=== PATIENT | male | born 1945 | race Caucasian/White ===

== ENCOUNTER 2018-11-10 12:02 | Emergency (ER) | payer OTHER ==
[2018-11-10 13:55] LABS: Urine Blood NEGATIVE (NEG); Urine Glucose NEGATIVE (NEG); Urine Protein NEGATIVE (NEG); Urine pH 5.5 (5.0-7.0)
[2018-11-10] MEDS ORDERED: ONDANSETRON 4 MG/2 ML VIAL ONE (15:14)
[2018-11-10] MEDS ORDERED: NA CHLORIDE 0.9% 1,000 ML ONE (15:14)
[2018-11-10 15:25] LABS: Absolute Lymphocytes (CBC) 3.2 K/uL (0.7-4.9); Basophils % 0.5 % (0-1.3); Hematocrit 35.6 % (39.6-49.0); Lymphocytes % 35.5 % (15.3-44.8); MPV 8.1 fL (7.6-11.3); RBC Red Blood Cell Count 3.43 M/uL (4.33-5.43)
[2018-11-10 15:26] LABS: Protime INR 1.02
[2018-11-10 15:30] LABS: Urine Amorphous Sediment 1+ /HPF (NONE SEEN); Urine Bacteria <20 /HPF (NONE SEEN); Urine Culture Reflex Order NOT NEEDED; Urine RBC <5 /HPF (NONE SEEN)
[2018-11-10 15:38] LABS: ALT/SGPT 34 U/L (12-78); AST/SGOT 18 U/L (15-37); Albumin 3.9 g/dL (3.4-5.0); Alkaline Phosphatase 66 U/L (45-117); BUN Blood Urea Nitrogen 14 mg/dL (7-18); Bicarbonate 29 mmol/L (21-32); Bilirubin Direct 0.1 mg/dL (0-0.2); Bilirubin Total 0.4 mg/dL (0.2-1.0); Glucose Level 126 mg/dL (74-106); Magnesium 2.4 mg/dL (1.8-2.4); Potassium 4.2 mmol/L (3.5-5.1); Protein, Total 6.8 g/dL (6.4-8.2); Sodium Level 138 mmol/L (136-145); Troponin (Emerg Dept Use Only) < 0.02 ng/mL (0.0-0.045)
[2018-11-10] MEDS ORDERED: MORPHINE 4 MG/ML SYR ONE ×2 (16:04→19:20)
--- NOTE | 2018-11-10 16:09 | RAD REPORT ---
EXAM DESCRIPTION: CT - Head Brain Wo Cont - 11/10/2018 3:36 pm CLINICAL HISTORY: Dizziness. Head injury status post fall COMPARISON: 2015 TECHNIQUE: Computed axial tomography of the head was obtained. IV contrast was not requested. All CT scans are performed using dose optimization technique as appropriate and may include automated exposure control or mA/KV adjustment according to patient size. FINDINGS: An intracranial bleed is not seen . The ventricles are normal in caliber. No extra-axial fluid collection is noted. Fluid within the sinuses/ mastoids is not seen. IMPRESSION: No acute intracranial abnormality is seen. If patient's symptoms persist MRI of the bra in would be recommended.
--- NOTE | 2018-11-10 16:19 | RAD REPORT ---
EXAM DESCRIPTION: Conner Single View11/10/2018 3:54 pm CLINICAL HISTORY: Chest pain COMPARISON: 2016 FINDINGS: The lungs appear clear of acute infiltrate. The heart is normal size IMPRESSION: No acute abnormalities displayed
--- NOTE | 2018-11-10 16:21 | RAD REPORT ---
EXAM DESCRIPTION: Eleonora11/10/2018 3:53 pm CLINICAL HISTORY: Back pain status post fall FINDINGS: Osteoporosis No fracture is seen
--- NOTE | 2018-11-10 16:22 | RAD REPORT ---
EXAM DESCRIPTION: RAD - Pelvis - 11/10/2018 3:54 pm CLINICAL HISTORY: Pelvic pain status post injury FINDINGS: No fracture or dislocation is seen. Osteoporosis If the patient continues to have symptoms to suggest an occult fracture then MRI would be recommended
--- NOTE | 2018-11-10 18:57 | RAD REPORT ---
EXAM DESCRIPTION: MRI - Brain Wo Cont - 11/10/2018 6:26 pm CLINICAL HISTORY: Ataxia COMPARISON: Head CT November 10, 2017 TECHNIQUE: Axial, sagittal, and coronal magnetic images of the brain were obtained. Contrast was not requested FINDINGS: No significant abnormal signal is present within the brain. Diffusion-weighted/ADC mapping does not reveal evidence of acute infarction. Mild cerebral atrophy An extra-axial fluid collection is not present The sinuses and mastoids are clear. IMPRESSION: No acute abnormality displayed
--- NOTE | 2018-11-10 19:21 | EDPHYS ---
Physician Documentation [facility] Name: Dylon Hannon Age: 73 yrs Sex: Male : 1945 Arrival Date: 11/10/2018 Time: 12:06 Bed 30 Private MD: ED Physician Mingo Howe HPI: 11/10 17:40 This 73 yrs old Male presents to ER via Ambulatory with complaints of Fall wa Injury, Headache, Dizziness, tailbone pain. 17:40 Details of fall: The patient fell from an upright position, while walking. Onset: The wa symptoms/episode began/occurred 3 day(s) ago. Associated injuries: The patient sustained injury to the head, tailbone. Severity of symptoms: At their worst the symptoms were moderate, in the emergency department the symptoms are unchanged. The patient has not experienced similar symptoms in the past. The patient has not recently seen a physician. pt admits to getting dizzy prior to fall. per caregiver, pt has been falling lately and unsteady on his feet. c/o posterior scalp pain. also tailbone pain. Historical: - Allergies: 12:15 No Known Allergies; hb - Home Meds: 13:51 Adalimumab 40mg/.08ml Inj Pen Kit--Inject under the skin every week [Active]; mg2 Amlodipine-Beslylate 5mg PO Daily [Active]; Biscadoyl 5mg EC Daily PRN [Active]; Bupropion HCL 150mg BID [Active]; Calcium Carb 500mg PO TID [Active]; Citalopram Hydrobromide 40mg PO daily with food [Active]; Fineastride 5mg PO Daily [Active]; Folic Acid 1mg PO Daily [Active]; Levothyrozine NA 0.075 mg Daily [Active]; Lisiniprol 20mg PO Daily [Active]; [id number] PO Daily [Active]; Metformin 500mg PO Daily [Active]; Methotrexate NA 2.5mg Take 4 tabs PO Every Week [Active]; Opt Needle, Pen 31G, 8MMM use as directed for Injection Therapy [Active]; Oxybutynin Chloride 5mg PO Daily [Active]; Pyridoxine HCL 50mg Daily [Active]; Sildenafil Citrate 100mg PO PRN [Active]; Simvastatin 80mg PO QHS [Active]; Sulfasalazine 500mg PO BID [Active]; Tamusolosin HCL 0.4mg Daily [Active]; Teriparatide 250mcg/ml --Inject 20mcg daily [Active]; trazodone 100 mg Oral tab 1 tab [Active]; zolpidem 10 mg Oral tab [Active]; - PMHx: 13:52 BPH; Depression; Erectile Dysfunction; High Cholesterol; Hyperlipidemia; Osteoporosis; mg2 Psoriatic Arthritis; - Social history:: Smoking status: Patient/guardian denies using tobacco. - Ebola Screening: : No symptoms or risks identified at this time. - Family history:: not pertinent. - Hospitalizations: : No recent hospitalization is reported. ROS: 17:43 Constitutional: Negative for fever, chills, and weight loss, Eyes: Negative for injury, wa pain, redness, and discharge, ENT: Negative for injury, pain, and discharge, Neck: Negative for injury, pain, and swelling, Cardiovascular: Negative for chest pain, palpitations, and edema, Respiratory: Negative for shortness of breath, cough, wheezing, and pleuritic chest pain, Abdomen/GI: Negative for abdominal pain, nausea, vomiting, diarrhea, and constipation, : Negative for injury, bleeding, discharge, and swelling, MS/Extremity: Negative for injury and deformity, Skin: Negative for injury, rash, and discoloration, Neuro: Negative for headache, weakness, numbness, tingling, and seizure, Psych: Negative for depression, anxiety, suicide ideation, homicidal ideation, and hallucinations. 17:43 Back: Positive for pain at rest, of the sacrum. Exam: 17:43 Constitutional: This is a well developed, well nourished patient who is awake, alert, wa and in no acute distress. Head/Face: Normocephalic, atraumatic. Eyes: Pupils equal round and reactive to light, extra-ocular motions intact. Lids and lashes normal. Conjunctiva and sclera are non-icteric and not injected. Cornea within normal limits. Periorbital areas with no swelling, redness, or edema. ENT: Nares patent. No nasal discharge, no septal abnormalities noted. Tympanic membranes are normal and external auditory canals are clear. Oropharynx with no redness, swelling, or masses, exudates, or evidence of obstruction, uvula midline. Mucous membranes moist. Neck: Trachea midline, no thyromegaly or masses palpated, and no cervical lymphadenopathy. Supple, full range of motion without nuchal rigidity, or vertebral point tenderness. No Meningismus. Chest/axilla: Normal chest wall appearance and motion. Nontender with no deformity. No lesions are appreciated. Cardiovascular: Regular rate and rhythm with a normal S1 and S2. No gallops, murmurs, or rubs. Normal PMI, no JVD. No pulse deficits. Respiratory: Lungs have equal breath sounds bilaterally, clear to auscultation and percussion. No rales, rhonchi or wheezes noted. No increased work of breathing, no retractions or nasal flaring. Abdomen/GI: Soft, non-tender, with normal bowel sounds. No distension or tympany. No guarding or rebound. No evidence of tenderness throughout. Skin: Warm, dry with normal turgor. Normal color with no rashes, no lesions, and no evidence of cellulitis. MS/ Extremity: Pulses equal, no cyanosis. Neurovascular intact. Full, normal range of motion. Psych: Awake, alert, with orientation to person, place and time. Behavior, mood, and affect are within normal limits. 17:43 Back: pain, that is moderate, of the sacrum. 17:49 Neuro: Exam negative for Orientation: is normal, Mentation: is normal, Memory: is wa normal, Cranial nerves: grossly normal, Cerebellar function: Romberg testing is negative, normal finger to nose testing, heel to rolle testing is normal, able to perform alternating rapid hand movements, passes cerebellar exam although very subtle bilateral dysmetria present , Motor: is normal. Vital Signs: 12:15 BP 136 / 69; Pulse 56; Resp 16; Temp 97.3; Pulse Ox 100% on R/A; Weight 80.29 kg; hb Height 5 ft. 11 in. (180.34 cm); Pain 9/10; 13:48 BP 149 / 64; Pulse 58; Resp 18; Pulse Ox 100% on R/A; mg2 14:35 BP 143 / 66; Pulse 58; Resp 18; Pulse Ox 100% on R/A; mg2 17:25 BP 161 / 80; Pulse 57; Resp 18; Pulse Ox 100% on R/A; mg2 12:15 Body Mass Index 24.69 (80.29 kg, 180.34 cm) hb MDM: 13:35 Patient medically screened. 17:44 Differential diagnosis: closed head injury, contusion, fracture, sprain, strain, r/o wa posterior fossa stroke. will eval. Data reviewed: vital signs, nurses notes. 17:46 Test interpretation: by ED physician or midlevel provider: EKG: interp by me: HR 55. dc sinus. juan. no acute zonal ischemic concerns. 17:49 Test interpretation: by ED physician or midlevel provider: labs noted wnl. . ED course: dc will obtain MRI r/o CVA. 17:51 Response to treatment: the patient's symptoms have markedly improved after treatment. 19:17 Test interpretation: by ED physician or midlevel provider: MRI brain: no acute process. 11/10 13:26 Order name: Urine Dipstick--Ancillary (enter results); Complete Time: 16:17 11/10 14:56 Order name: Basic Metabolic Panel; Complete Time: 16:17 dc 11/10 14:56 Order name: CBC with Diff; Complete Time: 16:17 dc 11/10 14:56 Order name: Hepatic Function; Complete Time: 16:18 dc 11/10 14:56 Order name: Magnesium; Complete Time: 16:18 dc 11/10 14:56 Order name: Protime (+inr); Complete Time: 16:18 dc 11/10 14:56 Order name: Troponin (emerg Dept Use Only); Complete Time: 16:18 dc 11/10 14:56 Order name: Urine Microscopic Only; Complete Time: 16:18 dc 11/10 14:59 Order name: XRAY Pelvis; Complete Time: 16:44 dc 11/10 14:59 Order name: XRAY Sacrum And Coccyx; Complete Time: 16:44 dc 11/10 15:00 Order name: Head Brain Wo Cont CT; Complete Time: 16:17 dc 11/10 15:52 Order name: Chest Single View; Complete Time: 16:44 EDDE 11/10 17:22 Order name: MRI - Brain Wo Cont; Complete Time: 19:09 dc 11/10 14:52 Order name: Diet Regular; Complete Time: 14:53 11/10 14:56 Order name: EKG; Complete Time: 14:58 dc 11/10 14:56 Order name: Cardiac monitoring; Complete Time: 15:16 dc 11/10 14:56 Order name: EKG - Nurse/Tech; Complete Time: 15:16 dc 11/10 14:56 Order name: IV Saline Lock; Complete Time: 15:16 dc 11/10 14:56 Order name: Labs collected and sent; Complete Time: 15:16 dc 11/10 14:56 Order name: NPO; Complete Time: 15:16 dc 11/10 14:56 Order name: O2 Sat Monitoring; Complete Time: 15:17 dc 11/10 14:56 Order name: Urine Dipstick-Ancillary (obtain specimen); Complete Time: 15:17 dc Administered Medications: 15:24 Not Given (Patient Refused): Tylenol 1000 mg PO once mg2 15:26 Drug: NS 0.9% 1000 ml Route: IV; Rate: 1 bolus; Site: right antecubital; mg2 16:30 Follow up: Response: No adverse reaction; IV Status: Completed infusion; IV Intake: mg2 1000ml 15:26 Drug: Zofran 4 mg Route: IVP; Site: right antecubital; mg2 16:00 Follow up: Response: No adverse reaction; Marked relief of symptoms mg2 16:10 Drug: morphine 4 mg Route: IVP; Site: right antecubital; mg2 16:20 Follow up: Response: No adverse reaction; Marked relief of symptoms; RASS: Alert and mg2 Calm (0) 19:32 Drug: morphine 4 mg Route: IVP; Site: right antecubital; mg2 19:32 Follow up: Response: Medication administered at discharge.; RASS: Alert and Calm (0) mg2 Disposition: 11/10/18 19:19 Discharged to Home. Impression: fall, acute coccygeal sprain, dysequilibrium. - Condition is Stable. - Discharge Instructions: Fall Prevention in the Home, Xjcd-in-[id number], Dizziness, [id number]-[id number]. - Medication Reconciliation Form, Thank You Letter, Antibiotic Education, Prescription Opioid Use form. - Follow up: Jluis Ascencio MD; When: 1 - 2 days; Reason: Recheck today's complaints. - Problem is new. - Symptoms have improved. - Notes: follow up with the neurologist. return for any worsening concerns Signatures: Dispatcher [employer] EDDE Jessica Barrios RN RN Carley, Mingo, MD MD wa Gardose, Jose Miguel, RN RN mg2 Corrections: (The following items were deleted from the chart) 15:52 14:59 Chest Pa And Lat (2 Views)+[email or web address] ordered. [facility] EDMS 19:33 19:19 11/10/2018 19:19 Discharged to Home. Impression: fall; acute coccygeal sprain; mg2 dysequilibrium. Condition is Stable. Forms are Medication Reconciliation Form, Thank You Letter, Antibiotic Education, Prescription Opioid Use. Follow up: Jluis Ascencio; When: 1 - 2 days; Reason: Recheck today's complaints. Problem is new. Symptoms have improved. wa
--- NOTE | 2018-11-10 19:21 | ER ---
Nurse's Notes [facility] Name: Dylon Hannon Age: 73 yrs Sex: Male : 1945 Arrival Date: 11/10/2018 Time: 12:06 Bed 30 Private MD: Diagnosis: fall;acute coccygeal sprain;dysequilibrium Presentation: 11/10 12:13 Presenting complaint: Dizziness and tailbone pain after fall from standing 2 days ago. hb Transition of care: patient was not received from another setting of care. Onset of symptoms was November 08, 2018. Risk Assessment: Do you want to hurt yourself or someone else? Patient reports no desire to harm self or others. Initial Sepsis Screen: Does the patient meet any 2 criteria? No. Patient's initial sepsis screen is negative. Does the patient have a suspected source of infection? No. Patient's initial sepsis screen is negative. Care prior to arrival: None. 12:13 Method Of Arrival: Ambulatory hb 12:13 Acuity: STEPHANIE 3 hb Historical: - Allergies: 12:15 No Known Allergies; hb - Home Meds: 13:51 Adalimumab 40mg/.08ml Inj Pen Kit--Inject under the skin every week [Active]; mg2 Amlodipine-Beslylate 5mg PO Daily [Active]; Biscadoyl 5mg EC Daily PRN [Active]; Bupropion HCL 150mg BID [Active]; Calcium Carb 500mg PO TID [Active]; Citalopram Hydrobromide 40mg PO daily with food [Active]; Fineastride 5mg PO Daily [Active]; Folic Acid 1mg PO Daily [Active]; Levothyrozine NA 0.075 mg Daily [Active]; Lisiniprol 20mg PO Daily [Active]; [id number] PO Daily [Active]; Metformin 500mg PO Daily [Active]; Methotrexate NA 2.5mg Take 4 tabs PO Every Week [Active]; Opt Needle, Pen 31G, 8MMM use as directed for Injection Therapy [Active]; Oxybutynin Chloride 5mg PO Daily [Active]; Pyridoxine HCL 50mg Daily [Active]; Sildenafil Citrate 100mg PO PRN [Active]; Simvastatin 80mg PO QHS [Active]; Sulfasalazine 500mg PO BID [Active]; Tamusolosin HCL 0.4mg Daily [Active]; Teriparatide 250mcg/ml --Inject 20mcg daily [Active]; trazodone 100 mg Oral tab 1 tab [Active]; zolpidem 10 mg Oral tab [Active]; - PMHx: 13:52 BPH; Depression; Erectile Dysfunction; High Cholesterol; Hyperlipidemia; Osteoporosis; mg2 Psoriatic Arthritis; - Social history:: Smoking status: Patient/guardian denies using tobacco. - Ebola Screening: : No symptoms or risks identified at this time. - Family history:: not pertinent. - Hospitalizations: : No recent hospitalization is reported. Screenin:40 Abuse screen: Denies threats or abuse. Denies injuries from another. Nutritional mg2 screening: No deficits noted. Tuberculosis screening: No symptoms or risk factors identified. Fall Risk Fall in past 12 months (25 points). Assessment: 13:40 General: Appears in no apparent distress. comfortable, Behavior is calm, cooperative. mg2 Pain: Complains of pain in back Pain does not radiate. Pain currently is 5 out of 10 on a pain scale. Quality of pain is described as aching, Pain began gradually. Neuro: Level of Consciousness is awake, alert, obeys commands, Oriented to person, place, time, situation. Cardiovascular: Capillary refill < 3 seconds Patient's skin is warm and dry. Respiratory: Airway is patent Respiratory effort is even, unlabored, Respiratory pattern is regular, symmetrical. GI: No signs and/or symptoms were reported involving the gastrointestinal system. : EENT: No signs and/or symptoms were reported regarding the EENT system. Derm: Skin is intact, is healthy with good turgor, Skin is pink, warm \T\ dry. normal. Musculoskeletal: Circulation, motion, and sensation intact. Capillary refill < 3 seconds, Reports pain in back. 14:36 Reassessment: dr martin at bedside examining the patient. mg2 15:55 Reassessment: patient still in xray. mg2 17:41 Reassessment: Point of Contact: Margot Crowley (Caregiver)- [phone]. ss 18:10 Reassessment: patient sent to MRI via stretcher. mg2 Vital Signs: 12:15 BP 136 / 69; Pulse 56; Resp 16; Temp 97.3; Pulse Ox 100% on R/A; Weight 80.29 kg; hb Height 5 ft. 11 in. (180.34 cm); Pain 9/10; 13:48 BP 149 / 64; Pulse 58; Resp 18; Pulse Ox 100% on R/A; mg2 14:35 BP 143 / 66; Pulse 58; Resp 18; Pulse Ox 100% on R/A; mg2 17:25 BP 161 / 80; Pulse 57; Resp 18; Pulse Ox 100% on R/A; mg2 12:15 Body Mass Index 24.69 (80.29 kg, 180.34 cm) hb ED Course: 12:06 Patient arrived in ED. mr 12:14 Triage completed. hb 12:15 Arm band placed on left wrist. EKG completed in triage. Results shown to MD. EKG hb completed in triage. Results shown to MD. 12:55 Jose Miguel Parra, RN is Primary Nurse. mg2 13:35 Mingo Martin MD is Attending Physician. wa 13:40 No provider procedures requiring assistance completed. mg2 13:42 Placed in gown. mg2 15:19 EKG done, by technology professional. reviewed by Mingo Martin MD. sm3 15:26 Inserted saline lock: 20 gauge in right antecubital area, using aseptic technique. mg2 Blood collected. 15:37 Head Brain Wo Cont CT In Process Unspecified. EDMS 15:52 XRAY Pelvis In Process Unspecified. EDMS 15:52 XRAY Sacrum And Coccyx In Process Unspecified. EDMS 15:53 Chest Single View In Process Unspecified. EDMS 18:19 MRI - Brain Wo Cont In Process Unspecified. EDMS 19:19 Jluis sAcencio MD is Referral Physician. wa 19:32 IV discontinued, intact, bleeding controlled, No redness/swelling at site. Pressure mg2 dressing applied. Administered Medications: 15:24 Not Given (Patient Refused): Tylenol 1000 mg PO once mg2 15:26 Drug: NS 0.9% 1000 ml Route: IV; Rate: 1 bolus; Site: right antecubital; mg2 16:30 Follow up: Response: No adverse reaction; IV Status: Completed infusion; IV Intake: mg2 1000ml 15:26 Drug: Zofran 4 mg Route: IVP; Site: right antecubital; mg2 16:00 Follow up: Response: No adverse reaction; Marked relief of symptoms mg2 16:10 Drug: morphine 4 mg Route: IVP; Site: right antecubital; mg2 16:20 Follow up: Response: No adverse reaction; Marked relief of symptoms; RASS: Alert and mg2 Calm (0) 19:32 Drug: morphine 4 mg Route: IVP; Site: right antecubital; mg2 19:32 Follow up: Response: Medication administered at discharge.; RASS: Alert and Calm (0) mg2 Intake: 16:30 IV: 1000ml; Total: 1000ml. mg2 Outcome: 19:19 Discharge ordered by . maged 19:32 Discharged to home via wheelchair. mg2 19:32 Condition: stable 19:32 Discharge instructions given to patient, Instructed on discharge instructions, follow up and referral plans. Demonstrated understanding of instructions, follow-up care. 19:33 Patient left the ED. mg2 Signatures: Dispatcher [employer] EDWY Kg Carol Brandy Black, RN RN Jessica Barrios RN RN Mingo Martin MD MD wa Gardose, Michele, RN RN [facility] Sallie Gannon sm3 Corrections: (The following items were deleted from the chart) 15:27 13:40 Patient did not have IV access during this emergency room visit. mg2 mg2 17:39 17:25 Pulse 57bpm; Resp 18bpm; Pulse Ox 100% RA; mg2 mg2
--- NOTE | 2018-11-11 07:37 | EKG ---
Test Date: 2018-11-10 Test Time: 15:11:28 Order Packer: MATA MEASUREMENT RESULTS: Intervals: Rate: 55 NC: 172 QRSD: 80 QT: 418 QTc: 399 [place]: P: 67 NC: 172 QRS: 50 T: 56 INTERPRETIVE STATEMENTS: Sinus bradycardia Otherwise normal ECG Compared to ECG 08/10/2015 17:25:01 Sinus rhythm no longer present Electronically Signed On 11-11-18 07:36:53 CDT by James Omer
== END 2018-11-10 19:33 | disposition home or self-care (01) ==
LOC: ER 12:02
DX: S33.8XXA Sprain of other parts of lumbar spine and pelvis, initial encounter (principal); R42 Dizziness and giddiness; W19.XXXA Unspecified fall, initial encounter; Y93.01 Activity, walking, marching and hiking; Y92.9 Unspecified place or not applicable; E78.5 Hyperlipidemia, unspecified; E78.00 Pure hypercholesterolemia, unspecified; F32.9 Major depressive disorder, single episode, unspecified
CPT/HCPCS: 96361; 93005; 85025; 80048; 36415; 83735; 85610; 80076; 84484; 70450; 71045; 72220; 72170; 70551; 96375; 96374; 99284; J7030; J2405; 81003; 81015

== ENCOUNTER 2019-10-06 15:56 | Emergency (ER) | payer OTHER ==
[2019-10-06 16:41] LABS: Absolute Lymphocytes (CBC) 3.1 K/uL (0.7-4.9); Basophils % 1.3 % (0-1.3); Hematocrit 37.3 % (39.6-49.0); Lymphocytes % 36.5 % (15.3-44.8); MPV 7.9 fL (7.6-11.3); RBC Red Blood Cell Count 3.59 M/uL (4.33-5.43)
[2019-10-06 16:49] LABS: Protime INR 1.03
--- NOTE | 2019-10-06 16:49 | RAD REPORT ---
EXAM DESCRIPTION: CT - Head Brain Wo Cont - 10/06/2019 4:42 pm CLINICAL HISTORY: DIZZINESS Headache, drowsiness COMPARISON: Head Brain Wo Cont dated 11/10/2018; Brain Wo Cont dated 11/10/2018 TECHNIQUE: All CT scans are performed using dose optimization technique as appropriate and may inclu de automated exposure control or mA/KV adjustment according to patient size. FINDINGS: No intracranial hemorrhage, hydrocephalus or extra-axial fluid collection.Moderate general ized brain atrophy.No areas of brain edema or evidence of midline shift. Left vertebral artery is ath erosclerotic. The paranasal sinuses and mastoids are clear. The calvarium is intact. IMPRESSION: No acute intracranial abnormality.
[2019-10-06 16:59] LABS: Potassium 3.5 mmol/L (3.5-5.1)
--- NOTE | 2019-10-06 17:24 | ER ---
Nurse's Notes [facility] Name: Dylon Hannon Age: 74 yrs Sex: Male : 1945 Arrival Date: 10/06/2019 Time: 16:02 Bed 3 Private MD: Diagnosis: Dizziness and giddiness Presentation: 10/05 16:02 Chief complaint: EMS states: was called out after being called from [place] for having a em brain bleed, was at [place] office about 3 hours ago and was called about 30 minutes ago and told to call 911 and head to hospital because he had a brain bleed, reports slight dizziness but has had that for weeks, denies pain, nausea and vomiting. Coronavirus screen: Proceed with normal triage. Ebola Screen: Patient negative for fever greater than or equal to 101.5 degrees Fahrenheit, and additional compatible Ebola Virus Disease symptoms Patient denies exposure to infectious person. Patient denies travel to an Ebola-affected area in the 21 days before illness onset. No symptoms or risks identified at this time. Initial Sepsis Screen: Does the patient meet any 2 criteria? No. Patient's initial sepsis screen is negative. Does the patient have a suspected source of infection? No. Patient's initial sepsis screen is negative. Risk Assessment: Do you want to hurt yourself or someone else? Patient reports no desire to harm self or others. Onset of symptoms was October 06, 2019. 16:02 Method Of Arrival: EMS: [facility] em 16:02 Acuity: STEPHANIE 2 em Historical: - Allergies: 16:05 No Known Allergies; em - PMHx: 16:05 BPH; Psoriatic Arthritis; Hyperlipidemia; Osteoporosis; High Cholesterol; Depression; em Erectile Dysfunction; - Immunization history:: Adult Immunizations up to date. - Social history:: Smoking status: Patient reports the use of cigarette tobacco products, smokes one-half pack cigarettes per day. Screenin:05 Abuse screen: Denies threats or abuse. Denies injuries from another. Nutritional sv screening: No deficits noted. Tuberculosis screening: No symptoms or risk factors identified. Fall Risk None identified. Assessment: 16:02 General: Appears in no apparent distress. comfortable, Behavior is calm, cooperative, em appropriate for age, Denies fever. Pain: Denies pain. Neuro: Level of Consciousness is awake, alert, obeys commands, Oriented to person, place, time, situation, Appropriate for age Reports dizziness, since "for weeks" Denies paresthesias headache. Cardiovascular: Capillary refill < 3 seconds Patient's skin is warm and dry. Respiratory: Airway is patent Respiratory effort is even, unlabored, Respiratory pattern is regular, symmetrical. GI: Abdomen is flat, Patient currently denies nausea, vomiting. Derm: Skin is intact, is fragile, is thin, Skin is pink, warm \\T\\ dry. Musculoskeletal: Capillary refill < 3 seconds, Range of motion: intact in all extremities. 17:20 Reassessment: BGL 59, provider notified, gave chips, apple juice and sandwich, pt ate em 100%. 17:42 Reassessment: spoke with Jamila at [phone] states, "would like for [place] to be em contacted before being discharged to their care because of their results show a brain bleed, Mr. Hannon is an incompetent individual, do not feel comfortable coming to pick him up and discharging him.". 18:04 Reassessment: ANU Bush has spoke with Jamila about pt being discharged, Margot from [facility] will take pt home. Vital Signs: 16:02 BP 143 / 64; Pulse 59; Resp 18; Temp 97.3; Pulse Ox 99% on R/A; Weight 76.66 kg; Height em 5 ft. 11 in. (180.34 cm); Pain 0/10; 17:00 BP 161 / 81; Pulse 77; Resp 18; Pulse Ox 96% ; sv 16:02 Body Mass Index 23.57 (76.66 kg, 180.34 cm) em ED Course: 16:02 Patient arrived in ED. em 16:05 Triage completed. em 16:05 Arm band placed on. em 16:05 Patient has correct armband on for positive identification. Bed in low position. Call sv light in reach. Side rails up X2. Pulse ox on. NIBP on. 16:07 Del [place], MALIA is Primary Nurse. em 16:11 Eleazar Shepard PA is PHCP. jr8 16:11 Jorje Adams MD is Attending Physician. jr8 16:30 Initial lab(s) drawn, by nh, sent to lab. Inserted saline lock: 20 gauge in right em antecubital area, using aseptic technique. Blood collected. 16:42 Head Brain Wo Cont CT In Process Unspecified. EDMS 17:23 Jluis Ascencio MD is Referral Physician. jr8 18:30 No provider procedures requiring assistance completed. IV discontinued, intact, em bleeding controlled, No redness/swelling at site. Pressure dressing applied. Administered Medications: No medications were administered Outcome: 17:23 Discharge ordered by MD. jr8 18:31 Discharged to home ambulatory, with [place] em 18:31 Condition: good 18:31 Discharge instructions given to patient, Instructed on discharge instructions, follow up and referral plans. medication usage, Demonstrated understanding of instructions, follow-up care, medications, Prescriptions given X 1. 18:31 Patient left the ED. em Signatures: Dispatcher [employer] EDCharisse Harp, MALIA RN Del Teague RN RN em Eleazar Shepard PA PA jr8
--- NOTE | 2019-10-06 17:24 | EDPHYS ---
Physician Documentation [facility] Name: Dylon Hannon Age: 74 yrs Sex: Male : 1945 Arrival Date: 10/06/2019 Time: 16:02 Bed 3 Private MD: ED Physician Jorje Adams HPI: 10/05 17:19 This 74 yrs old Male presents to ER via EMS with complaints of Sent over from [facility] for possible Head bleed. 17:19 Patient stated that he had been having aggression issues for past several months. [facility] Recently started to have dizziness. Stated that [place] ordered a head CT. Called him today saying he had head bleed and was sent to ED for further evaluation. Denies any other symptoms at this time . Severity of symptoms: At their worst the symptoms were mild in the emergency department the symptoms are unchanged. The patient has not experienced similar symptoms in the past. The patient has been recently seen by a physician:. Historical: - Allergies: 16:05 No Known Allergies; em - PMHx: 16:05 BPH; Psoriatic Arthritis; Hyperlipidemia; Osteoporosis; High Cholesterol; Depression; em Erectile Dysfunction; - Immunization history:: Adult Immunizations up to date. - Social history:: Smoking status: Patient reports the use of cigarette tobacco products, smokes one-half pack cigarettes per day. ROS: 17:19 Eyes: Negative for injury, pain, redness, and discharge, ENT: Negative for injury, jr8 pain, and discharge, Neck: Negative for injury, pain, and swelling, Cardiovascular: Negative for chest pain, palpitations, and edema, Respiratory: Negative for shortness of breath, cough, wheezing, and pleuritic chest pain, Abdomen/GI: Negative for abdominal pain, nausea, vomiting, diarrhea, and constipation, Back: Negative for injury and pain, MS/Extremity: Negative for injury and deformity, Skin: Negative for injury, rash, and discoloration. 17:19 Neuro: Positive for dizziness. 17:19 Psych: Positive for affect changes. Exam: 17:19 Eyes: Pupils equal round and reactive to light, extra-ocular motions intact. Lids and jr8 lashes normal. Conjunctiva and sclera are non-icteric and not injected. Cornea within normal limits. Periorbital areas with no swelling, redness, or edema. ENT: Nares patent. No nasal discharge, no septal abnormalities noted. Tympanic membranes are normal and external auditory canals are clear. Oropharynx with no redness, swelling, or masses, exudates, or evidence of obstruction, uvula midline. Mucous membranes moist. Neck: Trachea midline, no thyromegaly or masses palpated, and no cervical lymphadenopathy. Supple, full range of motion without nuchal rigidity, or vertebral point tenderness. No Meningismus. Cardiovascular: Regular rate and rhythm with a normal S1 and S2. No gallops, murmurs, or rubs. Normal PMI, no JVD. No pulse deficits. Respiratory: Lungs have equal breath sounds bilaterally, clear to auscultation and percussion. No rales, rhonchi or wheezes noted. No increased work of breathing, no retractions or nasal flaring. Abdomen/GI: Soft, non-tender, with normal bowel sounds. No distension or tympany. No guarding or rebound. No evidence of tenderness throughout. Back: No spinal tenderness. No costovertebral tenderness. Full range of motion. Skin: Warm, dry with normal turgor. Normal color with no rashes, no lesions, and no evidence of cellulitis. MS/ Extremity: Pulses equal, no cyanosis. Neurovascular intact. Full, normal range of motion. Neuro: Awake and alert, GCS 15, oriented to person, place, time, and situation. Cranial nerves II-XII grossly intact. Motor strength 5/5 in all extremities. Sensory grossly intact. Cerebellar exam normal. Normal gait. Psych: Awake, alert, with orientation to person, place and time. Behavior, mood, and affect are within normal limits. Vital Signs: 16:02 BP 143 / 64; Pulse 59; Resp 18; Temp 97.3; Pulse Ox 99% on R/A; Weight 76.66 kg; Height em 5 ft. 11 in. (180.34 cm); Pain 0/10; 17:00 BP 161 / 81; Pulse 77; Resp 18; Pulse Ox 96% ; sv 16:02 Body Mass Index 23.57 (76.66 kg, 180.34 cm) em MDM: 16:11 Patient medically screened. [facility] 17:19 Data reviewed: vital signs, nurses notes, lab test result(s), EKG, radiologic studies, [facility] CT scan. Data interpreted: Pulse oximetry: on room air is 96 %. Interpretation: normal. Counseling: I had a detailed discussion with the patient and/or guardian regarding: the historical points, exam findings, and any diagnostic results supporting the discharge/admit diagnosis, lab results, radiology results, the need for outpatient follow up, a neurologist, to return to the emergency department if symptoms worsen or persist or if there are any questions or concerns that arise at home. ED course: Discussed with patient that labs, ECG, and CT hear are normal. No sign of tumor, bleed, or edema intracranially. Recommended f/u with neurology for dizziness and recent mood and affect changes. Patient agreed and will f/u . 10/05 16:12 Order name: CBC with Diff; Complete Time: 16:53 8 10/05 16:12 Order name: Basic Metabolic Panel; Complete Time: 17:24 8 10/05 16:07 Order name: Head Brain Wo Cont CT; Complete Time: 16:53 em 10/05 16:12 Order name: Protime (+inr); Complete Time: 16:56 8 10/05 16:12 Order name: Ptt, Activated; Complete Time: 16:56 8 10/05 17:38 Order name: Glucose, Ancillary Testing; Complete Time: 18:06 EDMS 10/05 16:12 Order name: IV; Complete Time: 18:28 jr8 10/05 16:12 Order name: EKG - Nurse/Tech; Complete Time: 18:28 8 10/05 16:12 Order name: EKG; Complete Time: 16:13 jr8 Administered Medications: No medications were administered Disposition: 10/06 06:09 Co-signature as Attending Physician, Jorje Adams MD I agree with the assessment and kdr plan of care. Disposition: 10/06/19 17:23 Discharged to Home. Impression: Dizziness and giddiness. - Condition is Stable. - Discharge Instructions: Dizziness, Vertigo. - Prescriptions for Meclizine 25 mg Oral Tablet - take 1 tablet by ORAL route every 8 hours As needed; 30 tablet. - Medication Reconciliation Form, Thank You Letter, Antibiotic Education, Prescription Opioid Use form. - Follow up: Jluis Ascencio MD; When: 1 week; Reason: Recheck today's complaints, Continuance of care, Re-evaluation by your physician. - Problem is new. - Symptoms have improved. Signatures: Dispatcher [facility] EDMS Jorje Adams MD MD kdr Munoz, Edgar, RN RN em Eleazar Shepard PA PA jr8 Corrections: (The following items were deleted from the chart) 10/05 18:31 17:23 10/06/2019 17:23 Discharged to Home. Impression: Dizziness and giddiness. em Condition is Stable. Forms are Medication Reconciliation Form, Thank You Letter, Antibiotic Education, Prescription Opioid Use. Follow up: Jluis Ascencio; When: 1 week; Reason: Recheck today's complaints, Continuance of care, Re-evaluation by your physician. Problem is new. Symptoms have improved. jr8
[2019-10-06 18:48] VITALS: TEMP 97.3
[2019-10-06 18:49] VITALS: BP 161/81; O2SAT 96
--- NOTE | 2019-10-07 21:00 | EKG ---
Test Date: 2019-10-06 Test Time: 16:58:37 Swing Tender: HENRIQUE MEASUREMENT RESULTS: Intervals: Rate: 59 DC: 170 QRSD: 90 QT: 416 QTc: 411 [place]: P: 74 DC: 170 QRS: 73 T: 47 INTERPRETIVE STATEMENTS: Sinus bradycardia Otherwise normal ECG Compared to ECG 11/10/2018 15:11:28 No significant changes Electronically Signed On 10-07-19 20:57:08 CDT by Freddie Lala
== END 2019-10-06 18:31 | disposition home or self-care (01) ==
LOC: ER 15:56
DX: R42 Dizziness and giddiness (principal); F17.210 Nicotine dependence, cigarettes, uncomplicated
CPT/HCPCS: 36415; 70450; 80048; 82947; 85025; 85610; 85730; 93005; 99284

== ENCOUNTER 2020-06-18 15:32 | Emergency (ER) | payer OTHER ==
[2020-06-18] MEDS ORDERED: MORPHINE 4 MG/ML SYR ONE (16:10)
[2020-06-18] MEDS ORDERED: ONDANSETRON 4 MG/2 ML VIAL ONE (16:10)
[2020-06-18 16:15] LABS: Basophils % 1.3 % (0-1.3); Hematocrit 39.9 % (39.6-49.0); Lymphocytes % 38.2 % (15.3-44.8); MPV 7.5 fL (7.6-11.3); Protime INR 1.07; RBC Red Blood Cell Count 4.08 M/uL (4.33-5.43)
[2020-06-18 16:32] LABS: ALT/SGPT 29 U/L (12-78); AST/SGOT 23 U/L (15-37); Alkaline Phosphatase 81 U/L (45-117); BUN Blood Urea Nitrogen 14 mg/dL (7-18); Bicarbonate 27 mmol/L (21-32); Bilirubin Direct 0.1 mg/dL (0-0.2); Bilirubin Total 0.4 mg/dL (0.2-1.0); Glucose Level 89 mg/dL (74-106); Magnesium 2.4 mg/dL (1.8-2.4); NT PRO-BNP 309 pg/mL (<125); Potassium 3.9 mmol/L (3.5-5.1); Protein, Total 7.7 g/dL (6.4-8.2); Sodium Level 139 mmol/L (136-145); Troponin (Emerg Dept Use Only) < 0.02 ng/mL (0.0-0.045)
[2020-06-18] MEDS ORDERED: NOREPINEPHRINE 4mg/D5W 250mL 4 MG/250 ML BAG IV ONE (16:38)
--- NOTE | 2020-06-18 16:48 | RAD REPORT ---
EXAM DESCRIPTION: RAD - Humerus Left - 06/18/2020 3:53 pm CLINICAL HISTORY: Pain;Deformity COMPARISON: Chest Single View dated 11/10/2018; Facial Bones W/ Mpr dated 06/18/2020; Head C Spine Cap W Con dated 06/18/2020 FINDINGS: Mildly displaced spiral fracture of the proximal left humerus is seen. A dislocation is no t evident. Lateral left eighth rib demonstrates probable old fracture.
--- NOTE | 2020-06-18 16:50 | RAD REPORT ---
EXAM DESCRIPTION: RAD - Chest Single View - 06/18/2020 3:53 pm CLINICAL HISTORY: fall Chest pain. COMPARISON: Chest Single View dated 11/10/2018; Abdomen 1 View (KUB) dated 05/10/2017; Chest Single View dated 08/10/2015 FINDINGS: Portable technique limits examination quality. The lungs are grossly clear. The heart is normal in size. Left humerus fracture present.Mild bilatera l rib fractures.
[2020-06-18] MEDS ORDERED: FENTANYL CITR 100 MCG/2 ML ONE (16:51)
--- NOTE | 2020-06-18 17:08 | RAD REPORT ---
EXAM DESCRIPTION: CT - Head C Spine Cap W Con - 06/18/2020 4:35 pm CLINICAL HISTORY: Trauma, head and neck injury. Chest, abdomen and pelvis pain. fall COMPARISON: Head Brain Wo Cont dated 10/06/2019 TECHNIQUE: CT head without contrast. CT cervical spine without contrast with coronal and sagittal reformatted images. CT chest, abdomen and pelvis with IV contrast (approximately 100 mL nonionic IV contrast) with edward l and sagittal reformatted images of the spine. All CT scans are performed using dose optimization technique as appropriate and may include automated exposure control or mA/KV adjustment according to patient size. FINDINGS: CT HEAD WITHOUT CONTRAST: No intracranial hemorrhage, hydrocephalus or extra-axial fluid collection. No areas of brain edema o r midline shift. The paranasal sinuses and mastoids are clear. The calvarium is intact. CT CERVICAL SPINE WITHOUT CONTRAST: No fracture or subluxation. Moderate degenerative change involves the mid and lower cervical spine. T he prevertebral soft tissues are normal in thickness. CT CHEST, ABDOMEN, PELVIS WITH CONTRAST: The lungs are clear.No pneumothorax or pericardial/pleural fluid. No evidence of intra-abdominal visceral injury, free fluid or free air. No concerning pelvic findings. Fracture left humerus is noted. IMPRESSION: Left humerus fracture. No additional acute abnormality detected.
[2020-06-18] MEDS ORDERED: HYDROMORPHONE HCL 1 MG/ML INJ ONE (17:09)
[2020-06-18] MEDS ORDERED: NA CHLORIDE 0.9% 250 ML ONE (17:09)
--- NOTE | 2020-06-18 17:12 | RAD REPORT ---
EXAM DESCRIPTION: CT - CTFB CLINICAL HISTORY: FACIAL PAIN Trauma, pain to the face COMPARISON: No comparisons TECHNIQUE: Axial 2 mm thick images of the face were obtained with sagittal and coronal reconstructio n images. All CT scans are performed using dose optimization technique as appropriate and may include automated exposure control or mA/KV adjustment according to patient size. FINDINGS: No acute facial bone fracture is seen.The mandible is intact. The globes and orbital contents are grossly unremarkable.The paranasal sinuses and mastoids are clear . IMPRESSION: Negative for facial bone fracture.
--- NOTE | 2020-06-18 17:55 | ER ---
Nurse's Notes [facility] Name: Dylon Hannon Age: 75 yrs Sex: Male : 1945 Arrival Date: 06/18/2020 Time: 15:36 Bed 7 Private MD: Diagnosis: Syncope and collapse;Alcohol use, unspecified with intoxication;Displaced comminuted fracture of shaft of humerus, left arm Presentation: 06/18 15:36 Chief complaint: EMS states: Pt had witnessed [place] [facility], found by EMS on ground w/ ph obvious deformity to L upper arm, bleeding from the mouth, pt does not recall how fall happened, c/o some neck pain so c-collar placed, small abrasions noted to forehead and nose. Care prior to arrival: Cervical collar in place. Splint applied. Mechanism of Injury: Fall from standing position. Trauma event details: Injury occurred in the [facility], Injury occurred: in a public building. Injury occurred: June 18, 2020. 15:36 Acuity: STEPHANIE 3 ph 15:36 Method Of Arrival: EMS: [facility] ph 15:47 Coronavirus screen: Client denies travel out of the [place] in the last 14 days. At this ph time, the client does not indicate any symptoms associated with coronavirus-19. Ebola Screen: No symptoms or risks identified at this time. Initial Sepsis Screen: Does the patient meet any 2 criteria? No. Patient's initial sepsis screen is negative. Does the patient have a suspected source of infection? No. Patient's initial sepsis screen is negative. Risk Assessment: Do you want to hurt yourself or someone else? Patient reports no desire to harm self or others. Onset of symptoms was June 18, 2020. Trauma Activation: Alert Physician: ED Physician; Name: ; Notified At: ; Arrived At: Physician: General Surgeon; Name: ; Notified At: ; Arrived At: Physician: Radiology; Name: ; Notified At: ; Arrived At: Physician: Respiratory; Name: ; Notified At: ; Arrived At: Physician: Lab; Name: ; Notified At: ; Arrived At: Historical: - Allergies: 15:44 No Known Allergies; ph - Home Meds: 18:25 Adalimumab 40mg/.08ml Inj Pen Kit--Inject under the skin every week [Active]; ph Amlodipine-Beslylate 5mg PO Daily [Active]; Biscadoyl 5mg EC Daily PRN [Active]; Bupropion HCL 150mg BID [Active]; Calcium Carb 500mg PO TID [Active]; Citalopram Hydrobromide 40mg PO daily with food [Active]; Fineastride 5mg PO Daily [Active]; Folic Acid 1mg PO Daily [Active]; Levothyrozine NA 0.075 mg Daily [Active]; Lisiniprol 20mg PO Daily [Active]; [id number] PO Daily [Active]; Metformin 500mg PO Daily [Active]; Methotrexate NA 2.5mg Take 4 tabs PO Every Week [Active]; Opt Needle, Pen 31G, 8MMM use as directed for Injection Therapy [Active]; Oxybutynin Chloride 5mg PO Daily [Active]; Pyridoxine HCL 50mg Daily [Active]; Sildenafil Citrate 100mg PO PRN [Active]; Simvastatin 80mg PO QHS [Active]; Sulfasalazine 500mg PO BID [Active]; Tamusolosin HCL 0.4mg Daily [Active]; Teriparatide 250mcg/ml --Inject 20mcg daily [Active]; trazodone 100 mg Oral tab 1 tab [Active]; zolpidem 10 mg Oral tab [Active]; - PMHx: 15:44 BPH; Depression; Erectile Dysfunction; High Cholesterol; Hyperlipidemia; Osteoporosis; ph Psoriatic Arthritis; - Immunization history: Last tetanus immunization: unknown. - Social history:: Smoking status: Patient reports the use of cigarette tobacco products, smokes .25 packs per day. Screenin:41 Abuse screen: Denies threats or abuse. Denies injuries from another. Nutritional ph screening: No deficits noted. Tuberculosis screening: No symptoms or risk factors identified. Fall Risk Fall in past 12 months (25 points). No secondary diagnosis (0 pts). IV access (20 points). Ambulatory Aid- None/Bed Rest/Nurse Assist (0 pts). Gait- Normal/Bed Rest/Wheelchair (0 pts) Mental Status- Oriented to own ability (0 pts). Total Quesada Fall Scale indicates Low Risk Score (25-44 pts). Fall prevention measures have been instituted. Side Rails Up X 2 Placed close to Nursing Station Frequent Obs/Assesments occuring As available Patient and Family Educated on Fall Prevention Program and strategies. Primary Survey: 15:45 NO uncontrolled hemorrhage observed. A: The patient is alert. No supplemental oxygen in ph use on arrival. Oral cavity: blood present, blood is dried, no active bleeding noted. A: Airway: patent. Breathing/Chest: Respiratory effort: spontaneous, unlabored, Chest inspection: symmetrical rise and fall of the chest. Circulation: Skin color: pink, Skin temperature: warm, dry. Disability Alert. Exposure/Environment: There is no evidence of uncontrolled external bleeding. Obvious injury(ies) are noted at this time: deformity to TATYANA arm. 18:26 Reassessment Airway Airway Patent Breathing/Chest Respiratory pattern Regular ph Respiratory effort Spontaneous Unlabored Chest inspection Symmetrical Circulation Color Ai Temperature Warm Dry Disability Alert. Secondary Survey: 15:44 HEENT: Head Other small abrasion to forehead, no bleeding Nose: small abrasion to ph bridge of nose. Musculoskeletal: Bony deformity noted of left bicep. Assessment: 15:42 General: Appears in no apparent distress. uncomfortable, well groomed, Behavior is ph calm, cooperative, appropriate for age. Pain: Complains of pain in left bicep. Neuro: Level of Consciousness is awake, alert, obeys commands, Oriented to person, place, time, situation. EENT: dried blood noted on lips, small abrasion on bridge of nose. Cardiovascular: Capillary refill < 3 seconds in bilateral fingers Patient's skin is warm and dry. Respiratory: Airway is patent Respiratory effort is even, unlabored, Respiratory pattern is regular, symmetrical. GI: No signs and/or symptoms were reported involving the gastrointestinal system. Derm: Skin is healthy with good turgor, Skin is pink, warm \\T\\ dry. Musculoskeletal: Circulation, motion, and sensation intact. Injury Description: Abrasion sustained to forehead and nose. 16:00 Reassessment: lidar technician at bedside for IV start, pt angry, states, " This is bullshit, my ph arm hurts, why do you have to do that." Explained to pt that IV could be used for pain medications, c-collar noted to have ridden up onto pt's face and into mouth, removed collar to re-position, pt refusing to have collar placed back on." States, " That thing hurts, my arm hurts!!" Pt encouraged to stay still for IV start so that pain meds to be given and pt complied, offered to prop injured arm up on a pillow and place an ice pack on it, pt refused at this time. 16:19 Reassessment: Patient appears in no apparent distress at this time. Patient and/or family updated on plan of care and expected duration. Pain level reassessed. Patient is alert, oriented x 3, equal unlabored respirations, skin warm/dry/pink. Pt taken to CT via stretcher. 16:50 Reassessment: Notified by fuel storage technician that pt was yelling in pain and unable to keep still ph for CT scan, ERP notified and verbal order received from Dr Espitia fo 25 mcg Fentanyl, pt medicated in radiology and CT scans completed. 17:45 Reassessment: Patient appears in no apparent distress at this time. biosolids management technician and RN at bedside to apply splint to L arm, pt tolerating well. 18:26 Reassessment: Patient appears in no apparent distress at this time. Pt resting quietly ph w/ eyes closed, VSS. 18:35 Reassessment: Patient appears in no apparent distress at this time. Report called to [facility] ER, awaiting EMS for transport. 19:15 Reassessment: Patient appears in no apparent distress at this time. Patient and/or family updated on plan of care and expected duration. Pain level reassessed. Patient is alert, oriented x 3, equal unlabored respirations, skin warm/dry/pink. Vital Signs: 15:46 BP 156 / 100; Pulse 54; Resp 18; Temp 97.8; Pulse Ox 98% on R/A; Weight 76.66 kg; Height 5 ft. 11 in. (180.34 cm); 17:00 BP 163 / 101; Pulse 73; Resp 16; Pulse Ox 98% on R/A; 18:06 BP 139 / 68; Pulse 62; Resp 18; Pulse Ox 95% on R/A; 19:30 BP 121 / 86; Pulse 68; Resp 18; Pulse Ox 98% on R/A; 15:46 Body Mass Index 23.57 (76.66 kg, 180.34 cm) Bella Coma Score: 15:46 Eye Response: spontaneous(4). Verbal Response: oriented(5). Motor Response: obeys commands(6). Total: 15. 17:00 Eye Response: spontaneous(4). Verbal Response: oriented(5). Motor Response: obeys ph commands(6). Total: 15. 18:06 Eye Response: spontaneous(4). Verbal Response: oriented(5). Motor Response: obeys ph commands(6). Total: 15. Trauma Score (Adult): 15:46 Eye Response: spontaneous(1); Verbal Response: oriented(1); Motor Response: obeys ph commands(2); Systolic BP: > 89 mm Hg(4); Respiratory Rate: 10 to 29 per min(4); [place] Score: 15; Trauma Score: 12 17:00 Eye Response: spontaneous(1); Verbal Response: oriented(1); Motor Response: obeys ph commands(2); Systolic BP: > 89 mm Hg(4); Respiratory Rate: 10 to 29 per min(4); [place] Score: 15; Trauma Score: 12 18:06 Eye Response: spontaneous(1); Verbal Response: oriented(1); Motor Response: obeys ph commands(2); Systolic BP: > 89 mm Hg(4); Respiratory Rate: 10 to 29 per min(4); Bella Score: 15; Trauma Score: 12 ED Course: 15:36 Patient arrived in ED. ph 15:40 Kulwinder Fiore PA is PHCP. cp 15:40 Jama Espitia MD is Attending Physician. cp 15:41 Triage completed. ph 15:47 Patient maintains SpO2 saturation greater than 95% on room air. Thermoregulation: warm ph blanket given to patient. 15:47 Arm band placed on right wrist. ph 15:47 Patient has correct armband on for positive identification. Bed in low position. Call ph light in reach. Side rails up X 1. Pulse ox on. NIBP on. Door closed. Noise minimized. Warm blanket given. 15:53 XRAY Chest (1 view) In Process Unspecified. EDMS 15:53 XRAY Humerus LEFT In Process Unspecified. EDMS 16:00 Inserted saline lock: 22 gauge in right antecubital area, using aseptic technique. ph Blood collected. 16:11 Kendal Marie, RN is Primary Nurse. ph 16:35 CT Traumagram (Head C Spine CAP W Con) In Process Unspecified. EDMS 16:38 CT Facial Bones W/O Con In Process Unspecified. EDMS 17:22 Initiated transfer to [facility]. mt 17:28 initiated transfer to [facility] per patient request. mt 17:30 notified by transfer center at [facility]- only accepting psychiatric patients. nc 17:32 admin approval given without DR to report by Elissa Walker at [facility] to nc Dr. Lima in the ER. 17:43 Orthoglass splint: Coaptation splint applied on left arm. Sling \\T\\ swathe to left arm. ss 18:27 No provider procedures requiring assistance completed. Patient admitted, IV remains in ph place. Administered Medications: 16:03 Drug: Zofran (Ondansetron) 4 mg Route: IVP; Site: right antecubital; ph 18:19 Follow up: Response: No adverse reaction ph 16:05 Drug: morphine 4 mg Route: IVP; Site: right antecubital; ph 16:30 Follow up: Response: No adverse reaction; Pain is unchanged, physician notified; RASS ph upon admin +1 16:45 Drug: fentaNYL (PF) 25 mcg Route: IVP; Site: right antecubital; ph 17:00 Follow up: Response: No adverse reaction; Pain is unchanged, physician notified ph 17:05 Drug: Dilaudid 1 mg Route: IVP; Site: right antecubital; ph 18:20 Follow up: Response: No adverse reaction; Pain is decreased; RASS: Drowsy (-1); RASS ph upon admin 2 17:05 Drug: NS 0.9% 250 ml Route: IV; Rate: bolus; Site: right antecubital; ph 18:00 Follow up: Response: No adverse reaction; IV Status: Completed infusion ph Intake: 15:46 PO: 0ml; Total: 0ml. ph Output: 15:46 Urine: 0ml; Total: 0ml. ph Outcome: 17:54 ER care complete, transfer ordered by . cp 19:36 Transferred by ground EMS to [facility], Transfer form completed. X-rays sent wh w/ patient. Note: Report given to [facility] 19:36 Condition: stable 19:36 Instructed on the need for transfer. 19:37 TransferredPatient's length of stay extended due to wh 19:38 Patient left the ED. Signatures: Dispatcher [employer] [facility], Brandy, RN RN ss Kendal Marie RN RN ph Kulwinder Fiore PA PA cp Thompson, Moriah mt Habalo, Winsy RN RN wh
--- NOTE | 2020-06-18 17:55 | EDPHYS ---
Physician Documentation [facility] Name: Dylon Hannon Age: 75 yrs Sex: Male : 1945 Arrival Date: 06/18/2020 Time: 15:36 Bed 7 Private MD: ED Physician Jama Espitia HPI: 06/18 15:50 This 75 yrs old Male presents to ER via EMS with complaints of Fall Injury. cp 15:50 Details of fall: The patient fell from an upright position, while walking. Onset: The cp symptoms/episode began/occurred just prior to arrival. Associated injuries: The patient sustained injury to the head, contusion, left upper arm. Patient unsure of events, reports he was walking into store and believes he lost his balance. Patient brought to ED via EMS with deformity of left upper arm. Historical: - Allergies: 15:44 No Known Allergies; ph - Home Meds: 18:25 Adalimumab 40mg/.08ml Inj Pen Kit--Inject under the skin every week [Active]; ph Amlodipine-Beslylate 5mg PO Daily [Active]; Biscadoyl 5mg EC Daily PRN [Active]; Bupropion HCL 150mg BID [Active]; Calcium Carb 500mg PO TID [Active]; Citalopram Hydrobromide 40mg PO daily with food [Active]; Fineastride 5mg PO Daily [Active]; Folic Acid 1mg PO Daily [Active]; Levothyrozine NA 0.075 mg Daily [Active]; Lisiniprol 20mg PO Daily [Active]; [id number] PO Daily [Active]; Metformin 500mg PO Daily [Active]; Methotrexate NA 2.5mg Take 4 tabs PO Every Week [Active]; Opt Needle, Pen 31G, 8MMM use as directed for Injection Therapy [Active]; Oxybutynin Chloride 5mg PO Daily [Active]; Pyridoxine HCL 50mg Daily [Active]; Sildenafil Citrate 100mg PO PRN [Active]; Simvastatin 80mg PO QHS [Active]; Sulfasalazine 500mg PO BID [Active]; Tamusolosin HCL 0.4mg Daily [Active]; Teriparatide 250mcg/ml --Inject 20mcg daily [Active]; trazodone 100 mg Oral tab 1 tab [Active]; zolpidem 10 mg Oral tab [Active]; - PMHx: 15:44 BPH; Depression; Erectile Dysfunction; High Cholesterol; Hyperlipidemia; Osteoporosis; ph Psoriatic Arthritis; - Immunization history: Last tetanus immunization: unknown. - Social history:: Smoking status: Patient reports the use of cigarette tobacco products, smokes .25 packs per day. ROS: 15:55 Constitutional: Negative for body aches, chills, fever, poor PO intake. cp 15:55 Eyes: Negative for injury, pain, redness, and discharge. cp 15:55 Cardiovascular: Negative for chest pain, palpitations. 15:55 Respiratory: Negative for cough, shortness of breath, wheezing. 15:55 Abdomen/GI: Negative for abdominal pain, nausea, vomiting, and diarrhea. 15:55 MS/extremity: Positive for injury or acute deformity, decreased range of motion, pain, of the left upper arm, Negative for paresthesias. 15:55 Neuro: Positive for syncope, Negative for altered mental status, headache, weakness. 15:55 All other systems are negative. Exam: 16:00 Constitutional: The patient appears in no acute distress, alert, awake, cp non-diaphoretic, non-toxic, well developed, well nourished, in obvious pain, uncomfortable. 16:00 Head/face: Noted is abrasion(s), that are mild, of the left hindu. cp 16:00 Eyes: Periorbital structures: appear normal, Pupils: equal, round, and reactive to light and accomodation, Extraocular movements: intact throughout, Conjunctiva: normal, no exudate, no injection, Sclera: no appreciated abnormality, Lids and lashes: appear normal, bilaterally. 16:00 ENT: External ear(s): are unremarkable, Nose: External nose: swelling is noted, bridge of nose, Nasal septum: is midline, no septal hematoma appreciated, Mouth: Lips: moist, Oral mucosa: moist, Posterior pharynx: Airway: no evidence of obstruction, patent. 16:00 Neck: C-spine: C-collar placed SAP BASIS. 16:00 Chest/axilla: Inspection: normal, Palpation: crepitus, is not appreciated, tenderness, that is mild, of the left lateral anterior chest and left lateral posterior chest. 16:00 Cardiovascular: Rate: bradycardic, Rhythm: regular, Edema: is not appreciated, JVD: is not appreciated. 16:00 Respiratory: the patient does not display signs of respiratory distress, Respirations: normal, no use of accessory muscles, no retractions, labored breathing, is not present, Breath sounds: are clear throughout, no decreased breath sounds. 16:00 Abdomen/GI: Inspection: abdomen appears normal, Bowel sounds: active, all quadrants, Palpation: abdomen is soft and non-tender, in all quadrants. 16:00 Back: vertebral tenderness, is not appreciated. 16:00 Musculoskeletal/extremity: Extremities: grossly normal except: noted in the left upper arm: deformity, pain, swelling, tenderness. 16:00 Neuro: Orientation: to person, place \\T\\ time. Mentation: is normal, Motor: moves all fours, strength is normal, Sensation: no obvious gross deficits. Vital Signs: 15:46 BP 156 / 100; Pulse 54; Resp 18; Temp 97.8; Pulse Ox 98% on R/A; Weight 76.66 kg; ph Height 5 ft. 11 in. (180.34 cm); 17:00 BP 163 / 101; Pulse 73; Resp 16; Pulse Ox 98% on R/A; ph 18:06 BP 139 / 68; Pulse 62; Resp 18; Pulse Ox 95% on R/A; ph 19:30 BP 121 / 86; Pulse 68; Resp 18; Pulse Ox 98% on R/A; wh 15:46 Body Mass Index 23.57 (76.66 kg, 180.34 cm) ph [place] Coma Score: 15:46 Eye Response: spontaneous(4). Verbal Response: oriented(5). Motor Response: obeys ph commands(6). Total: 15. 17:00 Eye Response: spontaneous(4). Verbal Response: oriented(5). Motor Response: obeys ph commands(6). Total: 15. 18:06 Eye Response: spontaneous(4). Verbal Response: oriented(5). Motor Response: obeys ph commands(6). Total: 15. Trauma Score (Adult): 15:46 Eye Response: spontaneous(1); Verbal Response: oriented(1); Motor Response: obeys ph commands(2); Systolic BP: > 89 mm Hg(4); Respiratory Rate: 10 to 29 per min(4); [place] Score: 15; Trauma Score: 12 17:00 Eye Response: spontaneous(1); Verbal Response: oriented(1); Motor Response: obeys ph commands(2); Systolic BP: > 89 mm Hg(4); Respiratory Rate: 10 to 29 per min(4); Bella Score: 15; Trauma Score: 12 18:06 Eye Response: spontaneous(1); Verbal Response: oriented(1); Motor Response: obeys ph commands(2); Systolic BP: > 89 mm Hg(4); Respiratory Rate: 10 to 29 per min(4); Bella Score: 15; Trauma Score: 12 MDM: 15:50 Patient medically screened. cp 16:00 Differential diagnosis: closed head injury, contusion, fracture, laceration, multiple cp trauma. 17:15 Data reviewed: vital signs, nurses notes, lab test result(s), radiologic studies, CT cp scan, plain films, I have discussed the patient's presentation/case with the attending Emergency Department Physician;. 17:15 Test interpretation: by ED physician or midlevel provider: plain radiologic studies. cp 17:55 Physician consultation: regarding regarding transfer, to [facility]. patient's cp condition, accepting physician will be DR Fahad Lima without consultation. 06/18 15:41 Order name: Basic Metabolic Panel; Complete Time: 16:50 cp 06/18 16:50 Interpretation: Normal except: GFR 65. cp 06/18 15:41 Order name: CBC with Diff; Complete Time: 16:24 cp 06/18 17:00 Interpretation: Normal except: RBC 4.08; HGB 13.2; MCV 97.8; MPV 7.5; EOSINOPHIL % 6.0; cp EOSA 0.6. 06/18 15:41 Order name: LFT's; Complete Time: 16:50 cp 06/18 15:41 Order name: Magnesium; Complete Time: 16:50 cp 06/18 15:41 Order name: NT PRO-BNP; Complete Time: 16:50 cp 06/18 15:41 Order name: PT-INR; Complete Time: 16:24 cp 06/18 15:41 Order name: Troponin (emerg Dept Use Only); Complete Time: 16:50 cp 06/18 15:41 Order name: XRAY Chest (1 view); Complete Time: 18:21 cp 06/18 15:41 Order name: CT Traumagram (Head C Spine CAP W Con); Complete Time: 17:13 06/18 16:21 Order name: CREATININE WHOLE BLOOD; Complete Time: 16:24 EDKS 06/18 17:10 Order name: Alcohol Serum/Plasma; Complete Time: 18:21 EDKS 06/18 18:22 Interpretation: Abnormal: ETOH 262. 06/18 17:23 Order name: COVID-19 : Document "Date of Symptom Onset" if Symptomatic. 06/18 18:34 Order name: SARS-COV-2 RT PCR EDKS 06/18 15:41 Order name: EKG; Complete Time: 15:42 06/18 15:41 Order name: Cardiac monitoring; Complete Time: 18:46 06/18 15:41 Order name: EKG - Nurse/Tech; Complete Time: 18:46 06/18 15:41 Order name: IV Saline Lock; Complete Time: 16:12 06/18 15:41 Order name: Labs collected and sent; Complete Time: 16:12 06/18 15:41 Order name: O2 Per Protocol; Complete Time: 15:49 cp 06/18 15:41 Order name: O2 Sat Monitoring; Complete Time: 15:49 06/18 15:41 Order name: XRAY Humerus LEFT; Complete Time: 16:50 06/18 16:25 Order name: Shoulder Immobilizer; Complete Time: 18:18 cp 06/18 16:25 Order name: CT Facial Bones W/O Con; Complete Time: 17:13 06/18 16:50 Order name: Splint: coaptation splint; Complete Time: 18:18 cp Administered Medications: 16:03 Drug: Zofran (Ondansetron) 4 mg Route: IVP; Site: right antecubital; ph 18:19 Follow up: Response: No adverse reaction ph 16:05 Drug: morphine 4 mg Route: IVP; Site: right antecubital; ph 16:30 Follow up: Response: No adverse reaction; Pain is unchanged, physician notified; RASS ph upon admin +1 16:45 Drug: fentaNYL (PF) 25 mcg Route: IVP; Site: right antecubital; ph 17:00 Follow up: Response: No adverse reaction; Pain is unchanged, physician notified ph 17:05 Drug: Dilaudid 1 mg Route: IVP; Site: right antecubital; ph 18:20 Follow up: Response: No adverse reaction; Pain is decreased; RASS: Drowsy (-1); RASS ph upon admin 2 17:05 Drug: NS 0.9% 250 ml Route: IV; Rate: bolus; Site: right antecubital; ph 18:00 Follow up: Response: No adverse reaction; IV Status: Completed infusion ph Disposition: 18:00 Chart complete. cp Disposition: 06/18/20 17:54 Transfer ordered to [facility]. Diagnosis are Syncope and collapse, Alcohol use, unspecified with intoxication, Displaced comminuted fracture of shaft of humerus, left arm. - Reason for transfer: Higher level of care. - Accepting physician is DR Fahad Lima. - Condition is Stable. - Problem is new. - Symptoms have improved. Addendum: 06/20/2020 05:17 Co-signature as Attending Physician, Jama Espitia MD I agree with the assessment and t w4 plan of care. Signatures: Dispatcher [employer] EDKS Kendal Marie RN RN ph Page, Corey, PA PA cp Habalo, Winsy, RN RN wh Wadley, Terrence, MD MD tw4 Corrections: (The following items were deleted from the chart) 06/18 17:00 17:00 Normal except: RBC 4.08; HGB 13.2; MCV 97.8; MPV 7.5; EOSINOPHIL % 6.0. cp 17:47 17:23 CORONAVIRUS ordered. [facility] EDKS 19:38 17:54 06/18/2020 17:54 Transfer ordered to [facility]. Diagnosis is Syncope and collapse; Alcohol use, unspecified with intoxication; Displaced comminuted fracture of shaft of humerus, left arm. Reason for transfer: Higher level of care. Accepting physician is DR Fahad Lima. Condition is Stable. Problem is new. Symptoms have improved. cp 06/19 00:48 06/18 17:55 Physician consultation: regarding regarding transfer, to [facility]. cp patient's condition, accepting physician will be DR without consultation, cp
[2020-06-18 19:43] VITALS: TEMP 97.8
[2020-06-18 19:47] VITALS: BP 121/86; O2SAT 98
== END 2020-06-18 19:38 | disposition short-term general hospital (02) ==
LOC: ER 15:32
PROC: 2W39X1Z Immobilization of Left Upper Extremity using Splint (ICD-10-PCS; principal; 2020-06-18)
DX: S42.352A Displaced comminuted fracture of shaft of humerus, left arm, initial encounter for closed fracture (principal); F10.929 Alcohol use, unspecified with intoxication, unspecified; W18.39XA Other fall on same level, initial encounter; Y93.01 Activity, walking, marching and hiking; Y92.512 Supermarket, store or market as the place of occurrence of the external cause; Z20.822 Contact with and (suspected) exposure to COVID-19; F17.210 Nicotine dependence, cigarettes, uncomplicated; E78.5 Hyperlipidemia, unspecified; E78.00 Pure hypercholesterolemia, unspecified; F32.9 Major depressive disorder, single episode, unspecified
CPT/HCPCS: 93005; 85025; 80048; 36415; 80320; 83735; 85610; 82565; 80076; 84484; 83880; 70450; 72125; 71260; 70486; 76377; 74177; 71045; 73060; 29105; U0003; Q9967; J3010; J1170; J7050; J2405; 96365; 96375; 99285; G0390

== ENCOUNTER 2021-04-22 13:38 | Emergency (ER) | payer OTHER ==
--- NOTE | 2021-04-22 15:21 | EDPHYS ---
Physician Documentation [facility] Name: Dylon Hannon Age: 76 yrs Sex: Male : 1945 Arrival Date: 04/22/2021 Time: 13:41 Bed 2 Private MD: MANISHA Physician Kulwinder Arnold HPI: 04/22 14:20 This 76 yrs old Male presents to ER via Wheelchair with complaints of Arm Injury. pm1 14:20 The patient or guardian complains of pain, that is acute. The complaints affect the pm1 right tricep. Context: The problem was sustained at home, resulted from trip and fall due to his cat. 14:20 Onset: The symptoms/episode began/occurred today. Treatment prior to arrival includes: pm1 no previous treatment. Modifying factors: The symptoms are alleviated by remaining still, the symptoms are aggravated by movement. Associated signs and symptoms: Pertinent negatives: decreased range of motion, deformity, numbness, swelling, tingling. Severity of symptoms: in the emergency department the symptoms are unchanged. The patient has not experienced similar symptoms in the past. The patient has not recently seen a physician. Historical: - Allergies: 13:53 No Known Allergies; tw2 - Home Meds: 13:53 Citalopram Hydrobromide 40mg PO daily with food [Active]; zolpidem 10 mg Oral tab tw2 [Active]; Levothyrozine NA 0.075 mg Daily [Active]; Biscadoyl 5mg EC Daily PRN [Active]; Amlodipine-Beslylate 5mg PO Daily [Active]; Calcium Carb 500mg PO TID [Active]; Folic Acid 1mg PO Daily [Active]; Fineastride 5mg PO Daily [Active]; Lisiniprol 20mg PO Daily [Active]; Metformin 500mg PO Daily [Active]; Opt Needle, Pen 31G, 8MMM use as directed for Injection Therapy [Active]; Methotrexate NA 2.5mg Take 4 tabs PO Every Week [Active]; Bupropion HCL 150mg BID [Active]; Oxybutynin Chloride 5mg PO Daily [Active]; [id number] PO Daily [Active]; Adalimumab 40mg/.08ml Inj Pen Kit--Inject under the skin every week [Active]; Pyridoxine HCL 50mg Daily [Active]; Simvastatin 80mg PO QHS [Active]; Teriparatide 250mcg/ml --Inject 20mcg daily [Active]; Sildenafil Citrate 100mg PO PRN [Active]; Sulfasalazine 500mg PO BID [Active]; Tamusolosin HCL 0.4mg Daily [Active]; trazodone 100 mg Oral tab 1 tab [Active]; - PMHx: 13:53 Depression; Psoriatic Arthritis; Osteoporosis; High Cholesterol; Erectile Dysfunction; tw2 BPH; Hyperlipidemia; - Immunization history:: Client reports receiving the 2nd dose of the Covid vaccine, Flu vaccine is up to date. - Social history:: Smoking status: Patient reports the use of cigarette tobacco products, smokes one-half pack cigarettes per day, Patient uses alcohol, on a daily basis. "usually a beer and 2 shots, just a nice buzz". ROS: 14:20 Constitutional: Negative for fever, chills, and weight loss, Cardiovascular: Negative pm1 for chest pain, palpitations, and edema, Respiratory: Negative for shortness of breath, cough, wheezing, and pleuritic chest pain. 14:20 Skin: Negative for injury, rash, and discoloration, Neuro: Negative for headache, weakness, numbness, tingling, and seizure. 14:20 MS/extremity: Positive for pain, of the right tricep, Negative for decreased range of motion, deformity. 14:20 All other systems are negative. Exam: 14:20 Constitutional: This is a well developed, well nourished patient who is awake, alert, pm1 and in no acute distress. Head/Face: Normocephalic, atraumatic. 14:20 Skin: Warm, dry with normal turgor. Normal color with no rashes, no lesions, and no evidence of cellulitis. 14:20 Neck: Exam negative for acute changes, ROM/movement: is normal, is supple. 14:20 Cardiovascular: Exam negative for acute changes, Rate: normal, Rhythm: regular, Pulses: no pulse deficits are appreciated. 14:20 Respiratory: Exam negative for acute changes, respiratory distress, shortness of breath. 14:20 Musculoskeletal/extremity: Extremities: grossly normal except: noted in the right tricep: tenderness, There is no evidence of decreased ROM, deformity, ecchymosis. 14:20 Neuro: Exam negative for acute changes, Orientation: is normal, Mentation: is normal, Motor: moves all fours, Sensation: is normal, no obvious gross deficits. Vital Signs: 13:51 BP 143 / 70; Pulse 70; Resp 17; Temp 97.4(TE); Pulse Ox 96% on R/A; Weight 73.94 kg; tw2 Height 5 ft. 11 in. (180.34 cm); 13:51 Body Mass Index 22.73 (73.94 kg, 180.34 cm) tw2 MDM: 14:20 Patient medically screened. pm1 15:20 Data reviewed: vital signs. Data interpreted: Pulse oximetry: on room air is 96 %. pm1 Interpretation: normal. Counseling: I had a detailed discussion with the patient and/or guardian regarding: the historical points, exam findings, and any diagnostic results supporting the discharge/admit diagnosis, radiology results, the need for outpatient follow up, to return to the emergency department if symptoms worsen or persist or if there are any questions or concerns that arise at home. 15:20 ED course: Patient refused pain medications offered through out ER visit and for pm1 discharge. 04/22 14:20 Order name: Humerus Right XRAY pm1 04/22 14:20 Order name: Sling; Complete Time: 15:17 pm1 Administered Medications: No medications were administered Disposition Summary: 04/22/21 15:20 Discharge Ordered Location: Home pm1 Problem: new pm1 Symptoms: have improved pm1 Condition: Stable pm1 Diagnosis - Contusion of right upper arm pm1 Followup: pm1 - With: Emergency Department - When: As needed - Reason: Worsening of condition Followup: pm1 - With: Private Physician - When: 2 - 3 days - Reason: Recheck today's complaints, Continuance of care, Re-evaluation by your physician Discharge Instructions: - Discharge Summary Sheet pm1 - Contusion pm1 - How to Use a Sling pm1 Forms: - Medication Reconciliation Form pm1 - Thank You Letter pm1 - Antibiotic Education pm1 - Prescription Opioid Use pm1 Addendum: 04/23/2021 18:40 Co-signature as Attending Physician, Kulwinder Arnold MD I agree with the assessment and c de [facility] fuente plan of care. Signatures: Dispatcher [employer] EDMS Kulwinder Arnold MD MD cha Marinas, Patrick, LUIS ARMANDO OPERATIONAL RISK MANAGER pm1 Gambino, Gena, RN RN tw2
--- NOTE | 2021-04-22 15:21 | ER ---
Nurse's Notes [facility] Name: Dylon Hannon Age: 76 yrs Sex: Male : 1945 Arrival Date: 04/22/2021 Time: 13:41 Bed 2 Private MD: Diagnosis: Contusion of right upper arm Presentation: 04/22 13:51 Chief complaint: Patient states: i think i broke my RIGHT arm. the cat went right in tw2 front of me and i fell. i landed on my right arm. certain movements make it hurt worse. Coronavirus screen: At this time, the client does not indicate any symptoms associated with coronavirus-19. Ebola Screen: Patient denies travel to an Ebola-affected area in the 21 days before illness onset. Initial Sepsis Screen: Does the patient meet any 2 criteria? No. Patient's initial sepsis screen is negative. Does the patient have a suspected source of infection? No. Patient's initial sepsis screen is negative. Risk Assessment: Do you want to hurt yourself or someone else? Patient reports no desire to harm self or others. Onset of symptoms was April 22, 2021. 13:51 Method Of Arrival: Wheelchair tw2 13:51 Acuity: STEPHANIE 4 tw2 Triage Assessment: 13:56 General: Appears in no apparent distress. well groomed, Behavior is calm, cooperative, tw2 appropriate for age. Pain: Complains of pain in right arm. Musculoskeletal: Range of motion: intact in all extremities. Injury Description: from fall. Historical: - Allergies: 13:53 No Known Allergies; tw2 - Home Meds: 13:53 Citalopram Hydrobromide 40mg PO daily with food [Active]; zolpidem 10 mg Oral tab tw2 [Active]; Levothyrozine NA 0.075 mg Daily [Active]; Biscadoyl 5mg EC Daily PRN [Active]; Amlodipine-Beslylate 5mg PO Daily [Active]; Calcium Carb 500mg PO TID [Active]; Folic Acid 1mg PO Daily [Active]; Fineastride 5mg PO Daily [Active]; Lisiniprol 20mg PO Daily [Active]; Metformin 500mg PO Daily [Active]; Opt Needle, Pen 31G, 8MMM use as directed for Injection Therapy [Active]; Methotrexate NA 2.5mg Take 4 tabs PO Every Week [Active]; Bupropion HCL 150mg BID [Active]; Oxybutynin Chloride 5mg PO Daily [Active]; [id number] PO Daily [Active]; Adalimumab 40mg/.08ml Inj Pen Kit--Inject under the skin every week [Active]; Pyridoxine HCL 50mg Daily [Active]; Simvastatin 80mg PO QHS [Active]; Teriparatide 250mcg/ml --Inject 20mcg daily [Active]; Sildenafil Citrate 100mg PO PRN [Active]; Sulfasalazine 500mg PO BID [Active]; Tamusolosin HCL 0.4mg Daily [Active]; trazodone 100 mg Oral tab 1 tab [Active]; - PMHx: 13:53 Depression; Psoriatic Arthritis; Osteoporosis; High Cholesterol; Erectile Dysfunction; tw2 BPH; Hyperlipidemia; - Immunization history:: Client reports receiving the 2nd dose of the Covid vaccine, Flu vaccine is up to date. - Social history:: Smoking status: Patient reports the use of cigarette tobacco products, smokes one-half pack cigarettes per day, Patient uses alcohol, on a daily basis. "usually a beer and 2 shots, just a nice buzz". Screenin:22 Abuse screen: Denies threats or abuse. Denies injuries from another. Nutritional ww screening: No deficits noted. Tuberculosis screening: No symptoms or risk factors identified. Fall Risk Fall in past 12 months (25 points). No secondary diagnosis (0 pts). No IV (0 pts). Ambulatory Aid- None/Bed Rest/Nurse Assist (0 pts). Gait- Normal/Bed Rest/Wheelchair (0 pts) Mental Status- Oriented to own ability (0 pts). Total Quesada Fall Scale indicates No Risk (0-24 pts). Assessment: 15:22 General: Appears in no apparent distress. Behavior is cooperative, appropriate for age, ww ready to leave and doesn't want to wait . Pain: Complains of pain in right arm. Neuro: Level of Consciousness is awake, alert, obeys commands, Oriented to person, place, time, situation. Cardiovascular: No deficits noted. Denies chest pain, shortness of breath. Respiratory: Airway is patent Respiratory effort is even, unlabored, Respiratory pattern is regular, symmetrical. GI: No deficits noted. No signs and/or symptoms were reported involving the gastrointestinal system. : No deficits noted. No signs and/or symptoms were reported regarding the genitourinary system. EENT: No deficits noted. No signs and/or symptoms were reported regarding the EENT system. Derm: No signs and/or symptoms reported regarding the dermatologic system. Skin is fragile, is thin. Musculoskeletal: Reports pain in right bicep and right antecubital area. Vital Signs: 13:51 BP 143 / 70; Pulse 70; Resp 17; Temp 97.4(TE); Pulse Ox 96% on R/A; Weight 73.94 kg; tw2 Height 5 ft. 11 in. (180.34 cm); 13:51 Body Mass Index 22.73 (73.94 kg, 180.34 cm) tw2 ED Course: 13:41 Patient arrived in ED. ds1 13:53 Triage completed. tw2 13:53 Arm band placed on. tw2 14:17 Miki Sandoval NP is PHCP. pm1 14:17 Kulwinder Arnold MD is Attending Physician. pm1 14:28 Tessie Sams, RN is Primary Nurse. ww 15:10 Humerus Right XRAY In Process Unspecified. EDMS 15:22 Patient has correct armband on for positive identification. Bed in low position. Call ww light in reach. 15:22 No provider procedures requiring assistance completed. Patient did not have IV access ww during this emergency room visit. Administered Medications: No medications were administered Outcome: 15:20 Discharge ordered by . pm1 15:22 Discharged to home ambulatory. ww 15:22 Condition: stable 15:22 Discharge instructions given to patient, Instructed on discharge instructions, follow up and referral plans. safety practices, Demonstrated understanding of instructions, follow-up care. 15:25 Patient left the ED. ww Signatures: Dispatcher [employer] EDKS Tasha Olvera ds1 Miki Sandoval NP TELEGRAPH DISPATCHER pm1 Gena Gambino RN RN tw2 Tessie Sams RN RN ww
--- NOTE | 2021-04-22 15:28 | RAD REPORT ---
EXAM DESCRIPTION: RAD - Humerus Right - 04/22/2021 3:10 pm CLINICAL HISTORY: PAIN COMPARISON: No comparisons FINDINGS/IMPRESSION: No acute fracture. No malalignment. Ossific density overlying the greater tuber cintia.
[2021-04-22 15:41] VITALS: BP 143/70; TEMP 97.4; O2SAT 96
== END 2021-04-22 15:25 | disposition home or self-care (01) ==
LOC: ER 13:38
DX: S40.021A Contusion of right upper arm, initial encounter (principal); W18.09XA Striking against other object with subsequent fall, initial encounter; Y92.009 Unspecified place in unspecified non-institutional (private) residence as the place of occurrence of the external cause; E78.00 Pure hypercholesterolemia, unspecified; F32.A Depression, unspecified; F17.210 Nicotine dependence, cigarettes, uncomplicated
CPT/HCPCS: 99283

== ENCOUNTER 2021-06-12 16:58 | Emergency (ER) | payer OTHER ==
[2021-06-12] MEDS ORDERED: NA CHLORIDE 0.9% 1,000 ML ONE (17:15)
[2021-06-12 17:47] LABS: Absolute Lymphocytes (CBC) 3.3 K/uL (0.7-4.9); Hematocrit 40.1 % (39.6-49.0); Lymphocytes % 32.9 % (15.3-44.8); MPV 7.2 fL (7.6-11.3); RBC Red Blood Cell Count 4.21 M/uL (4.33-5.43)
[2021-06-12 17:50] LABS: Potassium 3.5 mmol/L (3.5-5.1)
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
[2021-06-12 19:12] VITALS: TEMP 98.1
[2021-06-12 19:13] VITALS: BP 143/99; O2SAT 100
== END 2021-06-12 18:54 | disposition home or self-care (01) ==
LOC: ER 16:58
DX: S09.90XA Unspecified injury of head, initial encounter (principal); F10.229 Alcohol dependence with intoxication, unspecified; W18.30XA Fall on same level, unspecified, initial encounter; F17.210 Nicotine dependence, cigarettes, uncomplicated
CPT/HCPCS: 85025; 80048; 36415; 80320; 70450; 72125; 96360; 99284; J7030

== ENCOUNTER 2021-07-10 12:21 | Emergency (ER) | payer OTHER ==
--- NOTE | 2021-07-10 13:15 | RAD REPORT ---
EXAM DESCRIPTION: CT - Head Brain Wo Cont - 07/10/2021 1:06 pm CLINICAL HISTORY: fall Fall, trauma, head injury COMPARISON: Facial Bones W/ Mpr dated 06/18/2020; Head Brain Wo Cont dated 10/06/2019 TECHNIQUE: All CT scans are performed using dose optimization technique as appropriate and may inclu de automated exposure control or mA/KV adjustment according to patient size. FINDINGS: No intracranial hemorrhage, hydrocephalus or extra-axial fluid collection.Moderate diffuse brain atrophy.No areas of brain edema or evidence of midline shift. Left vertebral artery is atheros clerotic. The paranasal sinuses and mastoids are clear. The calvarium is intact. IMPRESSION: No acute intracranial abnormality.
[2021-07-10 13:28] LABS: Absolute Lymphocytes (CBC) 1.7 K/uL (0.7-4.9); Hematocrit 39.2 % (39.6-49.0); Lymphocytes % 17.7 % (15.3-44.8); MPV 7.6 fL (7.6-11.3); RBC Red Blood Cell Count 4.15 M/uL (4.33-5.43)
[2021-07-10 13:33] LABS: Protime INR 1.04
[2021-07-10 13:36] LABS: SARS-COV-2 RT PCR NEGATIVE (NEGATIVE)
--- NOTE | 2021-07-10 13:43 | RAD REPORT ---
EXAM DESCRIPTION: Conner Single View07/10/2021 1:05 pm CLINICAL HISTORY: Chest pain COMPARISON: 2020 FINDINGS: The lungs appear clear of acute infiltrate. The heart is normal size. Old rib fractures IMPRESSION: No acute abnormalities displayed
[2021-07-10 13:47] LABS: Albumin 4.1 g/dL (3.4-5.0); Bilirubin Direct 0.2 mg/dL (0-0.2); Bilirubin Total 0.7 mg/dL (0.2-1.0); Magnesium 2.3 mg/dL (1.8-2.4); Potassium 3.5 mmol/L (3.5-5.1); Protein, Total 7.5 g/dL (6.4-8.2); Troponin High Sensitivity 13.5 pg/mL (<58.9)
--- NOTE | 2021-07-10 13:59 | RAD REPORT ---
EXAM DESCRIPTION: RAD - Femur Right - 07/10/2021 1:05 pm CLINICAL HISTORY: Leg pain FINDINGS: No fracture is seen. Bones are osteoporotic
--- NOTE | 2021-07-10 14:03 | RAD REPORT ---
EXAM DESCRIPTION: RAD - Pelvis - 07/10/2021 1:06 pm CLINICAL HISTORY: Pelvic pain status post injury FINDINGS: No fracture or dislocation is seen. Osteoporosis If the patient continues to have symptoms to suggest an occult fracture then MRI would be recommended
[2021-07-10 14:19] LABS: Urine Blood 1+ (Negative); Urine Glucose Negative (Negative); Urine Protein Negative (Negative)
[2021-07-10 14:49] LABS: Urine Bacteria <20 /HPF (NONE SEEN); Urine RBC <5 /HPF (NONE SEEN)
--- NOTE | 2021-07-10 15:40 | RAD REPORT ---
EXAM DESCRIPTION: CT - Chest Abdomen Pelvis W Cont - 07/10/2021 3:13 pm CLINICAL HISTORY: Chest and abdominal pain status post fall COMPARISON: CT 2018 TECHNIQUE: Computed axial tomography of the chest, abdomen and pelvis was obtained. 100 cc Isovue-30 0 was administered intravenously. Oral contrast was not requested. This limits evaluation of bowel. All CT scans are performed using dose optimization technique as appropriate and may include automated exposure control or mA/KV adjustment according to patient size. FINDINGS: A pleural effusion is not present. A pulmonary contusion is not seen. A mediastinal hematoma is not present. Acute compression fracture T11 vertebral body with 45% compression. No significant narrowing of the t hecal sac. No involvement posterior elements Liver, spleen, stomach, adrenals, kidneys and bladder do not demonstrate a traumatic injury. Fatty liver Renal cysts IMPRESSION: Moderate acute compression fracture T11 vertebra body
--- NOTE | 2021-07-10 16:35 | ER ---
Nurse's Notes [facility] Name: Dylon Hannon Age: 76 yrs Sex: Male : 1945 Arrival Date: 07/10/2021 Time: 12:24 Bed 23 Private MD: Diagnosis: Compression Fracture of T11;Repeated falls;Alcohol use, unspecified Presentation: 07/10 12:27 Chief complaint: EMS states: "Caregiver called for patient being found on floor after a ab2 fall." Pt was found on the floor while trying to self transfer. Pt c/o right hip pain. Bruising noted to right hip. Coronavirus screen: Vaccine status: Patient reports receiving the 2nd dose of the covid vaccine. Client denies travel out of the [place] in the last 14 days. At this time, the client does not indicate any symptoms associated with coronavirus-19. Ebola Screen: Patient negative for fever greater than or equal to 101.5 degrees Fahrenheit, and additional compatible Ebola Virus Disease symptoms Patient denies exposure to infectious person. Patient denies travel to an Ebola-affected area in the 21 days before illness onset. No symptoms or risks identified at this time. Initial Sepsis Screen: Does the patient meet any 2 criteria? No. Patient's initial sepsis screen is negative. Does the patient have a suspected source of infection? No. Patient's initial sepsis screen is negative. Risk Assessment: Do you want to hurt yourself or someone else? Patient reports no desire to harm self or others. Onset of symptoms is unknown. 12:27 Method Of Arrival: EMS: [facility] ab2 12:27 Acuity: STEPHANIE 3 ab2 Historical: - Allergies: 12:30 No Known Allergies; ab2 - PMHx: 12:30 BPH; Depression; Erectile Dysfunction; High Cholesterol; Hyperlipidemia; Osteoporosis; ab2 Psoriatic Arthritis; - PSHx: 12:30 Unable to Obtain; ab2 - Immunization history:: Adult Immunizations up to date. - Social history:: Smoking status: Patient reports the use of cigarette tobacco products, smokes one-half pack cigarettes per day. Screenin:32 Abuse screen: Denies threats or abuse. Denies injuries from another. Nutritional ab2 screening: No deficits noted. Tuberculosis screening: No symptoms or risk factors identified. Fall Risk Fall in past 12 months (25 points). Secondary diagnosis (15 points) No IV (0 pts). Ambulatory Aid- None/Bed Rest/Nurse Assist (0 pts). Gait- Weak (10 pts.). Mental Status- Oriented to own ability (0 pts). Total Quesada Fall Scale indicates High Risk Score (45 or more points). Fall prevention measures have been instituted. Side Rails Up X 2 Placed Close to Nursing Station Frequent Obs/Assessments Occuring As available patient and family educated on Fall Prevention Program and Strategies. Assessment: 12:30 General: Appears in no apparent distress. uncomfortable, Behavior is calm, cooperative, ab2 appropriate for age. Pain: Complains of pain in right hip Pain currently is 7 out of 10 on a pain scale. Neuro: Level of Consciousness is awake, alert, obeys commands, Oriented to person, place, situation, Psychiatric Registered Nurse are equal bilaterally. Neuro: Level of Consciousness is Oriented to time, Appropriate for age Speech is normal. Cardiovascular: No deficits noted. Denies chest pain, shortness of breath, Heart tones S1 S2 present Patient's skin is warm and dry. Respiratory: No deficits noted. Airway is patent Respiratory effort is even, unlabored, Respiratory pattern is regular, symmetrical, Breath sounds are clear bilaterally. GI: No deficits noted. No signs and/or symptoms were reported involving the gastrointestinal system. Abdomen is round non-distended, Bowel sounds present X 4 quads. : No deficits noted. No signs and/or symptoms were reported regarding the genitourinary system. EENT: No deficits noted. No signs and/or symptoms were reported regarding the EENT system. Derm: Bruising that is dark purple, on right hip. Musculoskeletal: Reports pain in right hip. Injury Description: Pt had a fall at home. C/o right hip pain. pt states he lost his balance. 15:35 Reassessment: Patient appears in no apparent distress at this time. Awaiting ab2 disposition. Pt incontinent of urine. Linen change performed, pt cleansed and placed in new gown. Pt made comfortable in bed. warm blankets provided. Denies any further needs. 16:35 Reassessment: Patient appears in no apparent distress at this time. Pt given celsa brian ab2 and a sandwich. pt resting comfortably. 17:55 Reassessment: Attempted report to [facility], on hold for 12 minutes with no ab2 success. Will try back. 19:14 Reassessment: Report given to MALIA Huerta at [facility]. ab2 20:11 Reassessment: Patient appears in no apparent distress at this time. Patient and/or fu family updated on plan of care and expected duration. Pain level reassessed. Vital Signs: 12:27 BP 158 / 72; Pulse 82; Resp 17; Temp 98.7(O); Pulse Ox 100% on R/A; Weight 69.4 kg; ab2 Height 5 ft. 11 in. (180.34 cm); Pain 7/10; 13:22 BP 156 / 79; Pulse 78; Resp 17; Pulse Ox 98% on R/A; ab2 14:12 BP 150 / 82; Pulse 76; Resp 17; Pulse Ox 100% on R/A; ab2 14:57 BP 161 / 75; Pulse 77; Resp 17; Pulse Ox 100% on R/A; ab2 15:35 BP 151 / 76; Pulse 78; Resp 17; Pulse Ox 99% on R/A; Pain 0/10; ab2 16:30 BP 164 / 81; Pulse 83; Resp 17; Pulse Ox 100% on R/A; ab2 17:44 BP 164 / 79; Pulse 82; Resp 17; Pulse Ox 99% on R/A; Pain 0/10; ab2 18:47 BP 118 / 84; Pulse 81; Resp 17; Pulse Ox 99% on R/A; ab2 19:45 BP 150 / 72; Pulse 72; Resp 16; Pulse Ox 100% on R/A; fu 20:00 BP 151 / 66; Pulse 60; Resp 18; Temp 97.3; Pulse Ox 100% on R/A; Pain 0/10; fu 12:27 Body Mass Index 21.34 (69.40 kg, 180.34 cm) ab2 ED Course: 12:24 Patient arrived in ED. ab2 12:27 Kulwinder Fiore PA is PHCP. cp 12:27 Robert Wharton MD is Attending Physician. cp 12:27 Stephen Rahman is Primary Nurse. ab2 12:29 Triage completed. ab2 12:33 Arm band placed on right wrist. ab2 12:33 Patient has correct armband on for positive identification. Placed in gown. Bed in low ab2 position. Call light in reach. Side rails up X2. 12:33 No provider procedures requiring assistance completed. ab2 12:54 COVID-19/FLU A+B (Document "Date of Onset" if Symptomatic) Sent. ab2 13:06 XRAY Femur RIGHT In Process Unspecified. EDMS 13:06 XRAY Pelvis In Process Unspecified. EDMS 13:06 XRAY Chest (1 view) In Process Unspecified. EDMS 13:08 CT Head Brain wo Cont In Process Unspecified. EDMS 13:17 Basic Metabolic Panel Sent. ab2 13:17 CBC with Diff Sent. ab2 13:17 LFT's Sent. ab2 13:17 Magnesium Sent. ab2 13:17 PT-INR Sent. ab2 13:17 Troponin HS Sent. ab2 14:17 Urine Microscopic Only Sent. ab2 15:15 CT Chest, Abdomen, Pelvis - W/Contrast In Process Unspecified. EDMS 16:12 initiated transfer to [facility]. bd 17:40 pt accepted in transfer to [facility] by Dr Grant, admin approval given by nemesio Pacheco. Administered Medications: 16:44 Drug: NS 0.9% 1000 ml Route: IV; Rate: 100 ml/hr; Site: right antecubital; ab2 17:56 Follow up: Response: No adverse reaction ab2 16:46 Drug: morphine 2 mg Route: IVP; Site: right antecubital; ab2 Outcome: 16:34 ER care complete, transfer ordered by . cp 21:38 Patient left the ED. mw2 Signatures: Dispatcher [employer] EDMS Bruna Holly bd Kulwinder Fiore PA PA cp Umadhay, Felix RN Getachew Jernigan mw2 Stephen Rahman ab2 Corrections: (The following items were deleted from the chart) 12:30 12:30 PSHx: None; ab2 ab2
--- NOTE | 2021-07-10 16:35 | EDPHYS ---
Physician Documentation [facility] Name: Dylon Hannon Age: 76 yrs Sex: Male : 1945 Arrival Date: 07/10/2021 Time: 12:24 Bed 23 Private MD: ED Physician Robert Wharton HPI: 07/10 12:40 This 76 yrs old Male presents to ER via EMS with complaints of Fall. cp 12:40 Details of fall: The patient fell from an upright position. cp 12:40 Onset: The symptoms/episode began/occurred this morning. cp 12:40 Associated injuries: The patient sustained right upper leg, ecchymosis, painful injury. cp Associated signs and symptoms: Pertinent positives: back pain, Pertinent negatives: abdominal pain, chest pain, fever, shortness of breath, wheezing. 12:40 Patient was reportedly found on ground by home health nurse who sees patient twice per cp week. Home health nurse reports to nursing staff that patient consumes alcohol daily. Historical: - Allergies: 12:30 No Known Allergies; ab2 - PMHx: 12:30 BPH; Depression; Erectile Dysfunction; High Cholesterol; Hyperlipidemia; Osteoporosis; ab2 Psoriatic Arthritis; - PSHx: 12:30 Unable to Obtain; ab2 - Immunization history:: Adult Immunizations up to date. - Social history:: Smoking status: Patient reports the use of cigarette tobacco products, smokes one-half pack cigarettes per day. ROS: 12:45 Constitutional: Negative for body aches, chills, fever, poor PO intake. cp 12:45 Eyes: Negative for injury, pain, redness, and discharge. cp 12:45 ENT: Negative for drainage from ear(s), ear pain, sore throat, difficulty swallowing, difficulty handling secretions. 12:45 Cardiovascular: Negative for chest pain. 12:45 Respiratory: Negative for cough, shortness of breath, wheezing. 12:45 Abdomen/GI: Negative for abdominal pain, vomiting, diarrhea, constipation. 12:45 Back: Positive for pain with movement. 12:45 MS/extremity: Positive for ecchymosis, pain, tenderness, of the right upper leg, Negative for decreased range of motion, deformity. 12:45 Neuro: Negative for altered mental status. 12:45 All other systems are negative. Exam: 13:00 Constitutional: The patient appears in no acute distress, alert, awake, cp non-diaphoretic, non-toxic, well developed, well nourished. 13:00 Head/Face: Normocephalic, atraumatic. cp 13:00 Eyes: Periorbital structures: appear normal, Pupils: equal, round, and reactive to cp light and accomodation, Extraocular movements: intact throughout, Conjunctiva: normal, no exudate, no injection, Sclera: no appreciated abnormality, Lids and lashes: appear normal, bilaterally. 13:00 ENT: External ear(s): are unremarkable, Nose: is normal, Mouth: Lips: moist, Oral mucosa: moist, Posterior pharynx: Airway: no evidence of obstruction, patent. 13:00 Neck: C-spine: vertebral tenderness, is not appreciated, crepitus, is not appreciated, ROM/movement: is normal, is supple, without pain, no range of motions limitations. 13:00 Chest/axilla: Inspection: normal, Palpation: is normal, no crepitus, no tenderness. 13:00 Cardiovascular: Rate: normal, Rhythm: regular, Edema: is not appreciated, JVD: is not appreciated. 13:00 Respiratory: the patient does not display signs of respiratory distress, Respirations: normal, no use of accessory muscles, no retractions, labored breathing, is not present, Breath sounds: are clear throughout, no decreased breath sounds, no stridor, no wheezing. 13:00 Abdomen/GI: Inspection: abdomen appears normal, Palpation: abdomen is soft and non-tender, in all quadrants. 13:00 Back: pain, that is mild, ROM is painful, with all movement, Straight leg raises: of both lower extremities does not illicit pain. 13:00 Musculoskeletal/extremity: Extremities: grossly normal except: noted in the right upper leg: ecchymosis, pain, There is no evidence of decreased ROM, deformity, Pulses: noted to be 2+ in the right radial artery, right dorsalis pedis artery, left radial artery and left dorsalis pedis artery. 13:00 Neuro: Orientation: to person, place, situation, Mentation: able to follow commands, slow to respond, Motor: moves all fours, strength is normal, Sensation: is normal. 13:22 ECG was reviewed by the Attending Physician. Vital Signs: 12:27 BP 158 / 72; Pulse 82; Resp 17; Temp 98.7(O); Pulse Ox 100% on R/A; Weight 69.4 kg; ab2 Height 5 ft. 11 in. (180.34 cm); Pain 7/10; 13:22 BP 156 / 79; Pulse 78; Resp 17; Pulse Ox 98% on R/A; ab2 14:12 BP 150 / 82; Pulse 76; Resp 17; Pulse Ox 100% on R/A; ab2 14:57 BP 161 / 75; Pulse 77; Resp 17; Pulse Ox 100% on R/A; ab2 15:35 BP 151 / 76; Pulse 78; Resp 17; Pulse Ox 99% on R/A; Pain 0/10; ab2 16:30 BP 164 / 81; Pulse 83; Resp 17; Pulse Ox 100% on R/A; ab2 17:44 BP 164 / 79; Pulse 82; Resp 17; Pulse Ox 99% on R/A; Pain 0/10; ab2 18:47 BP 118 / 84; Pulse 81; Resp 17; Pulse Ox 99% on R/A; ab2 19:45 BP 150 / 72; Pulse 72; Resp 16; Pulse Ox 100% on R/A; fu 20:00 BP 151 / 66; Pulse 60; Resp 18; Temp 97.3; Pulse Ox 100% on R/A; Pain 0/10; fu 12:27 Body Mass Index 21.34 (69.40 kg, 180.34 cm) ab2 MDM: 12:32 Patient medically screened. cp 13:00 Differential diagnosis: closed head injury, contusion, fracture, multiple trauma. cp 15:45 Data reviewed: vital signs, nurses notes, lab test result(s), EKG, radiologic studies, cp CT scan, plain films. 15:45 Test interpretation: by ED physician or midlevel provider: ECG, plain radiologic cp studies. Counseling: I had a detailed discussion with the patient and/or guardian regarding: the historical points, exam findings, and any diagnostic results supporting the discharge/admit diagnosis, lab results, radiology results. 15:46 Physician consultation: Oscar Mosley was contacted at 15:40, regarding patient's cp condition, wants neurosurgery consult. 07/10 12:34 Order name: Basic Metabolic Panel; Complete Time: 14:56 cp 07/10 14:56 Interpretation: Normal except: GFR 58. cp 07/10 12:34 Order name: CBC with Diff; Complete Time: 14:56 cp 07/10 14:57 Interpretation: Normal except: RBC 4.15; HGB 13.3; HCT 39.2; PLT 147. cp 07/10 12:34 Order name: LFT's; Complete Time: 14:56 cp 04 15:37 Interpretation: Normal except: AST 49; ALK 122. cp 07/10 12:34 Order name: Magnesium; Complete Time: 14:56 cp 07/10 12:34 Order name: PT-INR; Complete Time: 14:56 cp 07/10 12:34 Order name: Troponin HS; Complete Time: 14:56 cp 07/10 12:34 Order name: XRAY Femur RIGHT; Complete Time: 14:56 cp 07/10 12:34 Order name: XRAY Pelvis; Complete Time: 14:56 cp 07/10 12:34 Order name: CT Head Brain wo Cont; Complete Time: 13:23 cp 07/10 12:34 Order name: XRAY Chest (1 view); Complete Time: 14:56 cp 07/10 12:36 Order name: COVID-19/FLU A+B (Document "Date of Onset" if Symptomatic); Complete Time: cp 14:56 07/10 12:36 Order name: Urine Microscopic Only; Complete Time: 14:56 cp 07/10 13:23 Order name: CK; Complete Time: 16:21 cp 07/10 14:19 Order name: Urine Dipstick-Ancillary; Complete Time: 14:56 EDMS 07/10 12:34 Order name: EKG; Complete Time: 12:35 cp 07/10 12:34 Order name: Cardiac monitoring; Complete Time: 13:02 cp 07/10 12:34 Order name: EKG - Nurse/Tech; Complete Time: 13:17 cp 07/10 12:34 Order name: IV Saline Lock; Complete Time: 13:17 cp 07/10 12:34 Order name: Labs collected and sent; Complete Time: 13:17 cp 07/10 12:34 Order name: O2 Per Protocol; Complete Time: 13:02 cp 07/10 12:34 Order name: O2 Sat Monitoring; Complete Time: 13:02 cp 07/10 12:36 Order name: Urine Dipstick-Ancillary (obtain specimen); Complete Time: 14:17 cp 07/10 14:57 Order name: CT Chest, Abdomen, Pelvis - W/Contrast; Complete Time: 15:41 cp EC:22 Rate is 82 beats/min. Rhythm is regular. KS interval is normal. QRS interval is normal. cp QT interval is normal. Interpreted by me. Reviewed by me. Administered Medications: 16:44 Drug: NS 0.9% 1000 ml Route: IV; Rate: 100 ml/hr; Site: right antecubital; ab2 17:56 Follow up: Response: No adverse reaction ab2 16:46 Drug: morphine 2 mg Route: IVP; Site: right antecubital; ab2 Disposition Summary: 07/10/21 16:34 Transfer Ordered Transfer Location: [facility] cp Reason: Higher level of care cp Condition: Stable cp Problem: new cp Symptoms: have improved cp Accepting Physician: DR Grant(07/10/21 21:38) mw2 Diagnosis - Compression Fracture of T11 cp - Repeated falls cp - Alcohol use, unspecified cp Forms: - Medication Reconciliation Form cp - SBAR form cp Signatures: Dispatcher [employer] EDMS Kulwinder Fiore PA PA cp Getachew Lowe mw2 Stephen Rahman ab2 Corrections: (The following items were deleted from the chart) 12:30 12:30 PSHx: None; ab2 ab2 16:52 16:34 Doctor cp cp 21:38 16:52 DR Grant cp mw2 07/11 05:51 07/10 12:40 Associated signs and symptoms: Pertinent negatives: abdominal pain, chest cp pain, fever, shortness of breath, wheezing, cp
[2021-07-10] MEDS ORDERED: MORPHINE 4 MG/ML SYR ONE (16:43)
[2021-07-10] MEDS ORDERED: NA CHLORIDE 0.9% 1,000 ML ONE (16:43)
[2021-07-10 23:19] VITALS: O2SAT 100
[2021-07-10 23:21] VITALS: BP 151/66; TEMP 97.3
--- NOTE | 2021-07-11 08:31 | EKG ---
Test Date: 2021-07-10 Test Time: 13:15:01 Puppy Trainer: KATRINA MEASUREMENT RESULTS: Intervals: Rate: 82 IL: 182 QRSD: 88 QT: 406 QTc: 474 [place]: P: 57 IL: 182 QRS: 60 T: 46 INTERPRETIVE STATEMENTS: Normal sinus rhythm Possible Left atrial enlargement Borderline ECG Compared to ECG 06/18/2020 18:24:20 No significant changes Electronically Signed On 07-11-21 08:28:06 CDT by Freddie Lala
== END 2021-07-10 21:38 | disposition short-term general hospital (02) ==
LOC: ER 12:21
DX: S22.089A Unspecified fracture of T11-T12 vertebra, initial encounter for closed fracture (principal); M79.604 Pain in right leg; R29.6 Repeated falls; W19.XXXA Unspecified fall, initial encounter; I10 Essential (primary) hypertension; F17.210 Nicotine dependence, cigarettes, uncomplicated; Z72.89 Other problems related to lifestyle
CPT/HCPCS: 93005; 85025; 80048; 36415; 83735; 82550; 85610; 80076; 84484; 0240U; 70450; 71260; 74177; 71045; 72170; 73552; 96374; 99284; Q9967; J7030; 81003; 81015

== ENCOUNTER 2021-08-16 14:38 | Observation (INO) | payer OTHER ==
--- OUTSIDE RECORDS SUMMARY | 2021-08-16 14:41 | XMS REPORT | Continuity of Care Document ---
:1945 Author Organization [facility] t Address [address] [place] [address] Care Team Providers Name Role Phone VALENTIN Attending Clinician Unavailable Jina ESCALANTE Attending Clinician Unavailable GRIFFIN DICKSON Admitting Clinician Unavailable Payers Payer Name Policy Type Policy Number Effective Date Expiration Date S dahiana [employer] MEDICARE [id number] 2021 ADV 00:00:00 OUT OF STATE [place] [id number] 2021 00:00:00 Problems This patient has no known problems. Allergies, Adverse Reactions, Alerts Allergy Allergy Status Severity Reaction(s) Onset Inactive Treating Comm ents Source Name Type Date Date Clinician NO KNOWN Allergy Active NPI:118 ALLERGIE [id number] S Medications This patient has no known medications. Vital Signs Vital Name Observation Time Observation Value Comments Source HEIGHT 2021-07-11 15:00:00 180.3 cm WEIGHT 2021-07-11 15:00:00 69.4 kg HEIGHT 2021-07-11 15:00:00 180.3 cm WEIGHT 2021-07-11 15:00:00 69.4 kg Procedures This patient has no known procedures. Encounters Start End Encounter Admission Attending Care Care Encounter Source Date/Time Date/Time Type Type Clinicians Facility Department ID 2021-07-10 2021-07-15 Inpatient ER DELMER HANSON Neurology [id number] [facility] 22:14:00 18:04:00 PABLO Results Test Description Test Time Test Comments Results Result Comments Source BASIC METABOLIC PANEL 2021-07-13 05:40:40 Test Item Value Reference Range Interpretation Comme nts SODIUM (BEAKER) (test code 137 meq/L 136-145 = 381) POTASSIUM (BEAKER) (test 3.6 meq/L 3.5-5.1 code = 379) CHLORIDE (BEAKER) (test 103 meq/L 98-107 code = 382) CO2 (BEAKER) (test code = 27 meq/L 22-29 355) BLOOD UREA NITROGEN 18 mg/dL 7-21 (BEAKER) (test code = 354) CREATININE (BEAKER) (test 0.98 mg/dL 0.57-1.25 code = 358) GLUCOSE RANDOM (BEAKER) 130 mg/dL 70-105 H (test code = 652) CALCIUM (BEAKER) (test code 9.0 mg/dL 8.4-10.2 = 697) EGFR (BEAKER) (test code = 75 mL/min/1.73 sq m ESTIMATED GFR IS NOT 1092) ACCURATE CRE ATININE CLEARANCE IN [place] EDICTING GLOMERULAR FILT RATION RATE. ESTIMATED GFR IS NOT APPLICABLE FOR DIALYSIS PATIENTS. Helpdesk Manager ID Salome COOMBS LCREATINE KINASE (CK)2021-07-13 05:40:40 Test Item Value Reference Range Interpretation Comments CREATINE KINASE TOTAL (BEAKER) (test 177 U/L 29-200 code = 380) Helpdesk Manager ID - CORIN LCREATINE KINASE (CK)2021-07-12 05:41:18 Test Item Value Reference Range Interpretation Comments CREATINE KINASE TOTAL (BEAKER) (test 449 U/L 29-200 H code = 380) Helpdesk Manager SERGE - CORIN LBASIC METABOLIC [id number] 05:41:17 Test Item Value Reference Range Interpretation Comments SODIUM (BEAKER) 139 meq/L 136-145 (test code = 381) POTASSIUM (BEAKER) 3.5 meq/L 3.5-5.1 (test code = 379) CHLORIDE (BEAKER) 103 meq/L 98-107 (test code = 382) CO2 (BEAKER) (test 28 meq/L 22-29 code = 355) BLOOD UREA NITROGEN 12 mg/dL 7-21 (BEAKER) (test code = 354) CREATININE (BEAKER) 0.91 mg/dL 0.57-1.25 (test code = 358) GLUCOSE RANDOM 122 mg/dL 70-105 H (BEAKER) (test code = 652) CALCIUM (BEAKER) 9.1 mg/dL 8.4-10.2 (test code = 697) EGFR (BEAKER) (test 81 mL/min/1.73 ESTIMA FATMATA GFR IS code = 1092) sq m NOT ACCURATE CREATININE CLEARANCE IN PREDICTING GLOMERULAR FILTRATION RATE . ESTIMATED GFR I S NOT APPLICABLE FOR DIALYSIS PATIEN TS. Helpdesk Manager ID - PIAYA LSARS-COV2/RT-PCR ([facility])2021-07-11 12:43:08 Test Item Value Reference Range Interpretation Comments SARS-COV2/RT-PCR (test Negative Not Detected, Negative, code = 5670279) See external report for linked test SARS-COV-2 PERFORMING LAB [facility] (test code = 6422919) Negative result for this test determines that SARS-CoV-2 RNA was not present in the specimen above the Limit of Detection (LOD). However, Negative results do not preclude SARS-CoV-2 infection and should not be used as the sole basis for treatment or patient management decisions. Negative results mustbe combined with clinical observations, patient history, and epidemiological information. A false negative result may occur if a specimen is improperly collected, transported or handled. A false negative result should be considered if patient's recent exposures or clinical presentation indicate that COVID-19 (SARS-CoV-2) is likely and diagnostic tests for other causes of illness are negative. Re-testing should be considered in cases of suspected false negatives.The limit of detection for this assay is 800 copies/mL.This SARS CoV-2 test is a real-time RT-PCR test intended for the qualitative detection of nucleic acid from SARS-CoV-2 in a nasopharyngeal swab specimen collected from individuals susp ected of COVID-19 by their healthcare provider.This test has not been Food and Drug Administration (FDA) cleared or approved. This is a modified version of an approved Emergency Use Authorization (EUA) and is in the process of review by the FDA. Once authorized by the FDA, the issued EUA will be effective until the declaration that circumstances exist justifying the authorization of the emergency use of in vitro diagnostic tests for detection and/or diagnosis of COVID-19 is terminated under Section 564(b)(2) of the Act or the EUA is revoked under Section 564(g) of the Act.Fact Sheet for Healthcare Providers:https://www.[employer].coJuvo/sites/default/files/product/documents/Fact_Shee s_XW_Hponnlymy_Xzqw_MIYE-PcL-4.pdfFact Sheet for Healthcare Patients:https://www.[employer].coJuvo/sites/default/files/product/ documents/Ktml_Gurtf_Gzgeljyo_Ezum_ZSSJ-VwF-7.pdfPerforming Laboratory:[facility], [place] [address]ZEZQILORXG W/ REFLEX URINE [id number] 01:08:09 Test Item Value Reference Range Interpretation Comments COLOR (BEAKER) (test code = 470) Light Yellow CLARITY (BEAKER) (test code = Clear 469) SPECIFIC GRAVITY UA (BEAKER) 1.030 1.001-1.035 (test code = 468) PH UA (BEAKER) (test code = 467) 7.0 5.0-8.0 PROTEIN UA (BEAKER) (test code = 10 mg/dL Negative A 464) GLUCOSE UA (BEAKER) (test code = 500 mg/dL Negative A 365) KETONES UA (BEAKER) (test code = Negative Negative 371) BILIRUBIN UA (BEAKER) (test code Negative Negative = 462) BLOOD UA (BEAKER) (test code = Negative Negative 461) NITRITE UA (BEAKER) (test code = Negative Negative 465) LEUKOCYTE ESTERASE UA (BEAKER) Negative Negative (test code = 466) UROBILINOGEN UA (BEAKER) (test 0.2 mg/dL 0.2-1.0 code = 463) RBC UA (BEAKER) (test code = < /HPF 519) WBC UA (BEAKER) (test code = 0 /HPF 520) BACTERIA (BEAKER) (test code = None Seen 517) CRYSTALS, URINE (BEAKER) (test None Seen code = 1521) SOURCE(BEAKER) (test code = 2795) Helpdesk Manager ID - [auto]Helpdesk Manager ID - techRAPID DRUG SCREEN, [id number] 00:50:57 Test Item Value Reference Range Interpretation Comments BARBITURATE URINE (BEAKER) (test Negative Negative code = 725) BENZODIAZEPINE SCREEN URINE (BEAKER) Negative Negative (test code = 726) COCAINE (METAB.) SCREEN (BEAKER) Negative Negative (test code = 1164) METHADONE SCREEN (BEAKER) (test code Negative Negative = 1436) OPIATE SCREEN URINE (BEAKER) (test Positive Negative A code = 734) CANNABINOID SCREEN URINE (BEAKER) Negative Negative (test code = 727) AMPH/METHAMPH SCREEN (BEAKER) (test Negative Negative code = 1438) PHENCYCLIDINE SCREEN URINE (BEAKER) Negative Negative (test code = 608) PH UA (BEAKER) (test code = 467) 6.5 5.0-8.0 DRUG CUTOFF CONC.Cocaine 300 ng/mL Cannabinoid 50 ng/mLBenzodiazepine 200 ng/mLBarbiturate 200 ng/mLPhencyclidine 25 ng/mLOpiate 300 ng/mLMethadone 300 ng/mLAmphetamine/ 1000 ng/mL MethamphetamineThis assay provides an unconfirmed qualitative test result for the clinical management of patients in emergency situations. Chain of custody not maintained. Some reni-wuo-qtagslg medications, as well as adulterants, may cause inaccurate results. Clinical correlation should be applied. A more comprehensivedrug screen or confirmation of a detected drug may be performed upon request.Helpdesk Manager ID - DBOperator ID - [auto]PROTHROMBIN TIME/[id number] 00:00:32 Test Item Value Reference Range Interpretation Comments PROTIME (BEAKER) 13.4 seconds 11.9-14.2 (test code = 759) INR (BEAKER) (test 1.04 See_Comment [Automat ed message] code = 370) The system gauzz generated this result transmitted ref erence range: <=5.90. The reference range was not used to int erpret this result as normal/abnormal . RECOMMENDED COUMADIN/WARFARIN INR THERAPY RANGESSTANDARD DOSE: 2.0 - 3.0 Includes: PROPHYLAXIS forvenous thrombosis, systemic embolization; TREATMENT for venous thrombosis and/or pulmonary embolus.HIGH RISK: Target INR is 2.5-3.5 for patients with mechanical heart valves.CREATINE KINASE (CK)2021-07-10 23:50:33 Test Item Value Reference Range Interpretation Comments CREATINE KINASE TOTAL (BEAKER) (test 1834 U/L 29-200 H code = 380) Helpdesk Manager ID - DBCOMPREHENSIVE METABOLIC [id number] 23:50:32 Test Item Value Reference Range Interpretation Comments TOTAL PROTEIN 7.4 gm/dL 6.0-8.3 (BEAKER) (test code = 770) ALBUMIN (BEAKER) 4.4 g/dL 3.5-5.0 (test code = 1145) ALKALINE PHOSPHATASE 131 U/L 40-150 (BEAKER) (test code = 346) BILIRUBIN TOTAL 0.4 mg/dL 0.2-1.2 (BEAKER) (test code = 377) SODIUM (BEAKER) (test 142 meq/L 136-145 code = 381) POTASSIUM (BEAKER) 3.2 meq/L 3.5-5.1 L (test code = 379) CHLORIDE (BEAKER) 102 meq/L 98-107 (test code = 382) CO2 (BEAKER) (test 28 meq/L 22-29 code = 355) BLOOD UREA NITROGEN 11 mg/dL 7-21 (BEAKER) (test code = 354) CREATININE (BEAKER) 1.08 mg/dL 0.57-1.25 (test code = 358) GLUCOSE RANDOM 118 mg/dL 70-105 H (BEAKER) (test code = 652) CALCIUM (BEAKER) 9.3 mg/dL 8.4-10.2 (test code = 697) AST (SGOT) (BEAKER) 51 U/L 5-34 H (test code = 353) ALT (SGPT) (BEAKER) 28 U/L 6-55 (test code = 347) EGFR (BEAKER) (test 67 mL/min/1.73 ESTIMA FATMATA GFR IS code = 1092) sq m NOT ACCURATE CREATININE CLEARANCE IN PREDICTING GLOMERULAR FILTRATION RATE . ESTIMATED GFR I S NOT APPLICABLE FOR DIALYSIS PATIEN TS. Helpdesk Manager ID - [id number] 23:50:32 Test Item Value Reference Range Interpretation Comments MAGNESIUM (BEAKER) (test code = 2.2 mg/dL 1.6-2.6 627) Helpdesk Manager ID - [id number] 23:50:32 Test Item Value Reference Range Interpretation Comments PHOSPHORUS (BEAKER) (test code = 3.3 mg/dL 2.3-4.7 604) Helpdesk Manager ID - [id number] 23:45:54 Test Item Value Reference Range Interpretation Comments ETHANOL (BEAKER) < mg/dL See_Comment [Automated message] The (test code = 400) system [employer] generated this result tra nsmitted reference range : <=10. The reference r chela was not used to int erpret this result as normal/abnormal . Helpdesk Manager ID - DBCBC W/PLT COUNT & AUTO [id number] 23:29:08 Test Item Value Reference Range Interpretation Comments WHITE BLOOD CELL COUNT (BEAKER) 10.5 K/ L 3.5-10.5 (test code = 775) RED BLOOD CELL COUNT (BEAKER) 4.52 M/ L 4.63-6.08 L (test code = 761) HEMOGLOBIN (BEAKER) (test code = 14.2 GM/DL 13.7-17.5 410) HEMATOCRIT (BEAKER) (test code = 42.9 % 40.1-51.0 411) MEAN CORPUSCULAR VOLUME (BEAKER) 94.9 fL 79.0-92.2 H (test code = 753) MEAN CORPUSCULAR HEMOGLOBIN 31.4 pg 25.7-32.2 (BEAKER) (test code = 751) MEAN CORPUSCULAR HEMOGLOBIN CONC 33.1 GM/DL 32.3-36.5 (BEAKER) (test code = 752) RED CELL DISTRIBUTION WIDTH 12.6 % 11.6-14.4 (BEAKER) (test code = 412) PLATELET COUNT (BEAKER) (test 142 K/CU MM 150-450 L code = 756) MEAN PLATELET VOLUME (BEAKER) 9.5 fL 9.4-12.4 (test code = 754) NUCLEATED RED BLOOD CELLS 0 /100 WBC 0-0 (BEAKER) (test code = 413) NEUTROPHILS RELATIVE PERCENT 53 % (BEAKER) (test code = 429) LYMPHOCYTES RELATIVE PERCENT 30 % (BEAKER) (test code = 430) MONOCYTES RELATIVE PERCENT 12 % (BEAKER) (test code = 431) EOSINOPHILS RELATIVE PERCENT 5 % (BEAKER) (test code = 432) BASOPHILS RELATIVE PERCENT 1 % (BEAKER) (test code = 437) NEUTROPHILS ABSOLUTE COUNT 5.50 K/ L 1.78-5.38 H (BEAKER) (test code = 670) LYMPHOCYTES ABSOLUTE COUNT 3.12 K/ L 1.32-3.57 (BEAKER) (test code = 414) MONOCYTES ABSOLUTE COUNT (BEAKER) 1.22 K/ L 0.30-0.82 H (test code = 415) EOSINOPHILS ABSOLUTE COUNT 0.48 K/ L 0.04-0.54 (BEAKER) (test code = 416) BASOPHILS ABSOLUTE COUNT (BEAKER) 0.10 K/ L 0.01-0.08 H (test code = 417) IMMATURE GRANULOCYTES-RELATIVE 0 % 0-1 PERCENT (BEAKER) (test code = 2801)
[2021-08-16 15:10] LABS: Absolute Lymphocytes (CBC) 1.6 K/uL (0.7-4.9); Hematocrit 39.3 % (39.6-49.0); Lymphocytes % 19.7 % (15.3-44.8); MPV 7.4 fL (7.6-11.3); RBC Red Blood Cell Count 4.16 M/uL (4.33-5.43)
[2021-08-16 15:18] LABS: Protime INR 1.02
--- NOTE | 2021-08-16 15:29 | RAD REPORT ---
EXAM DESCRIPTION: CT - Head C Spine Mpr Wo Con - 08/16/2021 3:17 pm CLINICAL HISTORY: Head and neck injury status post fall. Head and neck pain COMPARISON: June 2021 TECHNIQUE: Computed axial tomography of the head and cervical spine was obtained. Sagittal and coronal reconstruction was performed. All CT scans are performed using dose optimization technique as appropriate and may include automated exposure control or mA/KV adjustment according to patient size. FINDINGS: An intracranial bleed is not seen. Mild cerebral atrophy The ventricles are normal in caliber. An extra-axial fluid collection is not noted.Fluid right maxill pratibha sinus may indicate acute sinusitis A cervical fracture is not visualized. No dislocation is noted. Mild chronic posterior subluxation of C5 on C6. Moderate spondylosis IMPRESSION: No acute intracranial abnormality is seen. A cervical fracture is not visualized. If the patient continues to have symptoms to suggest intracra nial /spinal cord pathology then MRI would be recommended
[2021-08-16 15:34] LABS: Potassium 3.9 mmol/L (3.5-5.1); Troponin High Sensitivity 16.3 pg/mL (<58.9)
--- NOTE | 2021-08-16 16:09 | RAD REPORT ---
EXAM DESCRIPTION: Conner Single View08/16/2021 3:45 pm CLINICAL HISTORY: Chest pain COMPARISON: July 2021 FINDINGS: The lungs appear clear of acute infiltrate. The heart is normal size IMPRESSION: No acute abnormalities displayed
--- NOTE | 2021-08-16 17:31 | RAD REPORT ---
EXAM DESCRIPTION: MRI - Brain Wo Cont - 08/16/2021 5:10 pm CLINICAL HISTORY: tia COMPARISON: Head CT August 16, 2021 TECHNIQUE: Axial, sagittal, and coronal magnetic resonance images of the brain were obtained. FINDINGS: Mild signal within periventricular, deep and subcortical white matter probably ischemic ch anges secondary to small vessel disease Diffusion-weighted/ADC mapping does not reveal evidence of acute infarction. The ventricles are normal caliber. Mild cerebral atrophy An extra-axial fluid collection is not noted. Fluid within the sinuses/mastoids is not seen IMPRESSION: No acute intracranial abnormality noted
--- NOTE | 2021-08-16 17:55 | ER ---
Nurse's Notes [facility] Name: Dylon Hannon Age: 76 yrs Sex: Male : 1945 Arrival Date: 08/16/2021 Time: 14:40 Bed 2 Private MD: Diagnosis: Transient cerebral ischemic attack, unspecified Presentation: 08/16 14:45 Chief complaint: EMS states: Pt fell this morning at 0500, did not hit head, reports jl7 feeling weak and falling, caregiver called EMS because pt is not acting like himself. EMS reports right sided facial droop on arrival, resolved at ED. Last time pt seen normal was yesterday. Coronavirus screen: At this time, the client does not indicate any symptoms associated with coronavirus-19. Ebola Screen: No symptoms or risks identified at this time. Initial Sepsis Screen: Does the patient meet any 2 criteria? No. Patient's initial sepsis screen is negative. Does the patient have a suspected source of infection? No. Patient's initial sepsis screen is negative. Risk Assessment: Do you want to hurt yourself or someone else? Patient reports no desire to harm self or others. Onset of symptoms is unknown. Transition of care: patient was not received from another setting of care. 14:45 Method Of Arrival: EMS: [place] [id number] 14:45 Acuity: STEPHANIE 3 jl7 Historical: - Allergies: 14:49 No Known Allergies; jl7 - Home Meds: 14:49 Adalimumab 40mg/.08ml Inj Pen Kit--Inject under the skin every week [Active]; jl7 Amlodipine-Beslylate 5mg PO Daily [Active]; Bupropion HCL 150mg BID [Active]; Calcium Carb 500mg PO TID [Active]; Lisiniprol 20mg PO Daily [Active]; Eynvivwzvj71cy PO Daily [Active]; Folic Acid 1mg PO Daily [Active]; Sulfasalazine 500mg PO BID [Active]; trazodone 100 mg Oral tab 1 tab [Active]; Methotrexate NA 2.5mg Take 4 tabs PO Every Week [Active]; Pyridoxine HCL 50mg Daily [Active]; - PMHx: 14:49 BPH; Depression; Erectile Dysfunction; High Cholesterol; Hyperlipidemia; Osteoporosis; jl7 Psoriatic Arthritis; short term memory loss; Diabetes mellitus; - Social history:: Smoking status: unknown. Screenin:04 Abuse screen: Denies threats or abuse. Nutritional screening: No deficits noted. jd3 Tuberculosis screening: No symptoms or risk factors identified. Fall Risk IV access (20 points). Ambulatory Aid- None/Bed Rest/Nurse Assist (0 pts). Gait- Weak (10 pts.). Mental Status- Overestimates/Forgets Limitations (15 pts.). Total Quesada Fall Scale indicates High Risk Score (45 or more points). Fall prevention measures have been instituted. Side Rails Up X 2 Placed Close to Nursing Station Frequent Obs/Assessments Occuring. Assessment: 15:02 General: Appears in no apparent distress. comfortable, Behavior is calm, cooperative, jd3 appropriate for age. Pain: Denies pain. Neuro: Araiza Agitation-Sedation Scale (RASS): 0 - Alert and Calm Level of Consciousness is awake, alert, obeys commands, Oriented to person, place, time, Speech is normal, Facial symmetry appears normal, Pupils are PERRLA. Cardiovascular: Denies chest pain, Capillary refill < 3 seconds Patient's skin is warm and dry. Rhythm is regular. Respiratory: Airway is patent Respiratory effort is even, unlabored, Respiratory pattern is regular, symmetrical, Denies cough, shortness of breath. GI: No signs and/or symptoms were reported involving the gastrointestinal system. : No signs and/or symptoms were reported regarding the genitourinary system. EENT: No signs and/or symptoms were reported regarding the EENT system. Derm: Skin is intact, Skin is dry, Skin is normal, Skin temperature is warm Wound noted right knee Wound is healing abrasion noted to right knee Bruising that is dark purple, on right eyebrow. Musculoskeletal: Circulation, motion, and sensation intact. Range of motion: intact in all extremities. 16:56 Reassessment: Patient appears in no apparent distress at this time. No changes from jd3 previously documented assessment. Patient and/or family updated on plan of care and expected duration. Pain level reassessed. 18:39 Reassessment: Patient appears in no apparent distress at this time. No changes from jd3 previously documented assessment. Patient and/or family updated on plan of care and expected duration. Pain level reassessed. Jigar SAFETY ATTENDANT at bedside. 19:39 Reassessment: Patient appears in no apparent distress at this time. as6 Vital Signs: 15:04 BP 161 / 73; Pulse 79; Resp 17 S; Temp 98.5(TE); Pulse Ox 100% on R/A; jd3 16:56 BP 158 / 70; Pulse 76; Resp 18 S; Pulse Ox 100% on R/A; jd3 18:39 BP 122 / 109; Pulse 81; Resp 17 S; Pulse Ox 100% on R/A; jd3 19:38 BP 145 / 100; Pulse 76 MON; Resp 18 S; Pulse Ox 99% on R/A; as6 22:19 BP 147 / 76; Pulse 76; Resp 18 S; Pulse Ox 98% on R/A; as6 NIH Stroke Scale Scores: 16:43 NIHSS Score: 0 jr8 ED Course: 14:40 Patient arrived in ED. ds1 14:46 Eleazar Shepard PA is PHCP. jr8 14:46 Yaakov Flaherty DO is Attending Physician. jr8 14:49 Triage completed. jl7 14:49 Arm band placed on right wrist. jl7 14:50 Rm Randall, RN is Primary Nurse. jd3 15:05 Patient has correct armband on for positive identification. Bed in low position. Call j light in reach. Side rails up X2. Client placed on continuous cardiac and pulse oximetry monitoring. NIBP monitoring applied. monitoring tech on. Pulse ox on. NIBP on. 15:19 CT Head C Spine In Process Unspecified. EDMS 15:39 EKG done, by ED staff, reviewed by Eleazar BRENNAN. jw7 15:47 XRAY Chest (1 view) In Process Unspecified. EDMS 17:11 MRI - Brain Wo Cont In Process Unspecified. EDMS 17:55 Patrick Wharton MD is Hospitalizing Provider. jr8 19:19 Primary Nurse role handed off by Rm Randall, MALIA mw2 19:38 Michael Jimenez RN is Primary Nurse. as6 22:18 No provider procedures requiring assistance completed. Patient admitted, IV remains in as6 place. Administered Medications: 18:24 Drug: Aspirin Chewable Tablet 81 mg Route: PO; jd3 19:07 Follow up: Response: No adverse reaction jd3 18:24 Drug: foLIC Acid 1 mg Route: IVPB; Site: left antecubital; jd3 19:07 Follow up: Response: No adverse reaction; IV Status: Completed infusion jd3 Outcome: 17:55 Decision to Hospitalize by Provider. jr8 22:18 Admitted to Med/surg accompanied by tech, via stretcher, room 225, with chart. as6 22:18 Condition: stable 22:18 Instructed on the need for admit. 22:20 Patient left the ED. as6 NIH Stroke Scale - NIH Stroke Score Date: 08/16/2021 Time: 16:43 Total Score = 0 1a. Level of Consciousness (LOC) - 0(Alert) 1b. Level of Consciousness (LOC) (Month \T\ Age) - 0(Both) 1c. LOC Commands (Open \T\ Closes Eyes/Utility Lineman) - 0(Both) 2. Best Gaze (Lateral Gaze Paresis) - 0(Normal) 3. Visual Field Loss - 0(No visual loss) 4. Facial Palsy - 0(Normal) 5a. Left Arm: Motor (10-second hold) - 0(No drift) 5b. Right Arm: Motor (10-second hold) - 0(No drift) 6a. Left Leg: Motor (5-second hold - always test supine) - 0(No drift) 6b. Right Leg: Motor (5-second hold - always test supine) - 0(No drift) 7. Limb Ataxia (finger/nose \T\ heel/rolle - test with eyes open) - 0(Absent) 8. Sensory Loss (pinprick arms/legs/face) - 0(Normal) 9. Best Language: Aphasia (description/naming/reading) - 0(No aphasia) 10. Dysarthria (speech clarity - read or repeat words) - 0(Normal) 11. Extinction and Inattention (visual/tactile/auditory/spatial/personal) - 0(No abnormality) Initials: mary Signatures: Dispatcher [employer] [facility] OlveraTasha dsEleazar Melendez PA PA jr8 Glynn Beckford RN RN jl7 Rm Randall RN RN jd3 Getachew Lowe mw2 Michael Jimenez, MALIA RN as6 Justine Canales jw7 Corrections: (The following items were deleted from the chart) 16:56 16:56 Reassessment: Patient appears in no apparent distress at this time. No jd3 changes from previously documented assessment. Patient and/or family updated on plan of care and expected duration. Pain level reassessed. Patient is alert, oriented x 3, equal unlabored respirations, skin warm/dry/pink. jd3
--- NOTE | 2021-08-16 17:55 | EDPHYS ---
Physician Documentation [facility] Name: Dylon Hannon Age: 76 yrs Sex: Male : 1945 Arrival Date: 08/16/2021 Time: 14:40 Bed 2 Private MD: ED Physician Yaakov Flaherty HPI: 08/16 16:38 This 76 yrs old Male presents to ER via EMS with complaints of Fall Injury. jr8 16:38 Details of fall: The patient fell from an upright position, while standing. Onset: The jr8 symptoms/episode began/occurred acutely, this morning. Associated injuries: The patient sustained injury to the head, contusion, pain. Severity of symptoms: At their worst the symptoms were moderate, in the emergency department the symptoms are unchanged. The patient has not experienced similar symptoms in the past. The patient has not recently seen a physician. Patient stated that he fell this morning hitting the front right side of his head and eye. Denies LOC. Patient stated that he felt unstable while walking. Has had issues in the past like this from previous back problems. Stated that he felt weak and more fatigued. Home health provider came over this afternoon and found that he had hurt himself and was acting differently. EMS stated that they noticed patient having facial droop to right side that his now resolved . Historical: - Allergies: 14:49 No Known Allergies; jl7 - Home Meds: 14:49 Adalimumab 40mg/.08ml Inj Pen Kit--Inject under the skin every week [Active]; jl7 Amlodipine-Beslylate 5mg PO Daily [Active]; Bupropion HCL 150mg BID [Active]; Calcium Carb 500mg PO TID [Active]; Lisiniprol 20mg PO Daily [Active]; [id number] PO Daily [Active]; Folic Acid 1mg PO Daily [Active]; Sulfasalazine 500mg PO BID [Active]; trazodone 100 mg Oral tab 1 tab [Active]; Methotrexate NA 2.5mg Take 4 tabs PO Every Week [Active]; Pyridoxine HCL 50mg Daily [Active]; - PMHx: 14:49 BPH; Depression; Erectile Dysfunction; High Cholesterol; Hyperlipidemia; Osteoporosis; jl7 Psoriatic Arthritis; short term memory loss; Diabetes mellitus; - Social history:: Smoking status: unknown. ROS: 16:42 Eyes: Negative for injury, pain, redness, and discharge, ENT: Negative for injury, jr8 pain, and discharge, Neck: Negative for injury, pain, and swelling, Cardiovascular: Negative for chest pain, palpitations, and edema, Respiratory: Negative for shortness of breath, cough, wheezing, and pleuritic chest pain, Abdomen/GI: Negative for abdominal pain, nausea, vomiting, diarrhea, and constipation, Back: Negative for injury and pain, MS/Extremity: Negative for injury and deformity. 16:42 Skin: Positive for ecchymosis, of the face and right eye. 16:42 Neuro: Positive for dizziness, gait disturbance. Exam: 16:43 Head/Face: Normocephalic, atraumatic. ENT: Nares patent. No nasal discharge, no jr8 septal abnormalities noted. Tympanic membranes are normal and external auditory canals are clear. Oropharynx with no redness, swelling, or masses, exudates, or evidence of obstruction, uvula midline. Mucous membranes moist. Neck: Trachea midline, no thyromegaly or masses palpated, and no cervical lymphadenopathy. Supple, full range of motion without nuchal rigidity, or vertebral point tenderness. No Meningismus. Cardiovascular: Regular rate and rhythm with a normal S1 and S2. No gallops, murmurs, or rubs. Normal PMI, no JVD. No pulse deficits. Respiratory: Lungs have equal breath sounds bilaterally, clear to auscultation and percussion. No rales, rhonchi or wheezes noted. No increased work of breathing, no retractions or nasal flaring. Abdomen/GI: Soft, non-tender, with normal bowel sounds. No distension or tympany. No guarding or rebound. No evidence of tenderness throughout. Back: No spinal tenderness. No costovertebral tenderness. Full range of motion. Skin: Warm, dry with normal turgor. Normal color with no rashes, no lesions, and no evidence of cellulitis. MS/ Extremity: Pulses equal, no cyanosis. Neurovascular intact. Full, normal range of motion. Neuro: Awake and alert, GCS 15, oriented to person, place, time, and situation. Cranial nerves II-XII grossly intact. Motor strength 5/5 in all extremities. Sensory grossly intact. Cerebellar exam normal. 16:43 Eyes: Periorbital structures: ecchymosis, that is mild, on the right supraorbital ridge, right upper eyelid and right lower eyelid, Pupils: equal, round, and reactive to light and accomodation, Extraocular movements: intact throughout, Conjunctiva: normal, Corneas: are normal, no evidence of abrasion, no foreign body, Sclera: no appreciated abnormality, Anterior chamber: normal, Lids and lashes: appear normal. Vital Signs: 15:04 BP 161 / 73; Pulse 79; Resp 17 S; Temp 98.5(TE); Pulse Ox 100% on R/A; jd3 16:56 BP 158 / 70; Pulse 76; Resp 18 S; Pulse Ox 100% on R/A; jd3 18:39 BP 122 / 109; Pulse 81; Resp 17 S; Pulse Ox 100% on R/A; jd3 19:38 BP 145 / 100; Pulse 76 MON; Resp 18 S; Pulse Ox 99% on R/A; as6 22:19 BP 147 / 76; Pulse 76; Resp 18 S; Pulse Ox 98% on R/A; as6 NIH Stroke Scale Scores: 16:43 NIHSS Score: 0 jr8 MDM: 14:46 Patient medically screened. jr8 17:53 Data reviewed: vital signs, nurses notes, lab test result(s), EKG, radiologic studies, [facility] CT scan, MRI, plain films. Data interpreted: Pulse oximetry: on room air is 100 %. Interpretation: normal. Counseling: I had a detailed discussion with the patient and/or guardian regarding: the historical points, exam findings, and any diagnostic results supporting the discharge/admit diagnosis, lab results, radiology results, the need for further work-up and treatment in the hospital. 08/16 14:49 Order name: Basic Metabolic Panel; Complete Time: 15:38 08/16 14:49 Order name: CBC with Diff; Complete Time: 15:27 08/16 14:49 Order name: Magnesium; Complete Time: 15:38 08/16 14:49 Order name: PT-INR; Complete Time: 15:27 08/16 14:49 Order name: Troponin HS; Complete Time: 15:38 08/16 18:26 Order name: ETOH Level; Complete Time: 19:07 ph 08/16 14:49 Order name: XRAY Chest (1 view); Complete Time: 16:22 8 08/16 14:49 Order name: CT Head C Spine; Complete Time: 15:34 8 08/16 15:42 Order name: MRI - Brain Wo Cont; Complete Time: 17:33 jr8 08/16 18:26 Order name: UDS; Complete Time: 20:29 ph 08/16 18:46 Order name: COVID-19 SARS RT PCR (Document "Date of Onset" if Symptomatic) la1 08/16 20:01 Order name: Urine Dipstick-Ancillary; Complete Time: 20:01 EDMS 08/16 20:40 Order name: SARS-COV-2 RT PCR; Complete Time: 20:40 EDMS 08/16 14:49 Order name: EKG; Complete Time: 14:50 08/16 14:49 Order name: Cardiac monitoring; Complete Time: 14:52 08/16 14:49 Order name: EKG - Nurse/Tech; Complete Time: 15:38 08/16 14:49 Order name: IV Saline Lock; Complete Time: 14:52 08/16 14:49 Order name: Labs collected and sent; Complete Time: 14:52 08/16 14:49 Order name: O2 Per Protocol; Complete Time: 14:52 08/16 14:49 Order name: O2 Sat Monitoring; Complete Time: 14:52 Administered Medications: 18:24 Drug: Aspirin Chewable Tablet 81 mg Route: PO; jd3 19:07 Follow up: Response: No adverse reaction jd3 18:24 Drug: foLIC Acid 1 mg Route: IVPB; Site: left antecubital; jd3 19:07 Follow up: Response: No adverse reaction; IV Status: Completed infusion jd3 Disposition: 08/17 22:05 Co-signature as Attending Physician, Yaakov SAMANIEGO was immediately available on-site ms3 in the Emergency Department for consultation in the care of the patient.. Disposition Summary: 08/16/21 17:55 Hospitalization Ordered Hospitalization Status: Observation [facility] Provider: Patrick Wharton 8 Location: Telemetry/MedSurg (observation) jr8 Condition: Stable jr8 Problem: new jr8 Symptoms: have improved jr8 Bed/Room Type: Standard [facility] Room Assignment: [facility](08/16/21 21:04) Diagnosis - Transient cerebral ischemic attack, unspecified jr8 Forms: - Medication Reconciliation Form jr8 - SBAR form jr8 NIH Stroke Scale - NIH Stroke Score Date: 08/16/2021 Time: 16:43 Total Score = 0 1a. Level of Consciousness (LOC) - 0(Alert) 1b. Level of Consciousness (LOC) (Month \\T\\ Age) - 0(Both) 1c. LOC Commands (Open \\T\\ Closes Eyes/General Counselor) - 0(Both) 2. Best Gaze (Lateral Gaze Paresis) - 0(Normal) 3. Visual Field Loss - 0(No visual loss) 4. Facial Palsy - 0(Normal) 5a. Left Arm: Motor (10-second hold) - 0(No drift) 5b. Right Arm: Motor (10-second hold) - 0(No drift) 6a. Left Leg: Motor (5-second hold - always test supine) - 0(No drift) 6b. Right Leg: Motor (5-second hold - always test supine) - 0(No drift) 7. Limb Ataxia (finger/nose \\T\\ heel/rolle - test with eyes open) - 0(Absent) 8. Sensory Loss (pinprick arms/legs/face) - 0(Normal) 9. Best Language: Aphasia (description/naming/reading) - 0(No aphasia) 10. Dysarthria (speech clarity - read or repeat words) - 0(Normal) 11. Extinction and Inattention (visual/tactile/auditory/spatial/personal) - 0(No abnormality) Initials: [facility] Signatures: Dispatcher [employer] EDMS Eleazar Shepard PA PA jr8 Ora Acosta RN RN cg Leal, Jahala, RN RN jl7 Rm Randall RN RN jd3 Yaakov Flaherty DO DO ms3 Corrections: (The following items were deleted from the chart) 08/16 16:44 16:38 Patient stated that he fell this morning hitting the front right side of jr8 his head and eye. Denies LOC. Patient stated that he felt unstable while walking. Has had issues in the past like this from previous back problems. Stated that he felt weak and more fatigued. Home health provider came over this afternoon and found that he had hurt himself and was acting differently . 8 21:04 17:55 jr8 cg
[2021-08-16] MEDS ORDERED: ASPIRIN 81 MG CHEWABLE TABLET ONE (18:13)
[2021-08-16] MEDS ORDERED: FOLIC ACID 5 MG/ML VIAL ONE (18:15)
--- NOTE | 2021-08-16 19:06 | P.HP ---
Certification for Inpatient Patient admitted to: Observation With expected LOS: <2 Midnights Patient will require the following post-hospital care: None Practitioner: I am a practitioner with admitting privileges, knowledge of patient current condition, hospital course, and medical plan of care. Services: Services provided to patient in accordance with Admission requirements found in Title 42 Section 412.3 of the Code of Federal Regulations Patient History Date of Service: 08/16/21 Reason for admission: TIA, frequent falls History of Present Illness: 76-year-old male with history of hypertension, hyperlipidemia, diet-controlled diabetes, BPH presents to the emergency department for a fall. Patient lives at home alone he does not recall how or why he fell but he has been here for falls on multiple occasions in the past. Patient is also a daily drinker. Patient was transferred by EMS to the hospital who report they noticed some right-sided facial droop that resolved prior to arrival to the emergency department. Patient was evaluated here in the emergency department his labs were unremarkable EtOH and UDS are currently pending he had a CT scan of his head and C-spine which was without acute findings also had MRI of the brain performed without contrast with no acute intracranial abnormality noted chest x-ray was also negative patient was seen in the emergency department and transferred on 07/10/2021 for a compression fracture of T11, repeated falls. Patient's memory is poor but he reports that he was evaluated by neurosurgeon and told that the risks of the procedure outweigh the benefit as far as possible intervention with his T11 compression fracture. At this time patient is alert, oriented x3 does appear a bit confused denies drinking today. NIH is currently 0. ED provider wishes to admit to observation for suspected TIA, frequent falls. Allergies No Known Allergies Allergy (Unverified 05/10/17 20:11) - Past Medical/Surgical History -: Hypertension -: Hyperlipidemia -: Diabetes most type IIdiet controlled -: BPH -: Knee surgery -: Thyroid surgery -: Appendectomy Psychosocial/ Personal History: Patient lives at home, alone - Family History Father -: Cancer Mother -: Cancer - Social History Smoking Status: Current every day smoker Counseled patient to stop smoking for: less than 10 minutes Smoking therapy provided: No (Patient declined) Alcohol use: Yes CD- Drugs: No Caffeine use: Yes Place of Residence: Home Review of Systems 10-point ROS is otherwise unremarkable Neurological: Other (Frequent falls) Physical Examination - Physical Exam General: Alert, In no apparent distress, Oriented x3 HEENT: Atraumatic, PERRLA, Mucous membr. moist/pink, EOMI, Sclerae nonicteric Neck: Supple, 2+ carotid pulse no bruit, No LAD, Without JVD or thyroid abnormality Respiratory: Clear to auscultation bilaterally, Normal air movement Cardiovascular: Regular rate/rhythm, Normal S1 S2 Gastrointestinal: Normal bowel sounds, No tenderness Musculoskeletal: No tenderness, Other (Bruising noted around right eye) Integumentary: No rashes Neurological: Normal speech, Normal strength at 5/5 x4 extr, Normal tone, Normal affect - Studies Laboratory Data (last 24 hrs) 08/16/21 14:59: PT 11.2, INR 1.02 08/16/21 14:59: WBC 8.2, Hgb 13.4 L, Hct 39.3 L, Plt Count 133 L 08/16/21 14:59: Sodium 140, Potassium 3.9, BUN 10, Creatinine 1.10, Glucose 151 H, Magnesium 2.0 Assessment and Plan - Plan Assessment: Suspected TIA Frequent falls Alcohol abuse Hypertension Hyperlipidemia Diabetes mellitus type 2diet controlled History of T11 compression fracture Plan: Suspected TIA: We will obtain echocardiogram, carotid Doppler continue with aspirin, statin, folic acid, thiamine. EMS noted right-sided facial droop that resolved prior to arrival to the emergency department. We will also consult neurology. Frequent falls: Likely related to chronic alcohol abuse, patient reports that he drinks daily tequila, beer says a bottle of tequila last him less than a week, typically drinks about 4 beers per day in addition. Does not remember the cause of his fall today. Alcohol withdrawal screening in place. Physical therapy consult in place as well to evaluate patient's gait/mobility. Alcohol abuse: Continue as above recommended cessation. Hypertension: Continue home medication Hyperlipidemia:Continue home medication Diabetes mellitus type 2diet controlled: ADA diet, A1c in the morning. History of T11 compression fracture: CT on 07/10/21 with Moderate acute compression of T11 vertebrae no significant narrowing of thecal sac, no involvement of the posterior elements. was evaluated by neurosurgery per patient risk of surgical intervention outweigh benefit. DVT PPX: Lovenox Code status: Full Discharge Plan: Home Plan to discharge in: 24 Hours - Advance Directives Does patient have a Living Will: No Does patient have a Durable POA for Healthcare: No - Code Status/Comfort Care Code Status Assessed: Yes (Full code) Critical Care: No Time Spent Managing Pts Care (In Minutes): 55
[2021-08-16 20:01] LABS: Urine Blood Trace-intact (Negative); Urine Glucose Negative (Negative); Urine Protein Negative (Negative)
[2021-08-16 20:15] LABS: Barbiturates NEGATIVE (NEGATIVE); Benzodiazepines NEGATIVE (NEGATIVE); Cocaine NEGATIVE (NEGATIVE); METHAMPHETAM NEGATIVE (NEGATIVE); Methadone NEGATIVE (NEGATIVE); Opiates NEGATIVE (NEGATIVE); Phencyclidine NEGATIVE (NEGATIVE); THC Cannibis NEGATIVE (NEGATIVE)
[2021-08-16] MEDS ORDERED: ACETAMINOPHEN 500 MG TAB PO PRN (22:19)
[2021-08-16] MEDS ORDERED: ONDANSETRON 4 MG/2 ML VIAL IV PRN (22:19)
[2021-08-16 22:46] VITALS: BMI 21.7
[2021-08-16] MEDS: ATORVASTATIN 40 MG TAB PO SCH (23:16)
[2021-08-17 01:19] VITALS: O2SAT 98
[2021-08-17 04:03] LABS: Absolute Lymphocytes (CBC) 3.5 K/uL (0.7-4.9); Hematocrit 34.8 % (39.6-49.0); Lymphocytes % 37.4 % (15.3-44.8); MPV 7.7 fL (7.6-11.3); RBC Red Blood Cell Count 3.63 M/uL (4.33-5.43)
[2021-08-17 04:21] LABS: Albumin 3.1 g/dL (3.4-5.0); Bilirubin Total 0.3 mg/dL (0.2-1.0); Magnesium 1.9 mg/dL (1.8-2.4); Potassium 3.5 mmol/L (3.5-5.1); Troponin High Sensitivity 15.2 pg/mL (<58.9)
--- NOTE | 2021-08-17 07:46 | EKG ---
Test Date: 2021-08-16 Test Time: 15:38:21 Metal Grader: GEORGIE MEASUREMENT RESULTS: Intervals: Rate: 81 CA: 176 QRSD: 86 QT: 392 QTc: 455 [place]: P: 63 CA: 176 QRS: 70 T: 53 INTERPRETIVE STATEMENTS: Normal sinus rhythm Normal ECG Compared to ECG 07/10/2021 13:15:01 No significant changes Electronically Signed On 08-17-21 07:43:29 CDT by Freddie Lala
[2021-08-17] MEDS ORDERED: PNEUMOCOCCAL VACCINE 0.5 ML IMVAC ONE (08:00)
--- NOTE | 2021-08-17 08:19 | RAD REPORT ---
EXAM DESCRIPTION: US - CP - 08/17/2021 12:31 am CLINICAL HISTORY: tia/syncope COMPARISON: Head C Spine Mpr Wo Con dated 08/16/2021 TECHNIQUE: Real-time sonographic evaluation of both carotid systems was performed. Doppler interroga tion was performed with waveform tracing bilaterally. FINDINGS: Elevated peak systolic velocity at the left ECA with 135 cm/second. Normal velocities and at the right ECA. The common carotid arteries and internal carotid arteries show normal low resistanc e waveforms. Hard and soft plaque noted at both of the external carotid artery is, carotid bulbs. Peak systolic an d end diastolic velocity values and the ICA/CCA ratios are in the non-hemodynamically significant ran ge. Mild stenosis of the left external carotid artery. Antegrade flow seen in both vertebral arteries. IMPRESSION: Mild left external carotid artery stenosis, otherwise no hemodynamically significant hema nosis is identified. Mixed hard and soft plaque at the carotid bifurcations.
[2021-08-17 08:40] LABS: Urine Appearance CLEAR (Clear); Urine Bilirubin NEGATIVE (Negative); Urine Blood NEGATIVE (Negative); Urine Color YELLOW (Yellow); Urine Glucose NEGATIVE (Negative); Urine Microscopic Reflex NO UMIC; Urine Protein NEGATIVE (Negative); Urine Urobilinogen 0.2 mg/dL (0.2-1.0)
[2021-08-17] MEDS ORDERED: POTASSIUM CL SA 10 MEQ TAB PO ONE (09:00)
[2021-08-17] MEDS ORDERED: THIAMINE HCL 100 MG TABLET PO SCH (09:00)
[2021-08-17] MEDS: ENOXAPARIN 40 MG/0.4 ML SQ SCH (09:12)
[2021-08-17] MEDS: BUPROPION HCL XL 150 MG TAB PO SCH ×2 (09:12→20:13)
[2021-08-17] MEDS: LORATADINE 10 MG TAB PO SCH (09:13)
[2021-08-17] MEDS: CALCIUM CARBONATE 500 MG TAB PO SCH ×3 (09:13→20:11)
[2021-08-17] MEDS: TRAZODONE 50 MG TABLET PO SCH (09:13)
[2021-08-17] MEDS: lisinopriL 20 MG TAB PO SCH (09:13)
[2021-08-17] MEDS: AMLODIPINE 5 MG TAB PO SCH (09:14)
[2021-08-17] MEDS: ASPIRIN EC 81 MG TAB PO SCH (09:14)
[2021-08-17] MEDS: FOLIC ACID 1 MG TABLET PO SCH (09:14)
[2021-08-17] MEDS: PYRIDOXINE (VIT B6) 50 MG TAB PO SCH (09:19)
[2021-08-17] MEDS: SULFASALAZINE 500 MG E.C. TAB PO SCH ×2 (09:19→20:12)
[2021-08-17] MEDS ORDERED: LORAZEPAM 0.5 MG TABLET PO PRN (12:35)
--- NOTE | 2021-08-17 14:05 | ECHO ---
HEIGHT: 5 ft 11 in WEIGHT: 156 lb 0 oz DATE OF STUDY: 08/17/[address]: Jigar Lindo NP 2-DIMENSIONAL: YES M.MODE: YES DOPPLER: YES COLOR FLOW: YES TDS: YES PORTABLE: YES DEFINITY: NO BUBBLE STUDY: NO DIAGNOSIS: TRANSIENT ISCHEMIC ATTACK CARDIAC HISTORY: CATHERIZATION: NO SURGERY: NO PROSTHETIC VALVE: NO PACEMAKER: NO MEASUREMENTS (cm) DIASTOLIC (NORMALS) SYSTOLIC (NORMALS) IVSd 0.9 (0.6-1.2) LA Diam (1.9-4.0) LVEF 55-60% LVIDd 3.9 (3.5-5.7) LVIDs 2.4 (2.0-3.5) %FS 38% LVPWd 1.0 (0.6-1.2) Ao Diam 3.2 (2.0-3.7) 2 DIMENSIONAL ASSESSMENT: RIGHT ATRIUM: NORMAL LEFT ATRIUM: NORMAL RIGHT VENTRICLE: NORMAL LEFT VENTRICLE: NORMAL TRICUSPID VALVE: NORMAL MITRAL VALVE: THICKENED PULMONIC VALVE: NORMAL AORTIC VALVE: NORMAL PERICARDIAL EFFUSION: NONE AORTIC ROOT: NORMAL LEFT VENTRICULAR WALL MOTION: NORMAL. DOPPLER/COLOR FLOW: MILD MITRAL REGURGITATION, MODERATE AORTIC STENOSIS. COMMENTS: NORMAL LEFT VENTRICULAR EJECTION FRACTION 55-60%. GRADE I DIASTOLIC DYSFUNCTION. MODERATE AORTIC INSUFFICIENCY. MILD MITRAL REGURGITATION. TECHNOLOGIST: CEDRIC HUMPHRIES
--- NOTE | 2021-08-17 18:26 | P.PN ---
Date of Service: 08/17/21 Subjective: no acute events overnight reports feeling ok, slight tremor; walked "ok" with PT ROS: 10 point ROS as noted above, otherwise negative Physical exam GEN: Alert, oriented, NAD HEENT: Normal conjunctiva, sclera anicteric CV: Regular rate and rhythm, no edema Pulm: Nonlabored respirations on room air ABD: Soft, nontender, nondistended Neuro: slightly slurred speech /slow to answer Problem List Suspected TIA Frequent falls Alcohol abuse Hypertension Hyperlipidemia Diabetes mellitus type 2diet controlled History of T11 compression fracture facial droop resolved patient states he feels better, ready to go home caregiver arrived and stated patient is not at baseline, seems confused wide based gait with PT PT reported pt with odd behavior - visual hallucination - turned to window and was speaking to his neighbor etoh withdrawal protocol in place MRI negative, carotids ok Echo pending caregiver stated over last year or so, memory / gait / falls have been getting worse suspect some onset of dementia / wernicke's encephalopathy thiamine / folic acid ordered neuro consulted Code: full Dispo: home, ~1 day Time Spent Managing Pts Care (In Minutes): 35
[2021-08-17] MEDS: THIAMINE 200 MG/2 ML INJ IVP SCH (20:11)
[2021-08-17] MEDS: ATORVASTATIN 40 MG TAB PO SCH (20:13)
[2021-08-18 05:45] LABS: Absolute Lymphocytes (CBC) 3.3 K/uL (0.7-4.9); Lymphocytes % 40.2 % (15.3-44.8); MPV 7.2 fL (7.6-11.3); RBC Red Blood Cell Count 3.73 M/uL (4.33-5.43)
[2021-08-18 06:06] LABS: Albumin 3.1 g/dL (3.4-5.0); Bilirubin Total 0.3 mg/dL (0.2-1.0); Potassium 3.8 mmol/L (3.5-5.1)
[2021-08-18] MEDS ORDERED: POTASSIUM CL SA 10 MEQ TAB PO ONE (09:00)
[2021-08-18] MEDS: CALCIUM CARBONATE 500 MG TAB PO SCH ×2 (09:53→13:37)
[2021-08-18] MEDS: SULFASALAZINE 500 MG E.C. TAB PO SCH (09:53)
[2021-08-18] MEDS: PYRIDOXINE (VIT B6) 50 MG TAB PO SCH (09:53)
[2021-08-18] MEDS: BUPROPION HCL XL 150 MG TAB PO SCH (09:54)
[2021-08-18] MEDS: THIAMINE 200 MG/2 ML INJ IVP SCH (09:54)
[2021-08-18] MEDS: FOLIC ACID 1 MG TABLET PO SCH (09:54)
[2021-08-18] MEDS: TRAZODONE 50 MG TABLET PO SCH (09:54)
[2021-08-18] MEDS: ENOXAPARIN 40 MG/0.4 ML SQ SCH (09:54)
[2021-08-18] MEDS: AMLODIPINE 5 MG TAB PO SCH (09:55)
[2021-08-18] MEDS: lisinopriL 20 MG TAB PO SCH (09:55)
[2021-08-18] MEDS: ASPIRIN EC 81 MG TAB PO SCH (09:55)
[2021-08-18] MEDS: LORATADINE 10 MG TAB PO SCH (09:55)
[2021-08-18 14:11] VITALS: BP 142/66; TEMP 97.6
--- NOTE | 2021-08-18 17:51 | P.DS ---
Admission Date: 08/16/21 Discharge Date: 08/18/21 Disposition: DC HOME/HOME HEALTH CARE Discharge Condition: GOOD Reason for Admission: TIA, frequent falls Consultations: Neurology - Dr. Ascencio Procedures: Problem List TIA Frequent falls secondary to ataxic gait / chronic alcohol use Alcohol abuse Hypertension Hyperlipidemia Diabetes mellitus type 2diet controlled History of T11 compression fracture Brief History of Present Illness: 76yo M, PMH: HTN, HLD, diet-controlled DM2, BPH Presented to ED for a fall. Patient states he mis-stepped and fell forward into wall. He has had multiple presentations to the ED due to similar episodes. He is a daily alcohol drinker and states he thinks his drinking contributes to the falls. Caregiver reports patient has progressively worsening memory issues and more frequent falls over the last year. Patient was transferred by EMS to the hospital who report they noticed some right-sided facial droop that resolved prior to arrival to the emergency department. Patient was evaluated here in the emergency department his labs were unremarkable EtOH and UDS are currently pending he had a CT scan of his head and C-spine which was without acute findings also had MRI of the brain performed without contrast with no acute intracranial abnormality noted chest x-ray was also negative patient was seen in the emergency department and transferred on 07/10/2021 for a compression fracture of T11, repeated falls. Patient's memory is poor but he reports that he was evaluated by neurosurgeon and told that the risks of the procedure outweigh the benefit as far as possible intervention with his T11 compression fracture. At this time patient is alert, oriented x3 does appear a bit confused denies drink ing today. NIH is currently 0. ED provider wishes to admit to observation for suspected TIA, frequent falls. Hospital Course: Patient was further evaluated by CT, MRI, carotid ultrasound, echocardiogram, telemetry monitoring, all without an acute process / etiology for his falls. Patient has had gradual worsening of his gait and memory. Neurology and physical therapy were consulted. Patient's symptoms are secondary to his chronic alcoholism, leading to neuropathy / decreased proprioception, and an ataxic gait. Recommend to use a walker when ambulating, with understanding this is something he will have, and has to learn to ambulate safely. Recommend weaning off alcohol, consideration of detox program. Discharged home with home health/PT, and thiamine 100mg twice daily. Follow up with PCP within 1 week. Echocardiogram did reveal moderate aortic stenosis. Discussed symptoms to be aware of if worsening. Advised to follow up with Cardiology in the next 1-2 months, to further discuss monitoring / options. Vital Signs/Physical Exam: Temp Pulse Resp BP Pulse Ox 97.6 F 56 16 142/66 H 98 08/18/21 12:00 08/18/21 12:00 08/18/21 12:00 08/18/21 12:00 08/18/21 12:00 Physical exam GEN: Alert, oriented, NAD HEENT: Normal conjunctiva, sclera anicteric CV: Regular rate and rhythm, no edema Pulm: Nonlabored respirations on room air ABD: Soft, nontender, nondistended Neuro: normal speech, normal affect Laboratory Data at Discharge: WBC 8.3 K/uL (4.3-10.9) 08/18/21 05:32 Hgb 12.0 g/dL (13.6-17.9) L 08/18/21 05:32 Hct 35.0 % (39.6-49.0) L 08/18/21 05:32 Plt Count 138 K/uL (152-406) L 08/18/21 05:32 PT 11.2 SECONDS (9.5-12.5) 08/16/21 14:59 INR 1.02 08/16/21 14:59 Sodium 138 mmol/L (136-145) 08/18/21 05:32 Potassium 3.8 mmol/L (3.5-5.1) 08/18/21 05:32 BUN 15 mg/dL (7-18) 08/18/21 05:32 Creatinine 1.12 mg/dL (0.55-1.3) 08/18/21 05:32 Glucose 93 mg/dL (74-106) 08/18/21 05:32 Magnesium 2.0 mg/dL (1.8-2.4) 08/18/21 05:32 Total Bilirubin 0.3 mg/dL (0.2-1.0) 08/18/21 05:32 AST 13 U/L (15-37) L 08/18/21 05:32 ALT 25 U/L (12-78) 08/18/21 05:32 Alkaline Phosphatase 76 U/L (45-117) 08/18/21 05:32 Triglycerides 61 mg/dL (<150) 08/17/21 03:30 Cholesterol 122 mg/dL (<200) 08/17/21 03:30 HDL Cholesterol 72 mg/dL (40-60) H 08/17/21 03:30 Cholesterol/HDL Ratio 1.69 08/17/21 03:30 Home Medications: Adalimumab [Humira(Cf) Pen] 40 mg SQ EVERY 7TH DAY 08/16/21 Amlodipine Besylate 5 mg PO DAILY 08/16/21 Bupropion HCl [Wellbutrin Xl] 150 mg PO BID 08/16/21 Calcium Carbonate 500 mg PO TID 08/17/21 Folic Acid 1 mg PO DAILY 08/17/21 Lisinopril [Zestril] 20 mg PO DAILY 08/17/21 Loratadine [Claritin*] 10 mg PO DAILY 08/17/21 Methotrexate [Methotrexate*] 4 tab PO EVERY 7TH DAY 08/17/21 Pyridoxine HCl (Vitamin B6) [Pyridoxine HCl] 50 mg PO DAILY 08/17/21 Trazodone HCl 100 mg PO DAILY 08/17/21 sulfaSALAzine [Sulfasalazine] 500 mg PO BID 08/17/21 Thiamine HCl [Vitamin B-1] 100 mg PO BID 30 Days #60 tablet 08/18/21 New Medications: Thiamine HCl [Vitamin B-1] 100 mg PO BID 30 Days #60 tablet Followup: GOPAL HERRON [Primary Care Provider] - Time spent managing pt's care (in minutes): 45
--- NOTE | 2021-08-21 12:33 | CON ---
Reason For Consultation: Consultation called because of frequent falls. History Of Present Illness: Mr. Hannon is a 76-year-old patient with hypertension, dyslipidemia, diabetes mellitus, benign prostatic hypertrophy, and chronic intermittent but heavy alcohol abuse, comes to [facility] after a recent fall. Review of the charting system dating back 6 years ago indicates a dozen admissions to the hospital for multiple falls. The patient giving various stories about falls, some of them being tripped over by a cat, is not sure why he fell. However, his imaging over time showing multiple rib fractures and clavicular fracture, humeral fracture, and a possible high cervical fracture on one admission. The patient did admit to drinking alcohol heavily for many years, and at times, his alcohol level in the emergency room would be over 10 times what should be on blood testing. At this visit, he said he did not recall why he fell and again did admit to falling multiple times and drinking alcohol on a daily basis. He did believe there was some right-sided weakness on top of his diffuse weakness, but that apparently resolved prior to coming in. He did have a CT scan of his head, neck, and spine, which ruled out any acute fractures and old fractures were identified. The patient was put on alcohol withdrawal prophylaxis. He was seen more recently in the emergency room after another fall on July 10 with compression fracture of T11, and he was not given surgery. He will heal by secondary intention. His workup did include a brain MRI which ruled out the presence of an acute ischemic or hemorrhagic stroke. No significant findings were identified on the MRI, and a cervical spine CT scan did not reveal any acute fractures. There was chronic posterior subluxation of C5 on C6 with moderate spondylosis. A carotid artery ultrasound showed mild left external carotid artery stenosis, otherwise mix of hard plaque and soft plaque at carotid bifurcation. His echocardiogram showed ejection fraction of 55% to 60%, grade 1 diastolic dysfunction, moderate aortic insufficiency, mild mitral regurgitation. Hemoglobin and hematocrit remarkable for mildly low hemoglobin of 10.9, hematocrit 34.8. White blood cells normal at 9.3, INR 1.02. Chemistries unremarkable. Glucose ranged 173. Hemoglobin A1c 5.5. Liver function studies show essentially unremarkable despite his history of alcohol abuse. AST 14. His LDL cholesterol 38, HDL 72. Urinalysis unremarkable. Alcohol level this visit is less than 10. On the 12 of June, it was 229; on June 18, 2020, it was 262. COVID-19 test is negative. Influenza A and B negative. Past Medical History: As noted, hypertension, dyslipidemia, diabetes mellitus 2, benign prostatic hypertrophy. Past Surgical History: Knee surgery, thyroid surgery, appendectomy. Social History: Lives alone. Family History: Father with cancer. Allergies: NO KNOWN DRUG ALLERGIES. Medications: Norvasc 5 mg daily, aspirin 81 mg daily, Lipitor 4 mg at bedtime, Wellbutrin XL 150 mg twice daily, folate 1 mg daily, Prinivil 20 mg daily, sulfasalazine 500 mg twice daily, thiamine 100 mg IV twice daily, Desyrel 100 mg daily. Review of Systems: As reported, unsteady gait, poor balance, poor coordination, diffuse weakness, mild shortness of breath, otherwise unremarkable. Physical Examination: Vital Signs: Blood pressure 109/64, pulse 61, respirations 16, temperature 98.1, oxygen saturation 95% on room air. General: Mr. Hannon is resting in bed. He is in no significant distress. No evidence of alcohol withdrawal with a normal pulse and afebrile at 98.1. He is normocephalic and atraumatic. Sclerae anicteric. Oropharynx is moist. Neck: Supple. Heart: Regular. Extremities: Show no edema or cyanosis. Neurological: He is alert and oriented to situation, place, and person. Follows commands appropriately. Cranial nerves show no focal deficits on 2 through 12. Motor examination, no focal weakness in the upper and lower extremities. Coordination intact is in the upper and lower extremities. In terms of gait, he is wide-based, ataxic during ambulation with a front wheel walker. The patient did exhibit some disinhibited behavior, cursing at the window while the physical therapist was assessing and evaluating him. Assessment: Mr. 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 There is no evidence of acute stroke either clinically, neurologically, or on MRI of brain. Plan: 1. He should ambulate with a walker at all times. 2. Thiamine 100 mg twice daily. 3. Folate 1 mg daily. 4. Aspirin 81 mg daily. 5. Continue Lipitor. Continue management of hypertension. 6. Drinking alcohol. He likely would benefit from a detox program admission. 7. After discharge, needs to follow up in Dr. Ascencio's office 1 month later. SAVANNAH/BOB Voice ID: [id number] Report ID: [id number] JULIANN
== END 2021-08-18 15:00 | disposition home health service (06) ==
LOC: ER 14:38 → ERHOLD 18:46 → 2ND 21:19
PROVIDERS: ADMIT Hospitalist; ATTEND Hospitalist
DX: R26.0 Ataxic gait (principal); F10.20 Alcohol dependence, uncomplicated; W19.XXXA Unspecified fall, initial encounter; I10 Essential (primary) hypertension; E78.5 Hyperlipidemia, unspecified; E11.40 Type 2 diabetes mellitus with diabetic neuropathy, unspecified; N40.0 Benign prostatic hyperplasia without lower urinary tract symptoms; M48.54XA Collapsed vertebra, not elsewhere classified, thoracic region, initial encounter for fracture; M43.5X2 Other recurrent vertebral dislocation, cervical region; I35.2 Nonrheumatic aortic (valve) stenosis with insufficiency; R29.810 Facial weakness; R25.1 Tremor, unspecified; R44.1 Visual hallucinations; R53.1 Weakness; R06.02 Shortness of breath; R41.3 Other amnesia; M81.0 Age-related osteoporosis without current pathological fracture; L40.50 Arthropathic psoriasis, unspecified; N52.9 Male erectile dysfunction, unspecified; F17.210 Nicotine dependence, cigarettes, uncomplicated; Z71.6 Tobacco abuse counseling; Z91.81 History of falling; Z20.822 Contact with and (suspected) exposure to COVID-19; Z79.82 Long term (current) use of aspirin; Z79.899 Other long term (current) drug therapy; Z80.9 Family history of malignant neoplasm, unspecified
CPT/HCPCS: 96365; 93005; 93306; 85025 ×3; 80048; 36415 ×2; 80320; 83735 ×3; 82550; 85610; 80061; 82947; 81003 ×2; 83036; 84484 ×3; 80053 ×2; 80307; 70450; 72125; 71045; 90471; 93880; 70551; 90732; 97116 ×2; 97161; 97530; 99285; U0003; J3411 ×2; J1650 ×2; G0378 ×4

== ENCOUNTER 2021-09-18 14:16 | Emergency (ER) | payer OTHER ==
--- OUTSIDE RECORDS SUMMARY | 2021-09-18 14:20 | XMS REPORT | Continuity of Care Document ---
:1945 Author Organization [facility] t Address [address] [place] [address] Dr. Hernandez [address] [place] [id number] Care Team Providers Name Role Phone VALENTIN Attending Clinician Unavailable Jina ESCALANTE Attending Clinician Unavailable GRIFFIN DICKSON Admitting Clinician Unavailable Payers Payer Name Policy Type Policy Number Effective Date Expiration Date S dahiana [employer] MEDICARE [id number] 2021 ADV 00:00:00 OUT OF STATE [place] [id number] 2021 00:00:00 Problems This patient has no known problems. Allergies, Adverse Reactions, Alerts Allergy Allergy Status Severity Reaction(s) Onset Inactive Treating Comm ents Source Name Type Date Date Clinician NO KNOWN Allergy Active [facility] Medications This patient has no known medications. [...] Facility Department ID 2021-07-10 2021-07-15 [facility] [id number] [facility] 22:14:00 18:04:00 PABLO Results Test Description Test [...] NOT 1092) ACCURATE CRE ATININE CLEARANCE IN ND EDICTING GLOMERULAR FILT RATION RATE. ESTIMATED GFR IS NOT APPLICABLE FOR DIALYSIS PATIENTS. Stage Electrician ID Salome COOMBS LCREATINE KINASE (CK)2021-07-13 05:40:40 Test Item Value Reference Range Interpretation Comments CREATINE KINASE TOTAL (BEAKER) (test 177 U/L 29-200 code = 380) Stage Electrician ID - CORIN LCREATINE KINASE (CK)2021-07-12 05:41:18 Test Item Value Reference Range Interpretation Comments CREATINE KINASE TOTAL (BEAKER) (test 449 U/L 29-200 H code = 380) Stage Electrician ID - CORIN LBASIC METABOLIC [id number] 05:41:17 Test Item Value Reference Range Interpretation [...] S NOT APPLICABLE FOR DIALYSIS PATIEN TS. Stage Electrician ID - PIAYA LSARS-COV2/RT-PCR ([facility])2021-07-11 12:43:08 Test Item Value Reference Range Interpretation Comments SARS-COV2/RT-PCR (test Negative Not Detected, Negative, code = 3368631) See external report for linked test SARS-COV-2 PERFORMING LAB [facility] RYAN (test code = 6542654) Negative result for this test determines that [...] 564(g) of the Act.Fact Sheet for Healthcare Providers:https://www.[employer]/sites/default/files/product/documents/Fact_Shee t_II_Weeroutff_Cxmz_GBLT-WwZ-2.pdfFact Sheet for Healthcare Patients:https://www.[employer]/sites/default/files/product/ documents/Adib_Abyhv_Iforddqg_Aqoa_JYGJ-ZdZ-1.pdfPerforming Laboratory:[facility], [place] [address]PHRPIUBNQI W/ REFLEX URINE [id number] 01:08:09 Test Item Value Reference Range Interpretation [...] = 1521) SOURCE(BEAKER) (test code = 2795) Stage Electrician ID - [auto]Stage Electrician ID - techRAPID DRUG SCREEN, [id number] 00:50:57 Test Item Value Reference Range Interpretation [...] situations. Chain of custody not maintained. Some rnhs-zht-osmqmnx medications, as well as adulterants, may cause inaccurate results. Clinical correlation should be applied. A more comprehensivedrug screen or confirmation of a detected drug may be performed upon request.Stage Electrician ID - DBOperator ID - [auto]PROTHROMBIN TIME/[id number] 00:00:32 Test Item Value Reference Range Interpretation Comments PROTIME (BEAKER) 13.4 seconds 11.9-14.2 (test code = 759) INR (BEAKER) (test 1.04 See_Comment [Automat ed message] code = 370) The system [employer] generated this result transmitted ref erence range: [...] 1834 U/L 29-200 H code = 380) Stage Electrician ID - DBCOMPREHENSIVE METABOLIC [id number] 23:50:32 Test Item Value Reference Range Interpretation [...] S NOT APPLICABLE FOR DIALYSIS PATIEN TS. Stage Electrician ID - [id number] 23:50:32 Test Item Value Reference Range Interpretation Comments MAGNESIUM (BEAKER) (test code = 2.2 mg/dL 1.6-2.6 627) Stage Electrician ID - [id number] 23:50:32 Test Item Value Reference Range Interpretation Comments PHOSPHORUS (BEAKER) (test code = 3.3 mg/dL 2.3-4.7 604) Stage Electrician ID - [id number] 23:45:54 Test Item Value Reference Range Interpretation Comments ETHANOL (BEAKER) < mg/dL See_Comment [Automated message] The (test code = 400) system [employer] generated this result tra nsmitted reference range : <=10. The reference r chela was not used to int erpret this result as normal/abnormal . Stage Electrician ID - DBCBC W/PLT COUNT & AUTO [id number] 23:29:08 Test Item Value Reference Range Interpretation [...]
--- NOTE | 2021-09-18 15:25 | EDPHYS ---
Physician Documentation [facility] Name: Dylon Hannon Age: 76 yrs Sex: Male : 1945 Arrival Date: 09/18/2021 Time: 14:18 Bed Waiting Private MD: ED Physician Robert Wharton HPI: 09/18 15:21 This 76 yrs old Male presents to ER via Unassigned with complaints of Eye Problem. rn 15:21 The patient is experiencing matting or discharge, redness, The patient sustained None. rn to both eyes, caused by an unknown mechanism. Onset: The symptoms/episode began/occurred 3 day(s) ago. Duration: the symptoms are continuous. Aggravated by nothing. Alleviated by nothing. Associated signs and symptoms: Pertinent negatives: fever, headache. Severity of symptoms: At their worst the symptoms were mild in the emergency department the symptoms are unchanged. The patient has not experienced similar symptoms in the past. The patient has not recently seen a physician. Pt reports redness and drainage both eyes for 3 days, denies trauma or splash to eyes, no fever. Does not wear contacts. No vision loss. . Historical: - Allergies: 15:23 No Known Allergies; vg1 - PMHx: 15:23 BPH; Depression; diabetes mellitus; Erectile Dysfunction; High Cholesterol; vg1 Hyperlipidemia; Osteoporosis; Psoriatic Arthritis; short term memory loss; - Immunization history:: Client reports receiving the 2nd dose of the Covid vaccine. - Social history:: Smoking status: Patient reports the use of cigarette tobacco products, smokes one-half pack cigarettes per day. - Family history:: not pertinent. - Hospitalizations: : No recent hospitalization is reported. ROS: 15:21 Constitutional: Negative for fever, chills, and weight loss, Eyes: + redness and rn drainage to both eyes. ENT: Negative for injury, pain, and discharge, Neck: Negative for injury, pain, and swelling, Neuro: Negative for headache, weakness, numbness, tingling, and seizure. Exam: 15:21 Constitutional: This is a well developed, well nourished patient who is awake, alert, rn and in no acute distress. Head/Face: Normocephalic, atraumatic. Eyes: + bilateral conjunctival injection with matteing of both eyes, neg for hyphema or hypopyon. No foreign body identified. Vital Signs: 15:22 BP 149 / 63; Pulse 70; Resp 16; Temp 98.5(TE); Pulse Ox 95% on R/A; Weight 70.31 kg; vg1 Height 5 ft. 11 in. (180.34 cm); 15:22 Body Mass Index 21.62 (70.31 kg, 180.34 cm) vg1 MDM: 15:16 Patient medically screened. rn 15:21 Differential diagnosis: Infectious conjunctivitis in. Data reviewed: vital signs, rn nurses notes, and as a result, I will discharge patient. Counseling: I had a detailed discussion with the patient and/or guardian regarding: the historical points, exam findings, and any diagnostic results supporting the discharge/admit diagnosis, the need for outpatient follow up, to return to the emergency department if symptoms worsen or persist or if there are any questions or concerns that arise at home. Special discussion: I discussed with the patient/guardian in detail that at this point there is no indication for admission to the hospital. It is understood, however, that if the symptoms persist or worsen the patient needs to return immediately for re-evaluation. Based on the history and exam findings, there is no indication for further emergent testing or inpatient evaluation. I discussed with the patient/guardian the need to see the opthamologist for further evaluation of the symptoms. 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 Day 2, 3, 4 , 5 take one (1) tablet once daily.; 6 tablet; Refills: 0, Product Selection Permitted Signatures: Robert Wharton MD MD rn DaveInge RN RN vg1
--- NOTE | 2021-09-18 15:25 | ER ---
Nurse's Notes [facility] Name: Dylon Hannon Age: 76 yrs Sex: Male : 1945 Arrival Date: 09/18/2021 Time: 14:18 Bed Waiting Private MD: Diagnosis: Unspecified acute conjunctivitis, bilateral Presentation: 09/18 15:22 Chief complaint: Patient states: "pink eye" since Saturday09/15/21. Coronavirus screen: vg1 Vaccine status: Patient reports receiving the 2nd dose of the covid vaccine. Client denies travel out of the [place] in the last 14 days. Ebola Screen: Patient denies exposure to infectious person. Patient denies travel to an Ebola-affected area in the 21 days before illness onset. Initial Sepsis Screen: Does the patient meet any 2 criteria? No. Patient's initial sepsis screen is negative. Does the patient have a suspected source of infection? No. Patient's initial sepsis screen is negative. Risk Assessment: Do you want to hurt yourself or someone else? Patient reports no desire to harm self or others. Onset of symptoms was September 15, 2021. 15:22 Method Of Arrival: Ambulatory vg1 15:22 Acuity: STEPHANIE 4 vg1 Triage Assessment: 15:23 General: Appears uncomfortable, Behavior is calm, cooperative. Pain: Complains of pain vg1 in right eye and left eye. EENT: Eyes with exudate noted from outer aspect of conjuctiva of right eye, iris of right eye, inner aspect of conjuctiva of right eye, outer aspect of conjuctiva of left eye, iris of left eye and inner aspect of conjunctiva of left eye. Historical: - Allergies: 15:23 No Known Allergies; vg1 - PMHx: 15:23 BPH; Depression; diabetes mellitus; Erectile Dysfunction; High Cholesterol; vg1 Hyperlipidemia; Osteoporosis; Psoriatic Arthritis; short term memory loss; - Immunization history:: Client reports receiving the 2nd dose of the Covid vaccine. - Social history:: Smoking status: Patient reports the use of cigarette tobacco products, smokes one-half pack cigarettes per day. - Family history:: not pertinent. - Hospitalizations: : No recent hospitalization is reported. Screenin:49 Abuse screen: Denies threats or abuse. Nutritional screening: No deficits noted. vg1 Tuberculosis screening: No symptoms or risk factors identified. Fall Risk None identified. Vital Signs: 15:22 BP 149 / 63; Pulse 70; Resp 16; Temp 98.5(TE); Pulse Ox 95% on R/A; Weight 70.31 kg; vg1 Height 5 ft. 11 in. (180.34 cm); 15:22 Body Mass Index 21.62 (70.31 kg, 180.34 cm) vg1 ED Course: 14:18 Patient arrived in ED. rg4 15:16 Robert Wharton MD is Attending Physician. rn 15:23 Triage completed. vg1 15:23 Arm band placed on. vg1 15:24 Wero Liz MD is Referral Physician. rn 15:49 Patient has correct armband on for positive identification. vg1 15:49 No provider procedures requiring assistance completed. Patient did not have IV access vg1 during this emergency room visit. Administered Medications: No medications were administered Medication: 15:50 VIS not applicable for this client. vg1 Outcome: 15:24 Discharge ordered by . rn 15:49 Discharged to home ambulatory. vg1 15:49 Condition: good 15:49 Discharge instructions given to patient, Instructed on discharge instructions, follow up and referral plans. medication usage, Demonstrated understanding of instructions, follow-up care, medications, Prescriptions given X 2. 15:50 Patient left the ED. vg1 Signatures: Robert Wharton MD MD rn Garcia, Rubi 4 Inge Acosta RN RN vg1
[2021-09-18 16:00] VITALS: BP 149/63; TEMP 98.5; O2SAT 95
== END 2021-09-18 15:50 | disposition home or self-care (01) ==
LOC: ER 14:16
DX: H10.33 Unspecified acute conjunctivitis, bilateral (principal); E78.5 Hyperlipidemia, unspecified; E11.9 Type 2 diabetes mellitus without complications; E78.00 Pure hypercholesterolemia, unspecified; M81.0 Age-related osteoporosis without current pathological fracture; L40.50 Arthropathic psoriasis, unspecified; F17.210 Nicotine dependence, cigarettes, uncomplicated
CPT/HCPCS: 99282

== ENCOUNTER 2021-12-09 11:20 | Emergency (ER) | payer OTHER ==
--- OUTSIDE RECORDS SUMMARY | 2021-12-09 11:24 | XMS REPORT | Continuity of Care Document ---
:1945 Author Organization [facility] t Address [address] [place] [address] Care Team Providers Name Role Phone No, Pcp [facility] Primary Care Physician Unavailable ELKIN JOSEPH Attending Clinician Unavailable Juanita ARIAS, Greg Muro Attending Clinician Maty Dickson MD Attending Clinician [phone] Matilde ARIAS, Destiny Ravi Attending Clinician Elkin Joseph MD Attending Clinician GREG ESCALANTE Attending Clinician Unavailable MATY DICKSON Admitting Clinician Unavailable Payers Payer Name Policy Type Policy Number Effective Date Expiration Date Doc talbot [employer] MEDICARE [id number] 2021 ADV 00:00:00 OUT OF STATE [place] [id number] 2021 00:00:00 Problems Condition Condition Condition Status Onset Resolution Last Treating Co mments Source Name Details Category Date Date Treatment Clinician Date Compressio Compressio Disease Active [facility] fracture n fracture 4-04 [facility] of T11 of T11 00:00: Medical vertebra vertebra 00 Center Multiple [facility] Alcohol Alcohol Disease [facility] Right leg Right leg Disease Active [facility] pain pain [facility]04 [facility] 00:00: Medical 00 [place] Rhabdomyol Rhabdomyol Disease Active [facility] ysis ysis 4-04 [facility] 00[facility] 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 essential 4-04 [facility] HTN HTN 00:00: Medical 00 Center Allergies, Adverse Reactions, Alerts Allergy Allergy Status Severity Reaction(s) Onset Inactive Treating Comm ents Source Name Type Date Date Clinician NO KNOWN Allergy Active [facility] Family History Family Member Diagnosis Comments Start Date Stop Date Source Natural father No Known Problem [facility] Natural mother No Known Problem [facility] Social History Social Habit Start Date Stop Date Quantity Comments Source History [facility] History [facility] 2021-07-15 2021-07-[address] [facility] Transport Med 00:00:00 00:00:[address] [facility] 2021-07-15 2021-07-[address] [facility] Housing Unable to 00:00:00 00:00:00 Medical Center Pay History [facility] 2021-07-15 2021-07-[address] [facility] Housing Places 00:00:00 00:00:00 Medical Ce nter Lived History [facility] 2021-07-15 2021-07-[address] [facility] Homeless 00:00:00 00:00:00 Medical Center Last Year Tobacco use and 2021-07-10 2021-07-[address] [facility]ie kes exposure 00:00:00 00:00:00 [facility] Alcohol intake 2021-07-10 2021-07-10 [facility] Center (finding) Sex Assigned At [birth year] [facility] k[facility] 00:00:00 00:00:00 [facility] Smoking Status Start Date Stop Date Source Current every day smoker 2021-07-10 00:00:00 [facility] Medications Ordered Filled Start Stop Current Ordering Indication Dosage Frequency Signature Comments Components Source Medication Medication Date Date Medication? Clinician (SIG) Name Name ibuprofen Yes 800mg Q.[id number] Take [address] (ADVIL,MOTR 3-25 [id number] mg by Smita weaver [place]) 800 MG 00:00: 3D mouth 3 Medi anjel tablet 00 (three) Center times daily. cyclobenzap 10mg Take [address] rine 325 07-15 by mouth. [facility] (FLEXERIL) 00:00: 00:00 Medica l 10 MG 00 :00 Center tablet Vital Signs Vital Name Observation Time Observation Value Comments Source HEIGHT 2021-07-11 15:00:00 180.3 cm WEIGHT 2021-07-11 15:00:00 69.4 kg HEIGHT 2021-07-11 15:00:00 180.3 cm WEIGHT 2021-07-11 15:00:00 69.4 kg HEIGHT 2021-07-11 15:00:00 180.3 cm WEIGHT 2021-07-11 15:00:00 69.4 kg Systolic blood 2021-07-15 16:10:00 160 mm[Hg] [facility] Diastolic blood 2021-07-15 16:10:00 72 mm[Hg] [facility] Heart rate 2021-07-15 16:10:00 71 /min [facility] Respiratory rate 2021-07-15 16:10:00 18 /min [facility] Oxygen saturation in 2021-07-15 16:10:00 98 /min [facility] Arterial blood by Medical Ce nter Pulse oximetry Body temperature 2021-07-15 11:50:00 36.17 Norma [facility] Body height 2021-07-11 15:00:00 180.3 cm [facility] Body weight 2021-07-11 15:00:00 69.4 kg [facility] BMI 2021-07-11 15:00:00 21.34 kg/m2 [facility] Procedures Procedure Date / Time Performed Performing Clinician [facility] e BASIC METABOLIC PANEL (7) 2021-07-13 04:26:00 Destiny Clayton [facility] CREATINE KINASE (CK) 2021-07-13 04:26:00 Destiny Clayton [facility] BASIC METABOLIC PANEL (7) 2021-07-12 04:37:00 Destiny Clayton [facility] CREATINE KINASE (CK) 2021-07-12 04:37:00 Destiny Clayton [facility] SARS-COV2/RT-PCR ([facility] & 2021-07-10 23:24:00 Maty Dickson [facility] REF LABS) [facility] RAPID DRUG SCREEN, URINE 2021-07-10 23:03:00 Maty Dickson [facility] URINALYSIS W/ REFLEX 2021-07-10 23:03:[address] [facility] URINE CULTURE [facility] CBC W/PLT COUNT & AUTO 2021-07-10 23:01:00 Maty Dickson [facility] DIFFERENTIAL [facility] COMPREHENSIVE METABOLIC 2021-07-10 23:01:00 [address] [facility] PANEL [facility] MAGNESIUM 2021-07-10 23:01:[address] [facility] PHOSPHORUS 2021-07-10 23:01:[address] [place] [facility] CREATINE KINASE (CK) 2021-07-10 23:01:00 Maty Dickson [facility] ETHANOL 2021-07-10 23:01:00 [place] [facility] PROTHROMBIN TIME/INR 2021-07-10 23:01:00 [place] [facility] CBC W/PLT COUNT & AUTO 2021-07-10 23:01:00 [place] [facility] EKG-SCANNED 2021-07-10 00:00:00 Provider, Vij[facility] Plan of Care Planned Activity Planned Date Details Comments Source Future Scheduled 2021-12-07 INFLUENZA VACCINE (#1) [facility] 00:00[facility]00 [code = INFLUENZA Medical Ce nter VACCINE (#1)] Future Scheduled 2021-04-08 Medicare IPPE (WELCOME [facility] 00:00:00 TO MEDICARE) [code = Medical Center Medicare IPPE (WELCOME TO MEDICARE)] Future Scheduled 2012-02-[address] [facility] Test 00:00:00 aneurysm screening Medical C enter (procedure) [code = 979725577] Future Scheduled 1997 SHINGLES VACCINES ([address] [facility] Test 00:00:00 2) [code = SHINGLES Medical Center VACCINES (1 of 2)] Future Scheduled 1966 DTAP/TDAP/TD VACCINES [facility] 00:00:00 (1 - Tdap) [code = Medical C enter DTAP/TDAP/TD VACCINES (1 - Tdap)] Future Scheduled 1965 HEPATITIS C SCREENING [facility] 00:00:00 [code = HEPATITIS C Medical Center SCREENING] Future Scheduled 1953 PNEUMOCOCCAL 65+ YRS ([address] [facility] Test 00:00:00 - PCV) [code = Medical Cente r PNEUMOCOCCAL 65+ YRS (1 - PCV)] Future Scheduled 1945 COVID-19 VACCINE (#1) [facility] 00:00:00 [code = COVID-[address] VACCINE (#1)] Future Scheduled 1947 CT Colonography (combo) [facility] Test 00:00:00 [code = CT Colonography [facility] (combo)] Future Scheduled 1947 Screening for malignant [facility] Test 00:00:00 neoplasm of colon Medical Ce nter (procedure) [code = 358737320] Future Scheduled 1947 Screening for malignant [facility] Test 00:00:00 neoplasm of colon Medical Ce nter (procedure) [code = 221942321] Future Scheduled 1947 Screening for malignant [facility] Test 00:00:00 neoplasm of colon Medical Ce nter (procedure) [code = 063178311] Future Scheduled 1947 Screening for malignant [facility] Test 00:00:00 neoplasm of colon Medical Ce nter (procedure) [code = 835826695] Future Scheduled 1945 Sigmoidoscopy [code = [facility] Test 00:00:00 Sigmoidoscopy] Medical Cente r Encounters Start End Encounter Admission Attending Care Care Encounter Source Date/Time Date/Time Type Type Clinicians Facility Department ID 2021-07-10 2021-07-15 Inpatient ER [facility] Neurology [id number] [facility] 22:14:00 18:04:00 ELKIN 2021-07-10 2021-07-15 [facility] Greg Escalante [facility] [id number] 22:14:00 18:04:00 Maty Galvez [facility] 2021-07-10 2021-07-10 Travel [facility] [id number] [facility] 00:[facility]00 00:[facility]00 [facility] Results Test Description Test Time Test Comments [...] NOT 1092) ACCURATE CRE ATININE CLEARANCE IN [place] EDICTING GLOMERULAR FILT RATION RATE. ESTIMATED GFR IS NOT APPLICABLE FOR DIALYSIS PATIENTS. Certified Art Therapist ID - CORIN LCREATINE KINASE (CK)2021-07-13 05:40:40 Test Item Value Reference Range Interpretation Comments CREATINE KINASE TOTAL (BEAKER) (test 177 U/L 29-200 code = 380) Certified Art Therapist ID - CORIN LCREATINE KINASE (CK)2021-07-12 05:41:18 Test Item Value Reference Range Interpretation Comments CREATINE KINASE TOTAL (BEAKER) (test 449 U/L 29-200 H code = 380) Certified Art Therapist ID - CORIN LBASIC METABOLIC [id number] 05:41:17 Test Item Value Reference Range Interpretation [...] GFR I S NOT APPLICABLE FOR DIALYSIS PATIABIEL TS. Certified Art Therapist ID - PIAYA LSARS-CoV2/RT-PCR (Asymptomatic ONLY)2021-07-11 12:43:08 Test Item Value Reference Range Interpretation Comments SARS-COV2/RT-PCR Negative Not Detected, (test code = Negative, See 46462-7) external report for linked test SARS-COV-2 [facility] PERFORMING LAB (test code = 86831-5) ALIRIO (test code = Negative result for this ALIRIO) test determines that SARS-CoV-2 RNA was not present in the specimen above the Limit of Detection (LOD). However, Negative results do not preclude SARS-CoV-2 infection and should not be used as the sole basis for treatment or patient management decisions. Negative results must be combined with clinical observations, patient history, and epidemiological information. A false negative result may occur if a specimen is improperly collected, transported or handled. A false negative result should be considered if patient's recent exposures or clinical presentation indicate that COVID-19 (SARS-CoV-2) is likely and diagnostic tests for other causes of illness are negative. Re-testing should be considered in cases of suspected false negatives. The limit of detection for this assay is 800 copies/mL. This SARS CoV-2 test is a real-time RT-PCR test intended for the qualitative detection of nucleic acid from SARS-CoV-2 in a nasopharyngeal swab specimen collected from individuals suspected of COVID-19 by their healthcare provider. This test has not been Food and Drug [...] is revoked under Section 564(g) of the Act. Fact Sheet for Healthcare Providers:https://www.[employer]/sites/default/f robinson/product/documents/F act_Sheet_HC_Providers_L imp_VGDF-KbO-3.pdf Fact Sheet for Healthcare Patients:https://www.[employer]/sites/default/fi les/product/documents/Fa ct_Sheet_Patients_Lyra_S ARS-CoV-2.pdf Performing Laboratory:[facility] [place], [place] [address]lauren [facility].[place], [place] [address] [place], [place] [address]ARS-COV2/RT-PCR ([facility] & REF LABS)2021-07-11 12:43:08 Test Item Value Reference Range Interpretation Comments SARS-COV2/RT-PCR (test Negative Not Detected, Negative, code = 1847861) See external report for linked test SARS-COV-2 PERFORMING LAB [facility] (test code = 8848809) Negative result for this test determines that SARS-CoV-2 RNA was not present in the specimen above the Limit of Detection (LOD). However, Negative results do not preclude SARS-CoV-2 infection and should not be used as the sole basis for treatment or patient management decisions. Negative results must be combined with clinical observations, patient history, and [...] a nasopharyngeal swab specimen collected from individuals suspected of COVID-19 by their healthcare provider.This test [...] justifying the authorization of the emergency use ofin vitro diagnostic tests for detection and/or diagnosis of COVID-19 is terminated under Section 564(b)(2) of the Act or the EUA is revoked under Section 564(g) of the Act.Fact Sheet for Healthcare Prov iders:https://www.[employer]/sites/default/files/product/documents/Fact_Sheet_HC _Vmbzmunlr_Bhpn_NJWN-ZbX-4.pdfFact Sheet for Healthcare Patients:https://www.[employer]/sites/default/files/product/docume nts/Avde_Lsjle_Rvlaqjno_Rgbd_VXOO-JuH-7.pdfPerforming Laboratory:[facility], [place] [address]Xnrxzwqvdl w/Microscopic + Reflex to [id number] 01:08:09 Test Item Value Reference Range Interpretation Comments Color, UA (test code Light Yellow = 5778-6) Clarity, UA (test Clear code = 5767-9) Specific [place], UA 1.030 1.001-1.035 (test code = 5811-5) pH, UA (test code = 7.0 5.0-8.0 5803-2) Protein, UA (test 10 mg/dL Negative A code = 98942-4) Glucose, UA (test 500 mg/dL Negative A code = 365) Ketones, UA (test Negative Negative code = 2514-8) Bilirubin, UA (test Negative Negative code = 56298-3) Blood, UA (test code Negative Negative = 48729-7) Nitrite, UA (test Negative Negative code = 5802-4) Leukocytes, UA (test Negative Negative code = 5799-2) Urobilinogen, UA 0.2 mg/dL 0.2-1.0 (test code = 14772-3) RBC, UA (test code = <1 See_Comment [Autom ated 44009-5) message] The system which generated this result transmit fatmata reference range : /HPF. The reference range was not used to interpret this result as normal/abnormal . WBC, UA (test code = 0 See_Comment [Autom ated 5821-4) message] The system which generated this result transmit fatmata reference range : /HPF. The reference range was not used to interpret this result as normal/abnormal . Bacteria, UA (test None Seen code = 29301-3) Crystals, Urine (test None Seen code = 61945-6) Specimen Source (test code = 2795) ALIRIO (test code = ALIRIO) Certified Art Therapist ID - [auto]Certified Art Therapist ID - tech Lab Interpretation Abnormal (test code = 69227-1) [facility] UR[facility] [id number] 01:08:09 Test Item Value Reference Range Interpretation [...] = 1521) SOURCE(BEAKER) (test code = 2795) Certified Art Therapist ID - [auto]Certified Art Therapist ID - techRapid drug screen, [id number] 00:50:57 Test Item Value Reference Range Interpretation Comments Barbiturate Screen Negative Negative (test code = 91593-3) Benzodiazepine Screen Negative Negative (test code = 00121-7) Cocaine (Metab.) Negative Negative Screen (test code = 3397-7) Methadone Screen (test Negative Negative code = 89073-5) Opiate Screen (test Positive Negative A code = 93294-2) Cannabinoid Screen Negative Negative (test code = 24270-4) Amph/Methamph Screen Negative Negative (test code = 75969-6) Phencyclidine Screen Negative Negative (test code = 48938-3) pH, UA (test code = 6.5 5.0-8.0 5803-2) ALIRIO (test code = ALIRIO) DRUG CUTOFF CONC.Cocaine 300 ng/mL Cannabinoid 50 ng/mLBenzodiazepine 200 ng/mLBarbiturate 200 ng/mLPhencyclidine 25 ng/mLOpiate 300 ng/mLMethadone 300 ng/mLAmphetamine/ 1000 ng/mL Methamphetamine This assay provides an unconfirmed qualitative test result for the clinical management of patients in emergency situations. Chain of custody not maintained. Some yiia-qjv-gtcmbni medications, as well as adulterants, may cause inaccurate results. Clinical correlation should be applied. A more comprehensive drug screen or confirmation of a detected drug may be performed upon request.Certified Art Therapist ID - DBOperator ID - [auto] Lab Interpretation Abnormal (test code = 94524-9) [facility], [id number] 00:50:57 Test Item Value Reference Range Interpretation [...] situations. Chain of custody not maintained. Some wqwi-udh-icvviku medications, as well as adulterants, may cause inaccurate results. Clinical correlation should be applied. A more comprehensive drug screen or confirmation of a detected drug may be performed upon request.Certified Art Therapist ID - DBOperator ID - [auto] PROTHROMBIN [id number] 00:00:32 Test Item Value Reference Range Interpretation Comments PROTIME (BEAKER) 13.4 seconds 11.9-14.2 (test code = 759) INR (BEAKER) (test 1.04 See_Comment [Automat ed message] code = 370) The system [employer] generated this result transmitted ref erence range: <=5.90. The reference range was not used to int erpret this result as normal/abnormal . RECOMMENDED COUMADIN/WARFARIN INR THERAPY RANGESSTANDARD DOSE: 2.0 - 3.0 Includes: PROPHYLAXIS for venous thrombosis, systemic embolization; TREATMENT for venous thrombosis and/or pulmonary embolus.HIGH RISK: Target INR is 2.5-3.5 for patients with mechanical heart valves.CREATINE KINASE (CK)2021-07-10 23:50:33 Test Item Value Reference Range Interpretation Comments CREATINE KINASE TOTAL (BEAKER) (test 1834 U/L 29-200 H code = 380) Certified Art Therapist ID - DBCOMPREHENSIVE METABOLIC [id number] 23:50:32 Test Item Value Reference Range Interpretation [...] S NOT APPLICABLE FOR DIALYSIS PATIEN TS. Certified Art Therapist ID - [id number] 23:50:32 Test Item Value Reference Range Interpretation Comments MAGNESIUM (BEAKER) (test code = 2.2 mg/dL 1.6-2.6 627) Certified Art Therapist ID - [id number] 23:50:32 Test Item Value Reference Range Interpretation Comments PHOSPHORUS (BEAKER) (test code = 3.3 mg/dL 2.3-4.7 604) Certified Art Therapist ID - [id number] 23:45:54 Test Item Value Reference Range Interpretation Comments ETHANOL (BEAKER) < mg/dL See_Comment [Automated message] The (test code = 400) system i generated this result tra nsmitted reference range : <=10. The reference r chela was not used to int erpret this result as normal/abnormal . Certified Art Therapist ID - DBCBC W/PLT COUNT & AUTO [id number] 23:29:08 Test Item Value Reference Range Interpretation [...] % 0-1 PERCENT (BEAKER) (test code = 0825)
--- NOTE | 2021-12-09 11:44 | RAD REPORT ---
EXAM DESCRIPTION: CT - CTHCSPWOC - 12/09/2021 11:30 am CLINICAL HISTORY: Trauma, head and neck injury. fall COMPARISON: <Comparisons> TECHNIQUE: Axial 5 mm thick images of the head were obtained. Axial 2 mm thick images of the cervical spine were obtained with sagittal and coronal reconstruction images generated and reviewed. All CT scans are performed using dose optimization technique as appropriate and may include automated exposure control or mA/KV adjustment according to patient size. FINDINGS: CT HEAD WITHOUT CONTRAST: No acute hemorrhage, hydrocephalus or extra-axial collection is identified.No areas of brain edema or midline shift. The paranasal sinuses and mastoids are clear.The calvarium is intact. CT CERVICAL SPINE WITHOUT CONTRAST: No fracture or subluxation.Reversal of the normal cervical lordosis. Multilevel cervical spondylosis is present with varying degrees of neural foraminal narrowing. Central spinal stenosis is noted at C3 -4 and C4-5 and C5-6 which is likely mild if not moderate.No prevertebral soft tissues swelling is id entified. Anterolisthesis of C2 on C3 and retrolisthesis of C5 on C6 likely related to degenerative c hanges. Atherosclerosis. IMPRESSION: No acute intracranial or cervical spine findings.
--- NOTE | 2021-12-09 12:22 | RAD REPORT ---
EXAM DESCRIPTION: RAD - Shoulder Left 2 View - 12/09/2021 11:58 am CLINICAL HISTORY: Pain COMPARISON: Head C Spine Mpr Wo Con dated 08/16/2021; Head C Spine Mpr Wo Con dated 06/12/2021No compar isons FINDINGS/IMPRESSION: Left proximal humerus fracture which likely involves the surgical neck and grea ter tuberosity. Remote mid diaphyseal fracture with bridging callus. No dislocation.
--- NOTE | 2021-12-09 12:22 | RAD REPORT ---
EXAM DESCRIPTION: RAD - Chest Pa And Lat (2 Views) - 12/09/2021 11:58 am CLINICAL HISTORY: fall COMPARISON: Chest Single View dated 08/16/2021; Chest Single View dated 07/10/2021; Chest Single View d ated 06/18/2020; Chest Single View dated 11/10/2018 FINDINGS: Lines: None. Lungs: No evidence of edema or pneumonia. Pleural: No significant pleural effusions or pneumothorax. Cardiac: The heart size is within normal limits. Mediastinum: Within normal limits. Bones: No acute fractures. Remote right-sided rib fractures. Other: None IMPRESSION: No acute cardiopulmonary disease.
[2021-12-09 12:29] LABS: Absolute Lymphocytes (CBC) 2.3 K/uL (0.7-4.9); Hematocrit 37.5 % (39.6-49.0); Lymphocytes % 23.6 % (15.3-44.8); MCV 95.1 fL (80-100); MPV 7.3 fL (7.6-11.3); RBC Red Blood Cell Count 3.94 M/uL (4.33-5.43)
[2021-12-09 12:41] LABS: Potassium 4.2 mmol/L (3.5-5.1)
[2021-12-09] MEDS ORDERED: TETANUS & DIPHTHERIA TOX,ADULT 0.5 ML VIAL ONE (12:55)
[2021-12-09] MEDS ORDERED: DIAZEPAM 10 MG/2 ML INJ SYRINGE ONE (12:55)
--- NOTE | 2021-12-09 13:30 | EDPHYS ---
Physician Documentation [facility] Name: Dylon Hannon Age: 76 yrs Sex: Male : 1945 Arrival Date: 12/09/2021 Time: 11:22 Bed 12 Private MD: ED Physician Jorje Adams HPI: 12/09 12:41 This 76 yrs old Male presents to ER via EMS with complaints of Fall Injury. snw 12:41 Details of fall: The patient fell from an upright position, while walking. Onset: The snw symptoms/episode began/occurred suddenly, just prior to arrival. Associated injuries: The patient sustained anterior aspect of left shoulder, decreased range of motion, painful injury, swelling. Severity of symptoms: At their worst the symptoms were moderate, earlier today. Historical: - Allergies: : No Known Allergies; iw - Home Meds: : Adalimumab 40mg/.08ml Inj Pen Kit--Inject under the skin every week [Active]; iw Amlodipine-Beslylate 5mg PO Daily [Active]; Biscadoyl 5mg EC Daily PRN [Active]; Calcium Carb 500mg PO TID [Active]; Bupropion HCL 150mg BID [Active]; Citalopram Hydrobromide 40mg PO daily with food [Active]; Lisiniprol 20mg PO Daily [Active]; Levothyrozine NA 0.075 mg Daily [Active]; [id number] PO Daily [Active]; Metformin 500mg PO Daily [Active]; Pyridoxine HCL 50mg Daily [Active]; Oxybutynin Chloride 5mg PO Daily [Active]; zolpidem 10 mg Oral tab [Active]; Simvastatin 80mg PO QHS [Active]; - PMHx: 11:58 BPH; Depression; diabetes mellitus; Erectile Dysfunction; High Cholesterol; iw Hyperlipidemia; Osteoporosis; Psoriatic Arthritis; short term memory loss; - PSHx: : Unable to Obtain; iw - Immunization history:: Adult Immunizations up to date, Client reports receiving the 2nd dose of the Covid vaccine, Client reports receiving the 1st dose of the Covid vaccine. - Social history:: Smoking status: Patient reports the use of cigarette tobacco products, smokes one-half pack cigarettes per day. ROS: 12:41 Constitutional: Negative for fever, chills, and weight loss, Eyes: Negative for injury, snw pain, redness, and discharge, ENT: Negative for injury, pain, and discharge, Neck: Negative for injury, pain, and swelling, Cardiovascular: Negative for chest pain, palpitations, and edema, Respiratory: Negative for shortness of breath, cough, wheezing, and pleuritic chest pain, Abdomen/GI: Negative for abdominal pain, nausea, vomiting, diarrhea, and constipation, Back: Negative for injury and pain, : Negative for injury, bleeding, discharge, and swelling, Skin: Negative for injury, rash, and discoloration, Neuro: Negative for headache, weakness, numbness, tingling, and seizure, Psych: Negative for depression, anxiety, suicide ideation, homicidal ideation, and hallucinations. 12:41 MS/extremity: Positive for injury or acute deformity, of the anterior aspect of left shoulder and left arm. Exam: 12:39 Constitutional: This is a well developed, well nourished patient who is awake, alert, snw and in no acute distress. Head/Face: Normocephalic, atraumatic. Eyes: Pupils equal round and reactive to light, extra-ocular motions intact. Lids and lashes normal. Conjunctiva and sclera are non-icteric and not injected. Cornea within normal limits. Periorbital areas with no swelling, redness, or edema. ENT: Nares patent. No nasal discharge, no septal abnormalities noted. Tympanic membranes are normal and external auditory canals are clear. Oropharynx with no redness, swelling, or masses, exudates, or evidence of obstruction, uvula midline. Mucous membranes moist. Neck: Trachea midline, no thyromegaly or masses palpated, and no cervical lymphadenopathy. Supple, full range of motion without nuchal rigidity, or vertebral point tenderness. No Meningismus. Chest/axilla: Normal chest wall appearance and motion. Nontender with no deformity. No lesions are appreciated. Cardiovascular: Regular rate and rhythm with a normal S1 and S2. No gallops, murmurs, or rubs. Normal PMI, no JVD. No pulse deficits. Respiratory: Lungs have equal breath sounds bilaterally, clear to auscultation and percussion. No rales, rhonchi or wheezes noted. No increased work of breathing, no retractions or nasal flaring. Abdomen/GI: Soft, non-tender, with normal bowel sounds. No distension or tympany. No guarding or rebound. No evidence of tenderness throughout. Back: No spinal tenderness. No costovertebral tenderness. Full range of motion. 12:39 Musculoskeletal/extremity: Extremities: grossly normal except: noted in the anterior aspect of left shoulder and left bicep: contusion, decreased ROM, tenderness, ROM: limited active range of motion due to pain, in the left arm, limited passive range of motion due to pain, Circulation is intact in all extremities. Sensation intact. 12:39 Skin: Appearance: normal except for affected area, skin tears to left elbow, right forearm, and right ankle. Vital Signs: 11:57 BP 138 / 59; Pulse 62; Resp 16; Temp 97.9(O); Pulse Ox 100% on R/A; Weight 69.4 kg (R); iw Height 5 ft. 11 in. (180.34 cm); Pain 3/10; 11:57 Body Mass Index 21.34 (69.40 kg, 180.34 cm) iw MDM: 12:28 Patient medically screened. snw 12:48 Data reviewed: vital signs, nurses notes. Data interpreted: Pulse oximetry: on room air snw is 100 %. Interpretation: normal. Special discussion:. 12/09 11:25 Order name: CBC with Diff; Complete Time: 13:00 snw 12/09 11:25 Order name: Chem 7; Complete Time: 13:00 snw 12/09 11:25 Order name: CT Head C Spine; Complete Time: 11:48 snw 12/09 11:25 Order name: Chest Pa And Lat (2 Views) XRAY; Complete Time: 12:25 snw 12/09 11:25 Order name: Shoulder Left (2 View) XRAY; Complete Time: 12:25 snw 12/09 13:16 Order name: Shoulder Immobilizer: left; Complete Time: 13:56 snw Administered Medications: 13:01 Drug: Tetanus-Diphtheria Toxoid Adult 0.5 ml {Artist'S Representative: [employer]. Exp: iw 08/12/2023. Lot #: [id number]. } Route: IM; Site: right deltoid; 13:30 Follow up: Response: No adverse reaction iw 13:02 Drug: Valium (diazepam) 5 mg Route: IVP; Site: right antecubital; iw 13:40 Follow up: Response: No adverse reaction; Pain is decreased; RASS: Drowsy (-1) iw 14:21 Drug: HYDROcodone-acetaminophen 5 mg-325 mg 1 tabs Route: PO; iw 14:30 Follow up: Response: No adverse reaction iw Disposition: 16:32 Co-signature as Attending Physician, Jorje Adams MD I agree with the assessment and kdr plan of care. Disposition Summary: 12/09/21 13:30 Discharge Ordered Location: Home snw Condition: Stable snw Diagnosis - Fracture of upper end of humerus snw - Fall on same level from slipping, tripping and stumbling without subsequent snw striking against object - Skin tears snw Followup: snw - With: Private Physician - When: 2 - 3 days - Reason: Recheck today's complaints, Continuance of care, Re-evaluation by your physician Followup: snw - With: Emergency Department - When: As needed - Reason: Worsening of condition Discharge Instructions: - Discharge Summary Sheet snw - Humerus Fracture Treated With Immobilization snw - Humerus Fracture Treated With ORIF snw Forms: - Medication Reconciliation Form snw - Thank You Letter snw - Antibiotic Education snw - Prescription Opioid Use snw Prescriptions: - Tramadol 50 mg Oral Tablet - take 1 tablet by ORAL route every 8 hours as needed; 12 tablet; Refills: 0, snw Product Selection Permitted - orphenadrine citrate 100 mg Oral Tablet Sustained Release - take 1 tablet by ORAL route 2 times per day As needed; 20 tablet; Refills: 0, snw Product Selection Permitted Signatures: Dispatcher [employer] EDAL Jorje Adams MD MD kdr Waters, Shelly, FNP-Casimiro DOE-Jazzy Dominguez RN RN iw Corrections: (The following items were deleted from the chart) 13:14 12:48 Counseling: I had a detailed discussion with the patient and/or guardian snw regarding: the historical points, exam findings, and any diagnostic results supporting the discharge/admit diagnosis, the presence of at least one elevated blood pressure reading (>120/80) during this emergency department visit, lab results, radiology results, the need for further work-up and treatment in the hospital, snw 13:14 12:48 Physician consultation: I originally spoke with Dr. Powell (Hospitalist) to admit snw pt here. I called Dr. Slaeem (urology) post seeing a urine culture and pending CT abd/pelvis order in his name. Dr. Saleem is unavailable for the weekend and recommends pt be transferred. Dr. Harris at [facility] kindly accepts pt in transfer., snw 13:14 12:48 Physician consultation: Roberto Harris MD was called at 12:30, was contacted at snw 12:30, regarding regarding transfer, to [facility]. patient's condition, kindly accepts pt in transfer, would like copy of images, recent urine culture sensitivity, and to keep the pt NPO, snw
--- NOTE | 2021-12-09 13:30 | ER ---
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 11:30 Acuity: STEPHANIE 4 iw 11:43 Coronavirus screen: At this time, the client does not indicate any symptoms associated iw with coronavirus-19. Ebola Screen: Patient negative for fever greater than or equal to 101.5 degrees Fahrenheit, and additional compatible Ebola Virus Disease symptoms Patient denies exposure to infectious person. Patient denies travel to an Ebola-affected area in the 21 days before illness onset. No symptoms or risks identified at this time. Initial Sepsis Screen: Does the patient meet any 2 criteria? No. Patient's initial sepsis screen is negative. Does the patient have a suspected source of infection? No. Patient's initial sepsis screen is negative. Risk Assessment: Do you want to hurt yourself or someone else? Patient reports no desire to harm self or others. Onset of symptoms was December 09, 2021. 11:43 Acuity: STEPHANIE 3 iw 11:43 Method Of Arrival: EMS: [facility] iw Triage Assessment: 11:58 General: Appears in no apparent distress. comfortable, Behavior is calm, cooperative, iw appropriate for age. Pain: Complains of pain in left arm. EENT: No deficits noted. No signs and/or symptoms were reported regarding the EENT system. Neuro: No deficits noted. Level of Consciousness is awake, alert, obeys commands, Oriented to person, place, time, situation. Cardiovascular: No deficits noted. Respiratory: No deficits noted. GI: No deficits noted. No signs and/or symptoms were reported involving the gastrointestinal system. : No deficits noted. No signs and/or symptoms were reported regarding the genitourinary system. Derm: Skin is intact, is fragile, is thin, has skin tears on left elbow and right forearm. Musculoskeletal: Reports pain in left arm. Historical: - Allergies: 11:58 No Known Allergies; iw - Home Meds: 11:58 Adalimumab 40mg/.08ml Inj Pen Kit--Inject under the skin every week [Active]; iw Amlodipine-Beslylate 5mg PO Daily [Active]; Biscadoyl 5mg EC Daily PRN [Active]; Calcium Carb 500mg PO TID [Active]; Bupropion HCL 150mg BID [Active]; Citalopram Hydrobromide 40mg PO daily with food [Active]; Lisiniprol 20mg PO Daily [Active]; Levothyrozine NA 0.075 mg Daily [Active]; [id number] PO Daily [Active]; Metformin 500mg PO Daily [Active]; Pyridoxine HCL 50mg Daily [Active]; Oxybutynin Chloride 5mg PO Daily [Active]; zolpidem 10 mg Oral tab [Active]; Simvastatin 80mg PO QHS [Active]; - PMHx: 11:58 BPH; Depression; diabetes mellitus; Erectile Dysfunction; High Cholesterol; iw Hyperlipidemia; Osteoporosis; Psoriatic Arthritis; short term memory loss; - PSHx: 11:58 Unable to Obtain; iw - Immunization history:: Adult Immunizations up to date, Client reports receiving the 2nd dose of the Covid vaccine, Client reports receiving the 1st dose of the Covid vaccine. - Social history:: Smoking status: Patient reports the use of cigarette tobacco products, smokes one-half pack cigarettes per day. Screenin:50 Fall Risk Fall in past 12 months (25 points). iw 13:03 Abuse screen: Denies threats or abuse. Denies injuries from another. Nutritional iw screening: No deficits noted. Tuberculosis screening: No symptoms or risk factors identified. Assessment: 12:50 Neuro: [place] Agitation-Sedation Scale (RASS): 0 - Alert and Calm Level of iw Consciousness is awake, alert, obeys commands. Cardiovascular: Patient's skin is warm and dry. Respiratory: Respiratory effort is even, unlabored, Respiratory pattern is regular, symmetrical, Ventilator assessment:. Derm: Skin is intact, is healthy with good turgor. Derm: Musculoskeletal: Range of motion: limited in left shoulder, left elbow and left wrist. Injury Description: Abrasion sustained to left elbow and palmar aspect of left forearm. 13:02 General: Appears in no apparent distress. Behavior is calm, cooperative. Pain: iw Complains of pain in left arm. Vital Signs: 11:57 BP 138 / 59; Pulse 62; Resp 16; Temp 97.9(O); Pulse Ox 100% on R/A; Weight 69.4 kg (R); iw Height 5 ft. 11 in. (180.34 cm); Pain 3/10; 11:57 Body Mass Index 21.34 (69.40 kg, 180.34 cm) iw ED Course: 11:22 Patient arrived in ED. eb 11:23 Rosamaria Celis FNP-C is PHCP. snw 11:23 Jorje Adams MD is Attending Physician. snw 11:30 Triage completed. iw 11:32 CT Head C Spine In Process Unspecified. EDMS 11:44 Arm band placed on. iw 12:00 Chest Pa And Lat (2 Views) XRAY In Process Unspecified. EDMS 12:00 Shoulder Left (2 View) XRAY In Process Unspecified. EDMS 12:39 Jazzy Chambers, RN is Primary Nurse. iw 12:50 Patient has correct armband on for positive identification. iw 13:56 Sling \T\ swathe to left arm. iw 13:56 No provider procedures requiring assistance completed. iw 14:47 IV discontinued, intact, bleeding controlled, No redness/swelling at site. Pressure iw dressing applied. Administered Medications: 13:01 Drug: Tetanus-Diphtheria Toxoid Adult 0.5 ml {Route Aide: [employer]. Exp: iw 08/12/2023. Lot #: [id number]. } Route: IM; Site: right deltoid; 13:30 Follow up: Response: No adverse reaction iw 13:02 Drug: Valium (diazepam) 5 mg Route: IVP; Site: right antecubital; iw 13:40 Follow up: Response: No adverse reaction; Pain is decreased; RASS: Drowsy (-1) iw 14:21 Drug: HYDROcodone-acetaminophen 5 mg-325 mg 1 tabs Route: PO; iw 14:30 Follow up: Response: No adverse reaction iw Medication: 13:15 Vaccine Information Statement (VIS) provided today. Questions and/or concerns iw addressed. VIS edition date: November 2021. Outcome: 13:30 Discharge ordered by . snw 14:48 Discharged to home via wheelchair, pt assisted to taxi iw 14:48 Condition: good 14:48 Discharge instructions given to patient, Instructed on discharge instructions, follow up and referral plans. medication usage, Demonstrated understanding of instructions, follow-up care, medications, Prescriptions given X 2. 14:49 Patient left the ED. iw Signatures: Dispatcher [employer] Rosamaria Ramirez, GROUP HOME MANAGER-C GROUP HOME MANAGER-Csnw Jazzy Chambers, RN RN Vickie Loomis
[2021-12-09] MEDS ORDERED: HYDROCODONE/APAP 5/325 MG TAB ONE (14:27)
[2021-12-09 16:04] VITALS: BP 138/59; TEMP 97.9; O2SAT 100
== END 2021-12-09 14:49 | disposition home or self-care (01) ==
LOC: ER 11:20
DX: S42.202A Unspecified fracture of upper end of left humerus, initial encounter for closed fracture (principal); S41.112A Laceration without foreign body of left upper arm, initial encounter; W01.0XXA Fall on same level from slipping, tripping and stumbling without subsequent striking against object, initial encounter; F17.210 Nicotine dependence, cigarettes, uncomplicated; E11.9 Type 2 diabetes mellitus without complications; E78.5 Hyperlipidemia, unspecified; F32.A Depression, unspecified; Z23 Encounter for immunization
CPT/HCPCS: 85025; 80048; 36415; 70450; 72125; 71046; 73030; 90471; 90714; 96374; 99284; J3360

== ENCOUNTER 2021-12-12 11:49 | Emergency (ER) | payer OTHER ==
--- OUTSIDE RECORDS SUMMARY | 2021-12-12 11:53 | XMS REPORT | Continuity of Care Document ---
:1945 Author Organization [facility] t Address [address] [place] [address] [address]. [address] [place] [address] Care Team Providers Name Role Phone No, Pcp [facility] Primary Care Physician Unavailable Juanita ARIAS, Greg Muro Attending Clinician Maty Dickson MD Attending Clinician [phone] Matilde ARIAS, Destiny Ravi Attending Clinician Elkin Joseph MD Attending Clinician ELKIN JOSEPH Attending Clinician Unavailable MATY DICKSON Admitting Clinician Unavailable Payers Payer Name Policy Type Policy Number Effective Date Expiration Date S ource Problems Condition Condition Condition Status Onset Resolution [...] [facility] Rhabdomyol Rhabdomyol Disease Active [facility] 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 essential [facility]04 [facility] HTN HTN 00:00: Medical 00 Center Allergies, Adverse Reactions, Alerts Allergy Allergy Status Severity Reaction(s) Onset Inactive Treating Comm ents Source Name Type Date Date Clinician NO KNOWN Allergy Active [facility] Family History Family Member Diagnosis Comments Start Date Stop Date Source Natural father No Known Problem [facility] Natural mother No Known Problem [facility] Social History Social Habit Start Date Stop Date Quantity Comments Source History [facility]Med Medical [facility] History [facility] 2021-07-15 2021-07-[address] [facility] Housing Places 00:00:00 00:00:00 Medical Ce nter Lived History [facility] 2021-07-15 2021-07-[address] [facility] Housing Homeless 00:00:00 00:00:00 Medical Center Last Year History [facility] 2021-07-15 2021-07-[address] [facility] Transport Med 00:00:00 00:00:[address] History [facility] 2021-07-15 2021-07-[address] [facility] Housing Unable to 00:00:00 00:00:00 Medical Center Pay Tobacco use and 2021-07-10 2021-07-[address] [address] [facility] exposure 00:00:00 00:00:00 Medical Center Alcohol intake 2021-07-10 2021-07-10 [facility] alcohol Medical Center (finding) Sex Assigned At [birth year] [facility] 00:00:00 00:00:00 Medical Center Smoking Status Start Date Stop Date Source Current every day smoker 2021-07-10 00:00:00 [facility] Medications Ordered Filled Start Stop Current Ordering Indication Dosage Frequency Signature Comments Components Source Medication Medication Date Date Medication? Clinician (SIG) Name Name ibuprofen Yes 800mg [id number] Take [address] (ADVIL,MOTR 3-25 [id number] mg by [place]kes [place]) 800 MG 00:00: 3D mouth 3 Medi anjel tablet 00 (three) Center times daily. ibuprofen Yes 800mg Q.88632251 Take [address] (ADVIL,MOTR 3-25 [id number] mg by L [place]kes [place]) 800 MG 00:00: 3D mouth 3 Medi anjel tablet 00 (three) Center times daily. cyclobenzap 2022-0 2022- No 10mg Take [address] [facility] 3-07-15 by mouth. [facility] (FLEXERIL) 00:00: 00:00 Medica l 10 MG 00 :00 Center tablet cyclobenzap 2021- No 10mg Take [address] [facility] 3-07-15 by mouth. [facility] (FLEXERIL) 00:00: 00:00 Medica [...] Center Diastolic blood 2021-07-15 16:10:00 72 mm[Hg] [facility] Heart rate 2021-07-15 16:10:00 71 /min [facility] Respiratory rate 2021-07-15 16:10:00 18 /min [facility] Oxygen saturation in 2021-07-15 16:10:00 98 /min [facility] Arterial blood by Medical Ce nter Pulse oximetry Body temperature 2021-07-15 11:50:00 36.17 Norma [facility] Body height 2021-07-11 15:00:00 180.3 cm [facility] Body weight 2021-07-11 15:00:00 69.4 kg [facility] BMI 2021-07-11 15:00:00 21.34 kg/m2 [facility] Procedures Procedure Date / Time Performed Performing Clinician [facility] e BASIC METABOLIC PANEL (7) 2021-07-13 04:26:00 Destiny Clayton [facility] CREATINE KINASE (CK) 2021-07-13 04:26:00 Destiny Clayton [facility] BASIC METABOLIC PANEL (7) 2021-07-12 04:37:00 Destiny Clayton [facility] CREATINE KINASE (CK) 2021-07-12 04:37:00 Destiny Clayton [facility] SARS-COV2/RT-PCR ([facility] & 2021-07-10 23:24:00 Maty Dickson [facility] REF LABS) [facility] RAPID DRUG SCREEN, URINE 2021-07-10 23:03:[address] [facility] URINALYSIS W/ REFLEX 2021-07-10 23:03:[address] [facility] URINE CULTURE [facility] CBC W/PLT COUNT & AUTO 2021-07-10 23:01:00 Maty Dickson [facility] DIFFERENTIAL [facility] COMPREHENSIVE METABOLIC 2021-07-10 23:01:00 Maty Dickson [facility] MAGNESIUM 2021-07-10 23:01:00 Maty Dickson [facility] PHOSPHORUS 2021-07-10 23:01:00 [place] [facility] CREATINE KINASE (CK) 2021-07-10 23:01:[address] [facility] ETHANOL 2021-07-10 23:01:00 [place] [facility] PROTHROMBIN TIME/INR 2021-07-10 23:01:[address] [facility] CBC W/PLT COUNT & AUTO 2021-07-10 23:01:[address] [place] [facility] EKG-SCANNED 2021-07-10 00:00:00 [facility] Plan of Care Planned Activity Planned Date Details Comments Source Future Scheduled 2021-12-07 INFLUENZA VACCINE (#1) [facility]00 [code = INFLUENZA Medical Ce nter VACCINE (#1)] Future Scheduled 2021-12-07 INFLUENZA VACCINE (#1) [facility] 00:00[facility]00 [code = INFLUENZA Medical Ce nter VACCINE (#1)] Future Scheduled 2021-04-08 Medicare IPPE (WELCOME [facility] 00:00:00 TO MEDICARE) [code = Medical Center Medicare IPPE (WELCOME TO MEDICARE)] Future Scheduled 2021-04-08 Medicare IPPE (WELCOME [facility] 00:00:00 TO MEDICARE) [code = Medical Center Medicare IPPE (WELCOME TO MEDICARE)] Future Scheduled 2012-02-[address] [facility] Test 00:00:00 aneurysm screening Medical C enter (procedure) [code = 574339727] Future Scheduled 2012-02-[address] [facility] Test 00:00:00 aneurysm screening Medical C enter (procedure) [code = 948981924] Future Scheduled 1997 SHINGLES VACCINES ([address] [facility] Test 00:00:00 2) [code = SHINGLES Medical Center VACCINES (1 of 2)] Future Scheduled 1997 SHINGLES VACCINES ([address] [facility] 00:00:00 2) [code = SHINGLES Medical Center VACCINES (1 of 2)] Future Scheduled 1966 DTAP/TDAP/TD VACCINES [facility] 00:00:00 (1 - Tdap) [code = Medical C enter DTAP/TDAP/TD VACCINES (1 - Tdap)] Future Scheduled 1966 DTAP/TDAP/TD VACCINES [facility] 00:00:00 (1 - Tdap) [code = Medical C enter DTAP/TDAP/TD VACCINES (1 - Tdap)] Future Scheduled 1965 HEPATITIS C SCREENING [facility] 00:00[facility]00 [code = HEPATITIS C Medical Center SCREENING] Future Scheduled 1965 HEPATITIS C [facility]CRE[facility]ING [facility] 00:00[facility]00 [code = HEPATITIS C Medical Center SCREENING] Future Scheduled 1953 PNEUMOCOCCAL 65+ YRS ([address] [facility] Test 00:00:00 - PCV) [code = Medical Cente r PNEUMOCOCCAL 65+ YRS (1 - PCV)] Future Scheduled 1953 PNEUMOCOCCAL 65+ YRS ([address] [facility] Test 00:00:00 - PCV) [code = Medical Cente r PNEUMOCOCCAL 65+ YRS (1 - PCV)] Future Scheduled 1945 COVID-19 VACCINE (#1) [facility] 00:00:00 [code = COVID-[address] VACCINE (#1)] Future Scheduled 1945 COVID-19 VACCINE (#1) [facility] 00:00:00 [code = COVID-[address] VACCINE (#1)] Future Scheduled 1947 CT Colonography (combo) [facility] 00:00:00 [code = CT Colonography [facility] (combo)] Future Scheduled 1947 Screening for malignant [facility] Test 00:00:00 neoplasm of colon Medical Ce nter (procedure) [code = 310296662] Future Scheduled 1947 Screening for malignant [facility] Test 00:00:00 neoplasm of colon Medical Ce nter (procedure) [code = 944784503] Future Scheduled 1947 Screening for malignant [facility] Test 00:00:00 neoplasm of colon Medical Ce nter (procedure) [code = 104511348] Future Scheduled 1947 Screening for malignant [facility] Test 00:00:00 neoplasm of colon Medical Ce nter (procedure) [code = 315942652] Future Scheduled 1945 Sigmoidoscopy [code = [facility] 00:[facility]:00 Sigmoidoscopy] Medical Deanne r Future Scheduled 1947 CT Colonography (combo) [facility] Test 00:00:00 [code = CT Colonography [facility] Center (combo)] Future Scheduled 1947 Screening for malignant [facility] Test 00:00:00 neoplasm of colon Medical Ce nter (procedure) [code = 484753235] Future Scheduled 1947 Screening for malignant [facility] Test 00:00:00 neoplasm of colon Medical Ce nter (procedure) [code = 589463906] Future Scheduled 1947 Screening for malignant [facility] Test 00:00:00 neoplasm of colon Medical Ce nter (procedure) [code = 617598644] Future Scheduled 1947 Screening for malignant [facility] Test 00:00:00 neoplasm of colon Medical Ce nter (procedure) [code = 695854498] Future Scheduled 1945 Sigmoidoscopy [code = [facility] 00:[facility] Sigmoidoscopy] Medical Cente r Encounters Start End Encounter Admission Attending Care Care Encounter Source Date/Time Date/Time Type Type Clinicians Facility Department ID 2021-07-10 2021-07-[address] [facility] [id number] 22[facility]14[facility]00 18:04:00 Encounter Maty Dickson [facility] 2021-07-10 [facility] [id number] 22:14[facility]00 18:04:00 [facility] 2021-07-10 2021-07-15 Inpatient ER [facility] [id number] [facility] 22:14:00 18:04:00 [facility] 2021-07-10 2021-07-[address] [facility] [id number] [facility]00 [facility] 2021-07-10 2021-07-[address] [facility] [id number] [facility] 00[facility]00 [facility] Results Test Description Test Time Test Comments [...] NOT 1092) ACCURATE CRE ATININE CLEARANCE IN LA EDICTING GLOMERULAR FILT RATION RATE. ESTIMATED GFR IS NOT APPLICABLE FOR DIALYSIS PATIENTS. Quality Control Inspector Heading ID - CORIN LCREATINE KINASE (CK)2021-07-13 05:40:40 Test Item Value Reference Range Interpretation Comments CREATINE KINASE TOTAL (BEAKER) (test 177 U/L 29-200 code = 380) Quality Control Inspector Heading ID - CORIN LCREATINE KINASE (CK)2021-07-12 05:41:18 Test Item Value Reference Range Interpretation Comments CREATINE KINASE TOTAL (BEAKER) (test 449 U/L 29-200 H code = 380) Quality Control Inspector Heading ID - CORIN LBASIC METABOLIC [id number] 05:41:17 Test Item Value Reference Range Interpretation [...] S NOT APPLICABLE FOR DIALYSIS PATIEN TS. Quality Control Inspector Heading ID - PIJT LSARS-CoV2/RT-PCR (Asymptomatic ONLY)2021-07-11 12:43:08 Test Item Value Reference Range Interpretation Comments SARS-COV2/RT-PCR Negative Not Detected, (test code = Negative, See 75022-6) external report for linked test SARS-COV-2 [facility] PERFORMING LAB (test code = 77959-6) ALIRIO (test code = Negative result for [...] of the Act. Fact Sheet for Healthcare Providers:https://www.Lynk idel.[employer]/sites/default/f robinson/product/documents/F act_Sheet_HC_Providers_L zat_AGWK-QvR-8.pdf Fact Sheet for Healthcare Patients:https://www.Definigen del.[employer]/sites/default/fi les/product/documents/Fa ct_Sheet_Patients_Lyra_S ARS-CoV-2.pdf Performing Laboratory:[facility] [place] [address] [facility] ONLY[facility]2021-07-11 12:43:08 Test Item Value Reference Range Interpretation Comments SARS-COV2/RT-PCR Negative Not Detected, (test code = Negative, See 59102-9) external report for linked test SARS-COV-2 [facility] PERFORMING LAB (test code = 19090-0) ALIRIO (test code = Negative result for [...] of the Act. Fact Sheet for Healthcare Providers:https://www.Lynk ideWhite Castle.[employer]/sites/default/f robinson/product/documents/F act_Sheet_HC_Providers_L zci_JJOH-CaX-5.pdf Fact Sheet for Healthcare Patients:https://www.Definigen del.[employer]/sites/default/fi les/product/documents/Fa ct_Sheet_Patients_Lyra_S ARS-CoV-2.pdf Performing Laboratory:[facility] [place] [address] [facility] ([facility] RE[facility])2021-07-11 12:43:08 Test Item Value Reference Range Interpretation Comments SARS-COV2/RT-PCR (test Negative Not Detected, Negative, code = 2676005) See external report for linked test SARS-COV-[address] [facility] (test code = 5353475) Negative result for this test determines that [...] of the Act.Fact Sheet for Healthcare Prov iders:https://www.Scopely.[employer]/sites/default/files/product/documents/Fact_Sheet_HC _Rbswxmoay_Vwnw_CAIG-AuI-2.pdfFact Sheet for Healthcare Patients:https://www.[employer]opely.com/sites/default/files/product/docume nts/Rkxy_Cjjaf_Wjxkstrz_Hleg_XOMV-RkQ-3.pdfPerforming Laboratory:[facility], [place] [address]Tpzqtbrgqt w/Microscopic + Reflex to [id number] 01:08:09 Test Item Value Reference Range Interpretation Comments Color, UA (test code Light Yellow = 5778-6) Clarity, UA (test Clear code = 5767-9) Specific [place], UA 1.030 1.001-1.035 (test code = 5811-5) pH, UA (test code = 7.0 5.0-8.0 5803-2) Protein, UA (test 10 mg/dL Negative A code = 92075-3) Glucose, UA (test 500 mg/dL Negative A code = 365) Ketones, UA (test Negative Negative code = 2514-8) Bilirubin, UA (test Negative Negative code = 31720-9) Blood, UA (test code Negative Negative = 71688-7) Nitrite, UA (test Negative Negative code = 5802-4) Leukocytes, UA (test Negative Negative code = 5799-2) Urobilinogen, UA 0.2 mg/dL 0.2-1.0 (test code = 13563-4) RBC, UA (test code = <1 See_Comment [Autom ated 08271-6) message] The system which generated this result [...] Bacteria, UA (test None Seen code = 98751-0) Crystals, Urine (test None Seen code = 34323-5) Specimen Source (test code = 2795) ALIRIO (test code = ALIRIO) Quality Control Inspector Heading ID - [auto]Quality Control Inspector Heading ID - tech Lab Interpretation Abnormal (test code = 68862-3) [facility] HospitalUrinalysis w/Microscopic + Reflex to Culture 2021-07-11 01:08:09 Test Item Value Reference Range Interpretation Comments Color, UA (test code Light Yellow = 5778-6) Clarity, UA (test Clear code = 5767-9) Specific [place], UA 1.030 1.001-1.035 (test code = 5811-5) pH, UA (test code = 7.0 5.0-8.0 5803-2) Protein, UA (test 10 mg/dL Negative A code = 72330-2) Glucose, UA (test 500 mg/dL Negative A code = 365) Ketones, UA (test Negative Negative code = 2514-8) Bilirubin, UA (test Negative Negative code = 05829-0) Blood, UA (test code Negative Negative = 03553-5) Nitrite, UA (test Negative Negative code = 5802-4) Leukocytes, UA (test Negative Negative code = 5799-2) Urobilinogen, UA 0.2 mg/dL 0.2-1.0 (test code = 78786-1) RBC, UA (test code = <1 See_Comment [Autom ated 64932-4) message] The system which generated this result [...] Bacteria, UA (test None Seen code = 28004-7) Crystals, Urine (test None Seen code = 71581-9) Specimen Source (test code = 2795) ALIRIO (test code = ALIRIO) Quality Control Inspector Heading ID - [auto]Quality Control Inspector Heading ID - tech Lab Interpretation Abnormal (test code = 88905-1) [facility] HospitalURINALYSIS W/ REFLEX URINE [id number] 01:08:09 Test Item Value Reference Range Interpretation [...] = 1521) SOURCE(BEAKER) (test code = 2795) Quality Control Inspector Heading ID - [auto]Quality Control Inspector Heading ID - techRapid drug screen, [id number] 00:50:57 Test Item Value Reference Range Interpretation Comments Barbiturate Screen Negative Negative (test code = 35994-4) Benzodiazepine Screen Negative Negative (test code = 92868-9) Cocaine (Metab.) Negative Negative Screen (test code = 3397-7) Methadone Screen (test Negative Negative code = 44467-5) Opiate Screen (test Positive Negative A code = 11750-2) Cannabinoid Screen Negative Negative (test code = 65039-9) Amph/Methamph Screen Negative Negative (test code = 46469-3) Phencyclidine Screen Negative Negative (test code = 06831-0) pH, UA (test code = 6.5 5.0-8.0 5803-2) ALIRIO (test code = ALIRIO) DRUG CUTOFF CONC.Cocaine 300 ng/mL Cannabinoid 50 ng/mLBenzodiazepine 200 ng/mLBarbiturate 200 ng/mLPhencyclidine 25 ng/mLOpiate 300 ng/mLMethadone 300 ng/mLAmphetamine/ 1000 ng/mL Methamphetamine This assay provides an unconfirmed qualitative test result for the clinical management of patients in emergency situations. Chain of custody not maintained. Some bmrd-gki-sjzrspc medications, as well as adulterants, may cause inaccurate results. Clinical correlation should be applied. A more comprehensive drug screen or confirmation of a detected drug may be performed upon request.Quality Control Inspector Heading ID - DBOperator ID - [auto] Lab Interpretation Abnormal (test code = 12438-6) [facility] HospitalRapid drug screen, [id number] 00:50:57 Test Item Value Reference Range Interpretation Comments Barbiturate Screen Negative Negative (test code = 89510-2) Benzodiazepine Screen Negative Negative (test code = 27072-5) Cocaine (Metab.) Negative Negative Screen (test code = 3397-7) Methadone Screen (test Negative Negative code = 90185-1) Opiate Screen (test Positive Negative A code = 80214-5) Cannabinoid Screen Negative Negative (test code = 39463-7) Amph/Methamph Screen Negative Negative (test code = 85430-7) Phencyclidine Screen Negative Negative (test code = 38199-5) pH, UA (test code = 6.5 5.0-8.0 5803-2) ALIRIO (test code = ALIRIO) DRUG CUTOFF CONC.Cocaine 300 ng/mL Cannabinoid 50 ng/mLBenzodiazepine 200 ng/mLBarbiturate 200 ng/mLPhencyclidine 25 ng/mLOpiate 300 ng/mLMethadone 300 ng/mLAmphetamine/ 1000 ng/mL Methamphetamine This assay provides an unconfirmed qualitative test result for the clinical management of patients in emergency situations. Chain of custody not maintained. Some tzfk-kfx-wmlocmy medications, as well as adulterants, may cause inaccurate results. Clinical correlation should be applied. A more comprehensive drug screen or confirmation of a detected drug may be performed upon request.Quality Control Inspector Heading ID - DBOperator ID - [auto] Lab Interpretation Abnormal (test code = 40603-4) [facility] HospitalRAD DRUG SCREEN, [id number] 00:50:57 Test Item Value Reference Range Interpretation [...] ng/mLOpiate 300 ng/mLMethadone 300 ng/mLAmphetamine/ 1000 ng/mL MethamphetamineThisassay provides an unconfirmed qualitative test result for the clinical management of patients in emergency situations. Chain of custody not maintained. Some nnij-xwd-xhnxwuc medications, as well as adulterants, may cause inaccurate results. Clinical correlation should be applied. A more comprehensive drug screen or confirmation of a detected drug may be performed upon request.Quality Control Inspector Heading ID - DBOperatorID - [auto] PROTHROMBIN [id number] 00:00:32 Test Item Value Reference Range Interpretation Comments PROTIME (BEAKER) 13.4 seconds 11.9-14.2 (test code = 759) INR (BEAKER) (test 1.04 See_Comment [Automat ed message] code = 370) The system [employer] generated this result transmitted ref erence range: [...] 1834 U/L 29-200 H code = 380) Quality Control Inspector Heading ID - DBCOMPREHENSIVE METABOLIC [id number] 23:50:32 Test Item Value Reference Range Interpretation [...] S NOT APPLICABLE FOR DIALYSIS PATIEN TS. Quality Control Inspector Heading ID - [id number] 23:50:32 Test Item Value Reference Range Interpretation Comments MAGNESIUM (BEAKER) (test code = 2.2 mg/dL 1.6-2.6 627) Quality Control Inspector Heading ID - [id number] 23:50:32 Test Item Value Reference Range Interpretation Comments PHOSPHORUS (BEAKER) (test code = 3.3 mg/dL 2.3-4.7 604) Quality Control Inspector Heading ID - [id number] 23:45:54 Test Item Value Reference Range Interpretation Comments ETHANOL (BEAKER) < mg/dL See_Comment [Automated message] The (test code = 400) system i generated this result tra nsmitted reference range : <=10. The reference r chela was not used to int erpret this result as normal/abnormal . Quality Control Inspector Heading ID - DBCBC W/PLT COUNT & AUTO [id number] 23:29:08 Test Item Value Reference Range Interpretation [...] % 0-1 PERCENT (BEAKER) (test code = 3301)
[2021-12-12] MEDS ORDERED: HYDROCORTISONE SUC 100 MG INJ ONE (12:39)
[2021-12-12] MEDS ORDERED: DEXTROSE 10%-WATER 0 ML IV ONE (12:40)
[2021-12-12] MEDS ORDERED: NA CHLORIDE 0.9% 0 ML ONE (12:40)
--- NOTE | 2021-12-12 15:10 | ER ---
Nurse's Notes [facility] Name: Dylon Hannon Age: 76 yrs Sex: Male : 1945 Arrival Date: 12/12/2021 Time: 12:05 Bed 25 Private MD: Diagnosis: Muscle weakness (generalized);Dehydration Presentation: 12/12 12:09 Initial Sepsis Screen: Does the patient meet any 2 criteria? No. Patient's initial 3 sepsis screen is negative. Does the patient have a suspected source of infection? No. Patient's initial sepsis screen is negative. Risk Assessment: Do you want to hurt yourself or someone else? Patient reports no desire to harm self or others. Onset of symptoms was December 09, 2021. 12:09 Acuity: STEPHANIE 3 3 12:09 Method Of Arrival: EMS: [place] [id number] 12:09 Chief complaint: Patient states: Fell on Saturday night in the bathroom and was on the eh3 floor until today. Was here on Saturday for broken left arm due to fall. Coronavirus screen: Vaccine status: Patient reports receiving the 2nd dose of the covid vaccine. Ebola Screen: No symptoms or risks identified at this time. Triage Assessment: 12:09 General: Appears in no apparent distress. uncomfortable, Behavior is calm, cooperative, eh3 appropriate for age. Pain: Complains of pain in left bicep Pain does not radiate. Pain currently is 3 out of 10 on a pain scale. Quality of pain is described as aching, sharp, Pain began 2-3 days ago. Is continuous. Neuro: Level of Consciousness is awake, alert, obeys commands, Oriented to person, place, time, situation. Cardiovascular: Capillary refill < 3 seconds Patient's skin is warm and dry. Respiratory: Airway is patent Respiratory effort is even, unlabored. GI: Abdomen is flat, non-distended. : No signs and/or symptoms were reported regarding the genitourinary system. Derm: No signs and/or symptoms reported regarding the dermatologic system. Musculoskeletal: Circulation, motion, and sensation intact. Range of motion: limited in left shoulder, left elbow and left wrist. Historical: - Allergies: 12:58 No Known Allergies; eh3 - PMHx: 12:58 BPH; Depression; diabetes mellitus; Erectile Dysfunction; High Cholesterol; eh3 Hyperlipidemia; Osteoporosis; Psoriatic Arthritis; short term memory loss; Hypertensive disorder; Cerebrovascular accident; - PSHx: 12:58 Appendectomy; eh3 - Immunization history:: Adult Immunizations up to date. - Social history:: Smoking status: Patient reports the use of cigarette tobacco products, smokes one-half pack cigarettes per day, Patient uses alcohol, occasionally. - Family history:: not pertinent. - Hospitalizations: : No recent hospitalization is reported. Screenin:01 Abuse screen: Denies threats or abuse. Denies injuries from another. Nutritional eh3 screening: No deficits noted. Tuberculosis screening: No symptoms or risk factors identified. Fall Risk Fall in past 12 months (25 points). Secondary diagnosis (15 points) No IV (0 pts). Ambulatory Aid- None/Bed Rest/Nurse Assist (0 pts). Gait- Weak (10 pts.). Mental Status- Oriented to own ability (0 pts). Total Quesada Fall Scale indicates High Risk Score (45 or more points). Fall prevention measures have been instituted. Side Rails Up X 2 Placed Close to Nursing Station Frequent Obs/Assessments Occuring As available patient and family educated on Fall Prevention Program and Strategies. Assessment: 12:30 Reassessment: Pt refusing IV access. ERP notified. eh3 13:01 Reassessment: No changes from previously documented assessment. Patient is alert, eh3 oriented x 3, equal unlabored respirations, skin warm/dry/pink. See triage assessment. 13:12 Reassessment: Pt requesting to leave at this time. eh3 Vital Signs: 12:09 BP 148 / 73; Pulse 63; Resp 20; Pulse Ox 99% on R/A; Weight 83.91 kg; Height 6 ft. 0 eh3 in. (182.88 cm); Pain 3/10; 13:00 BP 116 / 92; Pulse 85; Resp 18; Pulse Ox 100% on R/A; eh3 14:00 BP 151 / 64; Pulse 69; Resp 18; Pulse Ox 98% on R/A; eh3 12:09 Body Mass Index 25.09 (83.91 kg, 182.88 cm) eh3 ED Course: 12:05 Patient arrived in ED. ld1 12:06 Robert Wharton MD is Attending Physician. rn 12:09 Arm band placed on right wrist. Patient has correct armband on for positive eh3 identification. Bed in low position. Call light in reach. Side rails up X2. Client placed on continuous cardiac and pulse oximetry monitoring. NIBP monitoring applied. Door closed. Noise minimized. Lights dimmed. Warm blanket given. 12:15 Sharon Marie, RN is Primary Nurse. 3 12:58 Triage completed. 3 13:01 Diet: Patient given snack. Patient given juice. Tolerated well. eh3 13:01 No provider procedures requiring assistance completed. eh3 14:50 Diet: Patient given snack. Patient given juice. Patient given water. Tolerated well. eh3 15:33 Patient did not have IV access during this emergency room visit. eh3 Administered Medications: 13:06 Not Given (Patient Refused): NS 0.9% 1000 ml IV at 1000 ml once eh3 13:06 Not Given (Patient Refused): D10 in Water [4ml/kg] 250 ml IVP once eh3 13:06 Not Given (Patient Refused): HydroCORTISONE 100 mg IVP once eh3 Medication: 13:01 VIS not applicable for this client. 3 Outcome: 15:09 Discharge ordered by . rn 15:33 Patient left the ED. eh3 15:33 Discharged to home ambulatory. eh3 15:33 Condition: stable 15:33 Discharge instructions given to patient, Instructed on discharge instructions, follow up and referral plans. Demonstrated understanding of instructions, follow-up care. Signatures: Robert Wharton MD MD rn Dibbern, Lauren, RN RN ld1 Sharon Marie RN RN 3 Corrections: (The following items were deleted from the chart) 13: 12:55 Chief complaint: Patient states: Fell on Saturday night in the bathroom and was eh3 on the floor until today. Was here on Saturday for broken left arm due to fall. 3 13: 12:55 Coronavirus screen: Vaccine status: Patient reports receiving the 2nd dose of the 3 covid vaccine. 3 13: 12:55 Ebola Screen: No symptoms or risks identified at this time. 3 3 13: 12:55 Method Of Arrival: EMS: [email or web address] 13: 12:58 Immunization history: Adult Immunizations up to date, [email or web address] 13: 12:58 Social history: Smoking status: Patient reports the use of cigarette tobacco [facility] products, smokes one-half pack cigarettes per day, Patient uses alcohol, occasionally. 3 13: 12:58 General: Appears in no apparent distress. uncomfortable, Behavior is calm, 3 cooperative, appropriate for age, [facility] 13: 12:58 Pain: Complains of pain in left bicep Pain does not radiate. Pain currently is 3 eh3 out of 10 on a pain scale. Quality of pain is described as aching, sharp, Pain began 2-3 days ago. Is continuous, [facility] 13: 12:58 Neuro: Level of Consciousness is awake, alert, obeys commands, Oriented to 3 person, place, time, situation, [facility] 13: 12:58 Cardiovascular: Capillary refill < 3 seconds Patient's skin is warm and dry. 3 [facility] 13: 12:58 Respiratory: Airway is patent Respiratory effort is even, unlabored, [place] [id number] 13: 12:58 GI: Abdomen is flat, non-distended, [place] [id number] 13: 12:58 : No signs and/or symptoms were reported regarding the genitourinary system. [facility] 13: 12:58 Derm: No signs and/or symptoms reported regarding the dermatologic system. 3 [facility] 13: 12:58 Musculoskeletal: Circulation, motion, and sensation intact. Range of motion: 3 limited in left shoulder, left elbow and left wrist [facility] : 12:58 Arm band placed on right wrist. 3 3 13: 13:01 Patient has correct armband on for positive identification. Bed in low position. 3 Call light in reach. Side rails up X2. 3 : 13:01 Client placed on continuous cardiac and pulse oximetry monitoring. NIBP 3 monitoring applied. [facility] : 13:01 Door closed. Noise minimized. Lights dimmed. Warm blanket given. 3 3
--- NOTE | 2021-12-12 15:10 | EDPHYS ---
Physician Documentation [facility] Name: Dylon Hannon Age: 76 yrs Sex: Male : 1945 Arrival Date: 12/12/2021 Time: 12:05 Bed 25 Private MD: ED Physician Robert Wharton HPI: 12/12 15:04 This 76 yrs old Male presents to ER via EMS with complaints of Fall Injury, weakness. rn 15:05 Details of fall: The patient fell from seated position, out of a chair. Onset: The rn symptoms/episode began/occurred 2 day(s) ago. Associated injuries: The patient sustained no obvious injury. Severity of symptoms: At their worst the symptoms were mild, in the emergency department the symptoms are unchanged. The patient has not experienced similar symptoms in the past. The patient has not recently seen a physician. Pt reports slid down chair recently, unable to get up 2/2 generalized weakness and fatigue. Did not injure anything from fall. EMS reports low blood sugar, given oral glucose, patient currently denies any other symptoms. . Historical: - Allergies: 12:58 No Known Allergies; eh3 - PMHx: 12:58 BPH; Depression; diabetes mellitus; Erectile Dysfunction; High Cholesterol; eh3 Hyperlipidemia; Osteoporosis; Psoriatic Arthritis; short term memory loss; Hypertensive disorder; Cerebrovascular accident; - PSHx: 12:58 Appendectomy; eh3 - Immunization history:: Adult Immunizations up to date. - Social history:: Smoking status: Patient reports the use of cigarette tobacco products, smokes one-half pack cigarettes per day, Patient uses alcohol, occasionally. - Family history:: not pertinent. - Hospitalizations: : No recent hospitalization is reported. ROS: 15:05 Constitutional: Negative for fever, chills, and weight loss, Eyes: Negative for injury, rn pain, redness, and discharge, Neck: Negative for injury, pain, and swelling, Cardiovascular: Negative for chest pain, palpitations, and edema, Respiratory: Negative for shortness of breath, cough, wheezing, and pleuritic chest pain, Abdomen/GI: Negative for abdominal pain, nausea, vomiting, diarrhea, and constipation, Back: Negative for injury and pain, : Negative for injury, bleeding, discharge, and swelling, MS/Extremity: Negative for injury and deformity, Skin: Negative for injury, rash, and discoloration, Neuro: Negative for headache, numbness, tingling, and seizure. Exam: 15:05 Constitutional: This is a well developed, well nourished patient who is awake, alert, rn and in no acute distress. Head/Face: Normocephalic, atraumatic. Eyes: Pupils equal round and reactive to light, extra-ocular motions intact. ENT: dry MM Cardiovascular: Regular rate and rhythm. No pulse deficits. Respiratory: No increased work of breathing, no retractions or nasal flaring. Abdomen/GI: Soft, non-tender Skin: Warm, dry MS/ Extremity: Pulses equal, no cyanosis. Left arm in sling, no acute complaints. Neuro: Awake and alert, GCS 15, oriented to person, place, time, and situation. 16:27 ECG was reviewed by the Attending Physician. rn Vital Signs: 12:09 BP 148 / 73; Pulse 63; Resp 20; Pulse Ox 99% on R/A; Weight 83.91 kg; Height 6 ft. 0 eh3 in. (182.88 cm); Pain 3/10; 13:00 BP 116 / 92; Pulse 85; Resp 18; Pulse Ox 100% on R/A; eh3 14:00 BP 151 / 64; Pulse 69; Resp 18; Pulse Ox 98% on R/A; eh3 12:09 Body Mass Index 25.09 (83.91 kg, 182.88 cm) eh3 MDM: 12:06 Patient medically screened. rn 12:56 ED course: Pt refuses IV, requests food, states will get "ice cream on way home". . rn 15:05 Differential diagnosis: contusion, dehydration, hypoglycemia, weakness. Data reviewed: rn vital signs, nurses notes, old medical records. Refusal of service: The patient/guardian displays adequate decision making capability and despite a detailed discussion of alternatives, benefits, risks, and consequences refuses: all lab tests, Medications, IV. ED course: Pt has refused labs/IV/meds numerous times, wanted food and a cab voucher, and wants to leave. Refuses any further care. States feels much better and wants to leave. . 12/12 12:22 Order name: Glucose, Ancillary Testing EDWA 12/12 14:09 Order name: Glucose, Ancillary Testing EDWA 12/12 12:11 Order name: IV Start; Complete Time: 12:16 rn 12/12 12:11 Order name: EKG; Complete Time: 22:24 rn 12/12 12:11 Order name: EKG - Nurse/Tech; Complete Time: 12:27 rn 12/12 12:12 Order name: Glucose Level; Complete Time: 12:15 rn 12/12 12:12 Order name: Cardiac monitoring; Complete Time: 12:15 rn 12/12 12:12 Order name: O2 Sat Monitoring; Complete Time: 12:15 rn EC: Rate is 63 beats/min. Rhythm is regular. QRS [place] is Normal. NV interval is normal. QRS rn interval is normal. QT interval is normal. No Q waves. T waves are Normal. No ST changes noted. Clinical impression: Normal ECG. Interpreted by me. Reviewed by me. Administered Medications: 13:06 Not Given (Patient Refused): NS 0.9% 1000 ml IV at 1000 ml once 3 13:06 Not Given (Patient Refused): D10 in Water [4ml/kg] 250 ml IVP once 3 13:06 Not Given (Patient Refused): HydroCORTISONE 100 mg IVP once 3 Disposition Summary: 12/12/21 15:09 Discharge Ordered Location: Home rn Problem: new rn Symptoms: have improved rn Condition: Stable rn Diagnosis - Muscle weakness (generalized) rn - Dehydration rn Followup: rn - With: Private Physician - When: As needed - Reason: Recheck today's complaints, Re-evaluation by your physician Discharge Instructions: - Discharge Summary Sheet rn - Dehydration, Adult rn - Hypoglycemia rn - Weakness rn Forms: - Medication Reconciliation Form rn - Thank You Letter rn - Antibiotic graduate rn - Prescription Opioid Use rn Signatures: Dispatcher [employer] EDRobert Patrick MD MD rn Hall, Erin, RN RN [facility] Corrections: (The following items were deleted from the chart) 13: 12:58 Immunization history: Adult Immunizations up to date, 3 [facility] : 12:58 Social history: Smoking status: Patient reports the use of cigarette tobacco 3 products, smokes one-half pack cigarettes per day, Patient uses alcohol, occasionally. 3
[2021-12-12 15:48] VITALS: BP 151/64; O2SAT 98
--- NOTE | 2021-12-13 12:50 | EKG ---
Test Date: 2021-12-12 Test Time: 12:26:16 Recreation Program Specialist: LALA MEASUREMENT RESULTS: Intervals: Rate: 63 SC: 162 QRSD: 76 QT: 424 QTc: 433 Webb: P: 41 SC: 162 QRS: 69 T: 64 INTERPRETIVE STATEMENTS: Sinus rhythm with premature atrial complexes Otherwise normal ECG Compared to ECG 08/16/2021 15:38:21 Atrial premature complex(es) now present Electronically Signed On 12-13-21 12:49:02 CDT by Rajesh Huber
== END 2021-12-12 15:33 | disposition home or self-care (01) ==
LOC: ER 11:49
DX: M62.81 Muscle weakness (generalized) (principal); E86.0 Dehydration; F17.210 Nicotine dependence, cigarettes, uncomplicated; I10 Essential (primary) hypertension; E11.9 Type 2 diabetes mellitus without complications; Z86.73 Personal history of transient ischemic attack (TIA), and cerebral infarction without residual deficits
CPT/HCPCS: 93005; 82947 ×2; 99283; J1720; 85025; J7030

== ENCOUNTER 2022-01-01 12:28 | Emergency (ER) | payer OTHER ==
--- OUTSIDE RECORDS SUMMARY | 2022-01-01 12:31 | XMS REPORT | Continuity of Care Document ---
:1945 Author Organization [facility] t Address [address] [place] [address] Care Team Providers Name Role Phone No, Pcp [facility] Primary Care Physician Unavailable Juanita ARIAS, Greg Muro Attending Clinician Maty Dickson MD Attending Clinician [phone] Matilde ARIAS, Destiny Ravi Attending Clinician Elkin [...] Date Date Clinician NO KNOWN Allergy Active [facility] Family History Family Member Diagnosis Comments Start Date Stop Date Source Natural father No Known Problem [facility] Natural mother No Known Problem [facility] Social History Social Habit Start Date Stop Date Quantity Comments Source History [facility] History [facility] 2021-07-15 2021-07-[address] [facility] Housing Places 00:00:00 00:00:00 Medical Ce nter Lived History [facility] 2021-07-15 2021-07-[address] [facility] Housing Homeless 00:00:00 00:00:00 Medical Center Last Year History [facility] 2021-07-15 2021-07-[address] [facility] Transport Med 00:00:00 00:00:[address] History [facility] 2021-07-15 2021-07-[address] [facility] Housing Unable to 00:00:00 00:00:00 Medical Center Pay Tobacco use and 2021-07-10 2021-07-[address] [facility] exposure 00:00:00 00:00:00 Medical Center Alcohol intake 2021-07-10 2021-07-10 [facility] Center (finding) Sex Assigned At [address] [facility] 00:[facility]00 Medical Center Smoking Status Start Date Stop Date Source Current every day smoker 2021-07-10 00:00:00 [facility] Medications Ordered Filled Start Stop Current Ordering Indication Dosage Frequency Signature Comments Components Source Medication Medication Date Date Medication? Clinician (SIG) Name Name ibuprofen Yes 800mg Q.[id number] Take [address] (ADVIL,MOTR 3-25 [id number] mg by [place]) 800 MG 00:00: 3D mouth 3 Medi anjel tablet 00 (three) Center times daily. ibuprofen Yes 800mg Q.[id number] Take [address] (ADVIL,MOTR 3-25 [id number] mg by [place]) 800 MG 00:00: 3D mouth 3 Medi anjel tablet 00 (three) Center times daily. ibuprofen Yes 800mg Q.[id number] Take [address] (ADVIL,MOTR 3-25 [id number] mg by [facility] [place]) 800 MG 00:00: 3D mouth 3 Medi anjel tablet 00 (three) Center times daily. cyclobenzap 2021- No 10mg Take [address] [facility] 3-25 04-09 [facility] (FLEXERIL) 00:00: 00:00 Medica l 10 MG 00 :00 Center tablet cyclobenzap 2021- No 10mg Take [address] [facility] 325 04-09 by [facility] (FLEXERIL) 00:00: 00:00 Medica l 10 MG 00 :00 Center tablet cyclobenzap 2021- No 10mg Take [address] [facility] 325 04-09 by [facility] (FLEXERIL) 00:00: 00:00 Medica l 10 MG 00 :00 Center tablet Vital Signs Vital Name Observation Time Observation Value Comments Source HEIGHT 2021-07-11 15:00:00 180.3 cm WEIGHT 2021-07-11 15:00:00 69.4 kg HEIGHT 2021-07-11 15:00:00 180.3 cm WEIGHT 2021-07-11 15:00:00 69.4 kg HEIGHT 2021-07-11 15:00:00 180.3 cm WEIGHT 2021-07-11 15:00:00 69.4 kg Systolic blood 2021-07-15 16:10:00 160 mm[Hg] [facility] Diastolic blood 2021-07-15 16:10:00 72 mm[Hg] [facility] Heart rate 2021-07-15 16:10:00 71 /min [facility] Respiratory rate 2021-07-15 16:10:00 18 /min [facility] Oxygen saturation in 2021-07-15 16:10:00 98 /min [facility] Arterial blood by Medical Ce nter Pulse oximetry Body temperature 2021-07-15 11:50:[address] [facility] Body height 2021-07-11 15:00:00 180.3 cm [facility] Body weight 2021-07-11 15:00:00 69.4 kg [facility] BMI 2021-07-11 15:00:00 21.34 kg/m2 [facility] Procedures Procedure Date / Time Performed Performing Clinician [facility] e BASIC METABOLIC PANEL (7) 2021-07-13 04:26:[address] [facility] CREATINE KINASE (CK) 2021-07-13 04:26:[address] [facility] CREATINE KINASE (CK) 2021-07-12 04:37:[address] [facility] BASIC METABOLIC PANEL (7) 2021-07-12 04:37:[address] [facility] SARS-COV2/RT-PCR ([facility] & 2021-07-10 23:24:00 Maty Dickson [facility] REF LABS) [facility] RAPID DRUG SCREEN, URINE 2021-07-10 23:03:[address] [facility] URINALYSIS W/ REFLEX 2021-07-10 23:03:00 Maty Dicks[address] [facility] URINE CULTURE [facility] CBC W/PLT COUNT & AUTO 2021-07-10 23:01:00 Maty Dickson [facility] COMPREHENSIVE METABOLIC 2021-07-10 23:01:00 Maty Dickson [facility] MAGNESIUM 2021-07-10 23:01:00 Maty Dickson [facility] PHOSPHORUS 2021-07-10 23:01:[address] [facility] CREATINE KINASE (CK) 2021-07-10 23:01:[address] [facility] ETHANOL 2021-07-10 23:01:[address] [facility] PROTHROMBIN TIME/INR 2021-07-10 23:01:00 Maty Dickson [facility] CBC W/PLT COUNT & AUTO 2021-07-10 23:01:[address] [facility] EKG-SCANNED 2021-07-10 00:00:00 ProviderVijay [facility] Plan of Care Planned Activity Planned Date [...] screening Medical C enter (procedure) [code = 225300206] Future Scheduled 2012-02-[address] [facility] Test 00:00:00 aneurysm screening Medical C enter (procedure) [code = 342272495] Future Scheduled 2012-02-[address] [facility] Test 00:00:00 aneurysm screening Medical C enter (procedure) [code = 405036866] Future Scheduled 1997 SHINGLES VACCINES ([address] [facility] Test 00:00:00 2) [code = SHINGLES [facility] VACCINES (1 of 2)] Future Scheduled 1997 SHINGLES VACCINES ([address] [facility] Test 00:00:00 2) [code = SHINGLES [facility] VACCINES (1 of 2)] Future Scheduled 1997 SHINGLES VACCINES ([address] [facility] Test 00:00:00 2) [code = SHINGLES [facility] VACCINES (1 of 2)] Future Scheduled [...] colon Medical Ce nter (procedure) [code = 108151041] Future Scheduled 1945 Screening for malignant [facility] Test 00:00:00 neoplasm of colon Medical Ce nter (procedure) [code = 510252758] Future Scheduled 1947 Screening for malignant [facility] Test 00:00:00 neoplasm of colon Medical Ce nter (procedure) [code = 862378609] Future Scheduled 1947 Screening for malignant [facility] Test 00:00:00 neoplasm of colon Medical Ce nter (procedure) [code = 182752136] Future Scheduled 1945 Sigmoidoscopy [code = [facility]] Medical Cente r Future Scheduled 1947 CT Colonography (combo) [facility] Test 00:00:00 [code = CT Colonography [facility] (combo)] Future Scheduled 1947 Screening for malignant [facility] Test 00:00:00 neoplasm of colon Medical Ce nter (procedure) [code = 136050519] Future Scheduled 1947 Screening for malignant [facility] Test 00:00:00 neoplasm of colon Medical Ce nter (procedure) [code = 674404533] Future Scheduled 1947 Screening for malignant [facility] Test 00:00:00 neoplasm of colon Medical Ce nter (procedure) [code = 624457697] Future Scheduled 1947 Screening for malignant [facility] Test 00:00:00 neoplasm of colon Medical Ce nter (procedure) [code = 191299894] Future Scheduled 1945 Sigmoidoscopy [code = [facility] 00:[facility] Sigmoidoscopy] Medical Cente r Future Scheduled 1947 CT Colonography (combo) [facility] Test 00:00:00 [code = CT Colonography [facility] (combo)] Future Scheduled 1947 Screening for malignant [facility] Test 00:00:00 neoplasm of colon Medical Ce nter (procedure) [code = 871539294] Future Scheduled 1947 Screening for malignant [facility] Test 00:00:00 neoplasm of colon Medical Ce nter (procedure) [code = 590939784] Future Scheduled 1947 Screening for malignant [facility] Test 00:00:00 neoplasm of colon Medical Ce nter (procedure) [code = 707971300] Future Scheduled 1947 Screening for malignant [facility] Test 00:00:00 neoplasm of colon Medical Ce nter (procedure) [code = 864770277] Future Scheduled 1945 Sigmoidoscopy [facility]code = [facility] 00:[facility] Sigmoidoscopy] Medical [facility] Encounters Start End Encounter Admission Attending Care Care Encounter Source Date/Time Date/Time Type Type Clinicians Facility Department ID 2021-07-10 2021-07-15 [facility] Greg Muro [facility] [id number] 22:14:00 18:04:00 Encounter Maty Dickson [facility] 2021-07-10 [facility] [id number] 22:14:00 18:04:00 Encounter Maty Dickson [facility] 2021-07-10 2021-07-15 Inpatient ER [facility] Neurology [id number] [facility] 22:14:00 18:04:00 [facility] 2021-07-10 2021-07-10 Travel [facility] [id number] [facility]00 00:[facility]00 [facility] 2021-07-10 2021-07-10 Travel [facility] [id number] [facility] 00[facility]00 [facility] Results Test Description Test Time Test Comments [...] GFR IS NOT APPLICABLE FOR DIALYSIS PATIENTS. Public Health Engineer ID - PIAYA LCREATINE KINASE (CK)2021-07-13 05:40:40 Test Item Value Reference Range Interpretation Comments CREATINE KINASE TOTAL (BEAKER) (test 177 U/L 29-200 code = 380) Public Health Engineer ID - PIAYA LCREATINE KINASE (CK)2021-07-12 05:41:18 Test Item Value Reference Range Interpretation Comments CREATINE KINASE TOTAL (BEAKER) (test 449 U/L 29-200 H code = 380) Public Health Engineer ID - PIAYA LBASIC METABOLIC [id number] 05:41:17 Test Item Value Reference Range Interpretation [...] S NOT APPLICABLE FOR DIALYSIS PATIEN TS. Public Health Engineer ID - PIAYA LSARS-CoV2/RT-PCR (Asymptomatic ONLY)2021-07-11 12:43:08 Test Item Value Reference Range Interpretation Comments SARS-COV2/RT-PCR Negative Not Detected, (test code = Negative, See 96770-8) external report for linked test [facility]COV-2 [facility] (test code = 39893-0) ALIRIO (test code = Negative result for [...] of the Act. Fact Sheet for Healthcare Providers:https://www.CookBrite/sites/default/f robinson/product/documents/F act_Sheet_HC_Providers_L ybc_MGML-BiR-4.pdf Fact Sheet for Healthcare Patients:https://www.BaseKit/sites/default/fi les/product/documents/Fa ct_Sheet_Patients_Lyra_S ARS-CoV-2.pdf Performing Laboratory:[facility] [place] [address] [facility]As[facility]omatic ONLY)2021-07-11 12:43:08 Test Item Value Reference Range Interpretation Comments SARS-COV2/RT-PCR Negative Not Detected, (test code = Negative, See 20039-0) external report for linked test SARS-COV-2 [facility] PERFORMING LAB (test code = 88043-7) ALIRIO (test code = Negative result for [...] of the Act. Fact Sheet for Healthcare Providers:https://www.CookBrite/sites/default/f robinson/product/documents/F act_Sheet_HC_Providers_L cfc_DSMO-AjX-8.pdf Fact Sheet for Healthcare Patients:https://www.BaseKit/sites/default/fi les/product/documents/Fa ct_Sheet_Patients_Lyra_S ARS-CoV-2.pdf Performing Laboratory:[facility] [place] [address] [facility] (Asymptomatic ONLY)2021-07-11 12:43:08 Test Item Value Reference Range Interpretation Comments SARS-COV2/RT-PCR Negative Not Detected, (test code = Negative, See 85058-1) external report for linked test SARS-COV-2 [facility] PERFORMING LAB (test code = 59204-7) ALIRIO (test code = Negative result for [...] of the Act. Fact Sheet for Healthcare Providers:https://www.CookBrite/sites/default/f robinson/product/documents/F act_Sheet_HC_Providers_L oig_HBIC-MiV-8.pdf Fact Sheet for Healthcare Patients:https://www.BaseKit/sites/default/fi les/product/documents/Fa ct_Sheet_Patients_Lyra_S ARS-CoV-2.pdf Performing Laboratory:[place] [address] [address]OV2/RT-PCR ([facility] & REF LABS)2021-07-11 12:43:08 Test Item Value Reference Range Interpretation Comments SARS-COV2/RT-PCR (test Negative Not Detected, Negative, code = 4590967) See external report for linked test SARS-COV-2 PERFORMING LAB [facility] (test code = 9674690) Negative result for this test determines that [...] of the Act.Fact Sheet for Healthcare Prov iders:https://www.SQMOS/sites/default/files/product/documents/Fact_Sheet_HC _Ummiwytdq_Zvqf_ZXKF-RuZ-4.pdfFact Sheet for Healthcare Patients:https://www.SQMOS/sites/default/files/product/docume nts/Ifzd_Whwwt_Phntzifi_Hbrg_ZTVR-TcW-4.pdfPerforming Laboratory:[facility], [place] [address]Oakowjzznc w/Microscopic + Reflex to [id number] 01:08:09 Test Item Value Reference Range Interpretation Comments Color, UA (test code Light Yellow = 5778-6) Clarity, UA (test Clear code = 5767-9) Specific [place], UA 1.030 1.001-1.035 (test code = 5811-5) pH, UA (test code = 7.0 5.0-8.0 5803-2) Protein, UA (test 10 mg/dL Negative A code = 64944-5) Glucose, UA (test 500 mg/dL Negative A code = 365) Ketones, UA (test Negative Negative code = 2514-8) Bilirubin, UA (test Negative Negative code = 31319-4) Blood, UA (test code Negative Negative = 97854-7) Nitrite, UA (test Negative Negative code = 5802-4) Leukocytes, UA (test Negative Negative code = 5799-2) Urobilinogen, UA 0.2 mg/dL 0.2-1.0 (test code = 18474-0) RBC, UA (test code = <1 See_Comment [Autom ated 55711-7) message] The system which generated this result [...] Bacteria, UA (test None Seen code = 81082-3) Crystals, Urine (test None Seen code = 15371-3) Specimen Source (test code = 2795) ALIRIO (test code = ALIRIO) Public Health Engineer ID - [auto]Public Health Engineer ID - tech Lab Interpretation Abnormal (test code = 37786-6) [facility] + Reflex to Culture 2021-07-11 01:08:09 Test Item Value Reference Range Interpretation Comments Color, UA (test code Light Yellow = 5778-6) Clarity, UA (test Clear code = 5767-9) Specific [place], UA 1.030 1.001-1.035 (test code = 5811-5) pH, UA (test code = 7.0 5.0-8.0 5803-2) Protein, UA (test 10 mg/dL Negative A code = 35415-0) Glucose, UA (test 500 mg/dL Negative A code = 365) Ketones, UA (test Negative Negative code = 2514-8) Bilirubin, UA (test Negative Negative code = 75630-8) Blood, UA (test code Negative Negative = 51288-5) Nitrite, UA (test Negative Negative code = 5802-4) Leukocytes, UA (test Negative Negative code = 5799-2) Urobilinogen, UA 0.2 mg/dL 0.2-1.0 (test code = 41906-6) RBC, UA (test code = <1 See_Comment [Autom ated 31645-9) message] The system which generated this result [...] Bacteria, UA (test None Seen code = 01839-7) Crystals, Urine (test None Seen code = 62156-6) Specimen Source (test code = 2795) ALIRIO (test code = ALIRIO) Public Health Engineer ID - [auto]Public Health Engineer ID - tech Lab Interpretation Abnormal (test code = 99057-3) [facility]/Microscopic + Reflex to Culture 2021-07-11 01:08:09 Test Item Value Reference Range Interpretation Comments Color, UA (test code Light Yellow = 5778-6) Clarity, UA (test Clear code = 5767-9) Specific [place], UA 1.030 1.001-1.035 (test code = 5811-5) pH, UA (test code = 7.0 5.0-8.0 5803-2) Protein, UA (test 10 mg/dL Negative A code = 28050-4) Glucose, UA (test 500 mg/dL Negative A code = 365) Ketones, UA (test Negative Negative code = 2514-8) Bilirubin, UA (test Negative Negative code = 23127-2) Blood, UA (test code Negative Negative = 87583-6) Nitrite, UA (test Negative Negative code = 5802-4) Leukocytes, UA (test Negative Negative code = 5799-2) Urobilinogen, UA 0.2 mg/dL 0.2-1.0 (test code = 67159-3) RBC, UA (test code = <1 See_Comment [Autom ated 23591-0) message] The system which generated this result [...] Bacteria, UA (test None Seen code = 99064-7) Crystals, Urine (test None Seen code = 97771-1) Specimen Source (test code = 2795) ALIRIO (test code = ALIRIO) Public Health Engineer ID - [auto]Public Health Engineer ID - tech Lab Interpretation Abnormal (test code = 97060-3) [facility] URINE [id number] 01:08:09 Test Item Value Reference Range Interpretation [...] = 1521) SOURCE(BEAKER) (test code = 2795) Public Health Engineer ID - [auto]Public Health Engineer ID - techRapid drug screen, [id number] 00:50:57 Test Item Value Reference Range Interpretation Comments Barbiturate Screen Negative Negative (test code = 44914-3) Benzodiazepine Screen Negative Negative (test code = 48888-8) Cocaine (Metab.) Negative Negative Screen (test code = 3397-7) Methadone Screen (test Negative Negative code = 56777-9) Opiate Screen (test Positive Negative A code = 16475-8) Cannabinoid Screen Negative Negative (test code = 32187-8) Amph/Methamph Screen Negative Negative (test code = 36124-9) Phencyclidine Screen Negative Negative (test code = 94883-2) pH, UA (test code = 6.5 5.0-8.0 5803-2) ALIRIO (test code = ALIRIO) DRUG CUTOFF CONC.Cocaine 300 ng/mL Cannabinoid 50 ng/mLBenzodiazepine 200 ng/mLBarbiturate 200 ng/mLPhencyclidine 25 ng/mLOpiate 300 ng/mLMethadone 300 ng/mLAmphetamine/ 1000 ng/mL Methamphetamine This assay provides an unconfirmed qualitative test result for the clinical management of patients in emergency situations. Chain of custody not maintained. Some heig-gqg-apwojqj medications, as well as adulterants, may cause inaccurate results. Clinical correlation should be applied. A more comprehensive drug screen or confirmation of a detected drug may be performed upon request.Public Health Engineer ID - DBOperator ID - [auto] Lab Interpretation Abnormal (test code = 17988-7) [facility], [id number] 00:50:57 Test Item Value Reference Range Interpretation Comments Barbiturate Screen Negative Negative (test code = 26661-8) Benzodiazepine Screen Negative Negative (test code = 67695-0) Cocaine (Metab.) Negative Negative Screen (test code = 3397-7) Methadone Screen (test Negative Negative code = 43102-9) Opiate Screen (test Positive Negative A code = 03599-3) Cannabinoid Screen Negative Negative (test code = 68365-0) Amph/Methamph Screen Negative Negative (test code = 58999-7) Phencyclidine Screen Negative Negative (test code = 35620-1) pH, UA (test code = 6.5 5.0-8.0 5803-2) ALIRIO (test code = ALIRIO) DRUG CUTOFF CONC.Cocaine 300 ng/mL Cannabinoid 50 ng/mLBenzodiazepine 200 ng/mLBarbiturate 200 ng/mLPhencyclidine 25 ng/mLOpiate 300 ng/mLMethadone 300 ng/mLAmphetamine/ 1000 ng/mL Methamphetamine This assay provides an unconfirmed qualitative test result for the clinical management of patients in emergency situations. Chain of custody not maintained. Some xpnt-fki-rghkbwh medications, as well as adulterants, may cause inaccurate results. Clinical correlation should be applied. A more comprehensive drug screen or confirmation of a detected drug may be performed upon request.Public Health Engineer ID - DBOperator ID - [auto] Lab Interpretation Abnormal (test code = 08669-5) [facility], [id number] 00:50:57 Test Item Value Reference Range Interpretation Comments Barbiturate Screen Negative Negative (test code = 06409-7) Benzodiazepine Screen Negative Negative (test code = 54612-0) Cocaine (Metab.) Negative Negative Screen (test code = 3397-7) Methadone Screen (test Negative Negative code = 46188-9) Opiate Screen (test Positive Negative A code = 45366-0) Cannabinoid Screen Negative Negative (test code = 37348-6) Amph/Methamph Screen Negative Negative (test code = 88154-8) Phencyclidine Screen Negative Negative (test code = 13080-8) pH, UA (test code = 6.5 5.0-8.0 5803-2) ALIRIO (test code = ALIRIO) DRUG CUTOFF CONC.Cocaine 300 ng/mL Cannabinoid 50 ng/mLBenzodiazepine 200 ng/mLBarbiturate 200 ng/mLPhencyclidine 25 ng/mLOpiate 300 ng/mLMethadone 300 ng/mLAmphetamine/ 1000 ng/mL Methamphetamine This assay provides an unconfirmed qualitative test result for the clinical management of patients in emergency situations. Chain of custody not maintained. Some qbse-qzy-hnpseqw medications, as well as adulterants, may cause inaccurate results. Clinical correlation should be applied. A more comprehensive drug screen or confirmation of a detected drug may be performed upon request.Public Health Engineer ID - DBOperator ID - [auto] Lab Interpretation Abnormal (test code = 18039-3) [facility], [id number] 00:50:57 Test Item Value Reference Range Interpretation [...] situations. Chain of custody not maintained. Some jdma-skc-ctgkqbe medications, as well as adulterants, may cause inaccurate results. Clinical correlation should be applied. A more comprehensive drug screen or confirmation of a detected drug may be performed upon request.Public Health Engineer ID - DBOperator ID - [auto] PROTHROMBIN [id number] 00:00:32 Test Item Value Reference Range Interpretation Comments PROTIME (BEAKER) 13.4 seconds 11.9-14.2 (test code = 759) INR (BEAKER) (test 1.04 See_Comment [Automat ed message] code = 370) The system [employer] generated this result transmitted ref erence range: [...] 1834 U/L 29-200 H code = 380) Public Health Engineer ID - DBCOMPREHENSIVE METABOLIC [id number] 23:50:32 Test Item Value Reference Range Interpretation [...] S NOT APPLICABLE FOR DIALYSIS PATIEN TS. Public Health Engineer ID - [id number] 23:50:32 Test Item Value Reference Range Interpretation Comments MAGNESIUM (BEAKER) (test code = 2.2 mg/dL 1.6-2.6 627) Public Health Engineer ID - [id number] 23:50:32 Test Item Value Reference Range Interpretation Comments PHOSPHORUS (BEAKER) (test code = 3.3 mg/dL 2.3-4.7 604) Public Health Engineer ID - [id number] 23:45:54 Test Item Value Reference Range Interpretation Comments ETHANOL (BEAKER) < mg/dL See_Comment [Automated message] The (test code = 400) system [facility] generated this result tra nsmitted reference range : <=10. The reference r chela was not used to int erpret this result as normal/abnormal . Public Health Engineer ID - DBCBC W/PLT COUNT & AUTO [id number] 23:29:08 Test Item Value Reference Range Interpretation [...]
[2022-01-01] MEDS ORDERED: D10W 250 ML IV ONE (12:42)
[2022-01-01 13:12] LABS: Absolute Lymphocytes (CBC) 1.8 K/uL (0.7-4.9); Hematocrit 38.4 % (39.6-49.0); Lymphocytes % 28.3 % (15.3-44.8); MCV 95.5 fL (80-100); RBC Red Blood Cell Count 4.02 M/uL (4.33-5.43)
[2022-01-01 13:31] LABS: Albumin 3.8 g/dL (3.4-5.0); Bilirubin Total 0.6 mg/dL (0.2-1.0); Potassium 3.9 mmol/L (3.5-5.1); Protein, Total 7.2 g/dL (6.4-8.2); Troponin High Sensitivity 16.2 pg/mL (<58.9)
--- NOTE | 2022-01-01 13:40 | P.HP ---
Certification for Inpatient Patient admitted to: Observation With expected LOS: <2 Midnights Patient will require the following post-hospital care: None Practitioner: I am a practitioner with admitting privileges, knowledge of patient current condition, hospital course, and medical plan of care. Services: Services provided to patient in accordance with Admission requirements found in Title 42 Section 412.3 of the Code of Federal Regulations Patient History Date of Service: 01/01/22 Allergies No Known Allergies Allergy (Verified 08/16/21 22:35) Home Medications: Adalimumab [Humira(Cf) Pen] 40 mg SQ EVERY 7TH DAY 08/16/21 Amlodipine Besylate 5 mg PO DAILY 08/16/21 Bupropion HCl [Wellbutrin Xl] 150 mg PO BID 08/16/21 Calcium Carbonate 500 mg PO TID 08/17/21 Folic Acid 1 mg PO DAILY 08/17/21 Lisinopril [Zestril] 20 mg PO DAILY 08/17/21 Loratadine [Claritin*] 10 mg PO DAILY 08/17/21 Methotrexate [Methotrexate*] 4 tab PO EVERY 7TH DAY 08/17/21 Pyridoxine HCl (Vitamin B6) [Pyridoxine HCl] 50 mg PO DAILY 08/17/21 Trazodone HCl 100 mg PO DAILY 08/17/21 sulfaSALAzine [Sulfasalazine] 500 mg PO BID 08/17/21 Thiamine HCl [Vitamin B-1] 100 mg PO BID 30 Days #60 tablet 08/18/21 - Past Medical/Surgical History -: Hypertension -: Hyperlipidemia -: Diabetes most type IIdiet controlled -: BPH -: Knee surgery -: Thyroid surgery -: Appendectomy Psychosocial/ Personal History: Patient lives at home, alone - Family History Father -: Cancer Mother -: Cancer - Social History Alcohol use: Yes CD- Drugs: No Caffeine use: Yes Physical Examination - Studies Laboratory Data (last 24 hrs) 01/01/22 13:03: Sodium 128 L, Potassium 3.9, BUN 18, Creatinine 1.21, Glucose 361 H, Total Bilirubin 0.6, AST 19, ALT 22, Alkaline Phosphatase 133 H 01/01/22 13:03: WBC 6.30, Hgb 13.0 L, Hct 38.4 L, Plt Count 225 Assessment and Plan - Advance Directives Does patient have a Living Will: No Does patient have a Durable POA for Healthcare: No
--- NOTE | 2022-01-01 13:40 | EDPHYS ---
Physician Documentation [facility] Name: Dylon Hannon Age: 76 yrs Sex: Male : 1945 Arrival Date: 01/01/2022 Time: 12:36 Bed 25 Private MD: ED Physician Yaakov Flaherty HPI: 01/01 14:32 This 76 yrs old Male presents to ER via EMS with complaints of Low Blood Sugar. ms3 14:34 76-year-old male with past medical history of BPH, cerebrovascular accident, ms3 depression, diabetes, hyperlipidemia presents for hypoglycemia status post falling on the floor yesterday. Patient states he is having 2/10 left arm pain at this time. Patient denies alleviating or inciting factors. Patient has been given 50 g glucose IV, 37 g glucose p.o. By EMS.. Historical: - Allergies: 12:51 No Known Allergies; ld1 - PMHx: 12:51 BPH; Cerebrovascular accident; Depression; diabetes mellitus; Erectile Dysfunction; ld1 High Cholesterol; Hyperlipidemia; Hypertensive disorder; Osteoporosis; Psoriatic Arthritis; short term memory loss; - PSHx: 12:51 Appendectomy; ld1 - Immunization history:: Adult Immunizations up to date, Client reports having NOT received the Covid vaccine. - Social history:: Smoking status: Patient reports the use of cigarette tobacco products, smokes one-half pack cigarettes per day, Patient uses alcohol, on a daily basis. admits to "couple of beers" a day. ROS: 14:34 Constitutional: Negative for fever, and chills. ENT: Negative for injury, pain, and ms3 discharge, Neck: Negative for injury, pain, and swelling, Cardiovascular: Negative for chest pain, and palpitations. Respiratory: Negative for shortness of breath, cough, wheezing, and pleuritic chest pain, Abdomen/GI: Negative for abdominal pain, nausea, vomiting, diarrhea, and constipation. 14:34 Skin: Negative for injury, rash, and discoloration, Neuro: Negative for headache, weakness, numbness, tingling. 14:34 MS/extremity: Positive for left arm pain. 14:34 All other systems are negative. Exam: 14:34 Constitutional: This is a well developed, well nourished patient who is awake, alert, ms3 and in no acute distress. Head/Face: Normocephalic, atraumatic. Neck: Trachea midline, no cervical lymphadenopathy. Supple, full range of motion without nuchal rigidity, or vertebral point tenderness. No Meningismus. Chest/axilla: Normal chest wall appearance and motion. Nontender with no deformity. Cardiovascular: Regular rate and rhythm with a normal S1 and S2. No gallops, murmurs, or rubs. Normal PMI, no JVD. No pulse deficits. Respiratory: Lungs have equal breath sounds bilaterally, clear to auscultation and percussion. No rales, rhonchi or wheezes noted. No increased work of breathing, no retractions or nasal flaring. Abdomen/GI: Soft, non-tender, with normal bowel sounds. No distension or tympany. No guarding or rebound. No evidence of tenderness throughout. Skin: Warm, dry with normal turgor. Normal color with no rashes, no lesions, and no evidence of cellulitis. Psych: Awake, alert, with orientation to person, place and time. Behavior, mood, and affect are within normal limits. Vital Signs: 12:51 BP 125 / 101; Pulse 62; Resp 18; Temp 97.6(O); Pulse Ox 100% on 4 lpm NC; Weight 70.31 ld1 kg; Height 5 ft. 11 in. (180.34 cm); Pain 6/10; 13:23 BP 145 / 84; Pulse 66; Resp 16; Pulse Ox 100% on R/A; Pain 5/10; ld1 14:34 BP 121 / 78; Pulse 63; Resp 16; Pulse Ox 100% on R/A; ld1 16:12 BP 159 / 66; Pulse 64; Resp 16; Pulse Ox 100% on 3 lpm NC; ld1 16:45 BP 146 / 77; Pulse 62; Resp 16; Pulse Ox 99% on R/A; ld1 16:53 BP 144 / 70; Pulse 65; Resp 14; Pulse Ox 98% on R/A; ld1 12:51 Body Mass Index 21.62 (70.31 kg, 180.34 cm) ld1 MDM: 12:54 Patient medically screened. ms3 14:45 Data reviewed: vital signs, nurses notes, lab test result(s), EKG, and as a result, I ms3 will transfer due to patient request 2/2 [employer] insurance. Counseling: I had a detailed discussion with the patient and/or guardian regarding: the historical points, exam findings, and any diagnostic results supporting the discharge/admit diagnosis, lab results, the need for outpatient follow up. ED course: Discussed case with Dr Baugh and he accepts patient at [facility]. Discussed plan with patient and he understands/ agrees with plan.. 01/01 12:54 Order name: Glucose, Ancillary Testing; Complete Time: 13:35 EDMS 01/01 12:55 Order name: CBC with Diff; Complete Time: 13:35 ms3 01/01 12:55 Order name: CMP; Complete Time: 13:35 ms3 01/01 12:55 Order name: CK; Complete Time: 13:35 ms3 01/01 12:55 Order name: Troponin High Sensitivity; Complete Time: 13:35 ms3 01/01 13:04 Order name: Glucose, Ancillary Testing; Complete Time: 13:35 EDMS 01/01 13:20 Order name: Glucose, Ancillary Testing; Complete Time: 13:35 EDMS 01/01 13:40 Order name: SARS RAPID; Complete Time: 14:32 ms3 01/01 12:48 Order name: Diet Regular; Complete Time: 12:49 bd 01/01 12:55 Order name: Fingerstick Glucose; Complete Time: 12:57 ms3 01/01 14:38 Order name: Shoulder Left (2 View) XRAY; Complete Time: 16:59 3 01/01 14:43 Order name: Glucose, Ancillary Testing; Complete Time: 16:59 EDMS 01/01 16:59 Order name: Sling; Complete Time: 17:04 3 01/01 17:07 Order name: Glucose, Ancillary Testing EDMS Administered Medications: 12:50 Drug: D50W 50 ml Route: IVP; Site: right antecubital; iw 14:34 Follow up: Response: No adverse reaction; Blood sugar is elevated ld1 Disposition Summary: 01/01/22 14:44 Transfer Ordered Transfer Location: [facility] ms3 Reason: Patient request ms3 Condition: Stable(01/01/22 14:44) ms3 Problem: new(01/01/22 14:44) ms3 Symptoms: are unchanged(01/01/22 14:44) ms3 Accepting Physician: (01/01/22 17:29) ld1 Diagnosis - Hypoglycemia, unspecified(01/01/22 14:44) ms3 - Essential (primary) hypertension(01/01/22 14:44) ms3 - Pain in left shoulder ms3 Forms: - Medication Reconciliation Form ms3 - SBAR form ms3 Signatures: Dispatcher [employer] EDMS Jazzy Chambers RN RN iw Yaakov Flaherty DO DO ms3 Vicky Ríos RN RN ld1 Corrections: (The following items were deleted from the chart) 14:27 13:41 Basic Metabolic Panel ordered. EDMS EDMS 14:27 13:41 Basic Metabolic Panel ordered. EDMS EDMS 14:27 13:41 Basic Metabolic Panel ordered. EDMS EDMS 14:27 13:41 Basic Metabolic Panel ordered. EDMS EDMS 14:27 13:41 CBC with Automated Diff ordered. EDMS EDMS 14:27 13:41 CBC with Automated Diff ordered. EDMS EDMS 14:27 13:41 CBC with Automated Diff ordered. EDMS EDMS 14:27 13:41 CBC with Automated Diff ordered. EDMS EDMS 14:27 13:41 Magnesium ordered. EDMS EDMS 14:27 13:41 Magnesium ordered. EDMS EDMS 14:27 13:41 Phosphorus ordered. EDMS EDMS 14:27 13:41 Phosphorus ordered. EDMS EDMS 14:36 14:34 76-year-old male with past medical history of BPH, cerebrovascular accident, ms3 depression, diabetes, hyperlipidemia presents for hypoglycemia status post falling on the floor yesterday. Patient states he is having 2/10 left arm pain at this time. Patient denies alleviating or inciting factors.. ms3 14:44 13:39 Observation ms3 ms3 14:44 13:39 Abhinav Powell ms3 ms3 14:44 13:39 Telemetry/MedSurg (observation) ms3 ms3 14:44 13:39 Stable ms3 ms3 14:44 13:39 new ms3 ms3 14:44 13:39 are unchanged ms3 ms3 14:44 13:39 Standard ms3 ms3 14:44 13:39 ms3 ms3 14:44 13:39 Hypoglycemia, unspecified ms3 ms3 14:44 13:39 Essential (primary) hypertension ms3 ms3 14:44 13:39 Pain in left arm ms3 ms3 17:29 14:44 Dr ms3 ld1
--- NOTE | 2022-01-01 13:40 | ER ---
Nurse's Notes [facility] Name: Dylon Hannon Age: 76 yrs Sex: Male : 1945 Arrival Date: 01/01/2022 Time: 12:36 Bed 25 Private MD: Diagnosis: Hypoglycemia, unspecified;Essential (primary) hypertension;Pain in left shoulder Presentation: 01/01 12:51 Chief complaint: EMS states: reports pt falling yesterday - found on floor of home ld1 today. Denies hitting head. BGL of 36. EMS administered 37.5 oral glucose \\T\\ 50g dextrose IV prior to arrival. Coronavirus screen: At this time, the client does not indicate any symptoms associated with coronavirus-19. Ebola Screen: No symptoms or risks identified at this time. Initial Sepsis Screen: Does the patient meet any 2 criteria? No. Patient's initial sepsis screen is negative. Does the patient have a suspected source of infection? No. Patient's initial sepsis screen is negative. Risk Assessment: Do you want to hurt yourself or someone else? Patient reports no desire to harm self or others. Onset of symptoms was January 01, 2022 at 12:56. 12:51 Method Of Arrival: EMS: [facility] ld1 12:51 Acuity: STEPHANIE 2 ld1 Triage Assessment: 12:51 General: Appears. ld1 12:56 General: Appears in no apparent distress. uncomfortable, Behavior is calm, cooperative, ld1 appropriate for age. Pain: Complains of pain in left arm Pain does not radiate. Pain currently is 6 out of 10 on a pain scale. Quality of pain is described as throbbing, Pain began unknown. EMS reports injury from previous fall. EENT: No signs and/or symptoms were reported regarding the EENT system. Neuro: Level of Consciousness is awake, alert, obeys commands, Oriented to person, place, time, situation. Cardiovascular: Capillary refill < 3 seconds Patient's skin is warm and dry. Respiratory: Airway is patent Respiratory effort is even, unlabored. GI: Abdomen is flat, non-distended. : No signs and/or symptoms were reported regarding the genitourinary system. Derm: No signs and/or symptoms reported regarding the dermatologic system. Musculoskeletal: No signs and/or symptoms reported regarding the musculoskeletal system. Historical: - Allergies: 12:51 No Known Allergies; ld1 - PMHx: 12:51 BPH; Cerebrovascular accident; Depression; diabetes mellitus; Erectile Dysfunction; ld1 High Cholesterol; Hyperlipidemia; Hypertensive disorder; Osteoporosis; Psoriatic Arthritis; short term memory loss; - PSHx: 12:51 Appendectomy; ld1 - Immunization history:: Adult Immunizations up to date, Client reports having NOT received the Covid vaccine. - Social history:: Smoking status: Patient reports the use of cigarette tobacco products, smokes one-half pack cigarettes per day, Patient uses alcohol, on a daily basis. admits to "couple of beers" a day. Screenin:23 Abuse screen: Denies threats or abuse. Denies injuries from another. Nutritional ld1 screening: No deficits noted. Tuberculosis screening: No symptoms or risk factors identified. Fall Risk Fall in past 12 months (25 points). Secondary diagnosis (15 points) dementia, IV access (20 points). Ambulatory Aid- Crutches/Cane/Walker (15 pts). Gait- Weak (10 pts.). Mental Status- Overestimates/Forgets Limitations (15 pts.). Total Quesada Fall Scale indicates High Risk Score (45 or more points). Fall prevention measures have been instituted. Side Rails Up X 2 Placed Close to Nursing Station Frequent Obs/Assessments Occuring As available patient and family educated on Fall Prevention Program and Strategies. Assessment: 13:23 Reassessment: See triage assessment. ld1 13:23 Reassessment: Pt in bed eating lunch. Patient denies pain at this time. Patient states ld1 feeling better. 14:34 Reassessment: Patient appears in no apparent distress at this time. Patient is alert, ld1 oriented x 3, equal unlabored respirations, skin warm/dry/pink. 15:50 Reassessment: Patient appears in no apparent distress at this time. Patient is alert, ld1 oriented x 3, equal unlabored respirations, skin warm/dry/pink. 16:45 Reassessment: Patient appears in no apparent distress at this time. Patient is alert, ld1 oriented x 3, equal unlabored respirations, skin warm/dry/pink. Patient is alert/active/playful, equal unlabored respirations, skin warm/dry/pink. Vital Signs: 12:51 BP 125 / 101; Pulse 62; Resp 18; Temp 97.6(O); Pulse Ox 100% on 4 lpm NC; Weight 70.31 ld1 kg; Height 5 ft. 11 in. (180.34 cm); Pain 6/10; 13:23 BP 145 / 84; Pulse 66; Resp 16; Pulse Ox 100% on R/A; Pain 5/10; ld1 14:34 BP 121 / 78; Pulse 63; Resp 16; Pulse Ox 100% on R/A; ld1 16:12 BP 159 / 66; Pulse 64; Resp 16; Pulse Ox 100% on 3 lpm NC; ld1 16:45 BP 146 / 77; Pulse 62; Resp 16; Pulse Ox 99% on R/A; ld1 16:53 BP 144 / 70; Pulse 65; Resp 14; Pulse Ox 98% on R/A; ld1 12:51 Body Mass Index 21.62 (70.31 kg, 180.34 cm) ld1 ED Course: 12:36 Patient arrived in ED. ld1 12:39 Yaakov Flaherty DO is Attending Physician. ms3 12:51 Vicky Ríos, MALIA is Primary Nurse. ld1 12:56 Triage completed. ld1 12:56 Arm band placed on right wrist. ld1 13:23 Patient has correct armband on for positive identification. Fall risk band placed. ld1 Placed in gown. Bed in low position. Call light in reach. Side rails up X2. 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 Pulse ox on. NIBP on. Door closed. Noise minimized. Warm blanket given. 13:23 No provider procedures requiring assistance completed. Maintain EMS IV. Dressing ld1 intact. Good blood return noted. Site clean \\T\\ dry. Gauge \\T\\ site: 18G RAC. 13:39 Abhinav Powell MD is Hospitalizing Provider. ms3 14:27 initiated transfer to [facility]. bd 16:02 Shoulder Left (2 View) XRAY In Process Unspecified. EDMS 17:29 Patient transferred, IV remains in place. ld1 Administered Medications: 12:50 Drug: D50W 50 ml Route: IVP; Site: right antecubital; iw 14:34 Follow up: Response: No adverse reaction; Blood sugar is elevated ld1 Medication: 13:23 VIS not applicable for this client. ld1 Intake: 16:11 PO: 250ml (Water); Total: 250ml. ld1 Output: 16:11 Urine: 1ml (Voided); Total: 1ml. ld1 Outcome: 13:39 Decision to Hospitalize by Provider. ms3 14:44 ER care complete, transfer ordered by MD. ms3 17:28 Transferred by ground EMS to [facility]. ld1 17:28 Condition: stable 17:28 Instructed on the need for transfer. 17:29 Patient left the ED. ld1 Signatures: Dispatcher [employer] EDMS Bruna Holly Irene, RN RN iw Yaakov Flaherty DO DO ms3 Vicky Ríos RN RN ld1
[2022-01-01 14:06] LABS: SARS-CoV-2 Antigen Rapid Res Negative (Negative)
--- NOTE | 2022-01-01 14:27 | P.PN ---
Subjective Date of Service: 01/01/22 I was asked by Dr[address] Flaherty to admitted Mr. Hannon. However, shortly after, I was notified that Mr. Hannon did not wish to be admitted here due to his insurance being out of network. I did not see or evaluate Mr. Hannon. Please refer to Dr. Flaherty note for details on his ED course. Abhinav Powell M.D. Physical Examination - Studies Laboratory Data (last 24 hrs) 01/01/22 13:03: Sodium 128 L, Potassium 3.9, BUN 18, Creatinine 1.21, Glucose 361 H, Total Bilirubin 0.6, AST 19, ALT 22, Alkaline Phosphatase 133 H 01/01/22 13:03: WBC 6.30, Hgb 13.0 L, Hct 38.4 L, Plt Count 225
--- NOTE | 2022-01-01 16:23 | RAD REPORT ---
EXAM DESCRIPTION: RAD - Shoulder Left 2 View - 01/01/2022 4:00 pm CLINICAL HISTORY: PAINafter fall, history of fracture COMPARISON: Shoulder Left 2 View dated 12/09/2021 TECHNIQUE: Internal and external rotation views of the left shoulder were obtained. FINDINGS: Proximal humerus fracture detailed on the December 09 study is again identified. No signif icant change in alignment or positioning of the fracture fragments. There is a minimal amount of call us formation seen. Remodeling from old midshaft left humerus fracture noted and stable. No new fracture or dislocation. AC joint stable in appearance. No pathologic bone process. IMPRESSION: Subacute proximal left humerus fracture and old midshaft left humerus fractures are note d and stable. No acute left shoulder finding.
[2022-01-01] MEDS ORDERED: INSULIN -REGULAR HUMAN 50 UNIT/0.5 ML ML SQ SCH (16:30)
== END 2022-01-01 17:29 | disposition short-term general hospital (02) ==
LOC: ER 12:28
DX: E11.649 Type 2 diabetes mellitus with hypoglycemia without coma (principal); I10 Essential (primary) hypertension; M25.512 Pain in left shoulder; F17.210 Nicotine dependence, cigarettes, uncomplicated; Z86.73 Personal history of transient ischemic attack (TIA), and cerebral infarction without residual deficits; Z20.822 Contact with and (suspected) exposure to COVID-19
CPT/HCPCS: 36415; 80053; 82550; 82947; 84484; 85025; 87811; 96374; 99285

== ENCOUNTER 2022-02-21 12:30 | Observation (INO) | payer OTHER ==
--- OUTSIDE RECORDS SUMMARY | 2022-02-21 12:34 | XMS REPORT | Continuity of Care Document ---
:1945 Author Organization [facility] t Address [address] [place] [address] Dr. Howard. [address] [place] [id number] Care Team Providers Name Role Phone No, Pcp [facility] Primary Care Physician Unavailable Marvin FINLEY, Ange House Attending Clinician Unavailable FELIPA GARCIA Attending Clinician Unavailable Santiago Baugh MD Attending Clinician Felipa Garcia MD Attending Clinician Juanita ARIAS, Greg Muro Attending Clinician Maty Calle MD Attending Clinician [phone] Matilde ARIAS, Destiny Ravi Attending Clinician Elkin Hanson MD Attending Clinician ELKIN HANSON Attending Clinician Unavailable SANTIAGO BAUGH Admitting Clinician Unavailable MATY CALLE Admitting Clinician Unavailable Payers Payer Name Policy Type Policy Number Effective Date Expiration Date S ource Problems Condition Condition Condition Status Onset Resolution Last Treating Co mments Source Name Details Category Date Date Treatment Clinician Date Hypoglycem Hypoglycem Disease Active U nivers ia ia 01-01 ity of 00:00: [place] [address] Medical Branch Compressio Compressio Disease Active [facility] n fracture n fracture 4-04 Margie kes of T11 of T11 00:00: Medical vertebra vertebra 00 Center Multiple Multiple Disease [facility] Alcohol Alcohol Disease Active [facility] use use 4-04 [facility] 00:00: Medical 00 [place] Right leg Right leg Disease Active [facility] pain pain 4-04 [facility] 00:00: Medical 00 [place] Rhabdomyol Rhabdomyol Disease Active [facility] ysis ysis 4-04 [facility] 00:00: Medical 00 [place] 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 essential 4-04 Luke s HTN HTN 00:00: Medical 00 Center Allergies, Adverse Reactions, Alerts Allergy Allergy Status Severity Reaction(s) Onset Inactive Treating Comm ents Source Name Type Date Date Clinician NO KNOWN Allergy Active [facility] NO KNOWN Drug Active [facility] ALLERGIE Class ity of S [facility] Family History Family Member Diagnosis Comments Start Date Stop Date Source Natural father No Known Problem [facility] Natural mother No Known Problem [facility] Social History Social Habit Start Date Stop Date Quantity Comments Source History [facility] History of Cigarette Smoker Universi ty of tobacco use [facility] Exposure to 2021-12-22 2022-01-01 Not sure University of SARS-CoV-2 00:00:00 18:57:00 [facility] (event) Branch Education 2022-01-01 2022-01-01 21 University of 00:00:00 00:00:00 [facility] Tobacco Comment 2022-01-01 2022-01-01 Smokes 10 Universit y of 00:00:00 00:00:00 cigarettes a day [facility] dical Branch History [facility] 2021-07-15 2021-07-[address] [facility] Housing Places 00:00:00 00:00:00 Medical Ce nter Lived History [facility] 2021-07-15 2021-07-[address] [facility] Housing Homeless 00:00:00 00:00:00 Medical Center Last Year History [facility] 2021-07-15 2021-07-[address] [facility] Transport Med 00:00:00 00:00:[address] History [facility] 2021-07-15 2021-07-[address] [facility] Housing Unable to 00:00:00 00:00:00 Medical Center Pay Tobacco use and 2021-07-10 2021-07-[address] Margie kes exposure 00:00:00 00:00:00 Medical Center Alcohol intake 2021-07-10 2021-07-10 Current drinker CHETAN Hilliard 00:00:00 00:00:00 of alcohol [facility] (finding) Sex Assigned At [birth year] CHETAN Burns 00:00:00 00:00:00 Medical Center Smoking Status Start Date Stop Date Source Smokes tobacco daily 2022-01-01 00:00:00 Univers ity of [facility] Medications Ordered Filled Start Stop Current Ordering Indication Dosage Frequency Signature Comments Components Source Medication Medication Date Date Medication? Clinician (SIG) Name Name lisinopriL 2021- Yes [id number] 10mg Take 1 Univers 10 mg 9-29 10-30 tablet by ity of tablet 00:00: 04:59 mouth in [place] 00 :00 [facility] lisinopriL 2021- Yes [id number] 10mg Take 1 Univers 10 mg 9-29 10-30 tablet by ity of tablet 00:00: 04:59 mouth in [place] 00 :00 [facility] for [facility] days. sulfur 2021- No [id number] 5mL 5 mL, Unive rs hexafluorid 01-03 Intravenou i ty of e microsphr 16:15: 16:15 s, ONCE, 1 [place] (LUMASON) 00 :00 dose, On Medica l injection 5 Sat Branch mL 01/03/22 at 1115, Routine
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 : BALA BEAULIEU lisinopriL Yes 10mg 10 mg, Unive rs (PRINIVIL,Z 01-02 Oral, ity of ESTRIL) 14:00: DAILY, [place] tablet 10 00 First dose Medi anjel mg on Sat Branch 01/02/22 at 0900, Until Discontinu ed, Routine enoxaparin Yes 40mg 40 mg, Unive rs (LOVENOX) 01-02 Subcutaneo ity of injection 14:00: [place], [place]ILY, [place] 40 mg 00 First dose Medical on Sat Branch 01/02/22 at 0900, Until Discontinu ed, Routine Sliding Yes Subcutaneo Univ ers Scale 01-02 us, TID ity of Insulin - 02:00: MEALS+HS, [place] Lispro 00 First dose Medical (HumaLOG) + on Sat [place] Fsbg 01/01/22 at Testing 2100, Until Discontinu ed, Routine docusate Yes 100mg 100 mg, Unive rs (COLACE) 01-02 Oral, BID, ity o f capsule 100 01:00: First dose [place] mg 00 on Sat Medical 01/01/22 at Branch 2000, Until Discontinu ed, Routine lactated 0 2021- No 1000mL at 75 Unive rs ringers IV 01-02 09-28 mL/hr, ity of infusion 00:30: 00:29 1,000 mL, [place] as 1,000 mL 00 :00 IV Medical Infusion, [place] CONTINUOUS , Starting on Sat01/01/22 at 1930, Until Sat01/02/22 at 1929, Routine glucagon Yes 1mg 1 mg, Univers (GLUCAGEN 01-02 Intramuscu ity of DIAGNOSTIC 00:15: lar, PRN, [place] KIT) 48 Starting Medical injection 1 on Sat [place] mg 01/01/22 at 1915, Until Discontinu ed, CATHERINE, Blood Glucose < or = 70 mg/dL and patient is unable to swallow or has mental changes. dextrose 50 Yes 25mL 25 mL, Univ ers % in water 01-02 Slow IV ity of (D50W) 00:15: Push, PRN, [place] injection 48 Starting Medica l 25 mL on Sat [place] 01/01/22 at 1915, Until Discontinu ed, CATHERINE, Blood Glucose < or = 70 mg/dL and patient is unable to swallow or has mental status changes. traMADoL 2021- Yes 50mg 50 mg, Univer s (ULTRAM) 01-02 Oral, ity of tablet 50 00:14: 00:13 Q8HPRN, [place] mg 49 :49 Starting Medical on Sat Branch 01/01/22 at 1914, Until Sat01/03/22 at 191, Routine, Pain (scale 4-6) acetaminoph Yes 650mg 650 mg, Un jonelle en 01-02 Oral, ity of (TYLENOL) 00:14: [place], [place] tablet 650 44 Starting Medic al mg on Mon Branch 01/01/22 at 1914, Until Discontinu ed, Routine, Pain (scale 1-3) ibuprofen 2021-0 Yes 800mg Q.[id number] Take [address] (ADVIL,MOTR 3-25 [id number] mg by L ukes [place]) 800 MG 00:00: 3D mouth 3 Medi anjel tablet 00 (three) Center times daily. ibuprofen 0 Yes 800mg Q.[id number] Take [address] (ADVIL,MOTR 3-25 [id number] mg by L ukes [place]) 800 MG 00:00: 3D mouth 3 Medi anjel tablet 00 (three) Center times daily. ibuprofen 0 Yes 800mg Q.[id number] Take [address] (ADVIL,MOTR 3-25 [id number] mg by L ukes [place]) 800 MG 00:00: 3D mouth 3 Medi anjel tablet 00 (three) Center times daily. ibuprofen 0 Yes 800mg Q.[id number] Take [address] (ADVIL,MOTR 3-25 [id number] mg by L ukes [place]) 800 MG 00:00: 3D mouth 3 Medi anjel tablet 00 (three) Center times daily. cyclobenzap 2021- No 10mg Take [address] rine 3-25 04-09 by mouth. [facility]ukes (FLEXERIL) 00:00: 00:00 Medica l 10 MG 00 :00 Center tablet cyclobenzap 0 2021- No 10mg Take [address] rine 3-25 04-09 by mouth. [facility]ukes (FLEXERIL) 00:00: 00:00 Medica l 10 MG 00 :00 Center tablet cyclobenzap 2021-0 2- No 10mg Take [address] rine 3-25 04-09 by mouth. [facility]ukes (FLEXERIL) 00:00: 00:00 Medica l 10 MG 00 :00 Center tablet cyclobenzap 2021-0 2021- No 10mg Take [address] rine 3-25 04-09 by mouth. [facility]ukes (FLEXERIL) 00:00: 00:00 Medica l 10 MG 00 :00 Center tablet Vital Signs Vital Name Observation Time Observation Value Comments Source Systolic blood 2022-01-03 20:31:00 159 mm[Hg] Univer sity of [facility] Diastolic blood 2022-01-03 20:31:00 77 mm[Hg] Unive rsity of [facility] Heart rate 2022-01-03 20:31:00 59 /min [facility] Body temperature 2022-01-03 20:31:00 36.72 [facility]a [facility] [place] Respiratory rate 2022-01-03 20:31:00 18 /min [facility] Oxygen saturation in 2022-01-03 20:31:00 98 /min [facility] Arterial blood by [facility] Pulse oximetry Branch Body weight 2022-01-03 08:29:00 66.996 kg [facility] BMI 2022-01-03 08:29:00 20.60 kg/m2 [facility] Body height 2022-01-02 00:02:00 180.3 cm [facility] HEIGHT 2021-07-11 15:00:00 180.3 cm WEIGHT 2021-07-11 15:00:00 69.4 kg HEIGHT 2021-07-11 15:00:00 180.3 cm WEIGHT 2021-07-11 15:00:00 69.4 kg HEIGHT 2021-07-11 15:00:00 180.3 cm WEIGHT 2021-07-11 15:00:00 69.4 kg Systolic blood 2021-07-15 16:10:00 160 mm[Hg] [facility] Diastolic blood 2021-07-15 16:10:00 72 mm[Hg] [facility] Heart rate 2021-07-15 16:10:00 71 /min [facility] Respiratory rate 2021-07-15 16:10:00 18 /min [facility] Oxygen saturation in 2021-07-15 16:10:00 98 /min [facility] Arterial blood [facility] P[facility] Body temperature 2021-07-15 11:50:00 36.17 Norma [facility] Body height 2021-07-11 15:00:00 180.3 cm [facility] Body weight 2021-07-11 15:00:00 69.4 kg [facility] BMI 2021-07-11 15:00:00 21.34 kg/m2 [facility] Procedures Procedure Date / Time Performing Clinician Source Performed POCT GLUCOSE (AUTOMATED) 2022-01-03 16:41:00 [facility] POCT GLUCOSE (AUTOMATED) 2022-01-03 12:39:00 [facility] POCT GLUCOSE (AUTOMATED) 2022-01-03 01:36:00 [facility] XR SHOULDER 2+ VW LEFT 2022-01-02 23:55:00 Santiago Baugh [facility] POCT GLUCOSE (AUTOMATED) 2022-01-02 21:50:00 [facility] POCT GLUCOSE (AUTOMATED) 2022-01-02 16:37:00 [facility] POCT GLUCOSE (AUTOMATED) 2022-01-02 12:45:00 [facility] MAGNESIUM 2022-01-02 11:18:00 Lup[facility] THYROID STIMULATING 2022-01-02 11:18:00 Santiago Baugh [facility] HORMONE [facility] Branch BASIC METABOLIC PANEL 2022-01-02 11:18:00 Santiago Baugh [facility] (NA, K, CL, CO2, Medical Branch GLUCOSE, BUN, CREATININE, CA) LIPID PANEL 2022-01-02 11:18:00 Santiago Baugh [facility] ([id number])(TOTAL Medical Branch CHOLESTEROL, TRIGLYCERIDES, HDL) CBC WITH DIFF 2022-01-02 11:18:00 [facility] GLYCOSYLATED HEMOGLOBIN 2022-01-02 11:18:00 Lupis [facility] (A1C) [facility] POCT GLUCOSE (AUTOMATED) 2022-01-02 04:31:00 [facility] PHOSPHORUS 2022-01-02 01:56:00 [facility] HEPATIC FUNCTION PANEL 2022-01-02 01:56:00 [id number] (ALB,T.PRO,BILI Medical Branch T,BU/BC,ALT,AST,ALK PHOS) BASIC METABOLIC PANEL 2022-01-02 01:56:00 Pepebarbara [facility] (NA, K, CL, CO2, Medical Branch GLUCOSE, BUN, CREATININE, CA) CBC WITH DIFF 2022-01-02 01:56:00 [facility] N-TERMINAL PRO-BNP 2022-01-02 01:56:00 [facility] CHEST 1 VW 2022-01-02 01:36:22 [facility] POCT GLUCOSE (AUTOMATED) 2022-01-01 23:52:00 [facility] BASIC METABOLIC PANEL 2021-07-13 04:26:00 Destiny Clayton [facility] () [place] CREATINE KINASE (CK) 2021-07-13 04:26:00 Destiny Clayton [facility] BASIC METABOLIC PANEL 2021-07-12 04:37:00 Destiny Clayton [facility] () [place] CREATINE KINASE (CK) 2021-07-12 04:37:00 Destiny Clayton [facility] SARS-COV2/RT-PCR ([facility] & 2021-07-10 23:24:00 Maty Calle [facility] REF LABS) [facility] RAPID DRUG SCREEN, URINE 2021-07-10 23:03:00 Maty Calle [facility] URINALYSIS W/ REFLEX 2021-07-10 23:03:[address] [facility] URINE CULTURE [facility] CBC W/PLT COUNT & AUTO 2021-07-10 23:01:00 Maty Calle [facility] DIFFERENTIAL [facility] COMPREHENSIVE METABOLIC 2021-07-10 23:01:00 Maty Calle [facility] MAGNESIUM 2021-07-10 23:01:00 [place] Maty [facility] PHOSPHORUS 2021-07-10 23:01:00 [place] [facility] CREATINE KINASE (CK) 2021-07-10 23:01:00 [place] [facility] ETHANOL 2021-07-10 23:01:00 [place] [facility] PROTHROMBIN TIME/INR 2021-07-10 23:01:00 [place] [facility] CBC W/PLT COUNT & AUTO 2021-07-10 23:01:00 [facility] EKG-SCANNED 2021-07-10 00:00:00 [facility] Plan of Care Planned Activity [...] screening Medical C enter (procedure) [code = 463777492] Future Scheduled 2012-02-[address] [facility] Test 00:00:00 aneurysm screening Medical C enter (procedure) [code = 910906174] Future Scheduled 2012-02-[address] [facility] Test 00:00:00 aneurysm screening Medical C enter (procedure) [code = 697939551] Future Scheduled 2012-02-[address] [facility] Test 00:00:00 aneurysm screening Medical C enter (procedure) [code = 722803681] Future Scheduled 1995 SHINGLES VACCINES ([address] [facility] Test 00:00:00 2) [code = SHINGLES [facility] VACCINES (1 of 2)] Future Scheduled [...] Lukes Test 00:00:00 2) [code = SHINGLES [facility] VACCINES (1 of 2)] Future Scheduled [...] [place] ter VACCINE (#1)] Future Scheduled 1945 Screening for malignant [facility] Test 00:00:00 neoplasm of colon Medical Ce nter (procedure) [code = 850438652] Future Scheduled 1947 Screening for malignant [facility] Test 00:00:00 neoplasm of colon Medical Ce nter (procedure) [code = 091341710] Future Scheduled 1947 Screening for malignant [facility] Test 00:00:00 neoplasm of colon Medical Ce nter (procedure) [code = 086226887] Future Scheduled 1945 Sigmoidoscopy [code = [facility]:00 Sigmoidoscopy] Medical Cente r Future Scheduled 1947 CT Colonography (combo) [facility] Test 00:00:00 [code = CT Colonography [facility] (combo)] Future Scheduled 1947 Screening for malignant [facility] Test 00:00:00 neoplasm of colon Medical Ce nter (procedure) [code = 914412902] Future Scheduled 1947 Screening for malignant [facility] Test 00:00:00 neoplasm of colon Medical Ce nter (procedure) [code = 209844262] Future Scheduled 1947 Screening for malignant [facility] Test 00:00:00 neoplasm of colon Medical Ce nter (procedure) [code = 067205280] Future Scheduled 1947 Screening for malignant [facility] Test 00:00:00 neoplasm of colon Medical Ce nter (procedure) [code = 075401849] Future Scheduled 1945 Sigmoidoscopy [code = [facility] 00:00:00 Sigmoidoscopy] Medical Cente r Future Scheduled 1947 CT Colonography (combo) [facility] Test 00:00:00 [code = CT Colonography Medi anjel Center (combo)] Future Scheduled 1947 Screening for malignant [facility] Test 00:00:00 neoplasm of colon Medical Ce nter (procedure) [code = 783584888] Future Scheduled 1947 Screening for malignant [facility] Test 00:00:00 neoplasm of colon Medical Ce nter (procedure) [code = 300151303] Future Scheduled 1947 Screening for malignant [facility] Test 00:00:00 neoplasm of colon Medical Ce nter (procedure) [code = 052932058] Future Scheduled 1947 Screening for malignant [facility] Test 00:00:00 neoplasm of colon Medical Ce nter (procedure) [code = 742987772] Future Scheduled 1945 Sigmoidoscopy [code = [facility] 00:00:00 Sigmoidoscopy] Medical Cente r Future Scheduled 1947 CT Colonography (combo) [facility] Test 00:00:00 [code = CT Colonography Medi anjel Center (combo)] Future Scheduled 1947 Screening for malignant [facility] Test 00:00:00 neoplasm of colon Medical Ce nter (procedure) [code = 686585462] Future Scheduled 1947 Screening for malignant [facility] Test 00:00:00 neoplasm of colon Medical Ce nter (procedure) [code = 873947742] Future Scheduled 1947 Screening for malignant [facility] Test 00:00:00 neoplasm of colon Medical Ce nter (procedure) [code = 273317903] Future Scheduled 1947 Screening for malignant [facility] Test 00:00:00 neoplasm of colon Medical Ce nter (procedure) [code = 808917460] Future Scheduled 1945 Sigmoidoscopy [code = [facility] 00:00:00 Sigmoidoscopy] Medical Cente r Future Scheduled 1947 CT Colonography (combo) [facility] Test 00:00:00 [code = CT Colonography Medi anjel Center (combo)] Future Scheduled 1947 Screening for malignant [facility] Test 00:00:00 neoplasm of colon Medical Ce nter (procedure) [code = 769082784] Encounters Start End Encounter Admission Attending Care Care Encounter Source Date/Time Date/Time Type Type Clinicians Facility Department ID 2022-01-04 2022-01-04 Transition YAIMA Wong [id number] Univers 00:00:00 00:00:00 of Suki GARCIA [id number] it y of [place] [id number] Elvis madrigal [id number] [place] [address] Branch 2022-01-01 2022-01-03 Outpatient U SUNIL [facility] JOE [id number] Univers 18:43:00 17:35:00 TASO ity of [facility] 2022-01-01 2022-01-03 [facility] Santiago Baugh [facility] [id number] Univers 18:43:00 17:35:00 Encounter Felipa Garcia [id number] ity of [place] [id number] Elvis madrigal [facility] [id number] [address] ([facility]) 2021-07-10 2021-07-15 [facility] [id number] 22:14:00 18:04:00 Encounter Maty Calle Kin[facility] 2021-07-10 2021-07-15 [facility] [id number] 22:14:00 18:04:00 Encounter Maty Calle Kinjal [facility] 2021-07-10 2021-07-15 Inpatient ER [facility] Neurology [id number] [facility] 22:14:00 18:04:00 [facility] 2021-07-10 2021-07-[address] [facility] [id number] [facility] 00:[facility] 00:00:00 [facility] 2021-07-10 2021-07-[address] [facility] [id number] [facility] 00:[facility] 00:[facility]:00 [facility] Results Test Description Test Time Test Comments Results Result Comments Source POCT GLUCOSE (AUTOMATED) 2022-01-03 16:42:19 Test Item Value Reference Range Interpretation Comme nts POCT GLU (test code = 1284511625) 145 mg/dL 70-110 H Lab Interpretation (test code = 05750-5) Abnormal [facility] GLUCOSE (AUTOMATED)2022-01-03 12:46:26 Test Item Value Reference Range Interpretation Comments POCT GLU (test code = 7212292367) 132 mg/dL 70-110 H Lab Interpretation (test code = Abnormal 51460-1) [facility] GLUCOSE (AUTOMATED)2022-01-03 01:37:34 Test Item Value Reference Range Interpretation Comments POCT GLU (test code = 5066256417) 122 mg/dL 70-110 H Lab Interpretation (test code = Abnormal 83627-0) [facility] GLUCOSE (AUTOMATED)2022-01-02 21:55:54 Test Item Value Reference Range Interpretation Comments POCT GLU (test code = 0747814698) 116 mg/dL 70-110 H Lab Interpretation (test code = Abnormal 29624-2) [facility] GLUCOSE (AUTOMATED)2022-01-02 16:40:23 Test Item Value Reference Range Interpretation Comments POCT GLU (test code = 6060064505) 224 mg/dL 70-110 H Lab Interpretation (test code = Abnormal 88595-4) [facility] GLUCOSE (AUTOMATED)2022-01-02 12:55:05 Test Item Value Reference Range Interpretation Comments POCT GLU (test code = 0412219309) 114 mg/dL 70-110 H Lab Interpretation (test code = Abnormal 60833-3) [facility] GLUCOSE (AUTOMATED)2022-01-02 04:32:44 Test Item Value Reference Range Interpretation Comments POCT GLU (test code = 0615279340) 172 mg/dL 70-110 H Lab Interpretation (test code = Abnormal 98092-7) [facility] GLUCOSE (AUTOMATED)2022-01-02 00:00:57 Test Item Value Reference Range Interpretation Comments POCT GLU (test code = 7191484239) 228 mg/dL 70-110 H Lab Interpretation (test code = Abnormal 88542-8) [facility]OL[facility] [id number] 05:40:40 Test Item Value Reference Range Interpretation Comments SODIUM (BEAKER) 137 meq/L 136-145 (test code = 381) POTASSIUM (BEAKER) 3.6 meq/L 3.5-5.1 (test code = 379) CHLORIDE (BEAKER) 103 meq/L 98-107 (test code = 382) CO2 (BEAKER) (test 27 meq/L 22-29 code = 355) BLOOD UREA NITROGEN 18 mg/dL 7-21 (BEAKER) (test code = 354) CREATININE (BEAKER) 0.98 mg/dL 0.57-1.25 (test code = 358) GLUCOSE RANDOM 130 mg/dL 70-105 H (BEAKER) (test code = 652) CALCIUM (BEAKER) 9.0 mg/dL 8.4-10.2 (test code = 697) EGFR (BEAKER) (test 75 mL/min/1.73 ESTIMA FATMATA GFR IS code = 1092) sq m NOT ACCURATE CREATININE CLEARANCE IN PREDICTING GLOMERULAR FILTRATION RATE . ESTIMATED GFR I S NOT APPLICABLE FOR DIALYSIS PATIEN TS. Spiral Machine Operator ID - CORIN LCREATINE KINASE (CK)2021-07-13 05:40:40 Test Item Value Reference Range Interpretation Comments CREATINE KINASE TOTAL (BEAKER) (test 177 U/L 29-200 code = 380) Spiral Machine Operator ID - CORIN LCREATINE KINASE (CK)2021-07-12 05:41:18 Test Item Value Reference Range Interpretation Comments CREATINE KINASE TOTAL (BEAKER) (test 449 U/L 29-200 H code = 380) Spiral Machine Operator ID - RADHAJT LBASIC METABOLIC [id number] 05:41:17 Test Item Value Reference Range Interpretation [...] S NOT APPLICABLE FOR DIALYSIS PATIEN TS. Spiral Machine Operator ID - PIAYA LSARS-CoV2/RT-PCR (Asymptomatic ONLY)2021-07-11 12:43:08 Test Item Value Reference Range Interpretation Comments SARS-COV2/RT-PCR Negative Not Detected, (test code = Negative, See 69985-5) external report for linked test SARS-COV-2 [facility] PERFORMING LAB (test code = 31454-1) ALIRIO (test code = Negative result for [...] of the Act. Fact Sheet for Healthcare Providers:https://www.Hitwise.[employer]/sites/default/f robinson/product/documents/F act_Sheet_HC_Providers_L jnl_POKT-XsI-5.pdf Fact Sheet for Healthcare Patients:https://www.Vanatec.com/sites/default/fi les/product/documents/Fa ct_Sheet_Patients_Ly_S ARS-CoV-2.pdf Performing Laboratory:[facility] [place] [address] [facility] (Asymptomatic ONLY)2021-07-11 12:43:08 Test Item Value Reference Range Interpretation Comments SARS-COV2/RT-PCR Negative Not Detected, (test code = Negative, See 57451-5) external report for linked test SARS-COV-2 [facility] PERFORM[facility] (test code = 87802-1) ALIRIO (test code = Negative result for [...] of the Act. Fact Sheet for Healthcare Providers:https://www.Hitwise.[employer]/sites/default/f robinson/product/documents/F act_Sheet_HC_Providers_L wdc_CMFH-EbT-4.pdf Fact Sheet for Healthcare Patients:https://www.[employer]/sites/default/fi les/product/documents/Fa ct_Sheet_Patients_Ly_S ARS-CoV-2.pdf Performing Laboratory:[facility], [place] [address] [place], [place] [address]ARS-CoV2/RT-PCR (Asymptomatic ONLY)2021-07-11 12:43:08 Test Item Value Reference Range Interpretation Comments SARS-COV2/RT-PCR Negative Not Detected, (test code = Negative, See 97452-1) external report for linked test SARS-COV-2 [facility] PERFORMING LAB (test code = 77010-3) ALIRIO (test code = Negative result for [...] of the Act. Fact Sheet for Healthcare Providers:https://www.[employer]/sites/default/f robinson/product/documents/F act_Sheet_HC_Providers_L rsc_EOTZ-XsO-4.pdf Fact Sheet for Healthcare Patients:https://www.[employer]/sites/default/fi les/product/documents/Fa ct_Sheet_Patients_Lyra_S ARS-CoV-2.pdf Performing Laboratory:[facility] [place] [address] [facility]omatic ONLY[facility]2021-07-11 12:43:08 Test Item Value Reference Range Interpretation Comments SARS-COV2/RT-PCR Negative Not Detected, (test code = Negative, See 05449-6) external report for linked test SARS-COV-2 [facility] PERFORMING LAB (test code = 71933-5) ALIRIO (test code = Negative result for [...] of the Act. Fact Sheet for Healthcare Providers:https://www.[employer]/sites/default/f robinson/product/documents/F act_Sheet_HC_Providers_L kyb_YWKF-WmF-7.pdf Fact Sheet for Healthcare Patients:https://www.[employer]/sites/default/fi les/product/documents/Fa ct_Sheet_Patients_Lyra_S ARS-CoV-2.pdf Performing Laboratory:[facility], [place] [id number] [place], [place] [address]ARS-COV2/RT-PCR ([facility])2021-07-11 12:43:08 Test Item Value Reference Range Interpretation Comments SARS-COV2/RT-PCR (test Negative Not Detected, Negative, code = 1481116) See external report for linked test SARS-COV-[address] [facility] (test code = 3734427) Negative result for this test determines that [...] of the Act.Fact Sheet for Healthcare Prov iders:https://www.[employer]/sites/default/files/product/documents/Fact_Sheet_HC _Gxmuhfsvn_Nfbw_XPNN-SrL-5.pdfFact Sheet for Healthcare Patients:https://www.[employer]/sites/default/files/product/docume nts/Aeri_Zdwph_Youehzkj_Kubx_UJBP-BdS-9.pdfPerforming Laboratory:[facility], [place] [address]Gampirmfyj w/Microscopic + Reflex to [id number] 01:08:09 Test Item Value Reference Range Interpretation Comments Color, UA (test code Light Yellow = 5778-6) Clarity, UA (test Clear code = 5767-9) Specific [place], UA 1.030 1.001-1.035 (test code = 5811-5) pH, UA (test code = 7.0 5.0-8.0 5803-2) Protein, UA (test 10 mg/dL Negative A code = 26107-4) Glucose, UA (test 500 mg/dL Negative A code = 365) Ketones, UA (test Negative Negative code = 2514-8) Bilirubin, UA (test Negative Negative code = 77387-5) Blood, UA (test code Negative Negative = 69471-0) Nitrite, UA (test Negative Negative code = 5802-4) Leukocytes, UA (test Negative Negative code = 5799-2) Urobilinogen, UA 0.2 mg/dL 0.2-1.0 (test code = 76080-3) RBC, UA (test code = <1 See_Comment [Autom ated 41353-3) message] The system which generated this result [...] Bacteria, UA (test None Seen code = 63872-2) Crystals, Urine (test None Seen code = 62131-5) Specimen Source (test code = 2795) ALIRIO (test code = ALIRIO) Spiral Machine Operator ID - [auto]Spiral Machine Operator ID - tech Lab Interpretation Abnormal (test code = 54299-6) [facility] Culture 2021-07-11 01:08:09 Test Item Value Reference Range Interpretation Comments Color, UA (test code Light Yellow = 5778-6) Clarity, UA (test Clear code = 5767-9) Specific [place], UA 1.030 1.001-1.035 (test code = 5811-5) pH, UA (test code = 7.0 5.0-8.0 5803-2) Protein, UA (test 10 mg/dL Negative A code = 54238-9) Glucose, UA (test 500 mg/dL Negative A code = 365) Ketones, UA (test Negative Negative code = 2514-8) Bilirubin, UA (test Negative Negative code = 33025-0) Blood, UA (test code Negative Negative = 47481-3) Nitrite, UA (test Negative Negative code = 5802-4) Leukocytes, UA (test Negative Negative code = 5799-2) Urobilinogen, UA 0.2 mg/dL 0.2-1.0 (test code = 36064-2) RBC, UA (test code = <1 See_Comment [Autom ated 95584-7) message] The system which generated this result [...] Bacteria, UA (test None Seen code = 45440-7) Crystals, Urine (test None Seen code = 61813-4) Specimen Source (test code = 2795) ALIRIO (test code = ALIRIO) Spiral Machine Operator ID - [auto]Spiral Machine Operator ID - tech Lab Interpretation Abnormal (test code = 18873-8) [facility] + Reflex to Culture 2021-07-11 01:08:09 Test Item Value Reference Range Interpretation Comments Color, UA (test code Light Yellow = 5778-6) Clarity, UA (test Clear code = 5767-9) Specific [place], UA 1.030 1.001-1.035 (test code = 5811-5) pH, UA (test code = 7.0 5.0-8.0 5803-2) Protein, UA (test 10 mg/dL Negative A code = 70088-2) Glucose, UA (test 500 mg/dL Negative A code = 365) Ketones, UA (test Negative Negative code = 2514-8) Bilirubin, UA (test Negative Negative code = 85061-0) Blood, UA (test code Negative Negative = 17806-0) Nitrite, UA (test Negative Negative code = 5802-4) Leukocytes, UA (test Negative Negative code = 5799-2) Urobilinogen, UA 0.2 mg/dL 0.2-1.0 (test code = 19451-3) RBC, UA (test code = <1 See_Comment [Autom ated 24250-1) message] The system which generated this result [...] Bacteria, UA (test None Seen code = 28994-2) Crystals, Urine (test None Seen code = 56122-0) Specimen Source (test code = 2795) ALIRIO (test code = ALIRIO) Spiral Machine Operator ID - [auto]Spiral Machine Operator ID - tech Lab Interpretation Abnormal (test code = 85990-2) [facility] + Reflex to Culture 2021-07-11 01:08:09 Test Item Value Reference Range Interpretation Comments Color, UA (test code Light Yellow = 5778-6) Clarity, UA (test Clear code = 5767-9) Specific [place], UA 1.030 1.001-1.035 (test code = 5811-5) pH, UA (test code = 7.0 5.0-8.0 5803-2) Protein, UA (test 10 mg/dL Negative A code = 94085-3) Glucose, UA (test 500 mg/dL Negative A code = 365) Ketones, UA (test Negative Negative code = 2514-8) Bilirubin, UA (test Negative Negative code = 58324-9) Blood, UA (test code Negative Negative = 92382-9) Nitrite, UA (test Negative Negative code = 5802-4) Leukocytes, UA (test Negative Negative code = 5799-2) Urobilinogen, UA 0.2 mg/dL 0.2-1.0 (test code = 98991-0) RBC, UA (test code = <1 See_Comment [Autom ated 45887-8) message] The system which generated this result [...] Bacteria, UA (test None Seen code = 02476-1) Crystals, Urine (test None Seen code = 39009-1) Specimen Source (test code = 2795) ALIRIO (test code = ALIRIO) Spiral Machine Operator ID - [auto]Spiral Machine Operator ID - tech Lab Interpretation Abnormal (test code = 90392-9) [facility] URINE [id number] 01:08:09 Test Item Value Reference Range Interpretation [...] = 1521) SOURCE(BEAKER) (test code = 2795) Spiral Machine Operator ID - [auto]Spiral Machine Operator ID - techRapid drug screen, [id number] 00:50:57 Test Item Value Reference Range Interpretation Comments Barbiturate Screen Negative Negative (test code = 53711-4) Benzodiazepine Screen Negative Negative (test code = 24796-3) Cocaine (Metab.) Negative Negative Screen (test code = 3397-7) Methadone Screen (test Negative Negative code = 65884-9) Opiate Screen (test Positive Negative A code = 80649-5) Cannabinoid Screen Negative Negative (test code = 79016-1) Amph/Methamph Screen Negative Negative (test code = 99936-7) Phencyclidine Screen Negative Negative (test code = 10248-2) pH, UA (test code = 6.5 5.0-8.0 5803-2) ALIRIO (test code = ALIRIO) DRUG CUTOFF CONC.Cocaine 300 ng/mL Cannabinoid 50 ng/mLBenzodiazepine 200 ng/mLBarbiturate 200 ng/mLPhencyclidine 25 ng/mLOpiate 300 ng/mLMethadone 300 ng/mLAmphetamine/ 1000 ng/mL Methamphetamine This assay provides an unconfirmed qualitative test result for the clinical management of patients in emergency situations. Chain of custody not maintained. Some ijdy-cqp-xazbsgo medications, as well as adulterants, may cause inaccurate results. Clinical correlation should be applied. A more comprehensive drug screen or confirmation of a detected drug may be performed upon request.Spiral Machine Operator ID - DBOperator ID - [auto] Lab Interpretation Abnormal (test code = 33818-2) [facility], [id number] 00:50:57 Test Item Value Reference Range Interpretation Comments Barbiturate Screen Negative Negative (test code = 64105-5) Benzodiazepine Screen Negative Negative (test code = 82212-7) Cocaine (Metab.) Negative Negative Screen (test code = 3397-7) Methadone Screen (test Negative Negative code = 88826-9) Opiate Screen (test Positive Negative A code = 39726-6) Cannabinoid Screen Negative Negative (test code = 91936-5) Amph/Methamph Screen Negative Negative (test code = 04616-7) Phencyclidine Screen Negative Negative (test code = 99497-8) pH, UA (test code = 6.5 5.0-8.0 5803-2) ALIRIO (test code = ALIRIO) DRUG CUTOFF CONC.Cocaine 300 ng/mL Cannabinoid 50 ng/mLBenzodiazepine 200 ng/mLBarbiturate 200 ng/mLPhencyclidine 25 ng/mLOpiate 300 ng/mLMethadone 300 ng/mLAmphetamine/ 1000 ng/mL Methamphetamine This assay provides an unconfirmed qualitative test result for the clinical management of patients in emergency situations. Chain of custody not maintained. Some nwwz-uvg-lmzuwpq medications, as well as adulterants, may cause inaccurate results. Clinical correlation should be applied. A more comprehensive drug screen or confirmation of a detected drug may be performed upon request.Spiral Machine Operator ID - DBOperator ID - [auto] Lab Interpretation Abnormal (test code = 39030-5) [facility], [id number] 00:50:57 Test Item Value Reference Range Interpretation Comments Barbiturate Screen Negative Negative (test code = 62575-8) Benzodiazepine Screen Negative Negative (test code = 71873-4) Cocaine (Metab.) Negative Negative Screen (test code = 3397-7) Methadone Screen (test Negative Negative code = 13199-5) Opiate Screen (test Positive Negative A code = 36289-3) Cannabinoid Screen Negative Negative (test code = 71566-2) Amph/Methamph Screen Negative Negative (test code = 61212-4) Phencyclidine Screen Negative Negative (test code = 44253-3) pH, UA (test code = 6.5 5.0-8.0 5803-2) ALIRIO (test code = ALIRIO) DRUG CUTOFF CONC.Cocaine 300 ng/mL Cannabinoid 50 ng/mLBenzodiazepine 200 ng/mLBarbiturate 200 ng/mLPhencyclidine 25 ng/mLOpiate 300 ng/mLMethadone 300 ng/mLAmphetamine/ 1000 ng/mL Methamphetamine This assay provides an unconfirmed qualitative test result for the clinical management of patients in emergency situations. Chain of custody not maintained. Some gxua-ysg-sgpdzbl medications, as well as adulterants, may cause inaccurate results. Clinical correlation should be applied. A more comprehensive drug screen or confirmation of a detected drug may be performed upon request.Spiral Machine Operator ID - DBOperator ID - [auto] Lab Interpretation Abnormal (test code = 06622-3) [facility], [id number] 00:50:57 Test Item Value Reference Range Interpretation Comments Barbiturate Screen Negative Negative (test code = 00753-5) Benzodiazepine Screen Negative Negative (test code = 26277-6) Cocaine (Metab.) Negative Negative Screen (test code = 3397-7) Methadone Screen (test Negative Negative code = 38731-4) Opiate Screen (test Positive Negative A code = 60167-8) Cannabinoid Screen Negative Negative (test code = 18165-1) Amph/Methamph Screen Negative Negative (test code = 07107-4) Phencyclidine Screen Negative Negative (test code = 19442-0) pH, UA (test code = 6.5 5.0-8.0 5803-2) ALIRIO (test code = ALIRIO) DRUG CUTOFF CONC.Cocaine 300 ng/mL Cannabinoid 50 ng/mLBenzodiazepine 200 ng/mLBarbiturate 200 ng/mLPhencyclidine 25 ng/mLOpiate 300 ng/mLMethadone 300 ng/mLAmphetamine/ 1000 ng/mL Methamphetamine This assay provides an unconfirmed qualitative test result for the clinical management of patients in emergency situations. Chain of custody not maintained. Some lngh-pjg-wwoyzmp medications, as well as adulterants, may cause inaccurate results. Clinical correlation should be applied. A more comprehensive drug screen or confirmation of a detected drug may be performed upon request.Spiral Machine Operator ID - DBOperator ID - [auto] Lab Interpretation Abnormal (test code = 38667-4) [facility], [id number] 00:50:57 Test Item Value Reference Range Interpretation [...] situations. Chain of custody not maintained. Some ikrj-qiq-jmakcgo medications, as well as adulterants, may cause inaccurate results. Clinical correlation should be applied. A more comprehensive drug screen or confirmation of a detected drug may be performed upon request.Spiral Machine Operator ID - DBOperator ID - [auto] PROTHROMBIN [id number] 00:00:32 Test Item Value Reference Range Interpretation Comments PROTIME (BEAKER) 13.4 seconds 11.9-14.2 (test code = 759) INR (BEAKER) (test 1.04 See_Comment [Automat ed message] code = 370) The system [employer] generated this result transmitted ref erence range: [...] 1834 U/L 29-200 H code = 380) Spiral Machine Operator ID - DBCOMPREHENSIVE METABOLIC [id number] 23:50:32 Test Item Value Reference Range Interpretation [...] S NOT APPLICABLE FOR DIALYSIS PATIEN TS. Spiral Machine Operator ID - [id number] 23:50:32 Test Item Value Reference Range Interpretation Comments MAGNESIUM (BEAKER) (test code = 2.2 mg/dL 1.6-2.6 627) Spiral Machine Operator ID - [id number] 23:50:32 Test Item Value Reference Range Interpretation Comments PHOSPHORUS (BEAKER) (test code = 3.3 mg/dL 2.3-4.7 604) Spiral Machine Operator ID - [id number] 23:45:54 Test Item Value Reference Range Interpretation Comments ETHANOL (BEAKER) < mg/dL See_Comment [Automated message] The (test code = 400) system [employer] generated this result tra nsmitted reference range : <=10. The reference r chela was not used to int erpret this result as normal/abnormal . Spiral Machine Operator ID - DBCBC W/PLT COUNT & AUTO [id number] 23:29:08 Test Item Value Reference Range Interpretation [...]
--- NOTE | 2022-02-21 13:45 | RAD REPORT ---
EXAM DESCRIPTION: RAD - Chest Single View - 02/21/2022 1:11 pm CLINICAL HISTORY: COUGH Chest pain. COMPARISON: Chest Pa And Lat (2 Views) dated 12/09/2021; Chest Single View dated 08/16/2021; Chest Sing le View dated 07/10/2021; Chest Single View dated 06/18/2020 FINDINGS: Portable technique limits examination quality. Mild bilateral interstitial lung opacities could represent interstitial pneumonia/infection. The hear t is normal in size. No displaced fractures.Subacute to chronic fracture left humerus. IMPRESSION: Mild interstitial pneumonitis pattern.
[2022-02-21 13:55] LABS: Absolute Lymphocytes (CBC) 1.8 K/uL (0.7-4.9); Hematocrit 39.9 % (39.6-49.0); Lymphocytes % 23.6 % (15.3-44.8); MCV 93.5 fL (80-100); MPV 7.1 fL (7.6-11.3); RBC Red Blood Cell Count 4.27 M/uL (4.33-5.43)
[2022-02-21 13:56] LABS: Protime INR 0.97
[2022-02-21 14:15] LABS: ALT/SGPT 43 U/L (12-78); AST/SGOT 22 U/L (15-37); Albumin 3.6 g/dL (3.4-5.0); Alkaline Phosphatase 134 U/L (45-117); BUN Blood Urea Nitrogen 24 mg/dL (7-18); Bicarbonate 28 mmol/L (21-32); Bilirubin Total 0.3 mg/dL (0.2-1.0); Glomerular Filtration Rate 69 ml/min (=/>90); Glucose Level 153 mg/dL (74-106); Lipase 156 U/L (73-393); Magnesium 2.5 mg/dL (1.8-2.4); NT PRO-BNP 244 pg/mL (<450); Potassium 4.5 mmol/L (3.5-5.1); Protein, Total 7.4 g/dL (6.4-8.2); Sodium Level 137 mmol/L (136-145); Troponin High Sensitivity 8.7 pg/mL (<58.9)
[2022-02-21 14:16] LABS: Bilirubin Direct < 0.1 mg/dL (0-0.2)
[2022-02-21] MEDS ORDERED: NA CHLORIDE 0.9% 1,000 ML ONE (14:52)
[2022-02-21] MEDS ORDERED: Levofloxacin500mg IV 500 MG/100 ML BAG IV ONE (14:52)
--- NOTE | 2022-02-21 14:58 | ER ---
Nurse's Notes [facility] Name: Dylon Hannon Age: 77 yrs Sex: Male : 1945 Arrival Date: 02/21/2022 Time: 12:49 Bed 13 Private MD: Diagnosis: Weakness;Syncope Near;Acute interstitial pneumonitis-mild;Fall (on) (from) other stairs and steps-chair Presentation: 02/21 12:49 Chief complaint: EMS states: called to home by home health, he was found on the floor kr3 this Am by the home health nurse. Patient stated he had been on the floor since 6 pm yesterday. EMS stated he was very unsteady on his feet. He was given 125 ml of NS in route. Coronavirus screen: Vaccine status: Patient reports being unvaccinated. Client denies travel out of the [place] in the last 14 days. Ebola Screen: Patient denies travel to an Ebola-affected area in the 21 days before illness onset. 12:49 Method Of Arrival: EMS kr3 12:54 No acute neurological deficit is noted. Initial Sepsis Screen: Does the patient meet kr3 any 2 criteria? No. Patient's initial sepsis screen is negative. Does the patient have a suspected source of infection? No. Patient's initial sepsis screen is negative. Risk Assessment: Do you want to hurt yourself or someone else? Patient reports no desire to harm self or others. Onset of symptoms was February 20, 2022. 12:54 Acuity: STEPHANIE 3 kr3 Triage Assessment: 12:56 The onset of the patients symptoms was February 20, 2022 at 18:00. kr3 12:57 General: Appears in no apparent distress. comfortable, Behavior is calm, cooperative, kr3 appropriate for age. Pain: Complains of pain in buttocks Pain currently is 5 out of 10 on a pain scale. Quality of pain is described as aching, Pain began years ago. Neuro: No deficits noted. Reports dizziness, weakness. Stroke Activation: Symptom onset > 6 hours Physician: Stroke Attending; Name: ; Notified At: ; Arrived At: Physician: Chief Stroke Resident; Name: ; Notified At: ; Arrived At: Physician: Stroke Resident; Name: ; Notified At: ; Arrived At: Physician: ED Attending; Name: ; Notified At: ; Arrived At: Physician: ED Resident; Name: ; Notified At: ; Arrived At: Historical: - PMHx: 12:55 BPH; Cerebrovascular accident; Depression; diabetes mellitus; Erectile Dysfunction; kr3 Fractured left humerus; High Cholesterol; Hyperlipidemia; Hypertensive disorder; Osteoporosis; Psoriatic Arthritis; short term memory loss; - PSHx: 12:55 Appendectomy; kr3 - Immunization history:: Adult Immunizations not up to date. - Social history:: Smoking status: Patient reports the use of cigarette tobacco products, smokes one pack cigarettes per day. - Family history:: not pertinent. Screenin:10 Abuse screen: Denies threats or abuse. Nutritional screening: No deficits noted. kr3 Tuberculosis screening: No symptoms or risk factors identified. Fall Risk IV access (20 points). Gait- Weak (10 pts.). Assessment: 13:01 VAN Scoring: Arm Drift: Patients demonstrates NO arm weakness. Patient is VAN Negative. kr3 The patient has not been NPO before screening. The patient is alert, and able to follow commands. The patient does not exhibit slurred or garbled speech. The patient is not exhibiting difficulty speaking. The patient does not exhibit difficulty understanding words. The patient is able to swallow own secretions with no drooling or need for suction. Patient tolerated one teaspoon of water. No drooling, immediate coughing, gurgling, or clearing of the throat was noted. The patient tolerated 90mL of water. No drooling, immediate coughing, gurgling, or clearing of the throat was noted. The patient passed the bedside swallow screening. Oral medications may be given as ordered. Contact Physician for further diet orders. Provider notified of bedside swallow screening results: Kulwinder Arnold MD. TNKase (Tenecteplase) Screening: Indications: Definite evidence of stroke, ischemic, embolic, or hypertensive: No. Treatment will start within 4.5 hours onset of symptoms: No. No evidence of intracranial hemorrhage or CT of head and no evidence of peripheral hemorrhage or recent CVA: No. 23:37 Reassessment: pt transported to room 403 via stretcher, pt stable. aa9 Vital Signs: 12:49 BP 156 / 69; Pulse 69; Resp 18; Temp 97.7; Pulse Ox 99% on R/A; Weight 70.31 kg; Height kr3 5 ft. 11 in. (180.34 cm); Pain 5/10; 14:19 BP 155 / 71; Pulse 61; Resp 17; Pulse Ox 100% on R/A; kr3 12:49 Body Mass Index 21.62 (70.31 kg, 180.34 cm) kr3 NIH Stroke Scale Scores: 13:01 NIHSS Score: 0 kr3 ED Course: 12:49 Patient arrived in ED. kr3 12:49 Concetta Solis, RN is Primary Nurse. kr3 12:52 Kulwinder Arnold MD is Attending Physician. josi 12:55 Triage completed. kr3 12:58 Arm band placed on right wrist. Patient placed in an exam room, on a stretcher. kr3 13:13 XRAY Chest (1 view) In Process Unspecified. EDMS 13:41 Initial lab(s) drawn, by me, sent to lab. First set of blood cultures drawn by me. jw7 14:55 Oscar Mosley is Hospitalizing Provider. josi 14:57 CT Traumagram (Head C Spine CAP wo con) In Process Unspecified. EDMS 15:22 COVID-19/FLU A+B Sent. kr3 15:23 Maintain EMS IV. Dressing intact. Good blood return noted. Site clean \T\ dry. Gauge \T\ kr 3 site: 20 Left wrist. 19:53 Patient has correct armband on for positive identification. Bed in low position. Call aa9 light in reach. Side rails up X2. Door closed. Lights dimmed. Warm blanket given. 19:53 No provider procedures requiring assistance completed. Patient admitted, IV remains in aa9 place. Administered Medications: 14:14 Drug: NS 0.9% 1000 ml Route: IV; Rate: 125 ml/hr; Site: right wrist; kr3 15:22 Drug: NS 0.9% 1000 ml Route: IV; Rate: 1 bolus; Site: right wrist; kr3 15:23 Drug: levofloxacin 500 mg Volume: 100 ml; Route: IVPB; Infused Over: 60 mins; Site: kr3 right wrist; Medication: 19:54 VIS not applicable for this client. aa9 Outcome: 14:57 Decision to Hospitalize by Provider. josi 15:00 Admitted to ER Hold. Please see [facility] for further documentation. kr3 19:53 Condition: stable aa9 23:38 Patient left the ED. aa9 NIH Stroke Scale - NIH Stroke Score Date: 02/21/2022 Time: 13:01 Total Score = 0 1a. Level of Consciousness (LOC) - 0(Alert) 1b. Level of Consciousness (LOC) (Month \T\ Age) - 0(Both) 1c. LOC Commands (Open \T\ Closes Eyes/Receipt And Report Clerk) - 0(Both) 2. Best Gaze (Lateral Gaze Paresis) - 0(Normal) 3. Visual Field Loss - 0(No visual loss) 4. Facial Palsy - 0(Normal) 5a. Left Arm: Motor (10-second hold) - 0(No drift) 5b. Right Arm: Motor (10-second hold) - 0(No drift) 6a. Left Leg: Motor (5-second hold - always test supine) - 0(No drift) 6b. Right Leg: Motor (5-second hold - always test supine) - 0(No drift) 7. Limb Ataxia (finger/nose \T\ heel/rolle - test with eyes open) - 0(Absent) 8. Sensory Loss (pinprick arms/legs/face) - 0(Normal) 9. Best Language: Aphasia (description/naming/reading) - 0(No aphasia) 10. Dysarthria (speech clarity - read or repeat words) - 0(Normal) 11. Extinction and Inattention (visual/tactile/auditory/spatial/personal) - 0(No abnormality) Initials: kr3 Signatures: Dispatcher [employer] EDKulwinder Del Valle MD MD cha Waits, Jodi jw7 Marylu Seo RN RN aa9 Concetta Solis RN RN kr3 Corrections: (The following items were deleted from the chart) 14:19 14:15 VAN Scoring: Arm Drift: Patients demonstrates NO arm weakness. Patient is kr3 VAN Negative. kr3 14:19 14:15 The patient has not been NPO before screening. The patient is alert, and kr3 able to follow commands. The patient does not exhibit slurred or garbled speech. The patient is not exhibiting difficulty speaking. The patient does not exhibit difficulty understanding words. The patient is able to swallow own secretions with no drooling or need for suction. Patient tolerated one teaspoon of water. No drooling, immediate coughing, gurgling, or clearing of the throat was noted. The patient tolerated 90mL of water. No drooling, immediate coughing, gurgling, or clearing of the throat was noted. The patient passed the bedside swallow screening. Oral medications may be given as ordered. Contact Physician for further diet orders. kr3 : 14:15 NIHSS Score: 0 kr3 kr3 14:17 Provider notified of bedside swallow screening results: Kulwinder Arnold MD kr3 kr3 14:17 TNKase (Tenecteplase) Screening: Indications: Definite evidence of kr3 stroke, ischemic, embolic, or hypertensive: No. Treatment will start within 4.5 hours onset of symptoms: No. No evidence of intracranial hemorrhage or CT of head and no evidence of peripheral hemorrhage or recent CVA: No. kr3
--- NOTE | 2022-02-21 14:58 | EDPHYS ---
Physician Documentation [facility] Name: Dylon Hannon Age: 77 yrs Sex: Male : 1945 Arrival Date: 02/21/2022 Time: 12:49 Bed 13 Private MD: MANISHA Physician Kulwinder Arnold HPI: 02/21 14:49 This 77 yrs old Male presents to ER via EMS with complaints of weakness, fall josi and dizzy. 14:49 The patient presents to the emergency department with weakness of the entire body, josi generalized weakness. Onset: The symptoms/episode began/occurred last night. Context: occurred at home. Associated signs and symptoms: Pertinent positives: dizziness, weakness. Severity of symptoms: At their worst the symptoms were mild moderate in the emergency department the symptoms have improved mildly. Patient's baseline: Neuro: alert and fully oriented. The patient has experienced similar episodes in the past, several times. Historical: - PMHx: 12:55 BPH; Cerebrovascular accident; Depression; diabetes mellitus; Erectile Dysfunction; kr3 Fractured left humerus; High Cholesterol; Hyperlipidemia; Hypertensive disorder; Osteoporosis; Psoriatic Arthritis; short term memory loss; - PSHx: 12:55 Appendectomy; kr3 - Immunization history:: Adult Immunizations not up to date. - Social history:: Smoking status: Patient reports the use of cigarette tobacco products, smokes one pack cigarettes per day. - Family history:: not pertinent. ROS: 14:49 Constitutional: Negative for fever, chills, and weight loss, Eyes: Negative for injury, josi pain, redness, and discharge, ENT: Negative for injury, pain, and discharge, Neck: Negative for injury, pain, and swelling, Cardiovascular: Negative for chest pain, palpitations, and edema, Respiratory: Negative for shortness of breath, cough, wheezing, and pleuritic chest pain, Abdomen/GI: Negative for abdominal pain, nausea, vomiting, diarrhea, and constipation, Back: Negative for injury and pain, : Negative for injury, bleeding, discharge, and swelling, MS/Extremity: Negative for injury and deformity, Skin: Negative for injury, rash, and discoloration, Psych: Negative for depression, anxiety, suicide ideation, homicidal ideation, and hallucinations, Allergy/Immunology: Negative for hives, rash, and allergies, Endocrine: Negative for neck swelling, polydipsia, polyuria, polyphagia, and marked weight changes, Hematologic/Lymphatic: Negative for swollen nodes, abnormal bleeding, and unusual bruising. 14:49 Neuro: Positive for dizziness, weakness. Exam: 14:49 Constitutional: This is a well developed, well nourished patient who is awake, alert, josi and in no acute distress. Head/Face: Normocephalic, atraumatic. Eyes: Pupils equal round and reactive to light, extra-ocular motions intact. Lids and lashes normal. Conjunctiva and sclera are non-icteric and not injected. Cornea within normal limits. Periorbital areas with no swelling, redness, or edema. ENT: Nares patent. No nasal discharge, no septal abnormalities noted. Tympanic membranes are normal and external auditory canals are clear. Oropharynx with no redness, swelling, or masses, exudates, or evidence of obstruction, uvula midline. Mucous membranes moist. Neck: Trachea midline, no thyromegaly or masses palpated, and no cervical lymphadenopathy. Supple, full range of motion without nuchal rigidity, or vertebral point tenderness. No Meningismus. Chest/axilla: Normal chest wall appearance and motion. Nontender with no deformity. No lesions are appreciated. Cardiovascular: Regular rate and rhythm with a normal S1 and S2. No gallops, murmurs, or rubs. Normal PMI, no JVD. No pulse deficits. Respiratory: Lungs have equal breath sounds bilaterally, clear to auscultation and percussion. No rales, rhonchi or wheezes noted. No increased work of breathing, no retractions or nasal flaring. Abdomen/GI: Soft, non-tender, with normal bowel sounds. No distension or tympany. No guarding or rebound. No evidence of tenderness throughout. Back: No spinal tenderness. No costovertebral tenderness. Full range of motion. Male : Normal genitalia with no discharge or lesions. Skin: Warm, dry with normal turgor. Normal color with no rashes, no lesions, and no evidence of cellulitis. MS/ Extremity: Pulses equal, no cyanosis. Neurovascular intact. Full, normal range of motion. Psych: Awake, alert, with orientation to person, place and time. Behavior, mood, and affect are within normal limits. 14:49 ECG was reviewed by the Attending Physician. 14:49 Neuro: Orientation: is normal, appropriate for stated age, no acute changes, Mentation: is normal, appropriate for stated age, no acute changes, Memory: is normal, appropriate for stated age, no acute changes, Cranial nerves: grossly normal, is grossly normal based on the patient's age, no acute changes, Cerebellar function: is grossly normal, no acute changes, Motor: is normal, Sensation: is normal, appropriate no acute changes, Gait: not tested. Babinski testing is normal, seizure activity, is not displayed by the patient. Vital Signs: 12:49 BP 156 / 69; Pulse 69; Resp 18; Temp 97.7; Pulse Ox 99% on R/A; Weight 70.31 kg; Height kr3 5 ft. 11 in. (180.34 cm); Pain 5/10; 14:19 BP 155 / 71; Pulse 61; Resp 17; Pulse Ox 100% on R/A; kr3 12:49 Body Mass Index 21.62 (70.31 kg, 180.34 cm) kr3 NIH Stroke Scale Scores: 13:01 NIHSS Score: 0 kr3 MDM: 12:52 Patient medically screened. [facility] 14:54 Data reviewed: vital signs, nurses notes, EMS record, lab test result(s), EKG, [facility] radiologic studies, CT scan, plain films. Data interpreted: surveyor helper: rate is 61 beats/min, rhythm is regular, Pulse oximetry: on room air is 100 %. Test interpretation: by ED physician or midlevel provider: ECG, plain radiologic studies. Counseling: I had a detailed discussion with the patient and/or guardian regarding: the historical points, exam findings, and any diagnostic results supporting the discharge/admit diagnosis, lab results, radiology results, the need for further work-up and treatment in the hospital. 02/21 12:55 Order name: Basic Metabolic Panel; Complete Time: 14:32 [facility] 02/21 12:55 Order name: CBC with Diff; Complete Time: 14:32 [facility] 02/21 12:55 Order name: LFT's; Complete Time: 14:32 [facility] 02/21 12:55 Order name: Magnesium; Complete Time: 14:32 [facility] 02/21 12:55 Order name: NT PRO-BNP; Complete Time: 14:32 [facility] 02/21 12:55 Order name: PT-INR; Complete Time: 14:32 [facility] 02/21 12:55 Order name: Troponin HS; Complete Time: 14:32 [facility] 02/21 12:55 Order name: Lipase; Complete Time: 14:32 [facility] 02/21 12:55 Order name: Urine Microscopic Only [facility] 02/21 12:55 Order name: Blood Culture Adult (2) [facility] 02/21 12:55 Order name: COVID-19/FLU A+B; Complete Time: 17:25 [facility] 02/21 14:32 Order name: CK; Complete Time: 17:25 [facility] 02/21 14:32 Order name: Ckmb; Complete Time: 17:25 [facility] 02/21 16:49 Order name: Creatine Phosphokinase [facility] 02/21 12:55 Order name: XRAY Chest (1 view); Complete Time: 14:32 [facility] 02/21 14:32 Order name: CT Traumagram (Head C Spine CAP wo con); Complete Time: 17:25 [facility] 02/21 16:49 Order name: Magnesium [facility] 02/21 16:49 Order name: Phosphorus [facility] 02/21 16:49 Order name: T4 Free [facility] 02/21 16:49 Order name: Thyroid Stimulating Hormone [facility] 02/21 16:49 Order name: Urinalysis [facility] 02/21 16:49 Order name: Basic Metabolic Panel [facility] 02/21 16:49 Order name: Basic Metabolic Panel [facility] 02/21 16:49 Order name: CBC with Automated Diff [facility] 02/21 16:49 Order name: CBC with Automated Diff [facility] 02/21 21:09 Order name: US [facility] 02/21 21:55 Order name: Urine Dipstick-Ancillary [facility] 02/21 23:03 Order name: Glucose, Ancillary Testing [facility] 02/21 12:55 Order name: EKG; Complete Time: 12:55 [facility] 02/21 12:55 Order name: Cardiac monitoring; Complete Time: 14:19 [facility] 02/21 12:55 Order name: EKG - Nurse/Tech; Complete Time: 14:19 [facility] 02/21 12:55 Order name: IV Saline Lock; Complete Time: 13:45 [facility] 02/21 12:55 Order name: Labs collected and sent; Complete Time: 13:45 [facility] 02/21 12:55 Order name: O2 Per Protocol; Complete Time: 13:59 [facility] 02/21 12:55 Order name: O2 Sat Monitoring; Complete Time: 14:19 [facility] 02/21 12:55 Order name: Urine Dipstick-Ancillary (obtain specimen); Complete Time: 21:53 josi 02/21 16:47 Order name: Physical Therapy Consult [facility] 02/21 16:49 Order name: Heart Healthy [facility] EC:49 Rate is 62 beats/min. Rhythm is regular. QRS [place] is Normal. [place] interval is normal. QRS josi interval is normal. QT interval is normal. No Q waves. T waves are Normal. No ST changes noted. Clinical impression: Normal ECG and No evidence of ischemia. Interpreted by me. Reviewed by me. Administered Medications: 14:14 Drug: NS 0.9% 1000 ml Route: IV; Rate: 125 ml/hr; Site: right wrist; kr3 15:22 Drug: NS 0.9% 1000 ml Route: IV; Rate: 1 bolus; Site: right wrist; kr3 15:23 Drug: levofloxacin 500 mg Volume: 100 ml; Route: IVPB; Infused Over: 60 mins; Site: kr3 right wrist; Disposition Summary: 02/21/22 14:57 Hospitalization Ordered Hospitalization Status: Observation josi Provider: Oscar Mosley cha Condition: Stable josi Problem: new josi Symptoms: have improved josi Bed/Room Type: Standard josi Location: Telemetry/MedSurg (observation)(02/21/22 21:36) Room Assignment: [facility](02/21/22 21:36) Diagnosis - Weakness josi - Syncope Near josi - Acute interstitial pneumonitis - mild josi - Fall (on) (from) other stairs and steps - chair josi Forms: - Medication Reconciliation Form josi - SBAR form josi NIH Stroke Scale - NIH Stroke Score Date: 02/21/2022 Time: 13:01 Total Score = 0 1a. Level of Consciousness (LOC) - 0(Alert) 1b. Level of Consciousness (LOC) (Month \T\ Age) - 0(Both) 1c. LOC Commands (Open \T\ Closes Eyes/Dramatic Reader) - 0(Both) 2. Best Gaze (Lateral Gaze Paresis) - 0(Normal) 3. Visual Field Loss - 0(No visual loss) 4. Facial Palsy - 0(Normal) 5a. Left Arm: Motor (10-second hold) - 0(No drift) 5b. Right Arm: Motor (10-second hold) - 0(No drift) 6a. Left Leg: Motor (5-second hold - always test supine) - 0(No drift) 6b. Right Leg: Motor (5-second hold - always test supine) - 0(No drift) 7. Limb Ataxia (finger/nose \T\ heel/rolle - test with eyes open) - 0(Absent) 8. Sensory Loss (pinprick arms/legs/face) - 0(Normal) 9. Best Language: Aphasia (description/naming/reading) - 0(No aphasia) 10. Dysarthria (speech clarity - read or repeat words) - 0(Normal) 11. Extinction and Inattention (visual/tactile/auditory/spatial/personal) - 0(No abnormality) Initials: kr3 Signatures: Dispatcher [employer] EDMS Kulwinder Arnold MD MD cha Garcia, Cindy, RN RN Glynn Kirk RN RN jl7 Concetta Solis RN RN kr3 Corrections: (The following items were deleted from the chart) 17:25 14:57 Rhabdomyolysis josi [facility] 17:56 14:57 Telemetry/MedSurg (observation) [place] [id number] 17:56 14:57 [place] [id number] 21:36 17:56 [facility] ER HOLD jl7 cg 21:36 17:56 ERHOLD- jl7 cg
--- NOTE | 2022-02-21 15:21 | RAD REPORT ---
EXAM DESCRIPTION: CT - Head C Spine Cap Wo Con - 02/21/2022 2:55 pm CLINICAL HISTORY: Trauma, head and neck injury. Chest, abdomen and pelvis pain. fall COMPARISON: Head C Spine Cap W Con dated 06/18/2020 TECHNIQUE: CT head without contrast. CT cervical spine without contrast with coronal and sagittal reformatted images. CT chest, abdomen and pelvis without contrast with coronal and sagittal reformatted images of the spi ne. All CT scans are performed using dose optimization technique as appropriate and may include automated exposure control or mA/KV adjustment according to patient size. FINDINGS: CT HEAD WITHOUT CONTRAST: No intracranial hemorrhage, hydrocephalus or extra-axial fluid collection. Moderate diffuse brain atr ophy. No areas of brain edema or midline shift. Left vertebral atherosclerosis. The paranasal sinuses and mastoids are clear. The calvarium is intact. CT CERVICAL SPINE WITHOUT CONTRAST: No fracture or subluxation. Moderate lower cervical degenerative changes are present. The prevertebra l soft tissues are normal in thickness. CT CHEST, ABDOMEN, PELVIS WITHOUT CONTRAST: NOTE: Lack of contrast is a significant limitation in the assessment of trauma related findings. Spec ifically, solid organ, vascular and bowel evaluation is significantly limited. The lungs are clear.No pneumothorax or pericardial/pleural fluid. No evidence of intra-abdominal visceral injury, free fluid or free air is seen within the above detai led limitations. No concerning pelvic findings. Moderate stool is present throughout the colon. No acute fracture seen. Moderate lumbar degenerative changes. Evidence of a chronic compression defor mity affecting T11. IMPRESSION: Negative for acute traumatic findings within the above detailed limitations.
[2022-02-21 15:50] LABS: CKMB Creatine Kinase MB 3.3 ng/mL (1.0-3.6)
[2022-02-21 16:22] LABS: SARS-COV-2 RT PCR NEGATIVE (NEGATIVE)
[2022-02-21] MEDS ORDERED: LACTULOSE 20 GM/30 ML UCUP PO PRN (16:40)
[2022-02-21] MEDS ORDERED: HYDROCODONE/APAP 5/325 MG TAB PO PRN (16:43)
[2022-02-21] MEDS ORDERED: HYDRALAZINE HCL 20 MG/ML VIAL IV PRN (16:43)
[2022-02-21] MEDS ORDERED: ONDANSETRON 4 MG/2 ML VIAL IV PRN (16:46)
[2022-02-21] MEDS ORDERED: ACETAMINOPHEN 325 MG TABLET PO PRN (16:48)
--- NOTE | 2022-02-21 16:50 | P.HP ---
Certification for Inpatient Patient admitted to: Observation With expected LOS: <2 Midnights Patient will require the following post-hospital care: None Practitioner: I am a practitioner with admitting privileges, knowledge of patient current condition, hospital course, and medical plan of care. Services: Services provided to patient in accordance with Admission requirements found in Title 42 Section 412.3 of the Code of Federal Regulations Patient History Date of Service: 02/21/22 Reason for admission: Dizziness\near syncope History of Present Illness: Patient is a 77-year-old male with a past medical history significant for BPH, CVA, depression, DM 2, erectile dysfunction, HLD, hypertension, psoriatic arthritis, nicotine dependence who presents with complaint of dizziness. Patient is a poor historian and unable to provide accurate history. Patient reported that he has been feeling dizzy for quite some time. Patient reported that yesterday he felt dizzy and he slided out of his chair and was on the floor for at least 8 hours. Patient denies hitting his head or losing consciousness. Patient reported associated signs and symptoms of weakness. Patient denies any other signs or symptoms. Symptoms are aggravated or relieved by nothing. Patient said to present to the hospital for medical evaluation. Allergies No Known Allergies Allergy (Verified 08/16/21 22:35) Home Medications: Adalimumab [Humira(Cf) Pen] 40 mg SQ EVERY 7TH DAY 08/16/21 Amlodipine Besylate 5 mg PO DAILY 08/16/21 Bupropion HCl [Wellbutrin Xl] 150 mg PO BID 08/16/21 Calcium Carbonate 500 mg PO TID 08/17/21 Folic Acid 1 mg PO DAILY 08/17/21 Lisinopril [Zestril] 20 mg PO DAILY 08/17/21 Loratadine [Claritin*] 10 mg PO DAILY 08/17/21 Methotrexate [Methotrexate*] 4 tab PO EVERY 7TH DAY 08/17/21 Pyridoxine HCl (Vitamin B6) [Pyridoxine HCl] 50 mg PO DAILY 08/17/21 Trazodone HCl 100 mg PO DAILY 08/17/21 sulfaSALAzine [Sulfasalazine] 500 mg PO BID 08/17/21 Thiamine HCl [Vitamin B-1] 100 mg PO BID 30 Days #60 tablet 08/18/21 - Past Medical/Surgical History -: Hypertension -: Hyperlipidemia -: Diabetes most type IIdiet controlled -: BPH -: Knee surgery -: Thyroid surgery -: Appendectomy Psychosocial/ Personal History: Patient lives at home, alone - Family History Father -: Cancer Mother -: Cancer - Social History Smoking Status: Current every day smoker Counseled patient to stop smoking for: less than 10 minutes Smoking therapy provided: Yes Patient receptive to therapy: Yes Alcohol use: Yes CD- Drugs: No Caffeine use: Yes Place of Residence: Home Review of Systems General: Weakness ENT: Unremarkable Respiratory: Unremarkable Cardiovascular: Other (Dizziness) Gastrointestinal: Unremarkable Genitourinary: Unremarkable Musculoskeletal: Other (Fall) Integumentary: Unremarkable Neurological: Weakness, Other (Dizziness) Lymphatics: Unremarkable Physical Examination - Physical Exam General: Alert, In no apparent distress, Oriented x3 HEENT: Atraumatic, PERRLA, Mucous membr. moist/pink, EOMI, Sclerae nonicteric Neck: Supple, 2+ carotid pulse no bruit, No LAD, Without JVD or thyroid abnormality Respiratory: Clear to auscultation bilaterally, Normal air movement Cardiovascular: No edema, Regular rate/rhythm, Normal S1 S2 Capillary refill: <2 Seconds Gastrointestinal: Normal bowel sounds, No tenderness Musculoskeletal: No clubbing, No contractures, No tenderness Integumentary: No rashes, No breakdown, No significant lesion Neurological: Normal speech, Normal strength at 5/5 x4 extr, Normal tone, Normal affect Lymphatics: No axilla or inguinal lymphadenopathy - Studies Laboratory Data (last 24 hrs) 02/21/22 13:41: PT 10.7, INR 0.97 02/21/22 13:41: WBC 7.50, Hgb 13.5 L, Hct 39.9, Plt Count 128 L 02/21/22 13:41: Sodium 137, Potassium 4.5, BUN 24 H, Creatinine 1.11, Glucose 153 H, Magnesium 2.5 H, Total Bilirubin 0.3, AST 22, ALT 43, Alkaline Phosphatase 134 H, Lipase 156 Assessment and Plan - Plan --Dizziness\near syncope. Echocardiogram and carotid Doppler pending. We will get some orthostatic vital signs. Fall precautions. --Hyperlipidemia. Continue statin. --Hypertension. Poorly controlled. Continue home medications and hydralazine as needed. --Nicotine dependence. Patient counseled on tobacco cessation. Refused nicotine patch. --BPH. Continue home medication when available --History of CVA. Continue aspirin and statin. --DM2. BS monitoring with sliding scale insulin. --Generalized weakness. PT eval and treat. --Depression. Continue home medication. --Anemia of chronic disease. H&H stable. We will continue to monitor hemoglobin and transfuse if less than 7.0. --CKD 2. Stable. We will continue to monitor renal functions. -- History of psoriatic arthritis. Continue home medication -- DVT prophylaxis with heparin subQ.. Discharge Plan: Home Plan to discharge in: 48 Hours - Advance Directives Does patient have a Living Will: No Does patient have a Durable POA for Healthcare: No - Code Status/Comfort Care Code Status Assessed: Yes Physician Review: Patient Assessed, Agree with Above Assessment and Plan Critical Care: No
[2022-02-21] MEDS: SULFASALAZINE 500 MG E.C. TAB PO SCH (17:00)
[2022-02-21] MEDS ORDERED: D50W 25 GM/50 ML SYRINGE IV PRN (19:51)
[2022-02-21] MEDS ORDERED: GLUCAGON 1 MG/VIAL IM PRN (19:51)
[2022-02-21] MEDS ORDERED: D10W 125 ML IV PRN (19:59)
[2022-02-21] MEDS: HEPARIN 5000 UNIT/ML 1 ML VIAL SQ SCH (21:00)
[2022-02-21] MEDS: INSULIN -REGULAR HUMAN 50 UNIT/0.5 ML ML SQ SCH (21:00)
[2022-02-21] MEDS ORDERED: HOME MED 1 EA UNK (Sulfasalazine [Sulfasalazine] 500 MG Tablet) PO SCH (21:00)
--- NOTE | 2022-02-21 21:08 | RAD REPORT ---
EXAM DESCRIPTION: - CP - 02/21/2022 8:55 pm CLINICAL HISTORY: Near syncope Dizziness Headache, drowsiness COMPARISON: Head C Spine Mpr Wo Con dated 12/09/2021 TECHNIQUE: Real-time sonographic evaluation of both carotid systems was performed. Doppler interroga tion was performed with waveform tracing bilaterally. FINDINGS: Normal high resistance waveforms are noted in both external carotid arteries. The common c arotid arteries and internal carotid arteries show normal low resistance waveforms. Mild hard plaque is seen in both internal carotid arteries and carotid bulb. Peak systolic and end di astolic velocity values and the ICA/CCA ratios are in the non-hemodynamically significant range. Antegrade flow seen in both vertebral arteries. IMPRESSION: Mild hard plaque is seen in both carotid bulbs and proximal internal carotid arteries. No evidence of a hemodynamically significant stenosis.
[2022-02-21 21:41] LABS: Thyroid Stimulating Hormone 1.5 uIU/mL (0.360-3.740)
[2022-02-21 21:54] LABS: Urine Blood Negative (Negative); Urine Glucose Trace (Negative); Urine Protein Negative (Negative); Urine Specific Gravity 1.025 (1.005-1.030)
[2022-02-21] MEDS ORDERED: INSULIN -REGULAR HUMAN 50 UNIT/0.5 ML ML ONE (22:58)
[2022-02-21] MEDS ORDERED: HEPARIN 5000 UNIT/ML 1 ML VIAL ONE (22:58)
[2022-02-22 00:29] VITALS: BMI 21.5
[2022-02-22] MEDS: BUPROPION HCL XL 150 MG TAB PO SCH ×3 (00:30→20:47)
[2022-02-22 04:08] LABS: Absolute Lymphocytes (CBC) 2.1 K/uL (0.7-4.9); Hematocrit 34.1 % (39.6-49.0); Lymphocytes % 24.3 % (15.3-44.8); MCV 94.3 fL (80-100); MPV 7.1 fL (7.6-11.3); RBC Red Blood Cell Count 3.61 M/uL (4.33-5.43)
[2022-02-22 04:14] LABS: Potassium 4.3 mmol/L (3.5-5.1)
[2022-02-22] MEDS: INSULIN -REGULAR HUMAN 50 UNIT/0.5 ML ML SQ SCH ×4 (07:30→20:51)
[2022-02-22] MEDS ORDERED: INFLUENZA VACCINE (for 6+ mo) 0.5 ML DOSE IMVAC ONE (08:00)
[2022-02-22] MEDS: AMLODIPINE 5 MG TAB PO SCH (08:35)
[2022-02-22] MEDS: CALCIUM CARBONATE 500 MG TAB PO SCH ×4 (08:35→20:48)
[2022-02-22] MEDS: FOLIC ACID 1 MG TABLET PO SCH (08:35)
[2022-02-22] MEDS: LORATADINE 10 MG TAB PO SCH (08:35)
[2022-02-22] MEDS: THIAMINE HCL 100 MG TABLET PO SCH ×3 (08:35→20:48)
[2022-02-22] MEDS: TRAZODONE 50 MG TABLET PO SCH (08:35)
[2022-02-22] MEDS: HEPARIN 5000 UNIT/ML 1 ML VIAL SQ SCH ×2 (08:35→20:47)
[2022-02-22] MEDS: ASPIRIN EC 81 MG TAB PO SCH (08:35)
[2022-02-22] MEDS ORDERED: HOME MED 1 EA UNK (Trazodone Hcl [Trazodone Hcl] 100 MG Tablet) PO SCH (09:00)
[2022-02-22] MEDS: SULFASALAZINE 500 MG E.C. TAB PO SCH ×2 (09:06→17:14)
[2022-02-22] MEDS: PYRIDOXINE (VIT B6) 50 MG TAB PO SCH (09:06)
--- NOTE | 2022-02-22 14:28 | ECHO ---
HEIGHT: 5 ft 10 in WEIGHT: 150 lb 0 oz DATE OF STUDY: 02/22/[address]: Daniela Bautista 2-DIMENSIONAL: YES M.MODE: YES DOPPLER: YES COLOR FLOW: YES TDS: PORTABLE: YES DEFINITY: BUBBLE STUDY: DIAGNOSIS: NEAR SYNCOPE, DIZZINESS CARDIAC HISTORY: CATHERIZATION: NO SURGERY: NO PROSTHETIC VALVE: NO PACEMAKER: NO MEASUREMENTS (cm) DIASTOLIC (NORMALS) SYSTOLIC (NORMALS) IVSd 0.9 (0.6-1.2) LA Diam 3.9 (1.9-4.0) LVEF 60-65% LVIDd 4.5 (3.5-5.7) LVIDs 2.5 (2.0-3.5) %FS 45% LVPWd 1.0 (0.6-1.2) Ao Diam 2.8 (2.0-3.7) 2 DIMENSIONAL ASSESSMENT: RIGHT ATRIUM: NORMAL LEFT ATRIUM: NORMAL RIGHT VENTRICLE: NORMAL LEFT VENTRICLE: NORMAL TRICUSPID VALVE: MILD TRICUSPID REGURGITATION MITRAL VALVE: MILD MITRAL REGURGITATION PULMONIC VALVE: NORMAL AORTIC VALVE: NORMAL PERICARDIAL EFFUSION: NONE AORTIC ROOT: NORMAL LEFT VENTRICULAR WALL MOTION: NORMAL DOPPLER/COLOR FLOW: SEE BELOW COMMENTS: 1. NORMAL LEFT VENTRICULAR EJECTION FRACTION 60-65% 2. NORMAL WALL MOTION 3. MILD MITRAL REGURGITATION 4. MILD TRICUSPID REGURGITATION TECHNOLOGIST: HAN HAND
--- NOTE | 2022-02-22 14:41 | P.PN ---
Subjective Date of Service: 02/22/22 Chief Complaint: Dizziness\near syncope Patient has no new complaint. Denies dizziness at this time. He reports generalized weakness. Physical Examination - Vital Signs Temperature: 98.4 F Blood Pressure: 133/61 Pulse: 57 Respirations: 14 Pulse Ox (%): 100 Assessment And Plan - Current Problems (Diagnosis) (1) Generalized weakness Current Visit: Yes Status: Acute (2) Fall Current Visit: Yes Status: Acute (3) Hypertension Current Visit: Yes Status: Acute (4) BPH (benign prostatic hyperplasia) Current Visit: Yes Status: Acute (5) Chronic anemia Current Visit: Yes Status: Acute (6) Diabetes mellitus type 2 in nonobese Current Visit: Yes Status: Acute - Plan Physical Exam General: Alert, In no apparent distress, Oriented x3 Neck: Supple. Respiratory: Clear to auscultation bilaterally, Normal air movement Cardiovascular: No edema, Regular rate/rhythm, Normal S1 S2 Gastrointestinal: Normal bowel sounds, No tenderness Musculoskeletal: No clubbing, No contractures, No tenderness Integumentary: No rashes, No breakdown, No significant lesion Neurological: Normal speech, no focal motor deficit. Plan: Clinically stable. Monitor orthostatic vitals. Awaiting PT evaluation. Insulin sliding scale for glucose management. Drop in hemoglobin likely dilutional. Continue home medications for BPH, CVA, depression and psoriatic arthritis. Disposition pending PT evaluation. DVT prophylax: Lovenox. Physician Review: Patient Assessed, Agree with Above Assessment and Plan
[2022-02-22] MEDS ORDERED: PNEUMOCOCCAL VACCINE 0.5 ML IMVAC ONE (15:00)
[2022-02-22] MEDS: ATORVASTATIN 40 MG TAB PO SCH ×2 (20:47)
[2022-02-23] MEDS: INSULIN -REGULAR HUMAN 50 UNIT/0.5 ML ML SQ SCH (07:30)
[2022-02-23 08:31] VITALS: BP 138/62; TEMP 97.6
[2022-02-23] MEDS: AMLODIPINE 5 MG TAB PO SCH (08:46)
[2022-02-23] MEDS: TRAZODONE 50 MG TABLET PO SCH (08:46)
[2022-02-23] MEDS: THIAMINE HCL 100 MG TABLET PO SCH (08:47)
[2022-02-23] MEDS: CALCIUM CARBONATE 500 MG TAB PO SCH (08:47)
[2022-02-23] MEDS: FOLIC ACID 1 MG TABLET PO SCH (08:47)
[2022-02-23] MEDS: BUPROPION HCL XL 150 MG TAB PO SCH (08:48)
[2022-02-23] MEDS: LORATADINE 10 MG TAB PO SCH (08:48)
[2022-02-23] MEDS: ASPIRIN EC 81 MG TAB PO SCH (08:48)
[2022-02-23] MEDS: PYRIDOXINE (VIT B6) 50 MG TAB PO SCH (08:48)
--- NOTE | 2022-02-23 08:48 | P.DS ---
Admission Date: 02/21/22 Discharge Date: 02/23/22 Disposition: MA HOME/HOME HEALTH CARE Discharge Condition: FAIR Reason for Admission: Dizziness\near syncope - Problems (1) Generalized weakness Current Visit: Yes Status: Acute (2) Fall Current Visit: Yes Status: Acute (3) Hypertension Current Visit: Yes Status: Acute (4) BPH (benign prostatic hyperplasia) Current Visit: Yes Status: Acute (5) Chronic anemia Current Visit: Yes Status: Acute (6) Diabetes mellitus type 2 in nonobese Current Visit: Yes Status: Acute Brief History of Present Illness: Patient is a 77-year-old male with a past medical history significant for BPH, CVA, depression, DM 2, erectile dysfunction, HLD, hypertension, psoriatic arthritis, nicotine dependence who presented with complaint of dizziness. Patient is a poor historian and unable to provide accurate history. Patient reported feeling dizzy. He reported that he felt dizzy and he slided out of his chair and was on the floor for at least 8 hours. Patient denied hitting his head or losing consciousness. Patient reported associated signs and symptoms of weakness. Imaging done in the emergency department unremarkable, CBC and blood chemistry unremarkable. Patient was placed under observation for further evaluation and management. Hospital Course: Patient placed under observation on the medical floor. Had an echocardiogram and carotid Doppler done which were unremarkable. Patient seen and evaluated by physical therapy. He was able to ambulate about 300 feet with a walker. He was asymptomatic during the hospital stay. He tolerated his meals. Vitals have been stable. Patient is deemed clinically stable for discharge. Vital Signs/Physical Exam: Temp Pulse Resp BP Pulse Ox 97.6 F 55 18 138/62 92 02/23/22 08:00 02/23/22 08:00 02/23/22 08:00 02/23/22 08:00 02/23/22 08:00 General: Alert, In no apparent distress, Oriented x3 HEENT: Mucous membr. moist/pink Neck: JVD not distended Respiratory: Clear to auscultation bilaterally, Normal air movement Cardiovascular: No edema, Regular rate/rhythm, Normal S1 S2 Gastrointestinal: Normal bowel sounds, Soft and benign, Non-distended, No tenderness Musculoskeletal: No swelling Integumentary: No rashes Neurological: Normal speech, Normal strength at 5/5 x4 extr, Cranial nerves 3-12 intact Laboratory Data at Discharge: WBC 8.80 K/uL (4.3-10.9) 02/22/22 03:33 Hgb 11.6 g/dL (13.6-17.9) L D 02/22/22 03:33 Hct 34.1 % (39.6-49.0) L 02/22/22 03:33 Plt Count 120 K/uL (152-406) L 02/22/22 03:33 PT 10.7 SECONDS (9.5-12.5) 02/21/22 13:41 INR 0.97 02/21/22 13:41 Sodium 138 mmol/L (136-145) 02/22/22 03:33 Potassium 4.3 mmol/L (3.5-5.1) 02/22/22 03:33 BUN 22 mg/dL (7-18) H 02/22/22 03:33 Creatinine 1.10 mg/dL (0.55-1.3) 02/22/22 03:33 Glucose 91 mg/dL (74-106) 02/22/22 03:33 Phosphorus 3.0 mg/dL (2.5-4.9) 02/21/22 20:43 Magnesium 2.0 mg/dL (1.8-2.4) 02/21/22 20:43 Total Bilirubin 0.3 mg/dL (0.2-1.0) 02/21/22 13:41 AST 22 U/L (15-37) 02/21/22 13:41 ALT 43 U/L (12-78) 02/21/22 13:41 Alkaline Phosphatase 134 U/L (45-117) H 02/21/22 13:41 Lipase 156 U/L (73-393) 02/21/22 13:41 Home Medications: Adalimumab [Humira(Cf) Pen] 40 mg SQ EVERY 7TH DAY 08/16/21 Amlodipine Besylate 5 mg PO DAILY 08/16/21 Bupropion HCl [Wellbutrin Xl] 150 mg PO BID 08/16/21 Calcium Carbonate 500 mg PO TID 08/17/21 Folic Acid 1 mg PO DAILY 08/17/21 Lisinopril [Zestril] 20 mg PO DAILY 08/17/21 Loratadine [Claritin*] 10 mg PO DAILY 08/17/21 Methotrexate [Methotrexate*] 4 tab PO EVERY 7TH DAY 08/17/21 Pyridoxine HCl (Vitamin B6) [Pyridoxine HCl] 50 mg PO DAILY 08/17/21 Trazodone HCl 100 mg PO DAILY 08/17/21 sulfaSALAzine [Sulfasalazine] 500 mg PO BID 08/17/21 Thiamine HCl [Vitamin B-1] 100 mg PO BID 30 Days #60 tablet 08/18/21 Diet: ADA Activity: Fall precautions Followup: OOTVinnyOT [Primary Care Provider] - 1-2 Weeks
[2022-02-23] MEDS: HEPARIN 5000 UNIT/ML 1 ML VIAL SQ SCH (08:49)
[2022-02-23] MEDS: SULFASALAZINE 500 MG E.C. TAB PO SCH (08:49)
[2022-02-23 10:28] VITALS: O2SAT 92
--- NOTE | 2022-02-24 19:21 | EKG ---
Test Date: 2022-02-21 Test Time: 14:15:18 Assistant Research Scientist: FLORENCE MEASUREMENT RESULTS: Intervals: Rate: 62 MO: 166 QRSD: 74 QT: 416 QTc: 422 [place]: P: 48 MO: 166 QRS: 48 T: 71 INTERPRETIVE STATEMENTS: Normal sinus rhythm Normal ECG Compared to ECG 01/10/2022 12:51:51 Atrial premature complex(es) no longer present Aberrant conduction of supraventricular beat(s) no longer present Electronically Signed On 02-24-22 19:11:22 MANUFACTURING LEAD by Freddie Lala
[2022-02-28] MEDS ORDERED: METHOTREXATE 2.5 MG TAB PO SCH (09:00)
== END 2022-02-23 11:55 | disposition home health service (06) ==
LOC: ER 12:30 → ERHOLD 16:38 → 4TH 21:49
PROVIDERS: ADMIT Internal Medicine; ATTEND Internal Medicine
DX: R53.1 Weakness (principal); I12.9 Hypertensive chronic kidney disease with stage 1 through stage 4 chronic kidney disease, or unspecified chronic kidney disease; D63.1 Anemia in chronic kidney disease; N40.0 Benign prostatic hyperplasia without lower urinary tract symptoms; F32.A Depression, unspecified; N52.9 Male erectile dysfunction, unspecified; E78.5 Hyperlipidemia, unspecified; F17.200 Nicotine dependence, unspecified, uncomplicated; L40.50 Arthropathic psoriasis, unspecified; E11.22 Type 2 diabetes mellitus with diabetic chronic kidney disease; N18.2 Chronic kidney disease, stage 2 (mild); W07.XXXA Fall from chair, initial encounter; Y93.9 Activity, unspecified; Y92.9 Unspecified place or not applicable
CPT/HCPCS: 93005; 93306; 87040 ×2; 85025 ×2; 80048 ×2; 36415 ×2; 83735 ×2; 82550 ×2; 84100; 85610; 82947 ×6; 80076; 84443; 81003; 84484; 82553; 84439; 83690; 83880; 0240U; 70450; 71250; 72125; 71045; 93880; 97116; 97161; 96374; 99285; J1815; J1644 ×4; J7030; G0378 ×3

== ENCOUNTER 2023-07-10 20:44 | Observation (INO) | payer OTHER ==
[2023-07-10] MEDS ORDERED: ZIPRASIDONE MESYLA 20 MG/VIAL IM ONE (21:18)
[2023-07-10] MEDS ORDERED: TDAP (DIPHTH,PERTUSS(ACELL),TET VAC) 0.5 ML VIAL IMVAC ONE (21:18)
[2023-07-10] MEDS ORDERED: LIDOCAINE 1% 20 ML MDV ONE (21:18)
[2023-07-10] MEDS ORDERED: WATER FOR INJ,STERILE 10 ML ONE (21:19)
--- NOTE | 2023-07-10 22:04 | RAD REPORT ---
EXAM DESCRIPTION: CT - CTFB CLINICAL HISTORY: facial injury, left periorbital injury COMPARISON: Facial Bones W/ Mpr dated 06/18/2020; Head Brain Wo Cont dated 07/10/2023 TECHNIQUE: Axial [address] images of the face were obtained with sagittal and edward l reconstruction images. All CT scans are performed using dose optimization technique as appropriate and may include automated exposure control or mA/KV adjustment according to patient size. FINDINGS: No acute facial bone fracture is seen.The mandible is intact. Edema and hematoma along th e left periorbital soft tissues, superiorly and laterally. Minimal gas locules within the soft tissue s, please correlate for evidence of laceration. The globes and orbital contents are grossly unremarkable.No retro coronal hematoma. No asymmetry of t he extraocular muscles. No subperiosteal hematoma.The paranasal sinuses and mastoids are clear. IMPRESSION: Negative for facial bone fracture.Left periorbital soft tissue edema and hematoma as abo ve
--- NOTE | 2023-07-10 22:12 | RAD REPORT ---
EXAM DESCRIPTION: CT - Head Brain Wo Cont - 07/10/2023 9:27 pm CLINICAL HISTORY: head injury COMPARISON: Head Brain Wo Cont dated 07/10/2021; Facial Bones W/ Mpr dated 06/18/2020 TECHNIQUE: Noncontrast head CT images ad were obtained without IV contrast. Multiplanar reformats we re generated and reviewed. All CT scans are performed using dose optimization technique as appropriate and may include automated exposure control or mA/KV adjustment according to patient size. FINDINGS: No intracranial hemorrhage, mass, or edema. Midline structures are unremarkable. Stable ventricular caliber with mild to moderate centrally predominant volume loss. Stable mild periv entricular hypodensities, nonspecific, but suggestive of chronic small vessel ischemic changes. Cramer-white matter differentiation is preserved, without evidence of acute infarct. No abnormal extra- axial fluid collections. Mastoid air cells and visualized portions of the paranasal sinuses are clear. No acute bony findings. Left periorbital soft tissue swelling and hematoma. IMPRESSION: No evidence of an acute intracranial process. Left periorbital soft tissue swelling and hematoma.
[2023-07-11 00:13] LABS: Absolute Basophils 0.1 K/uL (0-0.5); Absolute Eosinophils 0.2 K/uL (0-0.5); Absolute Monocytes 0.7 K/uL (0.1-1.3); Absolute Neutrophil 6.8 K/uL (1.8-8.0); Eosinophils % 2.2 % (0-4.4); Hematocrit 39.7 % (39.6-49.0); Hemoglobin 13.9 g/dL (13.6-17.9); Lymphocytes % 20.6 % (15.3-44.8); MCH 31.5 pg (27.0-35.0); MCHC 34.9 g/dL (32.0-36.0); MCV 90.2 fL (80-100); MPV 7.7 fL (7.6-11.3); Monocytes % 6.8 % (3.3-12.3); Neutrophils % 69.4 % (41.7-73.7); Platelets 120 thou/uL (152-406); RBC Red Blood Cell Count 4.41 M/uL (4.33-5.43); Red Cell Distribution Width 13.7 % (12.1-15.2)
[2023-07-11 00:25] LABS: PT Prothrombin Time 11.5 SECONDS (9.5-12.5); Protime INR 1.05
[2023-07-11 00:29] LABS: Albumin 3.5 g/dL (3.4-5.0); Albumin/Globulin Ratio 1.1 (1.1-1.8); Anion Gap 11.3 mEq/L (5.0-15.0); Bilirubin Direct 0.1 mg/dL (0-0.2); Bilirubin Indirect, Calculated 0.2 mg/dL (0.2-0.8); Bilirubin Total 0.3 mg/dL (0.2-1.0); Globulin 3.2 g/dL (2.3-3.5); Magnesium 2.1 mg/dL (1.6-2.4); Potassium 3.3 mEq/L (3.5-5.1); Protein, Total 6.7 g/dL (6.4-8.2); Troponin High Sensitivity 18.7 pg/mL (<58.9)
[2023-07-11] MEDS ORDERED: ONDANSETRON 4 MG/2 ML VIAL IV PRN (01:19)
[2023-07-11] MEDS ORDERED: ACETAMINOPHEN 500 MG TAB PO PRN (01:19)
--- NOTE | 2023-07-11 01:20 | EDPHYS ---
Physician Documentation [facility] – [place], [place] Name: Dylon Hannon Age: 78 yrs Sex: Male : 1945 Arrival Date: 07/10/2023 Time: 20:44 Bed 16 Private MD: ED Physician Leobardo aHmmond HPI: 07/09 20:51 This 78 yrs old Male presents to ER via EMS with complaints of fall. . sp4 23:17 8-year-old male with past medical history of BPH, CVA, depression, diabetes type 2, sp4 hypertension, chronic anemia psoriatic arthritis nicotine dependence alcohol dependence presents with EMS for acute fall at home with left periorbital contusion left periorbital laceration. Patient states he fell at home and struck the head on the floor. Apparently patient was noticed by the neighbors to be in distress neighbors called an ambulance. . Patient states that somehow at home he fell but unable to communicate how and if he had an LOC. There is left periorbital contusion left periorbital hematoma with swelling of the left upper eyelid and also discoloration associated with a small laceration left lateral periorbital tissue. . 07/10 00:19 Patient's last admission on 02/21/2022 for generalized weakness, fall, hypertension, sp4 BPH, chronic anemia, diabetes mellitus type 2. Medications include adalimumab, and amlodipine, bupropion, calcium carbonate, folic acid, lisinopril, loratadine, methotrexate, peradoxime, trazodone, sulfasalazine, Thimamine . Historical: - PMHx: 07/09 20:50 BPH; Cerebrovascular accident; Depression; diabetes mellitus; Erectile Dysfunction; rv Fractured left humerus; High Cholesterol; Hyperlipidemia; Hypertensive disorder; Osteoporosis; Psoriatic Arthritis; short term memory loss; - PSHx: 20:50 Appendectomy; rv - Immunization history:: Adult Immunizations unknown. - Infectious Disease History:: Denies. - Social history:: Smoking status: unknown. - Family history:: not pertinent. ROS: 07/10 00:19 Constitutional: Negative for fever, chills, and weight loss, positive fall, unclear if sp4 LOC, positive left periorbital contusion, positive left lateral periorbital laceration All other systems are negative, Exam: 00:19 Constitutional: This is a well developed, well nourished patient who is awake, alert, sp4 and in no acute distress. Head/Face: Normocephalic, positive left periorbital contusion, positive left upper eyelid swelling and discoloration, positive left lateral periorbital laceration 3 cm long . Eyes: Pupils equal round and reactive to light, extra-ocular motions intact. Lids and lashes normal. Conjunctiva and sclera are not injected. Cornea within normal limits. Periorbital areas -left periorbital contusion swelling and laceration ENT: Nares patent. No nasal discharge, no septal abnormalities noted. Tympanic membranes are normal and external auditory canals are clear. Oropharynx with no redness, swelling, or masses, exudates, or evidence of obstruction, uvula midline. Mucous membranes moist. Neck: Trachea midline, no thyromegaly or masses palpated, and no cervical lymphadenopathy. Supple, full range of motion without nuchal rigidity, or vertebral point tenderness. Chest/axilla: Normal chest wall appearance and motion. Nontender with no deformity. No lesions are appreciated. Cardiovascular: Regular rate and rhythm with a normal S1 and S2. No gallops, murmurs, or rubs. Normal PMI, no JVD. No pulse deficits. Respiratory: Lungs have equal breath sounds bilaterally, clear to auscultation and percussion. No rales, rhonchi or wheezes noted. No increased work of breathing, no retractions or nasal flaring. Abdomen/GI: Soft, with normal bowel sounds. No distension or tympany. No guarding or rebound. No evidence of tenderness throughout. Back: No spinal tenderness. No costovertebral tenderness. Male : Normal genitalia with no discharge or lesions. Skin: Warm, dry with normal turgor. Normal color with no rashes, no lesions, and no evidence of cellulitis. MS/ Extremity: Pulses equal, no cyanosis. Neurovascular intact. Full, normal range of motion. Neuro: Awake and alert, GCS 15, oriented to person, place, time, and situation. Cranial nerves II-XII grossly intact. Motor strength 5/5 in all extremities. Sensory grossly intact. Psych: Awake, alert, with orientation to person, place and time. Behavior, mood, and affect are within normal limits Vital Signs: 07/09 20:47 BP 150 / 68; Pulse 58; Resp 17; Temp 98; Pulse Ox 100% ; rv 21:40 BP 162 / 70; Pulse 63; Resp 20; Pulse Ox 100% on R/A; rv 23:48 BP 150 / 71; Pulse 69; Resp 20; Temp 98; Pulse Ox 97% on R/A; rv Udall Coma Score: 21:39 Eye Response: spontaneous(4). Motor Response: obeys commands(6). Verbal Response: rv confused(4). Total: 14. 23:48 Eye Response: spontaneous(4). Motor Response: obeys commands(6). Verbal Response: rv confused(4). Total: 14. Laceration: 07/10 01:19 Wound Repair of 4cm ( 1.6in ) subcutaneous laceration to outer aspect of left eyebrow, sp4 left supraorbital ridge and left eye -left lateral periorbital laceration. Irregularly shaped.. Hemostasis noted.. Distal neuro/vascular/tendon intact. Anesthesia: Wound infiltrated with 10 mls of 1% lidocaine. Wound prep: Moderate cleansing by me, Copious irrigation. Skin closed with 8 6-0 Prolene using interrupted sutures and sterile technique. Dressed with Neosporin. Patient tolerated well. MDM: 07/09 21:13 Patient medically screened. sp4 22:52 ED course: EXAM DESCRIPTION: CT - Head Brain Wo Cont - 07/10/2023 9:27 pm CLINICAL sp4 HISTORY: head injury COMPARISON: Head Brain Wo Cont dated 07/10/2021; Facial Bones W/ Mpr dated 06/18/2020 TECHNIQUE: Noncontrast head CT images ad were obtained without IV contrast. Multiplanar reformats were generated and reviewed. All CT scans are performed using dose optimization technique as appropriate and may include automated exposure control or mA/KV adjustment according to patient size. FINDINGS: No intracranial hemorrhage, mass, or edema. Midline structures are unremarkable. Stable ventricular caliber with mild to moderate centrally predominant volume loss. Stable mild periventricular hypodensities, nonspecific, but suggestive of chronic small vessel ischemic changes. Cramer-white matter differentiation is preserved, without evidence of acute infarct. No abnormal extra-axial fluid collections. Mastoid air cells and visualized portions of the paranasal sinuses are clear. No acute bony findings. Left periorbital soft tissue swelling and hematoma. IMPRESSION: No evidence of an acute intracranial process. Left periorbital soft tissue swelling and hematoma. . 22:53 ED course: EXAM DESCRIPTION: CT - CTFB CLINICAL HISTORY: facial injury, left sp4 periorbital injury COMPARISON: Facial Bones W/ Mpr dated 06/18/2020; Head Brain Wo Cont dated 07/10/2023 TECHNIQUE: Axial [address] images of the face were obtained with sagittal and coronal reconstruction images. All CT scans are performed using dose optimization technique as appropriate and may include automated exposure control or mA/KV adjustment according to patient size. FINDINGS: No acute facial bone fracture is seen .The mandible is intact. Edema and hematoma along the left periorbital soft tissues, superiorly and laterally. Minimal gas locules within the soft tissues, please correlate for evidence of laceration. The globes and orbital contents are grossly unremarkable .No retro coronal hematoma. No asymmetry of the extraocular muscles. No subperiosteal hematoma .The paranasal sinuses and mastoids are clear. IMPRESSION: Negative for facial bone fracture .Left periorbital soft tissue edema and hematoma as above . 07/10 00:27 ED course: EXAM: XR Chest, 1 View CLINICAL HISTORY: The patient is 78 years old and is sp4 Male; CHEST PAIN TECHNIQUE: Frontal view of the chest. COMPARISON: No relevant prior studies available. FINDINGS: LUNGS: Unremarkable. No consolidation. PLEURAL SPACE: Unremarkable. No pneumothorax. HEART: Unremarkable. No cardiomegaly. MEDIASTINUM: Unremarkable. Normal mediastinal contour. BONES/JOINTS: Multilevel degenerative change of the spine is present. No acute fracture. VASCULATURE: Atherosclerosis of the aorta is present. UPPER ABDOMEN: Unremarkable as visualized. IMPRESSION: No acute cardiopulmonary process. . 01:12 Differential Diagnosis altered mental status, sepsis, flu, syncope, intoxication . Data sp4 reviewed: vital signs, nurses notes, old medical records, lab test result(s), EKG, radiologic studies, CT scan, plain films. Consideration of Admission/Observation Patient was admitted/placed on observation. Escalation of care including admission/observation considered. Management of patient was discussed with the following: Hospitalist: Andrew ARISA . 07/09 22:52 Order name: Basic Metabolic Panel; Complete Time: 01:11 sp4 07/09 22:52 Order name: CBC with Diff; Complete Time: 00:19 sp4 07/09 22:52 Order name: LFT's; Complete Time: 01:11 sp4 07/09 22:52 Order name: Magnesium; Complete Time: 01: sp4 07/09 22:52 Order name: NT PRO-BNP; Complete Time: : sp4 07/09 22:52 Order name: PT-INR; Complete Time: : sp4 07/09 22:52 Order name: Troponin HS; Complete Time: 01: sp4 07/09 22:53 Order name: Alcohol Level; Complete Time: : sp4 07/10 01:24 Order name: Urinalysis w/ reflexes EDMS 07/10 01:24 Order name: CBC with Automated Diff EDMS 07/10 01:24 Order name: CBC with Automated Diff EDMS 07/10 01:24 Order name: Comprehensive Metabolic Panel EDMS 07/10 01:24 Order name: Comprehensive Metabolic Panel EDMS 07/09 21:09 Order name: CT Facial Bones W/O Con; Complete Time: 22:23 sp4 07/09 21:10 Order name: CT Head Brain wo Cont; Complete Time: 22:23 sp4 07/09 22:52 Order name: XRAY Chest (1 view) sp4 07/09 21:10 Order name: Dressing - Wound; Complete Time: 21:22 sp4 07/09 21:10 Order name: Gloves, Sterile; Complete Time: 21:22 sp4 07/09 21:10 Order name: Setup Suture Tray; Complete Time: 21:22 sp4 07/09 22:52 Order name: Cardiac monitoring; Complete Time: 23:24 sp4 07/09 22:52 Order name: EKG - Nurse/Tech; Complete Time: 23:24 sp4 07/09 22:52 Order name: IV Saline Lock; Complete Time: 23:24 sp4 07/09 22:52 Order name: Labs collected and sent; Complete Time: 23:24 sp4 07/09 22:52 Order name: O2 Per Protocol; Complete Time: 23:24 sp4 07/09 22:52 Order name: O2 Sat Monitoring; Complete Time: 23:24 sp4 Administered Medications: 07/09 21:38 Drug: Geodon IM 20 mg IM once Route: IM; Site: right vastus lateralis; rv 23:50 Follow up: Response: No adverse reaction; RASS: Light sedation (-2) rv 21:39 Drug: Boostrix Tdap IM 0.5 ml IM once; as a single dose Route: IM; Site: left deltoid; rv 23:50 Follow up: Response: No adverse reaction rv 23:58 Drug: Lidocaine Infiltration (1 %) 20 ml 20 ml Infiltration once; to bedside {Note: rv administered by Dr Hammond .} Volume: 20 ml; Route: Infiltration; Disposition Summary: 07/11/23 01:19 Hospitalization Ordered Notes: Hospitalization Status: Observation sp4 Provider: Sukhdeep Morales sp4 Condition: Stable sp4 Problem: new sp4 Symptoms: have improved sp4 Bed/Room Type: Standard sp4 Location: [facility] ER HOLD(07/11/23 01:34) rv1 Room Assignment: ERHOLD-(07/11/23 01:34) rv1 Diagnosis - Unspecified injury of head, initial encounter sp4 - PM collapse, generalized weakness, alcohol intoxication, left periorbital sp4 contusion, left lateral periorbital laceration Forms: - Medication Reconciliation Form sp4 - SBAR form sp4 - Leadership Thank You Letter sp4 Signatures: Dispatcher [employer] EDMS Phillip Burch, RN RN rv Margot Haq rv1 Leobardo Hammond MD MD sp4 Corrections: (The following items were deleted from the chart) 22:53 22:53 BASIC METABOLIC PANEL+C.LAB.BRZ ordered. EDMS EDMS 22:53 22:53 CBC+H.LAB.BRZ ordered. EDMS EDMS 22:53 22:53 HEPATIC FUNCTION+C.LAB.BRZ ordered. EDMS EDMS 22:53 22:53 MAGNESIUM+C.LAB.BRZ ordered. EDMS EDMS 22:53 22:53 PROBNP+C.LAB.BRZ ordered. EDMS EDMS 22:53 22:53 PROTIME (+INR)+COAG.LAB.BRZ ordered. EDMS EDMS 22:53 22:53 Troponin High Sensitivity+C.LAB.BRZ ordered. EDMS EDMS 22:53 22:53 Chest Single View+RAD.RAD.BRZ ordered. EDMS EDMS 22:53 22:53 ETHANOL+C.LAB.BRZ ordered. EDMS EDMS 07/10 01:34 01:19 Telemetry/MedSurg (observation) sp4 rv1 01:34 01:19 sp4 rv1
--- NOTE | 2023-07-11 01:20 | ER ---
Nurse's Notes [facility] Name: Dylon Hannon Age: 78 yrs Sex: Male : 1945 Arrival Date: 07/10/2023 Time: 20:44 Bed 16 Private MD: Diagnosis: Unspecified injury of head, initial encounter;PM collapse, generalized weakness, alcohol intoxication, left periorbital contusion, left lateral periorbital laceration Presentation: 07/09 20:47 Chief complaint: EMS states: NEIGHBOR HEARD A THUD, CHECKED ON THE PATIENT, FOUND ON rv THE FLOOR, WITH HEMATOMA ON THE LEFT SIDE OF THE EYE BROW, PT UNABLE TO RECALL INCIDENT, DENIES PAIN AT THIS TIME. ADMITTED TO HAVING ALCOHOL TODAY. SKIN TEAR ON THE LEFT ELBOW. Coronavirus screen: At this time, the client does not indicate any symptoms associated with coronavirus-19. Ebola Screen: No symptoms or risks identified at this time. Initial Sepsis Screen: Does the patient meet any 2 criteria? No. Patient's initial sepsis screen is negative. Does the patient have a suspected source of infection? No. Patient's initial sepsis screen is negative. Risk Assessment: Do you want to hurt yourself or someone else? Patient reports no desire to harm self or others. Onset of symptoms was July 10, 2023. 20:47 Method Of Arrival: EMS: [facility] rv 20:47 Acuity: STEPHANIE 2 rv Triage Assessment: 20:50 General: Appears unkempt, Behavior is calm, cooperative. Pain: Denies pain. EENT: rv Lid(s) SWELLING AND HEMATOMA NOTED ON THE LEFT LID. . Neuro: Level of Consciousness is awake, alert, obeys commands, Oriented to person, place, time, situation. Cardiovascular: Capillary refill < 3 seconds Patient's skin is warm and dry. Respiratory: Airway is patent Respiratory effort is even, unlabored, Breath sounds are clear bilaterally. Injury Description: Laceration sustained to left eye. Historical: - PMHx: 20:50 BPH; Cerebrovascular accident; Depression; diabetes mellitus; Erectile Dysfunction; rv Fractured left humerus; High Cholesterol; Hyperlipidemia; Hypertensive disorder; Osteoporosis; Psoriatic Arthritis; short term memory loss; - PSHx: 20:50 Appendectomy; rv - Immunization history:: Adult Immunizations unknown. - Infectious Disease History:: Denies. - Social history:: Smoking status: unknown. - Family history:: not pertinent. Screenin:57 [facility] ED Fall Risk Assessment (Adult) History of falling in the last 3 months, rv including since admission No falls in past 3 months (0 pts) Score/Fall Risk Level 0 - 2 = Low Risk Oriented to surroundings, Maintained a safe environment, Educated pt \T\ family on fall prevention, incl call for assistance when getting out of bed, Assessed \T\ reinforced patient's understanding of fall precautions. Abuse screen: Denies threats or abuse. Denies injuries from another. Nutritional screening: No deficits noted. Tuberculosis screening: No symptoms or risk factors identified. Assessment: 21:39 Reassessment: PT IS ASKING TO BE DISCHARGED. DR HAMMOND UPDATED, MEDICATIONS GIVEN rv ORDERED. PT PLACED ON LINE ASSIGNER. Neuro: Oriented to person, place. 07/10 00:00 Reassessment: No changes from previously documented assessment. Patient is alert, bp oriented x 3, equal unlabored respirations, skin warm/dry/pink. 02:00 Reassessment: PT ON ER HOLD. bp Vital Signs: 03 20:47 BP 150 / 68; Pulse 58; Resp 17; Temp 98; Pulse Ox 100% ; rv 21:40 BP 162 / 70; Pulse 63; Resp 20; Pulse Ox 100% on R/A; rv 23:48 BP 150 / 71; Pulse 69; Resp 20; Temp 98; Pulse Ox 97% on R/A; rv [place] Score: 21:39 Eye Response: spontaneous(4). Motor Response: obeys commands(6). Verbal Response: rv confused(4). Total: 14. 23:48 Eye Response: spontaneous(4). Motor Response: obeys commands(6). Verbal Response: rv confused(4). Total: 14. ED Course: 20:47 Patient arrived in ED. rv 20:50 Leobardo Hammond MD is Attending Physician. sp4 20:50 Triage completed. rv 20:57 Arm band placed on right wrist. rv 20:57 Patient has correct armband on for positive identification. Client placed on continuous rv cardiac and pulse oximetry monitoring. NIBP monitoring applied. 20:57 Maintain EMS IV. Dressing intact. Good blood return noted. Site clean \T\ dry. Gauge \T\ rv site: G20 RIGHT AC. 21:29 CT Facial Bones W/O Con In Process Unspecified. EDMS 21:29 CT Head Brain wo Cont In Process Unspecified. EDMS 23:23 XRAY Chest (1 view) In Process Unspecified. EDMS 23:46 Basic Metabolic Panel Sent. rv 23:46 CBC with Diff Sent. rv 23:46 LFT's Sent. rv 23:46 Magnesium Sent. rv 23:46 NT PRO-BNP Sent. rv 23:46 PT-INR Sent. rv 23:46 Troponin HS Sent. rv 23:47 Assist provider with laceration repair on left eye that was 2.5 cm. or less using rv sutures. Set up tray. Performed by Leobardo Hammond MD Dressed with 4X4s, Patient tolerated well. Initial lab(s) drawn, by me, sent to lab. Inserted saline lock: 22 gauge in right forearm, using aseptic technique. Patient admitted, IV remains in place. 23:57 Basic Metabolic Panel Sent. rv 23:57 CBC with Diff Sent. rv 23:57 LFT's Sent. rv 23:57 Magnesium Sent. rv 23:57 NT PRO-BNP Sent. rv 23:58 PT-INR Sent. rv 23:58 Troponin HS Sent. rv 07/10 01:18 Sukhdeep Morales MD is Hospitalizing Provider. sp4 07:02 Mervin Crouch, RN is Primary Nurse. bp 12:53 Provided Education on: N/A. bp Administered Medications: 07/09 21:38 Drug: Geodon IM 20 mg IM once Route: IM; Site: right vastus lateralis; rv 23:50 Follow up: Response: No adverse reaction; RASS: Light sedation (-2) rv 21:39 Drug: Boostrix Tdap IM 0.5 ml IM once; as a single dose Route: IM; Site: left deltoid; rv 23:50 Follow up: Response: No adverse reaction rv 23:58 Drug: Lidocaine Infiltration (1 %) 20 ml 20 ml Infiltration once; to bedside {Note: rv administered by Dr Hammond .} Volume: 20 ml; Route: Infiltration; Medication: 20:57 VIS not applicable for this client. rv Outcome: 23:48 Admitted to ER Hold. Please see [facility] for further documentation. rv 23:48 Condition: good 23:48 Instructed on the need for admit, 07/10 01:19 Decision to Hospitalize by Provider. sp4 14:06 Patient left the ED. bp Signatures: Dispatcher [employer] EDMervin Farooq RN RN bp Vicente, Ronaldo, RN RN rv Potepalov, Sergey, MD MD sp4
--- NOTE | 2023-07-11 01:25 | P.HP ---
Certification for Inpatient Patient admitted to: Observation With expected LOS: <2 Midnights Practitioner: I am a practitioner with admitting privileges, knowledge of patient current condition, hospital course, and medical plan of care. Services: Services provided to patient in accordance with Admission requirements found in Title 42 Section 412.3 of the Code of Federal Regulations Patient History Date of Service: 07/11/23 Reason for admission: Syncope/Fall History of Present Illness: 78 yrs old Male with a past medical history of BPH, CVA, depression, diabetes, hyperlipidemia, hypertension, osteoporosis, psoriatic arthritis, short-term memory loss, chronic anemia , psoriatic arthritis , nicotine dependence , alcohol dependence , ED who came to the ER with complaints of fall. He presents with EMS for acute fall at home with left periorbital contusion left periorbital laceration. Patient states he fell at home and struck the head on the floor. Apparently patient was noticed by the neighbors to be in distress neighbors called an ambulance. . Patient states that somehow at home he fell but unable to communicate how and if he had an LOC. There is left periorbital contusion left periorbital hematoma with swelling of the left upper eyelid and also discoloration associated with a small laceration left lateral periorbital tissue. . Patient was assessed in the ER and was admitted for further management For close monitoring Allergies No Known Allergies Allergy (Verified 08/16/21 22:35) Home medications list reviewed: Yes Home Medications: Adalimumab [Humira(Cf) Pen] 40 mg SQ EVERY 7TH DAY 08/16/21 Amlodipine Besylate 5 mg PO DAILY 08/16/21 buPROPion HCL [Wellbutrin Xl] 150 mg PO BID 08/16/21 Calcium Carbonate 500 mg PO TID 08/17/21 Folic Acid 1 mg PO DAILY 08/17/21 Lisinopril [Zestril] 20 mg PO DAILY 08/17/21 Loratadine [Claritin*] 10 mg PO DAILY 08/17/21 Methotrexate [Methotrexate*] 4 tab PO EVERY 7TH DAY 08/17/21 Pyridoxine HCl (Vitamin B6) [Pyridoxine HCl] 50 mg PO DAILY 08/17/21 Trazodone HCl 100 mg PO DAILY 08/17/21 sulfaSALAzine [Sulfasalazine] 500 mg PO BID 08/17/21 Thiamine HCl [Vitamin B-1] 100 mg PO BID 30 Days #60 tablet 08/18/21 - Past Medical/Surgical History Diabetic: Yes Past Medical History: Reviewed- Non-Contributory -: Hypertension -: Hyperlipidemia -: Diabetes most type IIdiet controlled -: BPH Past Surgical History: Reviewed- Non-Contributory -: Knee surgery -: Thyroid surgery -: Appendectomy Psychosocial/ Personal History: Patient lives at home, alone - Family History Family History: Reviewed- Non-Contributory - Family History Father -: Cancer Mother -: Cancer - Social History Smoking Status: Current some day smoker Alcohol use: Yes CD- Drugs: No Caffeine use: Yes Review of Systems 10-point ROS is otherwise unremarkable Physical Examination - Vital Signs Temperature: 98.4 F Blood Pressure: 128/78 Pulse: 76 Respirations: 18 Pulse Ox (%): 98 - Physical Exam General: Alert, In no apparent distress, Cooperative, Confused HEENT: Atraumatic, Normocephalic Neck: Supple, 2+ carotid pulse no bruit Respiratory: Clear to auscultation bilaterally, Normal air movement Cardiovascular: No edema, Regular rate/rhythm, Normal S1 S2 Capillary refill: <2 Seconds Gastrointestinal: Soft and benign, W/out hepatosplenomegaly Musculoskeletal: No clubbing, No swelling Integumentary: No rashes, No breakdown Neurological: Normal speech, Normal strength at 5/5 x4 extr, Cranial nerves 3-12 intact Lymphatics: No axilla or inguinal lymphadenopathy - Studies Laboratory Data (last 24 hrs) 07/10/23 07/10/23 07/10/23 23:40 23:40 23:40 WBC 9.80 Hgb 13.9 Hct 39.7 Plt Count 120 L PT 11.5 INR 1.05 Sodium 138 Potassium 3.3 L BUN 12 Creatinine 1.18 Glucose 161 H Magnesium 2.1 Total Bilirubin 0.3 AST 17 ALT 19 Alkaline Phosphatase 88 Assessment and Plan - Problems (Diagnosis) (1) Fall Current Visit: No Status: Acute Plan: Patient had a fall Not sure whether syncopal versus mechanical. Patient denies any loss of consciousness. CT head was negative for any acute changes Monitor closely on telemetry Syncope workup Will get a PT evaluation (2) Periorbital hematoma of left eye Current Visit: Yes Status: Acute Plan: Appreciate help from ER doctor CT head was negative for any acute changes Monitor closely (3) Alcohol abuse Current Visit: Yes Status: Acute Plan: Patient noted to have very elevated alcohol level Advised about cessation Offered measures (4) Hypertension Current Visit: No Status: Chronic Plan: Continued home medications and titrate as needed Diabetes Insulin sliding scale Accu-Chek before every meal and at bedtime Will get an A1c in a.m. Discharge Plan: Home Plan to discharge in: 24 Hours - Advance Directives Does patient have a Living Will: No Does patient have a Durable POA for Healthcare: No - Code Status/Comfort Care Code Status: Full Code Time Spent Managing Pts Care (In Minutes): 54
[2023-07-11] MEDS: NA CHLORIDE 0.9% 1,000 ML IV SCH (02:00)
[2023-07-11 02:31] VITALS: BMI 23.7
[2023-07-11 05:00] VITALS: TEMP 98
[2023-07-11] MEDS: INFLUENZA VACCINE (for 6+ mo) 0.5 ML DOSE IMVAC ONE (08:00)
--- NOTE | 2023-07-11 08:04 | P.PN ---
Subjective Date of Service: 07/11/23 Chief Complaint: Syncope/Fall Presented for fall at home, PT eval today - Physical Exam General: Alert, In no apparent distress, Cooperative, Confused HEENT: left periorbital contusion left periorbital hematoma with swelling of the left upper eyelid and also discoloration associated with a small laceration left lateral periorbital tissue Neck: Supple, 2+ carotid pulse no bruit Respiratory: Clear to auscultation bilaterally, Normal air movement Cardiovascular: No edema, Regular rate/rhythm, Normal S1 S2 Capillary refill: <2 Seconds Gastrointestinal: Soft and benign, W/out hepatosplenomegaly Musculoskeletal: No clubbing, No swelling Integumentary: No rashes, No breakdown Neurological: Normal speech, Normal strength at 5/5 x4 extr, Cranial nerves 3-12 intact Lymphatics: No axilla or inguinal lymphadenopathy Review of Systems per HPI Physical Examination - Vital Signs Temperature: 98 F Blood Pressure: 162/74 Pulse: 56 Respirations: 16 Pulse Ox (%): 96 - Studies Laboratory Data (last 24 hrs) 07/10/23 07/10/23 07/10/23 23:40 23:40 23:40 WBC 9.80 Hgb 13.9 Hct 39.7 Plt Count 120 L PT 11.5 INR 1.05 Sodium 138 Potassium 3.3 L BUN 12 Creatinine 1.18 Glucose 161 H Magnesium 2.1 Total Bilirubin 0.3 AST 17 ALT 19 Alkaline Phosphatase 88 Assessment And Plan - Plan Assessment and Plan (1) Fall Current Visit: No Status: Acute Patient had a fall Not sure whether syncopal versus mechanical. Patient denies any loss of consciousness. CT head was negative for any acute changes Monitor closely on telemetry Syncope workup Will get a PT evaluation (2) Periorbital hematoma of left eye Current Visit: Yes Status: Acute Plan: Appreciate help from ER doctor CT head was negative for any acute changes Monitor closely (3) Alcohol abuse Current Visit: Yes Status: Acute Patient noted to have very elevated alcohol level Advised about cessation Offered measures (4) Hypertension Current Visit: No Status: Chronic Continued home medications and titrate as needed Diabetes Insulin sliding scale Accu-Chek before every meal and at bedtime Will get an A1c in a.m. Discharge Plan: Home - Code Status/Comfort Care Code Status: Full Code Critical Care: No Time Spent Managing PTS Care (In Minutes): 35
[2023-07-11 10:08] VITALS: O2SAT 96
--- NOTE | 2023-07-11 11:07 | RAD REPORT ---
EXAM DESCRIPTION: RAD - Chest Single View - 07/10/2023 11:21 pm CLINICAL HISTORY: The patient is 78 years old and is Male; CHEST PAIN TECHNIQUE: Frontal view of the chest. COMPARISON: No relevant prior studies available. FINDINGS: LUNGS: Unremarkable. No consolidation. PLEURAL SPACE: Unremarkable. No pneumothorax. HEART: Unremarkable. No cardiomegaly. MEDIASTINUM: Unremarkable. Normal mediastinal contour. BONES/JOINTS: Multilevel degenerative change of the spine is present. No acute fracture. VASCULATURE: Atherosclerosis of the aorta is present. UPPER ABDOMEN: Unremarkable as visualized. IMPRESSION: No acute cardiopulmonary process. Electronically signed by: Eloisa Machado MD 07/10/2023 11:31 PM CDT Due to temporary technical issues with the PACS/Fluency reporting system, reports are being signed by the in house radiologist without review as a courtesy to ensure prompt reporting. The interpreting r adiologist is fully responsible for the content of the report.
[2023-07-11 13:25] VITALS: BP 168/98
--- NOTE | 2023-07-12 09:20 | P.PN ---
Subjective Date of Service: 07/12/23 Chief Complaint: Syncope/Fall Presented for fall at home, PT eval today Patient resides at home with a caregiver 5 days a week, 3 hours a day, plan to discharge home with home health, PT - Physical Exam General: Alert, In no apparent distress, Cooperative, Confused HEENT: left periorbital contusion left periorbital hematoma with swelling of the left upper eyelid and also discoloration associated with a small laceration left lateral periorbital tissue Neck: Supple, 2+ carotid pulse no bruit Respiratory: Clear to auscultation bilaterally, Normal air movement Cardiovascular: No edema, Regular rate/rhythm, Normal S1 S2 Capillary refill: <2 Seconds Gastrointestinal: Soft and benign, W/out hepatosplenomegaly Musculoskeletal: No clubbing, No swelling Integumentary: No rashes, No breakdown Neurological: Normal speech, Normal strength at 5/5 x4 extr, Cranial nerves 3-12 intact Lymphatics: No axilla or inguinal lymphadenopathy Review of Systems Per HPI Physical Examination - Vital Signs Temperature: 98 F Blood Pressure: 168/98 Pulse: 69 Respirations: 16 Pulse Ox (%): 99 Assessment And Plan - Plan Assessment and Plan (1) Fall Current Visit: No Status: Acute Patient had a fall Not sure whether syncopal versus mechanical. Patient denies any loss of consciousness. CT head was negative for any acute changes Monitor closely on telemetry Syncope workup Will get a PT evaluation (2) Periorbital hematoma of left eye Current Visit: Yes Status: Acute Plan: Appreciate help from ER doctor CT head was negative for any acute changes Monitor closely (3) Alcohol abuse Current Visit: Yes Status: Acute Patient noted to have very elevated alcohol level Advised about cessation Offered measures (4) Hypertension Current Visit: No Status: Chronic Continued home medications and titrate as needed Diabetes Insulin sliding scale Accu-Chek before every meal and at bedtime Will get an A1c in a.m. Discharge Plan: Home Critical Care: No Time Spent Managing PTS Care (In Minutes): 35
--- NOTE | 2023-07-12 09:24 | P.DS ---
Discharge Date: 07/11/23 Disposition: ROUTINE DISCHARGE Discharge Condition: FAIR Reason for Admission: Syncope/Fall Brief History of Present Illness: Patient is a 78 yrs old Male with a past medical history of BPH, CVA, depression, diabetes, hyperlipidemia, hypertension, osteoporosis, psoriatic arthritis, short-term memory loss, chronic anemia , psoriatic arthritis, nicotine dependence, alcohol dependence, ED who came to the ER with complaints of fall. Hepresents with EMS for acute fall at home with left periorbital contusion left periorbital laceration. Patient states he fell at home and struck the head on the floor. Apparently patient was noticed by the neighbors to be in distress neighbors called an ambulance. . Patient states that somehow at home he fell but unable to communicate how and if he had an LOC. There is left periorbital contusion left periorbital hematoma with swelling of the left upper eyelid and also discoloration associated with a small laceration left lateral periorbital tissue. Patient was assessed in the ER and was admitted for further management For close monitoring Hospital Course: Patient has done well during hospital stay. Patient's clinical symptoms have improved. Patient will continue with medical therapy as an outpatient. Patient will follow-up with consultants and PCP as an outpatient in 1 to 2 weeks. Patient chart was reviewed and patient was seen and examined. Most of the MDM was done by myself and plan of care was discussed with LAUREN as well as the patient. Plan to discharge home with outpatient follow-up with PCP. Vital Signs/Physical Exam: Temp Pulse Resp BP Pulse Ox 98 F 69 16 168/98 H 99 07/12/23 09:19 07/12/23 09:19 07/12/23 09:19 07/12/23 09:19 07/12/23 09:19 General: Alert, In no apparent distress, Oriented x3 Laboratory Data at Discharge: WBC Cancelled 07/12/23 05:00 Hgb Cancelled 07/12/23 05:00 Hct Cancelled 07/12/23 05:00 Plt Count Cancelled 07/12/23 05:00 PT 11.5 SECONDS (9.5-12.5) 07/10/23 23:40 INR 1.05 07/10/23 23:40 Sodium Cancelled 07/12/23 05:00 Potassium Cancelled 07/12/23 05:00 BUN Cancelled 07/12/23 05:00 Creatinine Cancelled 07/12/23 05:00 Glucose Cancelled 07/12/23 05:00 Magnesium 2.1 mg/dL (1.6-2.4) 07/10/23 23:40 Total Bilirubin Cancelled 07/12/23 05:00 AST Cancelled 07/12/23 05:00 ALT Cancelled 07/12/23 05:00 Alkaline Phosphatase Cancelled 07/12/23 05:00 Home Medications: Adalimumab [Humira(Cf) Pen] 40 mg SQ EVERY 7TH DAY 08/16/21 Amlodipine Besylate 5 mg PO DAILY 08/16/21 buPROPion HCL [Wellbutrin Xl] 150 mg PO BID 08/16/21 Calcium Carbonate 500 mg PO TID 08/17/21 Folic Acid 1 mg PO DAILY 08/17/21 Lisinopril [Zestril] 20 mg PO DAILY 08/17/21 Loratadine [Claritin*] 10 mg PO DAILY 08/17/21 Methotrexate [Methotrexate*] 4 tab PO EVERY 7TH DAY 08/17/21 Pyridoxine HCl (Vitamin B6) [Pyridoxine HCl] 50 mg PO DAILY 08/17/21 Trazodone HCl 100 mg PO DAILY 08/17/21 sulfaSALAzine [Sulfasalazine] 500 mg PO BID 08/17/21 Thiamine HCl [Vitamin B-1] 100 mg PO BID 30 Days #60 tablet 08/18/21 Physician Discharge Instructions: -Follow-up with PCP in 1 to 2 weeks -Please call Dr. Stanton at [phone] if any questions regarding hospital stay -Please call nursing station at [phone] if any nursing or medication questions -Return to the emergency room if symptoms worsen Diet: Regular Activity: Fall precautions Followup: NONE,NONE [Primary Care Provider] - Time spent managing pt's care (in minutes): 35
--- NOTE | 2023-07-12 09:30 | P.DS ---
Admission Date: 07/11/23 Discharge Date: 07/12/23 Disposition: ROUTINE DISCHARGE Discharge Condition: GOOD Reason for Admission: Syncope/Fall Brief History of Present Illness: 78 yrs old Male with a past medical history of BPH, CVA, depression, diabetes, hyperlipidemia, hypertension, osteoporosis, psoriatic arthritis, short-term memory loss, chronic anemia , psoriatic arthritis , nicotine dependence , alcohol dependence , ED who came to the ER with complaints of fall. He presents with EMS for acute fall at home with left periorbital contusion left periorbital laceration. Patient states he fell at home and struck the head on the floor. Apparently patient was noticed by the neighbors to be in distress neighbors called an ambulance. . Patient states that somehow at home he fell but unable to communicate how and if he had an LOC. There is left periorbital contusion left periorbital hematoma with swelling of the left upper eyelid and also discoloration associated with a small laceration left lateral periorbital tissue. . Patient was assessed in the ER and was admitted for further management For close monitoring - Physical Exam General: Alert, In no apparent distress, Cooperative, Confused HEENT: Atraumatic, Normocephalic Neck: Supple, 2+ carotid pulse no bruit Respiratory: Clear to auscultation bilaterally, Normal air movement Cardiovascular: No edema, Regular rate/rhythm, Normal S1 S2 Capillary refill: <2 Seconds Gastrointestinal: Soft and benign, W/out hepatosplenomegaly Musculoskeletal: No clubbing, No swelling Integumentary: No rashes, No breakdown Neurological: Normal speech, Normal strength at 5/5 x4 extr, Cranial nerves 3-12 intact Lymphatics: No axilla or inguinal lymphadenopathy Hospital Course: 78 year-old male patient presented with fall. Was noted to have periorbital hematoma. Condition improved with Patient tolerating diet, stable for discharge to home with follow-up appointment with primary care physician. PROBLEM: fall Periorbital hematoma left eye Continue home medicines as previously prescribed GOAL: Clear understanding of disease process INSTRUCTIONS: Physician Discharge Instructions: -DC IV and DC home -Follow-up with PCP in 1 to 2 weeks -Please call Dr. Stanton at [phone] if any questions regarding hospital stay -Please call nursing station at [phone] if any nursing or medication questions -Return to the emergency room if symptoms worsen Diet: ADA, low sodium Activity: Fall precautions Vital Signs/Physical Exam: Temp Pulse Resp BP Pulse Ox 98 F 69 16 168/98 H 99 07/12/23 09:19 07/12/23 09:19 07/12/23 09:19 07/12/23 09:19 07/12/23 09:19 Laboratory Data at Discharge: WBC Cancelled 07/12/23 05:00 Hgb Cancelled 07/12/23 05:00 Hct Cancelled 07/12/23 05:00 Plt Count Cancelled 07/12/23 05:00 PT 11.5 SECONDS (9.5-12.5) 07/10/23 23:40 INR 1.05 07/10/23 23:40 Sodium Cancelled 07/12/23 05:00 Potassium Cancelled 07/12/23 05:00 BUN Cancelled 07/12/23 05:00 Creatinine Cancelled 07/12/23 05:00 Glucose Cancelled 07/12/23 05:00 Magnesium 2.1 mg/dL (1.6-2.4) 07/10/23 23:40 Total Bilirubin Cancelled 07/12/23 05:00 AST Cancelled 07/12/23 05:00 ALT Cancelled 07/12/23 05:00 Alkaline Phosphatase Cancelled 07/12/23 05:00 Home Medications: Adalimumab [Humira(Cf) Pen] 40 mg SQ EVERY 7TH DAY 08/16/21 Amlodipine Besylate 5 mg PO DAILY 08/16/21 buPROPion HCL [Wellbutrin Xl] 150 mg PO BID 08/16/21 Calcium Carbonate 500 mg PO TID 08/17/21 Folic Acid 1 mg PO DAILY 08/17/21 Lisinopril [Zestril] 20 mg PO DAILY 08/17/21 Loratadine [Claritin*] 10 mg PO DAILY 08/17/21 Methotrexate [Methotrexate*] 4 tab PO EVERY 7TH DAY 08/17/21 Pyridoxine HCl (Vitamin B6) [Pyridoxine HCl] 50 mg PO DAILY 08/17/21 Trazodone HCl 100 mg PO DAILY 08/17/21 sulfaSALAzine [Sulfasalazine] 500 mg PO BID 08/17/21 Thiamine HCl [Vitamin B-1] 100 mg PO BID 30 Days #60 tablet 08/18/21 Physician Discharge Instructions: -Follow-up with PCP in 1 to 2 weeks -Please call Dr. Stanton at [phone] if any questions regarding hospital stay -Please call nursing station at [phone] if any nursing or medication questions -Return to the emergency room if symptoms worsen Diet: Regular Activity: Fall precautions Followup: NONE,NONE [Primary Care Provider] - Time spent managing pt's care (in minutes): 55
--- NOTE | 2023-07-12 11:56 | EKG ---
Test Date: 2023-07-11 Test Time: 00:39:41 [employer] Therapist'S Assistant: ROSALBA MEASUREMENT RESULTS: Intervals: Rate: 59 GA: 176 QRSD: 82 QT: 464 QTc: 459 [place]: P: 63 GA: 176 QRS: 65 T: 45 INTERPRETIVE STATEMENTS: Sinus bradycardia Otherwise normal ECG Compared to ECG 02/21/2022 14:15:18 Sinus rhythm no longer present Electronically Signed On 07-12-23 11:54:18 CDT by Rajesh Huber
== END 2023-07-11 14:00 | disposition home or self-care (01) ==
LOC: ER 20:44 → ERHOLD 07-11 01:19
PROVIDERS: ADMIT Family Medicine; ATTEND Hospitalist
PROC: 0JQ10ZZ Repair Face Subcutaneous Tissue and Fascia, Open Approach (ICD-10-PCS; principal; 2023-07-11)
DX: R55 Syncope and collapse (principal); N40.0 Benign prostatic hyperplasia without lower urinary tract symptoms; F32.A Depression, unspecified; E11.9 Type 2 diabetes mellitus without complications; E78.5 Hyperlipidemia, unspecified; I10 Essential (primary) hypertension; M81.0 Age-related osteoporosis without current pathological fracture; D64.9 Anemia, unspecified; F17.210 Nicotine dependence, cigarettes, uncomplicated; F10.20 Alcohol dependence, uncomplicated; L40.50 Arthropathic psoriasis, unspecified; R41.3 Other amnesia; S05.42XA Penetrating wound of orbit with or without foreign body, left eye, initial encounter; W18.30XA Fall on same level, unspecified, initial encounter; Y93.9 Activity, unspecified; Y92.019 Unspecified place in single-family (private) house as the place of occurrence of the external cause
CPT/HCPCS: 93005; 85025; 80048; 36415; 83735; 85610; 80076; 84484; 83880; 70450; 70486; 76377; 71045; 94760 ×2; 96372; 99285; 82077; 12011; J2001; J3486

== ENCOUNTER 2023-07-18 13:05 | Emergency (ER) | payer OTHER ==
[2023-07-18] MEDS ORDERED: NA CHLORIDE 0.9% 500 ML ONE (13:37)
[2023-07-18] MEDS ORDERED: TDAP (DIPHTH,PERTUSS(ACELL),TET VAC) 0.5 ML VIAL IMVAC ONE (13:37)
--- NOTE | 2023-07-18 14:11 | RAD REPORT ---
EXAM DESCRIPTION: CT - Head C Spine Cap Wo Con - 07/18/2023 1:38 pm CLINICAL HISTORY: Trauma, head and neck injury. Chest, abdomen and pelvis pain. TRAUMA COMPARISON: <Comparisons> TECHNIQUE: CT head without contrast. CT cervical spine without contrast with coronal and sagittal reformatted images. CT chest, abdomen and pelvis without contrast with coronal and sagittal reformatted images of the spi ne. All CT scans are performed using dose optimization technique as appropriate and may include automated exposure control or mA/KV adjustment according to patient size. FINDINGS: CT HEAD WITHOUT CONTRAST: No intracranial hemorrhage, hydrocephalus or extra-axial fluid collection. Prominent diffuse brain at rophy. No areas of brain edema or midline shift. The paranasal sinuses and mastoids are clear. The calvarium is intact. CT CERVICAL SPINE WITHOUT CONTRAST: No fracture or subluxation. Significant cervical degenerative changes are present mid cervical levels . Carotid atherosclerosis. The prevertebral soft tissues are normal in thickness. CT CHEST, ABDOMEN, PELVIS WITHOUT CONTRAST: NOTE: Lack of contrast is a significant limitation in the assessment of trauma related findings. Spec ifically, solid organ, vascular and bowel evaluation is significantly limited. The lungs are clear.No pneumothorax or pericardial/pleural fluid. No evidence of intra-abdominal visceral injury, free fluid or free air is seen within the above detai led limitations. Advanced multilevel degenerative change lumbar spine. Chronic moderate compression deformity T11 vert ebral body. No acute fracture is evident. IMPRESSION: Negative for acute traumatic findings within the above detailed limitations.
--- NOTE | 2023-07-18 14:17 | RAD REPORT ---
EXAM DESCRIPTION: RAD - Chest Single View - 07/18/2023 1:56 pm CLINICAL HISTORY: COUGH Chest pain. COMPARISON: <Comparisons> FINDINGS: Portable technique limits examination quality. The lungs are grossly clear. The heart is normal in size. No displaced fractures. IMPRESSION: No acute intrathoracic process suspected.
[2023-07-18 14:24] LABS: Absolute Basophils 0.1 K/uL (0-0.5); Absolute Eosinophils 0.4 K/uL (0-0.5); Absolute Lymphocytes (CBC) 1.6 K/uL (0.7-4.9); Basophils % 0.8 % (0-1.3); Eosinophils % 3.5 % (0-4.4); Hematocrit 41.3 % (39.6-49.0); Lymphocytes % 14.3 % (15.3-44.8); MCH 31.1 pg (27.0-35.0); MCV 91.4 fL (80-100); MPV 7.7 fL (7.6-11.3); Monocytes % 8.8 % (3.3-12.3); Neutrophils % 72.6 % (41.7-73.7); Platelets 120 thou/uL (152-406); RBC Red Blood Cell Count 4.52 M/uL (4.33-5.43); Red Cell Distribution Width 13.4 % (12.1-15.2)
--- NOTE | 2023-07-18 14:24 | RAD REPORT ---
EXAM DESCRIPTION: RAD - Knee Right 3 View - 07/18/2023 1:56 pm CLINICAL HISTORY: PAIN COMPARISON: <Comparisons> FINDINGS: Tricompartmental osteoarthritis is present. Moderate popliteal atherosclerosis. No acute f racture or dislocation.
--- NOTE | 2023-07-18 14:24 | RAD REPORT ---
EXAM DESCRIPTION: RAD - Pelvis - 07/18/2023 1:56 pm CLINICAL HISTORY: PAIN COMPARISON: <Comparisons> FINDINGS: Prominent osteopenia. Mild to moderate osteoarthritis both hips. No fracture, dislocation or AVN.
[2023-07-18 14:41] LABS: Specific Gravity 1.013 (1.005-1.030); Sqamous Epithelial None Seen /HPF (None Seen); Urine Bacteria <20 /HPF (<20); Urine Bilirubin NEGATIVE (Negative); Urine Blood Negative (Negative); Urine Clarity Turbid (Clear); Urine Color Yellow (Yellow); Urine Culture Reflex Order NOT NEEDED; Urine Glucose NEGATIVE (Negative); Urine Ketones TRACE (Negative); Urine Microscopic Reflex YN ORDER UMIC; Urine Mucus Slight /HPF (None Seen); Urine Nitrite NEGATIVE (Negative); Urine Protein NEGATIVE (Negative); Urine RBC <5 /HPF (None Seen); Urine Urobilinogen Normal (Normal); Urine WBC <5 /HPF (<5); Urine pH 5.5 (5.0-7.0)
[2023-07-18 14:45] LABS: Albumin 3.5 g/dL (3.4-5.0); Anion Gap 8.5 mEq/L (5.0-15.0); Bilirubin Direct 0.2 mg/dL (0-0.2); Bilirubin Indirect, Calculated 0.5 mg/dL (0.2-0.8); Bilirubin Total 0.7 mg/dL (0.2-1.0); Globulin 3.5 g/dL (2.3-3.5); Magnesium 1.8 mg/dL (1.6-2.4); Potassium 3.5 mEq/L (3.5-5.1); Troponin High Sensitivity 23.8 pg/mL (<58.9)
[2023-07-18 16:22] LABS: PT Prothrombin Time 11.9 SECONDS (9.5-12.5); Protime INR 1.08
--- NOTE | 2023-07-18 16:43 | EDPHYS ---
Physician Documentation [facility] Name: Dylon Hannon Age: 78 yrs Sex: Male : 1945 Arrival Date: 07/18/2023 Time: 13:05 Bed 6 Private MD: MANISHA Physician Kulwinder Arnold HPI: 07/17 16:37 This 78 yrs old Male presents to ER via EMS with complaints of Fall Injury. [facility] 16:37 Details of fall: The patient fell from an upright position, while standing, while josi walking. Onset: The symptoms/episode began/occurred just prior to arrival. Associated injuries: The patient sustained right leg, abrasion, decreased range of motion, painful injury. Severity of symptoms: At their worst the symptoms were mild, in the emergency department the symptoms are unchanged. The patient has not experienced similar symptoms in the past. Historical: - Allergies: 13:27 No Known Allergies; tl4 - PMHx: 13:27 BPH; Cerebrovascular accident; Depression; diabetes mellitus; High Cholesterol; tl4 Hyperlipidemia; Psoriatic Arthritis; short term memory loss; Hypertensive disorder; Fractured left humerus; Erectile Dysfunction; Osteoporosis; - PSHx: 13:27 Appendectomy; tl4 - Immunization history:: Adult Immunizations unknown. - Infectious Disease History:: Denies. - Social history:: Smoking status: Patient reports the use of cigarette tobacco products, smokes one pack cigarettes per day. ROS: 16:38 Constitutional: Negative for fever, chills, and weight loss, Eyes: Negative for injury, josi pain, redness, and discharge, ENT: Negative for injury, pain, and discharge, Neck: Negative for injury, pain, and swelling, Cardiovascular: Negative for chest pain, palpitations, and edema, Respiratory: Negative for shortness of breath, cough, wheezing, and pleuritic chest pain, Abdomen/GI: Negative for abdominal pain, nausea, vomiting, diarrhea, and constipation, Back: Negative for injury and pain, : Negative for injury, bleeding, discharge, and swelling, MS/Extremity: Negative for injury and deformity, Neuro: Negative for headache, weakness, numbness, tingling, and seizure, Psych: Negative for depression, anxiety, suicide ideation, homicidal ideation, and hallucinations, Allergy/Immunology: Negative for hives, rash, and allergies, Endocrine: Negative for neck swelling, polydipsia, polyuria, polyphagia, and marked weight changes, Hematologic/Lymphatic: Negative for swollen nodes, abnormal bleeding, and unusual bruising, 16:38 Skin: Positive for abrasion(s), of the right leg, Exam: 16:38 Constitutional: This is a well developed, well nourished patient who is awake, alert, josi and in no acute distress. Head/Face: Normocephalic, atraumatic. Eyes: Pupils equal round and reactive to light, extra-ocular motions intact. Lids and lashes normal. Conjunctiva and sclera are non-icteric and not injected. Cornea within normal limits. Periorbital areas with no swelling, redness, or edema. ENT: Nares patent. No nasal discharge, no septal abnormalities noted. Tympanic membranes are normal and external auditory canals are clear. Oropharynx with no redness, swelling, or masses, exudates, or evidence of obstruction, uvula midline. Mucous membranes moist. Neck: Trachea midline, no thyromegaly or masses palpated, and no cervical lymphadenopathy. Supple, full range of motion without nuchal rigidity, or vertebral point tenderness. No Meningismus. Chest/axilla: Normal chest wall appearance and motion. Nontender with no deformity. No lesions are appreciated. Cardiovascular: Regular rate and rhythm with a normal S1 and S2. No gallops, murmurs, or rubs. Normal PMI, no JVD. No pulse deficits. Respiratory: Lungs have equal breath sounds bilaterally, clear to auscultation and percussion. No rales, rhonchi or wheezes noted. No increased work of breathing, no retractions or nasal flaring. Abdomen/GI: Soft, non-tender, with normal bowel sounds. No distension or tympany. No guarding or rebound. No evidence of tenderness throughout. Back: No spinal tenderness. No costovertebral tenderness. Full range of motion. Male : Normal genitalia with no discharge or lesions. MS/ Extremity: Pulses equal, no cyanosis. Neurovascular intact. Full, normal range of motion. Neuro: Awake and alert, GCS 15, oriented to person, place, time, and situation. Cranial nerves II-XII grossly intact. Motor strength 5/5 in all extremities. Sensory grossly intact. Cerebellar exam normal. Normal gait. Psych: Awake, alert, with orientation to person, place and time. Behavior, mood, and affect are within normal limits. 16:38 Skin: injury, abrasion(s), very small abrasion noted, Vital Signs: 13:25 BP 151 / 66; Pulse 72; Resp 16; Temp 98.2(O); Pulse Ox 95% on R/A; Weight 78.93 kg; tl4 Height 5 ft. 11 in. ; Pain 8/10; 16:20 BP 123 / 95; Pulse 76; Resp 16; Pulse Ox 100% on R/A; mb9 17:53 BP 119 / 84; Pulse 70; Resp 18; Temp 98.3(O); Pulse Ox 97% on R/A; Pain 8/10; tl4 13:25 Body Mass Index 24.27 (78.93 kg, 180.34 cm) tl4 13:25 Pain Scale: Adult tl4 17:53 Pain Scale: Adult tl4 Hackberry Coma Score: 16:38 Eye Response: spontaneous(4). Motor Response: obeys commands(6). Verbal Response: josi oriented(5). Total: 15. MDM: 13:16 Patient medically screened. josi 16:40 Differential diagnosis: closed fracture, contusion, abrasion, tendonitis. Differential josi diagnosis: abrasion, closed head injury, contusion, fracture, laceration, multiple trauma, sprain, strain. Data reviewed: vital signs, nurses notes, EMS record, lab test result(s), EKG, radiologic studies, CT scan, plain films. Consideration of Admission/Observation Escalation of care including admission/observation considered. I considered the following discharge prescriptions or medication management in the emergency department Medications were administered in the Emergency Department. See MAR. Independent interpretation of the following test(s) in the Emergency Department EKG: See my EKG interpretation above. Test considered but Not performed: MRI: no mri brain. Historians other than the Patient: EMS: well informed. pt well informed. Care significantly affected by the following chronic conditions: Diabetes, Hypertension, cva, hiigh cholesterol. Counseling: I had a detailed discussion with the patient and/or guardian regarding the historical points, exam findings, and any diagnostic results supporting the discharge/admit diagnosis, lab results, radiology results, the need for outpatient follow up, for definitive care, a family practitioner, a orthopedic surgeon. 07/17 13:19 Order name: Basic Metabolic Panel; Complete Time: 16:34 josi 07/17 13:19 Order name: CBC with Diff; Complete Time: 14:44 07/17 13:19 Order name: LFT's; Complete Time: 16:34 07/17 13:19 Order name: Magnesium; Complete Time: 16:34 07/17 13:19 Order name: NT PRO-BNP; Complete Time: 16:34 07/17 13:19 Order name: PT-INR; Complete Time: 16:34 07/17 13:19 Order name: Troponin HS; Complete Time: 16:34 07/17 13:19 Order name: Urinalysis w/ reflexes; Complete Time: 14:44 07/17 13:19 Order name: XRAY Chest (1 view); Complete Time: 14:44 07/17 13:19 Order name: Pelvis XRAY; Complete Time: 14:44 07/17 13:19 Order name: Knee Right 3 View XRAY; Complete Time: 14:44 josi 07/17 13:19 Order name: CT Traumagram (Head C Spine CAP wo con); Complete Time: 14:44 07/17 13:19 Order name: Cardiac monitoring; Complete Time: 14:08 07/17 13:19 Order name: EKG - Nurse/Tech; Complete Time: 14:08 [facility] 07/17 13:19 Order name: IV Saline Lock; Complete Time: 14:08 [facility] 07/17 13:19 Order name: Labs collected and sent; Complete Time: 14:08 [facility] 07/17 13:19 Order name: O2 Per Protocol; Complete Time: 13:24 07/17 13:19 Order name: O2 Sat Monitoring; Complete Time: 13:24 07/17 13:19 Order name: Wound dressing; Complete Time: 16:08 [facility] Administered Medications: 14:08 Drug: NS 0.9% IV 500 ml IV at bolus once Route: IV; Rate: bolus; Site: left forearm; mb9 17:13 Follow up: Response: No adverse reaction; IV Status: Completed infusion mb9 14:27 Drug: Tetanus Toxoid,Adsorbed IM 0.5 ml IM once; Provide Vaccine Information Statement mb9 (VIS). {Runner Man: [employer]; Exp: SatApr 20 2025; Lot #: [id number]; Series: 1 of 1; Patient Consent: Obtained; Date/Time: ; Source Name: Dylon Hannon; Source Relationship: Self; Address Information: [address] [place] [address], [place] [address]; ; Education: Provided; VIS Presented Date: ; VIS Publication: Tetanus/Diphtheria (Td) VIS 05/12/2013 (historic)} Route: IM; Site: right deltoid; 17:12 Follow up: Response: No adverse reaction mb9 Disposition Summary: 07/18/23 16:43 Discharge Ordered Notes: Location: Home josi Problem: new josi Symptoms: have improved josi Condition: Stable josi Diagnosis - Fall on same level, unspecified josi - Abrasion, right knee josi - Weakness josi - Pain in right knee - tricompartment oa josi Followup: josi - With: Private Physician - When: 2 - 3 days - Reason: Recheck today's complaints, Continuance of care, Re-evaluation by your physician Followup: josi - With: Tony Perry MD - When: 2 - 3 days - Reason: Recheck today's complaints, Re-evaluation by your physician Discharge Instructions: - Discharge Summary Sheet josi - Abrasion josi - Musculoskeletal Pain josi - Weakness josi - Fatigue josi - Abrasion, [id number]-io-Tycj josi - Arthritis, Illq-ln-Wffe josi - Weakness, Bcma-up-Thqf josi - Wound Care, Adult josi - Ankle Pain josi - Joint Pain, [id number] josi - Deconditioning josi - Chronic Knee Pain, Adult, Davj-ga-Rlyl josi Forms: - Medication Reconciliation Form josi - Thank You Letter josi - Antibiotic Education josi - Prescription Opioid Use josi - Patient Portal Instructions josi - Leadership Thank You Letter josi Signatures: Dispatcher [employer] Kulwinder Dyer MD MD cha Breneman, Mary Beth RN RN mb9 Munir Childs RN RN tl4 Corrections: (The following items were deleted from the chart) 13:20 13:19 BASIC METABOLIC PANEL+C.LAB.BRZ ordered. EDMS EDMS 13:20 13:19 CBC+H.LAB.BRZ ordered. EDMS EDMS 13:20 13:19 HEPATIC FUNCTION+C.LAB.BRZ ordered. EDMS EDMS 13:20 13:19 MAGNESIUM+C.LAB.BRZ ordered. EDMS EDMS 13:20 13:19 PROBNP+C.LAB.BRZ ordered. EDMS EDMS 13:20 13:20 PROTIME (+INR)+COAG.LAB.BRZ ordered. EDMS EDMS 13:20 13:20 Troponin High Sensitivity+C.LAB.BRZ ordered. EDMS EDMS 13:20 13:20 Urinalysis+U.LAB.BRZ ordered. EDMS EDMS 13:20 13:20 Chest Single View+RAD.RAD.BRZ ordered. EDMS EDMS 13:20 13:20 Pelvis+RAD.RAD.BRZ ordered. EDMS EDMS 13:20 13:20 Knee Right 3 View+RAD.RAD.BRZ ordered. EDMS EDMS 13:20 13:20 Head C Spine Cap Wo Con+CT.RAD.BRZ ordered. EDMS EDMS
--- NOTE | 2023-07-18 16:43 | ER ---
Nurse's Notes [facility] Name: Dylon Hannon Age: 78 yrs Sex: Male : 1945 Arrival Date: 07/18/2023 Time: 13:05 Bed 6 Private MD: Diagnosis: Fall on same level, unspecified;Abrasion, right knee;Weakness;Pain in right knee-tricompartment oa Presentation: 07/17 13:25 Chief complaint: Patient states: Pt states he lost his balance while stepping off a tl4 curb in front of a restaurant. Pt states he fell into a parked vehicle and then to the ground, on his right hip and knee. Pt c/o right hip, knee and left ankle pain. Pt denies striking his head or LOC. Pt has discoloration around left eye from fall yesterday. Coronavirus screen: At this time, the client does not indicate any symptoms associated with coronavirus-19. Ebola Screen: No symptoms or risks identified at this time. Initial Sepsis Screen: Does the patient meet any 2 criteria? No. Patient's initial sepsis screen is negative. Does the patient have a suspected source of infection? No. Patient's initial sepsis screen is negative. Risk Assessment: Do you want to hurt yourself or someone else? Patient reports no desire to harm self or others. Onset of symptoms was July 18, 2023 at 12:30. 13:25 Method Of Arrival: [facility] tl4 13:25 Acuity: STEPHANIE 3 tl4 Triage Assessment: 13:29 General: Appears in no apparent distress. Behavior is calm, cooperative. Pain: tl4 Complains of pain in right hip and right knee and left ankle. EENT: No deficits noted. No signs and/or symptoms were reported regarding the EENT system. Neuro: Level of Consciousness is awake, alert, obeys commands, Oriented to person, place, time, situation, Marketing Development Representative are equal bilaterally Moves all extremities. Speech is normal, Facial symmetry appears normal, Pupils are PERRLA, Denies blurred vision paresthesias numbness. Cardiovascular: Denies chest pain, Capillary refill < 3 seconds Patient's skin is warm and dry. Respiratory: Airway is patent Respiratory effort is even, unlabored, Respiratory pattern is regular, symmetrical, Breath sounds are clear bilaterally. GI: Bowel sounds present X 4 quads. Abd is soft and non tender Patient currently denies diarrhea, nausea, vomiting. : No deficits noted. No signs and/or symptoms were reported regarding the genitourinary system. Derm: No deficits noted. No signs and/or symptoms reported regarding the dermatologic system. Musculoskeletal: Circulation, motion, and sensation intact. Capillary refill < 3 seconds, Range of motion: intact in all extremities, Pt has discoloration to left orbit. Superficial abrasions noted to right knee, left ankle. Historical: - Allergies: 13:27 No Known Allergies; tl4 - PMHx: 13:27 BPH; Cerebrovascular accident; Depression; diabetes mellitus; High Cholesterol; tl4 Hyperlipidemia; Psoriatic Arthritis; short term memory loss; Hypertensive disorder; Fractured left humerus; Erectile Dysfunction; Osteoporosis; - PSHx: 13:27 Appendectomy; tl4 Historical Immunization: - Administered Vaccines 14:27 Tetanus Toxoid,Adsorbed IM 0.5 ml mb9 Br[employer]: [employer]; Exp: SatApr 20 2025; Lot #: [id number]; Series: 1 of 1; Patient Consent: Obtained; Date/Time: ; Source Name: Dylon Hannon; Source Relationship: Self; Address Information: [address] [place] [address], [place] [address]; ; Education: Provided; VIS Presented Date: ; VIS Publication: Tetanus/Diphtheria (Td) VIS 05/12/2013 (historic) 14:08 NS 0.9% IV 500 ml mb9 - Immunization history:: Adult Immunizations unknown. - Infectious Disease History:: Denies. - Social history:: Smoking status: Patient reports the use of cigarette tobacco products, smokes one pack cigarettes per day. Screenin:32 [facility] ED Fall Risk Assessment (Adult) History of falling in the last 3 months, tl4 including since admission Yes- fall prone (multiple falls) (3 pts) Confusion or Disorientation No (0 pts) Intoxicated or Sedated No (0 pts) Impaired Gait No (0 pts) Mobility Assist Device Used No (0 pt) Altered Elimination No (0 pt) Score/Fall Risk Level 3 or more points = High Risk Oriented to surroundings, Maintained a safe environment, Educated pt \T\ family on fall prevention, incl call for assistance when getting out of bed, Assessed \T\ reinforced patient's understanding of fall precautions, Hourly rounding (assess needs \T\ fall precautionary measures) done, Used ambulatory aids as needed (educated on \T\ assisted with), Used gait belt as appropriate. Abuse screen: Denies threats or abuse. Denies injuries from another. Nutritional screening: No deficits noted. Tuberculosis screening: No symptoms or risk factors identified. Assessment: 14:27 Reassessment: No changes from previously documented assessment. Patient and/or family mb9 updated on plan of care and expected duration. Pain level reassessed. Patient is alert, oriented x 3, equal unlabored respirations, skin warm/dry/pink. 16:20 Reassessment: No changes from previously documented assessment. Patient and/or family mb9 updated on plan of care and expected duration. Pain level reassessed. Patient is alert, oriented x 3, equal unlabored respirations, skin warm/dry/pink. 16:45 Reassessment: discharge pending ride home. mb9 17:12 Reassessment: No changes from previously documented assessment. Patient and/or family mb9 updated on plan of care and expected duration. Pain level reassessed. Patient is alert, oriented x 3, equal unlabored respirations, skin warm/dry/pink. Vital Signs: 13:25 BP 151 / 66; Pulse 72; Resp 16; Temp 98.2(O); Pulse Ox 95% on R/A; Weight 78.93 kg; tl4 Height 5 ft. 11 in. ; Pain 8/10; 16:20 BP 123 / 95; Pulse 76; Resp 16; Pulse Ox 100% on R/A; mb9 17:53 BP 119 / 84; Pulse 70; Resp 18; Temp 98.3(O); Pulse Ox 97% on R/A; Pain 8/10; tl4 13:25 Body Mass Index 24.27 (78.93 kg, 180.34 cm) tl4 13:25 Pain Scale: Adult tl4 17:53 Pain Scale: Adult tl4 [place] Coma Score: 16:38 Eye Response: spontaneous(4). Motor Response: obeys commands(6). Verbal Response: josi oriented(5). Total: 15. ED Course: 13:16 Patient arrived in ED. sb4 13:16 Kulwinder Arnold MD is Attending Physician. josi 13:27 Triage completed. tl4 13:32 Arm band placed on right wrist. tl4 13:33 Patient has correct armband on for positive identification. Placed in gown. Bed in low tl4 position. Call light in reach. Side rails up X2. Provided Education on: ED process. Client placed on continuous cardiac and pulse oximetry monitoring. NIBP monitoring applied. surveillance monitor on. Door closed. Noise minimized. Moved to private room. Warm blanket given. Pillow given. 13:33 No provider procedures requiring assistance completed. tl4 13:40 CT Traumagram (Head C Spine CAP wo con) In Process Unspecified. EDMS 13:58 XRAY Chest (1 view) In Process Unspecified. EDMS 13:58 Pelvis XRAY In Process Unspecified. EDMS 13:58 Knee Right 3 View XRAY In Process Unspecified. EDMS 14:08 Inserted saline lock: 22 gauge in left forearm, using aseptic technique. Blood mb9 collected. 14:08 Basic Metabolic Panel Sent. mb9 14:08 CBC with Diff Sent. mb9 14:08 LFT's Sent. mb9 14:08 Magnesium Sent. mb9 14:09 NT PRO-BNP Sent. mb9 14:09 PT-INR Sent. mb9 14:09 Troponin HS Sent. mb9 14:27 Carol Siu, MALIA is Primary Nurse. mb9 14:27 Initial lab(s) drawn, by or, sent to lab. Urine collected: clean catch specimen, clear, mb9 EKG done, by ED staff, reviewed by Kulwinder Arnold MD. 16:42 Tony Perry MD is Referral Physician. [facility] 17:52 Wound care: to abrasion, located on right leg was cleaned with soap and water, dressed tl4 with Neosporin, band aid. 17:53 IV discontinued, intact, bleeding controlled, No redness/swelling at site. Pressure tl4 dressing applied. Administered Medications: 14:08 Drug: NS 0.9% IV 500 ml IV at bolus once Route: IV; Rate: bolus; Site: left forearm; mb9 17:13 Follow up: Response: No adverse reaction; IV Status: Completed infusion mb9 14:27 Drug: Tetanus Toxoid,Adsorbed IM 0.5 ml IM once; Provide Vaccine Information Statement mb9 (VIS). {Br[employer]: [employer]; Exp: SatApr 20 2025; Lot #: [id number]; Series: 1 of 1; Patient Consent: Obtained; Date/Time: ; Source Name: Dylon Hannon; Source Relationship: Self; Address Information: [address] [place] [address] [address], [facility] [address]; ; Education: Provided; VIS Presented Date: ; VIS Publication: Tetanus/Diphtheria (Td) VIS 05/12/2013 (historic)} Route: IM; Site: right deltoid; 17:12 Follow up: Response: No adverse reaction mb9 Medication: 14:08 VIS not applicable for this client. mb9 Outcome: 16:43 Discharge ordered by MD. prater 17:54 Discharged to home via wheelchair, tl4 17:54 Condition: good 17:54 Discharge instructions given to patient, Instructed on discharge instructions, follow up and referral plans. Demonstrated understanding of instructions, follow-up care, 17:54 Patient left the ED. tl4 Signatures: Dispatcher [employer] EDKulwinder Del Valle MD MD cha Brown, Sophia, PA-C PA-C [email or web address] Carol Siu RN RN mb9 Munir Childs RN RN tl4 Corrections: (The following items were deleted from the chart) 13:32 13:25 Chief complaint: Patient states: Pt states he lost his balance while stepping off tl4 a curb in front of a restaurant. Pt states he fell into a parked vehicle and then to the ground, on his right hip and knee. Pt c/o right hip, knee and left ankle pain. Pt denies striking his head or LOC tl4
[2023-07-18 21:41] VITALS: BP 119/84; TEMP 98.3; O2SAT 97
--- NOTE | 2023-07-19 13:38 | EKG ---
Test Date: 2023-07-18 Test Time: 14:21:48 Chiller Operator: MB MEASUREMENT RESULTS: Intervals: Rate: 70 MA: 154 QRSD: 80 QT: 404 QTc: 436 [place]: P: 18 MA: 154 QRS: 73 T: 66 INTERPRETIVE STATEMENTS: Normal sinus rhythm Nonspecific ST abnormality Abnormal ECG Compared to ECG 07/11/2023 00:39:41 ST (T wave) deviation now present Sinus bradycardia no longer present Electronically Signed On 07-19-23 13:37:28 CDT by Rajesh Huber
== END 2023-07-18 17:54 | disposition home or self-care (01) ==
LOC: ER 13:05
DX: S80.211A Abrasion, right knee, initial encounter (principal); R53.1 Weakness; M17.11 Unilateral primary osteoarthritis, right knee; W18.30XA Fall on same level, unspecified, initial encounter; F17.210 Nicotine dependence, cigarettes, uncomplicated; Z23 Encounter for immunization
CPT/HCPCS: 96361; 93005; 85025; 81001; 80048; 36415; 83735; 85610; 80076; 84484; 83880; 70450; 71250; 72125; 71045; 72170; 73562; 90471; 96360; 99285; J7040

== ENCOUNTER 2023-07-23 13:06 | Emergency (ER) | payer OTHER ==
[2023-07-23] MEDS ORDERED: DIAZEPAM 10 MG/2 ML INJ SYRINGE ONE (13:37)
[2023-07-23] MEDS ORDERED: IBUPROFEN 400 MG TAB ONE (13:38)
[2023-07-23] MEDS ORDERED: ACETAMINOPHEN 500 MG TAB ONE (13:38)
--- NOTE | 2023-07-23 14:24 | RAD REPORT ---
EXAM DESCRIPTION: CT - Spine Lumbar Wo Con - 07/23/2023 1:22 pm CLINICAL HISTORY: fall COMPARISON: Head C Spine Cap Wo Con dated 07/18/2023 TECHNIQUE: Axial noncontrast CT imaging of the lumbar spine was performed with coronal and sagittal re-formatted images. All CT scans are performed using dose optimization technique as appropriate and may include automated exposure control or mA/KV adjustment according to patient size. FINDINGS: No acute lumbar spine fracture seen. No aggressive marrow pattern or malalignment. Paraspinal tissues are normal in thickness. No paraspinal abscess or hematoma seen. Intervertebral disc disease assessment is inherently limited by CT. Within these limitations, no high -grade canal stenosis suspected. Multilevel degenerative changes with variable degrees of disc height loss most pronounced at L2-3 and L3-4. Endplate remodeling and facet arthropathy contribute to up to moderate degrees of neural foraminal narrowing most notably on the left at L5-S1, on the right at L4 -5, and bilaterally at L2-3. Incompletely imaged exophytic right renal superior pole cyst measuring at least 4.7 cm in, stable. IMPRESSION: No acute lumbar spine fracture or subluxation. Multilevel degenerative changes as above, with up to moderate degrees of neural foraminal narrowing. Please consider MRI follow-up for assessment of disc disease and neural impingement if clinically erasmo ired.
--- NOTE | 2023-07-23 14:31 | ER ---
Nurse's Notes [facility] Name: Dylon Hannon Age: 78 yrs Sex: Male : 1945 Arrival Date: 07/23/2023 Time: 13:06 Bed 6 Private MD: Diagnosis: Low back pain Presentation: 07/22 12:58 Chief complaint: EMS states: FALL MID LOW BACK PAIN ON SATURDAY. EVALUATED SATURDAY AND db SENT HOME. FROM HOME EMS FOUND ON BED. TOOK IBUPROFEN. Coronavirus screen: Vaccine status: Client denies travel out of the [place] in the last 14 days. At this time, the client does not indicate any symptoms associated with coronavirus-19. Ebola Screen: Patient negative for fever greater than or equal to 101.5 degrees Fahrenheit, and additional compatible Ebola Virus Disease symptoms Patient denies exposure to infectious person. Patient denies travel to an Ebola-affected area in the 21 days before illness onset. No symptoms or risks identified at this time. Initial Sepsis Screen: Does the patient meet any 2 criteria? No. Patient's initial sepsis screen is negative. Does the patient have a suspected source of infection? No. Patient's initial sepsis screen is negative. Risk Assessment: Do you want to hurt yourself or someone else? Patient reports no desire to harm self or others. Onset of symptoms was July 23, 2023. 12:58 Method Of Arrival: EMS: [facility] db 12:58 Acuity: STEPHANIE 4 db Triage Assessment: 12:58 General: Appears in no apparent distress. uncomfortable, Behavior is calm, cooperative. db Pain: Complains of pain in back. Historical: - Allergies: 13:14 No Known Allergies; db - PMHx: 13:14 Cerebrovascular accident; diabetes mellitus; Erectile Dysfunction; Fractured left db humerus; Depression; BPH; Hyperlipidemia; High Cholesterol; Osteoporosis; Hypertensive disorder; short term memory loss; Psoriatic Arthritis; - PSHx: 13:14 Appendectomy; db - Immunization history:: Adult Immunizations unknown. - Infectious Disease History:: Denies. - Social history:: Smoking status: Patient denies any tobacco usage or history of. Screenin:44 [facility] ED Fall Risk Assessment (Adult) History of falling in the last 3 months, kn including since admission Yes- fall prone (multiple falls) (3 pts). Abuse screen: Denies threats or abuse. Nutritional screening: No deficits noted. Tuberculosis screening: No symptoms or risk factors identified. Assessment: 13:48 Reassessment: Patient appears in no apparent distress at this time. Patient and/or iw family updated on plan of care and expected duration. Pain level reassessed. 14:00 Reassessment: Patient appears in no apparent distress at this time. Patient is alert, kn oriented x 3, equal unlabored respirations, skin warm/dry/pink. Patient states symptoms have improved. 14:54 Reassessment: CALLED PT CONTACT NUMBER ON FACE SHEET NO ANSWER [phone]. CALLED db MARNIE VELA AND NO ANSWER TO VOICE MAIL. LEFT MESSAGE FOR RETURN CALL BACK. NOTIFIED CHARGE NURSE. 14:59 Reassessment: PT DC PENDING RIDE. db 15:34 Reassessment: CALLED HERBER VELA AGAIN [phone] STATES WILL BE UNAVAILABLE TILL db 5:15 PM TODAY. Vital Signs: 12:58 BP 186 / 80; Pulse 59; Resp 18; Temp 98; Pulse Ox 100% on R/A; Weight 77.11 kg; Height db 5 ft. 11 in. ; Pain 3/10; 13:48 BP 163 / 67; Pulse 55; Resp 16; Pulse Ox 100% on R/A; iw 14:00 BP 164 / 64; Pulse 55; Resp 18; Pulse Ox 99% ; kn 12:58 Body Mass Index 23.71 (77.11 kg, 180.34 cm) db 12:58 Pain Scale: Adult db ED Course: 12:58 Arm band placed on Patient placed in an exam room. db 13:10 Patient arrived in ED. ec2 13:10 Bharath Godinez MD is Attending Physician. ec2 13:11 Gloria Tony, MALIA is Primary Nurse. db 13:13 Triage completed. db 13:22 CT Lumbar Spine Wo Con In Process Unspecified. EDMS 13:48 Client placed on continuous cardiac and pulse oximetry monitoring. NIBP monitoring iw applied. Door closed. Lights dimmed. Warm blanket given. PO fluids given. 14:44 Patient has correct armband on for positive identification. Call light in reach. Side kn rails up X 1. Side rails up X2. Provided Education on: Fall Precaution, Back pain. 14:44 No provider procedures requiring assistance completed. Patient did not have IV access kn during this emergency room visit. Administered Medications: 13:47 Drug: Acetaminophen PO 1000 mg PO once Route: PO; iw 14:48 Follow up: Response: No adverse reaction kn 13:47 Drug: Ibuprofen PO 400 mg PO once Route: PO; iw 14:47 Follow up: Response: No adverse reaction kn 13:48 Drug: Diazepam IM 5 mg IM once Route: IM; Site: right deltoid; iw 14:48 Follow up: Response: No adverse reaction kn 14:44 Drug: Methocarbamol PO 500 mg PO once Route: PO; kn 14:47 Follow up: Response: No adverse reaction kn Medication: 14:44 VIS not applicable for this client. kn Outcome: 14:31 Discharge ordered by . [email or web address] 14:44 Discharged to home ambulatory, via wheelchair, kn 14:44 Condition: stable 14:44 Discharge instructions given to patient, 15:46 Patient left the ED. db Signatures: Dispatcher [employer] Jazzy Gillis RN RN iw Benton, Danielle, RN RN db Corral, Edwin, MD MD ec2 NICOLOSI, KARLENE, RN RN kn
--- NOTE | 2023-07-23 14:31 | EDPHYS ---
Physician Documentation [facility] Name: Dylon Hannon Age: 78 yrs Sex: Male : 1945 Arrival Date: 07/23/2023 Time: 13:06 Bed 6 Private MD: ED Physician Bharath Godinez HPI: 07/22 13:14 This 78 yrs old Male presents to ER via EMS with complaints of back pain. ec2 13:14 Patient arrives today for evaluation of low back pain. Patient with recent fall ec2 approximately 4 days ago, external workup showed the patient had a CT scan of the head, C-spine, chest, abdomen, pelvis showed no traumatic pathology. Patient with persistent low back pain. No new falls or injuries or trauma, denies red flag symptoms. Has been taking Lidoderm patches to help with symptoms. Historical: - Allergies: 13:14 No Known Allergies; db - PMHx: 13:14 Cerebrovascular accident; diabetes mellitus; Erectile Dysfunction; Fractured left db humerus; Depression; BPH; Hyperlipidemia; High Cholesterol; Osteoporosis; Hypertensive disorder; short term memory loss; Psoriatic Arthritis; - PSHx: 13:14 Appendectomy; db - Immunization history:: Adult Immunizations unknown. - Infectious Disease History:: Denies. - Social history:: Smoking status: Patient denies any tobacco usage or history of. ROS: 13:14 Constitutional: as per hpi ec2 Exam: 13:14 Constitutional: GEN: NAD Head: atraumatic Eyes: EOMI Ears: External ears are ec2 normal. CV: regular rate LUNGS: no respiratory distress ABD: non-distended SKIN: no evidence of rashes MSK: No C/T/L spine deformities. Paraspinal TTP in the L-spine area. NEURO: moves all extremities equally Vital Signs: 12:58 BP 186 / 80; Pulse 59; Resp 18; Temp 98; Pulse Ox 100% on R/A; Weight 77.11 kg; Height db 5 ft. 11 in. ; Pain 3/10; 13:48 BP 163 / 67; Pulse 55; Resp 16; Pulse Ox 100% on R/A; iw 14:00 BP 164 / 64; Pulse 55; Resp 18; Pulse Ox 99% ; kn 12:58 Body Mass Index 23.71 (77.11 kg, 180.34 cm) db 12:58 Pain Scale: Adult db MDM: 13:10 Patient medically screened. ec2 13:14 Data reviewed: vital signs. ED course: Patient arrives today for evaluation of low back ec2 pain. Examination remarkable for MSK findings as above. Will obtain L-spine imaging and treat the patient's pain. Suspect bony contusion versus muscular sprain causing the patient's symptoms. Doubt fracture given lack of focal symptoms.. 14:27 ED course: CT of the L-spine shows no acute fracture, arthritis noted. Patient without ec2 any red flag symptoms to indicate spinal cord pathology will defer any MRI. . 14:30 ED course: On reassessment patient is well-appearing no acute distress. Will give the ec2 patient additional dose of Robaxin and prescribe her Robaxin as needed for pain. Patient ultimately lives alone and is certainly a fall risk, discussed possible admission to the hospital versus return to home, patient states he felt comfortable returning home, instructed him that he is likely to have a fall as he has had multiple falls over the past couple of weeks. Patient expressed understanding, will return if he changes his mind. Return precautions given.. 07/22 13:11 Order name: CT Lumbar Spine Wo Con; Complete Time: 14:26 ec2 Administered Medications: 13:47 Drug: Acetaminophen PO 1000 mg PO once Route: PO; iw 14:48 Follow up: Response: No adverse reaction kn 13:47 Drug: Ibuprofen PO 400 mg PO once Route: PO; iw 14:47 Follow up: Response: No adverse reaction kn 13:48 Drug: Diazepam IM 5 mg IM once Route: IM; Site: right deltoid; iw 14:48 Follow up: Response: No adverse reaction kn 14:44 Drug: Methocarbamol PO 500 mg PO once Route: PO; kn 14:47 Follow up: Response: No adverse reaction kn Disposition Summary: 07/23/23 14:31 Discharge Ordered Notes: Location: Home ec2 Condition: Stable ec2 Diagnosis - Low back pain ec2 Followup: ec2 - With: Private Physician - When: - Reason: Re-evaluation by your physician Discharge Instructions: - Discharge Summary Sheet ec2 - Acute Back Pain, Adult ec2 Forms: - Medication Reconciliation Form ec2 - Thank You Letter ec2 - Antibiotic Education ec2 - Prescription Opioid Use ec2 - Patient Portal Instructions ec2 - Leadership Thank You Letter ec2 Prescriptions: - methocarbamol 500 mg Oral tablet - take 1 tablet ORAL route 4 times per day; 15 tablet; Refills: 0, Product ec2 Selection Permitted Signatures: Dispatcher [employer] Jazzy Gillis RN RN iw Gloria Tony RN RN db Corral, Edwin, MD MD ec2 ANTOINE HUERTA RN RN kn Corrections: (The following items were deleted from the chart) 13:15 13:14 Patient arrives today for evaluation of low back pain. Patient with recent fall ec2 approximately 4 days ago, external workup showed the patient had a CT scan of the head, C-spine, chest, abdomen, pelvis showed no traumatic pathology. Patient with persistent low back pain. No new falls or injuries or trauma, denies red flag symptoms. Has been taking Lidoderm patches out with the symptoms.. ec2
[2023-07-23] MEDS ORDERED: methocarbamoL 500 MG TAB ONE (14:35)
[2023-07-23 19:49] VITALS: BP 164/64; O2SAT 99
== END 2023-07-23 15:46 | disposition home or self-care (01) ==
LOC: ER 13:06
DX: M54.50 Low back pain, unspecified (principal)
CPT/HCPCS: 72131; 96372; 99284; J3360

== ENCOUNTER 2023-08-01 12:24 | Inpatient (IN) | payer OTHER ==
--- NOTE | 2023-08-01 13:40 | RAD REPORT ---
EXAM DESCRIPTION: Marvt Single View08/01/2023 1:04 pm CLINICAL HISTORY: fall COMPARISON: Chest Single View dated 07/18/2023; Chest Single View dated 07/10/2023; Chest Single View d ated 02/21/2022; Chest Pa And Lat (2 Views) dated 12/09/2021; Head C Spine Cap Wo Con dated 07/18/2023 TECHNIQUE: Portable AP view of the chest. FINDINGS: Decreased inspiratory effort limits evaluation. The lungs are clear. No pneumothorax or e ffusion. The cardiomediastinal contours are unchanged with tortuosity of the thoracic aorta. IMPRESSION: No acute cardiopulmonary process. Stable findings as above.
[2023-08-01 13:43] LABS: Absolute Basophils 0.1 K/uL (0-0.5); Absolute Eosinophils 0.3 K/uL (0-0.5); Absolute Lymphocytes (CBC) 2.2 K/uL (0.7-4.9); Absolute Monocytes 0.9 K/uL (0.1-1.3); Basophils % 1.2 % (0-1.3); Eosinophils % 3.2 % (0-4.4); Hematocrit 43.3 % (39.6-49.0); Hemoglobin 14.9 g/dL (13.6-17.9); MCH 30.9 pg (27.0-35.0); MCHC 34.5 g/dL (32.0-36.0); MCV 89.4 fL (80-100); MPV 7.6 fL (7.6-11.3); Monocytes % 9.4 % (3.3-12.3); Neutrophils % 63.2 % (41.7-73.7); Nucleated Red Blood Cells % 0.2 % (0-0); Platelets 147 thou/uL (152-406); RBC Red Blood Cell Count 4.84 M/uL (4.33-5.43); Red Cell Distribution Width 13.6 % (12.1-15.2)
[2023-08-01 14:04] LABS: Albumin 3.4 g/dL (3.4-5.0); Albumin/Globulin Ratio 0.9 (1.1-1.8); Anion Gap 7.5 mEq/L (5.0-15.0); Bilirubin Direct 0.2 mg/dL (0-0.2); Bilirubin Indirect, Calculated 0.5 mg/dL (0.2-0.8); Bilirubin Total 0.7 mg/dL (0.2-1.0); Globulin 3.8 g/dL (2.3-3.5); Magnesium 2.2 mg/dL (1.6-2.4); Potassium 3.5 mEq/L (3.5-5.1); Protein, Total 7.2 g/dL (6.4-8.2)
[2023-08-01 14:07] LABS: Troponin High Sensitivity 89.8 pg/mL (<58.9)
[2023-08-01 14:19] LABS: Specific Gravity 1.011 (1.005-1.030); Sqamous Epithelial None Seen /HPF (None Seen); Urine Bacteria None Seen /HPF (<20); Urine Bilirubin NEGATIVE (Negative); Urine Blood Negative (Negative); Urine Clarity Clear (Clear); Urine Color Colorless (Yellow); Urine Culture Reflex Order NOT NEEDED; Urine Glucose NEGATIVE (Negative); Urine Ketones TRACE (Negative); Urine Micro Reflex YN NO BILL MICROSCOPIC; Urine Nitrite NEGATIVE (Negative); Urine Protein TRACE (Negative); Urine RBC <5 /HPF (None Seen); Urine Urobilinogen Normal (Normal); Urine WBC <5 /HPF (<5)
--- NOTE | 2023-08-01 14:41 | P.HP ---
Certification for Inpatient Patient admitted to: Inpatient With expected LOS: >2 Midnights Patient will require the following post-hospital care: Home Health Services Practitioner: I am a practitioner with admitting privileges, knowledge of patient current condition, hospital course, and medical plan of care. Services: Services provided to patient in accordance with Admission requirements found in Title 42 Section 412.3 of the Code of Federal Regulations <Rosamaria Celis - Last Filed: 08/01/23 20:02> Patient History Date of Service: 08/01/23 <Maryana Bain Casimiro - Last Filed: 08/01/23 18:49> Date of Service: 08/01/23 Reason for admission: Elevated troponin, NSTEMI History of Present Illness: Mr. Hannon is a 78-year-old gentleman with a past medical history of hypertension, hyperlipidemia, diet-controlled diabetes, & BPH, who smokes 1/2 pack of cigarettes per day. He is a patient of the [place]. Most history is obtained from the chart as he is a poor historian. Some of his prior meds such as methotrexate and sulfasalazine and Humira indicate some type of autoimmune disease. He was in the emergency department at [facility] about 2 weeks ago after a fall. He received 8 stitches to his left upper brow. He was given Robaxin for home use. He lives alone. He has assistive devices at home such as a walker, wheelchair, and has a caregiver Saturday through Saturday. The caregiver arrived today and found Mr. Hannon on the floor next to the sofa. Mr. Hannon says he slipped off the sofa, denies loss of consciousness, denies pain, but states he was too weak to get up. On evaluation in the emergency department he has noted to have an elevated troponin of 89.8, his other labs are unremarkable. His EKG is sinus bradycardia with no ectopy or concerning findings. Chest x-ray shows no acute cardiopulmonary process. Mr. Hannon will be admitted to the hospital for further investigation and treatment with consultation to Dr. Huber. Dr. Huber actually saw the patient in the emergency department and plans for cardiac cath tomorrow. He requested an echo be ordered. And the patient will be n.p.o. postmidnight. Home medications list reviewed: Yes - Past Medical/Surgical History Has patient received pneumonia vaccine in the past: No Diabetic: Yes -: Hypertension -: Hyperlipidemia -: Diabetes most type IIdiet controlled -: BPH -: thyroid -: Knee surgery -: Thyroid surgery -: Appendectomy Psychosocial/ Personal History: Patient lives at home, alone - Family History Father -: Cancer Mother -: Cancer - Social History Smoking Status: Light Tobacco smoker (1-9 cigarettes/day) Alcohol use: Yes CD- Drugs: No Caffeine use: Yes Place of Residence: Home <Rosamaria Celis - Last Filed: 08/01/23 20:02> Allergies No Known Allergies Allergy (Verified 08/16/21 22:35) Home Medications: Adalimumab [Humira(Cf) Pen] 40 mg SQ EVERY 7TH DAY 08/16/21 Amlodipine Besylate 5 mg PO DAILY 08/16/21 buPROPion HCL [Wellbutrin Xl] 150 mg PO BID 08/16/21 Calcium Carbonate 500 mg PO TID 08/17/21 Folic Acid 1 mg PO DAILY 08/17/21 Lisinopril [Zestril] 20 mg PO DAILY 08/17/21 Loratadine [Claritin*] 10 mg PO DAILY 08/17/21 Methotrexate [Methotrexate*] 4 tab PO EVERY 7TH DAY 08/17/21 Pyridoxine HCl (Vitamin B6) [Pyridoxine HCl] 50 mg PO DAILY 08/17/21 Trazodone HCl 100 mg PO DAILY 08/17/21 sulfaSALAzine [Sulfasalazine] 500 mg PO BID 08/17/21 Thiamine HCl [Vitamin B-1] 100 mg PO BID 30 Days #60 tablet 08/18/21 Review of Systems 10-point ROS is otherwise unremarkable General: Weakness, As per HPI Cardiovascular: As per HPI Integumentary: As per HPI <Rosamaria Celis - Last Filed: 08/01/23 20:02> Physical Examination - Studies Laboratory Data (last 24 hrs) 08/01/23 08/01/23 13:30 13:30 WBC 9.50 Hgb 14.9 Hct 43.3 Plt Count 147 L Sodium 137 Potassium 3.5 BUN 14 Creatinine 1.09 Glucose 115 H Magnesium 2.2 Total Bilirubin 0.7 AST 21 ALT 20 Alkaline Phosphatase 128 H <Maryana Bain - Last Filed: 08/01/23 18:49> - Physical Exam General: Alert, In no apparent distress, Oriented x3 HEENT: Atraumatic, Normocephalic Neck: Supple, JVD not distended Respiratory: Normal air movement Cardiovascular: Regular rate/rhythm, Systolic murmur Capillary refill: <2 Seconds Gastrointestinal: Soft and benign Musculoskeletal: No clubbing, No swelling Integumentary: No rashes, Other (sutures from left brow removed by me x 8, wound edges well approximated) Neurological: Normal speech, Normal tone Lymphatics: No axilla or inguinal lymphadenopathy External genitalia: Deferred Rectal: Deferred - Studies Laboratory Data (last 24 hrs) 08/01/23 08/01/23 13:30 13:30 WBC 9.50 Hgb 14.9 Hct 43.3 Plt Count 147 L Sodium 137 Potassium 3.5 BUN 14 Creatinine 1.09 Glucose 115 H Magnesium 2.2 Total Bilirubin 0.7 AST 21 ALT 20 Alkaline Phosphatase 128 H <Rosamaria Celis - Last Filed: 08/01/23 20:02> Assessment and Plan Physician Review Additional Text: Pt seen and examined. I agree with the note by the MEDICAL STAFF MANAGER. Pt is a 78yo male with past medical history of hypertension, hyperlipidemia, diabetes, and BPH who presents in the ER after his caregiver found him on the floor. 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 Her client care consultant found him on the floor. Pt said he slipped off his sofa and fell. She called EMS and brought pt to the ER for evaluation. On admission, lab studies show troponin 89.8. EKG shows sinus bradycardia. CXR is unremarkable. Cardiology plans to do cardiac cath tomorrow. At bedside, pt is in NAD. A/P: NSTEMI: troponin is 89.8. Will give heparin drip continue aspirin, BB and statin. Cardiology will do cardiac cath tomorrow. Will keep pt NPO after midnight. DM II: Continue accuchek, SSI and ADA diet. Htn: Continue home med HLD: statin Code: full <Maryana Bain - Last Filed: 08/01/23 18:49> - Plan Elevated Troponin/HTN urgency (199/75) Consult Dr. Huber NPO p MN for cath in am Trend troponins Aspirin 81mg po daily Generalized weakness: Assist with ambulation Monitor and trend electrolytes, replete prn HTN Lisinopril 20mg po daily Amlodipine 5mg po daily HLD Atorvastatin Hyperglycemia (hx) HgbA1c trend, FSBS ac/hs with SSI Hypothyroidism TSH DVT/GI prophylaxis Lovenox 40mg sc SCDs Protonix Code status: DNR - Advance Directives Does patient have a Living Will: No Does patient have a Durable POA for Healthcare: No - Code Status/Comfort Care Code Status: Do Not Attempt Resuscitat <Rosamaria Cleis - Last Filed: 08/01/23 20:02>
--- NOTE | 2023-08-01 14:44 | ER ---
Nurse's Notes [facility] Name: Dylon Hannon Age: 78 yrs Sex: Male : 1945 Arrival Date: 08/01/2023 Time: 12:24 Bed 18 Private MD: Diagnosis: NSTEMI Presentation: 07/31 12:33 Chief complaint: EMS states: fall last night. Was on the floor all night. Care prior to cp4 arrival: c-collar. Mechanism of Injury: Fall. Mechanism of Injury: Fall from standing position. Trauma event details: Injury occurred in the [facility]. Activity prior to arrival: None. 12:33 Acuity: STEPHANIE 3 cp4 12:33 Method Of Arrival: EMS: [facility] cp4 16:34 Coronavirus screen: Client denies travel out of the [place] in the last 14 days. At this cp4 time, the client does not indicate any symptoms associated with coronavirus-19. Ebola Screen: Patient negative for fever greater than or equal to 101.5 degrees Fahrenheit, and additional compatible Ebola Virus Disease symptoms Patient denies exposure to infectious person. Patient denies travel to an Ebola-affected area in the 21 days before illness onset. No symptoms or risks identified at this time. Initial Sepsis Screen: Does the patient meet any 2 criteria? No. Patient's initial sepsis screen is negative. Does the patient have a suspected source of infection? No. Patient's initial sepsis screen is negative. Risk Assessment: Do you want to hurt yourself or someone else? Patient reports no desire to harm self or others. Onset of symptoms was July 30, 2023. Trauma Activation: Not Applicable Physician: ED Physician; Name: ; Notified At: ; Arrived At: Physician: General Surgeon; Name: ; Notified At: ; Arrived At: Physician: Radiology; Name: ; Notified At: ; Arrived At: Physician: Respiratory; Name: ; Notified At: ; Arrived At: Physician: Lab; Name: ; Notified At: ; Arrived At: Historical: - Home Meds: 15:52 amlodipine 10 mg tab 1 tab once daily [Active]; atorvastatin 40 mg Oral tab 1 tab once cp4 daily [Active]; bupropion HCl 300 mg Oral Tb24 1 tab [Active]; calcium carbonate 500 mg calcium (1 Oral cap twice a day [Active]; Dulcolax (bisacodyl) 5 mg Oral TbEC 2 tabs once daily [Active]; levothyroxine 50 mcg cap 1 cap once daily [Active]; lisinopril 20 mg Oral tab 1 tab once daily [Active]; melatonin 3 mg Oral cap [Active]; mirtazapine 30 mg Oral tab 1 tab once daily [Active]; pyridoxine (vitamin B6) 50 mg Oral tab twice a day [Active]; sulfasalazine 500 mg Oral TbEC 1 tab 4 times per day [Active]; tamsulosin 0.4 mg Oral cap 2 caps once daily [Active]; trazodone 50 mg Oral tab 1 tab 3 times per day [Active]; Vitamin D3 50 mcg (2 Oral cap twice a day [Active]; - PMHx: 15:52 BPH; Cerebrovascular accident; Depression; diabetes mellitus; Erectile Dysfunction; cp4 Fractured left humerus; High Cholesterol; Hyperlipidemia; Hyperlipidemia; Hypertensive disorder; Osteoporosis; Psoriatic Arthritis; short term memory loss; - PSHx: 15:52 Appendectomy; cp4 - Immunization history: Last tetanus immunization: - up to date. - Infectious Disease History:: Denies. CDIFF, C. Auris, ESBL, MRSA (w/in 1 year), VRE (w/in 1 year), TB, . - Social history:: Smoking status: Patient denies any tobacco usage or history of. Screenin:33 Abuse screen: Denies threats or abuse. Nutritional screening: No deficits noted. cp4 Tuberculosis screening: No symptoms or risk factors identified. 15:52 [facility] ED Fall Risk Assessment (Adult) History of falling in the last 3 months, cp4 including since admission Yes- fall prone (multiple falls) (3 pts) Confusion or Disorientation No (0 pts) Intoxicated or Sedated No (0 pts) Impaired Gait No (0 pts) Mobility Assist Device Used No (0 pt) Altered Elimination No (0 pt) Score/Fall Risk Level 3 or more points = High Risk Oriented to surroundings, Maintained a safe environment, Assessed \T\ reinforced patient's understanding of fall precautions, Hourly rounding (assess needs \T\ fall precautionary measures) done, Used ambulatory aids as needed (educated on \T\ assisted with). Primary Survey: 12:33 NO uncontrolled hemorrhage observed. A: The client is awake and alert. The airway is cp4 patent. A: The client is alert. Breathing/Chest: Spontaneous respiratory effort, equal unlabored respirations, breath sounds clear bilaterally, regular pattern, symmetrical chest rise and fall. Circulation: No external hemorrhage present. Regular and strong central pulse, skin warm/dry/normal color. Disability Pupils are equal, round, reactive to light and accommodation. Client is alert. Exposure/Environment: A warming method has been applied: A warm blanket has been provided to the patient. Reassessment Alertness and Airway: Awake and alert. The airway is patent. Breathing: Spontaneous respiratory effort, equal unlabored respirations, breath sounds clear bilaterally, regular pattern with symmetrical chest rise and fall. Circulation: No external hemorrhage noted. Regular and strong central pulse, skin warm/dry/normal color. Disability: Pupils Pupils are equal, round, reactive to light and accomodation. Alert. Assessment: 12:33 General: Appears in no apparent distress. Behavior is calm, cooperative, appropriate cp4 for age. Pain: Complains of pain in neck and back. Injury Description: contusion. Vital Signs: 12:33 BP 197 / 77; Pulse 91; Resp 18; Pulse Ox 98% ; cp4 13:30 BP 173 / 73; Pulse 53; Resp 18; Pulse Ox 100% ; cp4 14:30 BP 189 / 76; Pulse 52; Resp 18; Pulse Ox 100% ; cp4 15:30 BP 176 / 68; Pulse 54; Resp 18; Pulse Ox 99% ; cp4 [place] Coma Score: 12:33 Eye Response: spontaneous(4). Motor Response: obeys commands(6). Verbal Response: cp4 oriented(5). Total: 15. Trauma Score (Adult): 12:33 Eye Response: spontaneous(1); Verbal Response: oriented(1); Motor Response: obeys cp4 commands(2); Systolic BP: > 89 mm Hg(4); Respiratory Rate: 10 to 29 per min(4); [place] Score: 15; Trauma Score: 12 ED Course: 12:32 Patient arrived in ED. cp4 12:32 Cate Jha is Primary Nurse. cp4 12:33 Patient has correct armband on for positive identification. Bed in low position. Call cp4 light in reach. Side rails up X2. 12:33 O2 via room air. cp4 12:34 Triage completed. cp4 12:38 Guteirrez, Setul, MD is Attending Physician. sp3 13:06 XRAY Chest (1 view) In Process Unspecified. EDMS 14:43 Maryana Bain MD is Hospitalizing Provider. sp3 15:52 No provider procedures requiring assistance completed. Inserted saline lock: 22 gauge cp4 in right antecubital area, using aseptic technique. Blood collected. 20:18 Provided Education on: NSTEMI. cp4 20:18 Patient admitted, IV remains in place. cp4 20:20 Arm band placed on right wrist. Patient placed in an exam room, on a stretcher. cp4 20:20 Thermoregulation: warm blanket given to patient. cp4 Administered Medications: No medications were administered Medication: 15:52 VIS not applicable for this client. cp4 Intake: 12:33 PO: 0ml; Total: 0ml. cp4 Output: 12:33 Urine: 0ml; Total: 0ml. cp4 Outcome: 14:43 Decision to Hospitalize by Provider. sp3 16:37 Patient's length of stay in the Emergency Department was greater than 2 hours. Bed cp4 statusPatient's length of stay extended due to 20:18 Admitted to ER Hold. Please see [facility] for further documentation. cp4 20:18 Condition: stable 20:18 Instructed on the need for admit, Demonstrated understanding of instructions, 20:57 Patient left the ED. cp4 Signatures: Dispatcher [employer] [facility] Isi Gutierrez MD MD sp3 Cate Jha cp4
--- NOTE | 2023-08-01 14:44 | EDPHYS ---
Physician Documentation [facility] Name: Dylon Hannon Age: 78 yrs Sex: Male : 1945 Arrival Date: 08/01/2023 Time: 12:24 Bed 18 Private MD: ED Physician Isi Gutierrez HPI: 07/31 12:54 This 78 yrs old Male presents to ER via EMS with complaints of slid off couch and sp3 couldn't get up. 12:54 78-year-old male with history of CVA, hyperlipidemia, hypertension, diabetes and sp3 history of multiple recurrent falls now presents to the ED with chief complaint "I slid off the couch and was on the floor and could not get back up". He denies any hard fall or traumatic injury or loss of consciousness or head injury. Caregiver found him this morning and due to him being on the ground for so long referred him here to the ED via EMS. Patient denies any pain or other ongoing symptoms other than feeling tired. He currently denies headache, neck pain, chest pain, shortness of breath, abdominal pain, vomiting, diarrhea, rash, or any other signs or symptoms on ROS at this time.. Historical: - Home Meds: 15:52 amlodipine 10 mg tab 1 tab once daily [Active]; atorvastatin 40 mg Oral tab 1 tab once cp4 daily [Active]; bupropion HCl 300 mg Oral Tb24 1 tab [Active]; calcium carbonate 500 mg calcium (1 Oral cap twice a day [Active]; Dulcolax (bisacodyl) 5 mg Oral TbEC 2 tabs once daily [Active]; levothyroxine 50 mcg cap 1 cap once daily [Active]; lisinopril 20 mg Oral tab 1 tab once daily [Active]; melatonin 3 mg Oral cap [Active]; mirtazapine 30 mg Oral tab 1 tab once daily [Active]; pyridoxine (vitamin B6) 50 mg Oral tab twice a day [Active]; sulfasalazine 500 mg Oral TbEC 1 tab 4 times per day [Active]; tamsulosin 0.4 mg Oral cap 2 caps once daily [Active]; trazodone 50 mg Oral tab 1 tab 3 times per day [Active]; Vitamin D3 50 mcg (2 Oral cap twice a day [Active]; - PMHx: 15:52 BPH; Cerebrovascular accident; Depression; diabetes mellitus; Erectile Dysfunction; cp4 Fractured left humerus; High Cholesterol; Hyperlipidemia; Hyperlipidemia; Hypertensive disorder; Osteoporosis; Psoriatic Arthritis; short term memory loss; - PSHx: 15:52 Appendectomy; cp4 - Immunization history: Last tetanus immunization: - up to date. - Infectious Disease History:: Denies. CDIFF, C. Auris, ESBL, MRSA (w/in 1 year), VRE (w/in 1 year), TB, . - Social history:: Smoking status: Patient denies any tobacco usage or history of. ROS: 12:55 Constitutional: Negative for fever, chills, and weight loss, Eyes: Negative for injury, sp3 pain, redness, and discharge, Neck: Negative for injury, pain, and swelling, Cardiovascular: Negative for chest pain, palpitations, and edema, Respiratory: Negative for shortness of breath, cough, wheezing, and pleuritic chest pain, Abdomen/GI: Negative for abdominal pain, nausea, vomiting, diarrhea, and constipation, Back: Negative for injury and pain, MS/Extremity: Negative for injury and deformity, Neuro: Negative for headache, weakness, numbness, tingling, and seizure, Psych: Negative for depression, anxiety, suicide ideation, homicidal ideation, and hallucinations, Allergy/Immunology: Negative for hives, rash, and allergies, Endocrine: Negative for neck swelling, polydipsia, polyuria, polyphagia, and marked weight changes, 12:55 All other systems are negative, Exam: 12:55 Constitutional: This is a well developed, well nourished patient who is awake, alert, sp3 and in no acute distress. Head/Face: Normocephalic, atraumatic. Eyes: Pupils equal round and reactive to light, extra-ocular motions intact. Lids and lashes normal. Conjunctiva and sclera are non-icteric and not injected. Cornea within normal limits. Periorbital areas with no swelling, redness, or edema. ENT: Nares patent. No nasal discharge, no septal abnormalities noted. External auditory canals are clear. Oropharynx with no redness, swelling, or masses, exudates, or evidence of obstruction, uvula midline. Mucous membranes moist. Neck: Trachea midline, no thyromegaly or masses palpated, and no cervical lymphadenopathy. Supple, full range of motion without nuchal rigidity, or vertebral point tenderness. No Meningismus. Chest/axilla: Normal chest wall appearance and motion. Nontender with no deformity. No lesions are appreciated. Cardiovascular: Regular rate and rhythm with a normal S1 and S2. No gallops, murmurs, or rubs. Normal PMI, no JVD. No pulse deficits. Respiratory: Lungs have equal breath sounds bilaterally, clear to auscultation and percussion. No rales, rhonchi or wheezes noted. No increased work of breathing, no retractions or nasal flaring. Abdomen/GI: Soft, non-tender, with normal bowel sounds. No distension or tympany. No guarding or rebound. No evidence of tenderness throughout. Back: No spinal tenderness. No costovertebral tenderness. Full range of motion. Skin: Warm, dry with normal turgor. Normal color with no rashes, no lesions, and no evidence of cellulitis. MS/ Extremity: Pulses equal, no cyanosis. Neurovascular intact. Full, normal range of motion. Neuro: Awake and alert, GCS 15, oriented to person, place, time, and situation. Cranial nerves II-XII grossly intact. Motor strength 5/5 in all extremities. Sensory grossly intact. Cerebellar exam normal. Normal gait. Psych: Awake, alert, with orientation to person, place and time. Behavior, mood, and affect are within normal limits. 14:43 ECG was reviewed by the Attending Physician. EKG demonstrates sinus bradycardia 55 bpm sp3 with normal intervals, normal QRS, normal axis, normal axis ST segments without evidence of acute ischemia. Vital Signs: 12:33 BP 197 / 77; Pulse 91; Resp 18; Pulse Ox 98% ; cp4 13:30 BP 173 / 73; Pulse 53; Resp 18; Pulse Ox 100% ; cp4 14:30 BP 189 / 76; Pulse 52; Resp 18; Pulse Ox 100% ; cp4 15:30 BP 176 / 68; Pulse 54; Resp 18; Pulse Ox 99% ; cp4 [place] Coma Score: 12:33 Eye Response: spontaneous(4). Motor Response: obeys commands(6). Verbal Response: cp4 oriented(5). Total: 15. Trauma Score (Adult): 12:33 Eye Response: spontaneous(1); Verbal Response: oriented(1); Motor Response: obeys cp4 commands(2); Systolic BP: > 89 mm Hg(4); Respiratory Rate: 10 to 29 per min(4); [place] Score: 15; Trauma Score: 12 MDM: 12:50 Patient medically screened. sp3 12:55 Data reviewed: vital signs, nurses notes, EMS record, lab test result(s), EKG, sp3 radiologic studies. ED course: 78-year-old male who slid off the couch and can get back up. I am not suspicious of any acute traumatic injury or other trauma related process. Since he laid on the couch all night long, concerns are for rhabdomyolysis, electrolyte abnormality, acute cardiac event, or other medical process. Workup will include chest x-ray, EKG, laboratory values including troponin and total CK and general supportive care. If workup is negative, we will safely discharge patient home.. 14:43 ED course: Troponin of 89 with normal EKG and no ongoing chest pain. Prior troponins sp3 were normal. We will admit patient and have cardiology consult with diagnosis NSTEMI.. 07/31 12:53 Order name: Basic Metabolic Panel; Complete Time: 14:21 sp3 07/31 12:53 Order name: CBC with Diff; Complete Time: 14:3 07/31 12:53 Order name: LFT's; Complete Time: 14: sp07/31 12:53 Order name: Magnesium; Complete Time: 14:21 sp07/31 12:53 Order name: NT PRO-BNP; Complete Time: 14:21 sp3 07/31 12:53 Order name: Troponin HS; Complete Time: 14:21 sp3 07/31 12:53 Order name: CK; Complete Time: 14:21 3 07/31 12:55 Order name: UAM; Complete Time: 14: sp3 07/31 14:47 Order name: Thyroid Stimulating Hormone [facility] 07/31 14:47 Order name: Urinalysis w/ reflexes [facility] 07/31 14:47 Order name: CBC with Automated Diff [facility] 07/31 14:47 Order name: CBC with Automated Diff [facility] 07/31 14:47 Order name: Comprehensive Metabolic Panel [facility] 07/31 14:47 Order name: Comprehensive Metabolic Panel [facility] 07/31 14:47 Order name: Lipid Profile [facility] 07/31 14:47 Order name: Lipid Profile [facility] 07/31 14:47 Order name: Magnesium [facility] 07/31 14:47 Order name: Magnesium [facility] 07/31 14:47 Order name: Protime (+INR) [facility] 07/31 14:47 Order name: Protime (+INR) [facility] 07/31 14:47 Order name: PTT, Activated Partial Thromb [facility] 07/31 14:47 Order name: PTT, Activated Partial Thromb [facility] 07/31 14:47 Order name: Troponin High Sensitivity [facility] 07/31 14:47 Order name: Troponin High Sensitivity [facility] 07/31 14:47 Order name: Troponin High Sensitivity [facility] 07/31 14:47 Order name: Troponin High Sensitivity [facility] 07/31 12:53 Order name: XRAY Chest (1 view); Complete Time: 13:42 sp3 07/31 12:53 Order name: EKG; Complete Time: 12:53 sp3 07/31 14:47 Order name: CONS Physician Consult [facility] 07/31 12:53 Order name: Cardiac monitoring; Complete Time: 13:45 sp3 07/31 12:53 Order name: EKG - Nurse/Tech; Complete Time: 14:17 sp3 07/31 12:53 Order name: IV Saline Lock; Complete Time: 13:45 sp3 07/31 12:53 Order name: Labs collected and sent; Complete Time: 13:45 sp3 07/31 12:53 Order name: O2 Per Protocol; Complete Time: 13:45 sp3 07/31 12:53 Order name: O2 Sat Monitoring; Complete Time: 13:46 sp3 Administered Medications: No medications were administered Disposition Summary: 08/01/23 14:43 Hospitalization Ordered Notes: Hospitalization Status: Inpatient Admission sp3 Provider: Maryana Bain sp3 Condition: Stable sp3 Problem: new sp3 Symptoms: have worsened sp3 Bed/Room Type: Standard sp3 Location: Telemetry/MedSurg (Inpatient)(08/01/23 19:45) Room Assignment: 425(08/01/23 19:45) Diagnosis - NSTEMI sp3 Forms: - Medication Reconciliation Form sp3 - SBAR form sp3 - Leadership Thank You Letter sp3 Signatures: Dispatcher [employer] [facility] Mikaela Abel Isi Gutierrez MD MD sp3 Laverne Chaudhary RN RN [email or web address] Cate Jha cp4 Corrections: (The following items were deleted from the chart) 16:15 14:43 Telemetry/MedSurg (Inpatient) sp3 kb3 16:15 14:43 sp3 kb3 19:45 16:15 [facility] ER HOLD kb3 wm 19:45 16:15 ERHOLD- kb3 wm
[2023-08-01 16:40] VITALS: BMI 23.7
[2023-08-01] MEDS ORDERED: D50W 25 GM/50 ML SYRINGE IV PRN (20:04)
[2023-08-01] MEDS ORDERED: GLUCAGON 1 MG/VIAL IM PRN (20:04)
[2023-08-01] MEDS ORDERED: TRAZODONE 50 MG TABLET PO PRN (20:04)
[2023-08-01] MEDS ORDERED: D10W 125 ML IV PRN (20:19)
--- NOTE | 2023-08-01 20:56 | CON ---
Date of Consultation: 08/01/2023 Reason For Consultation: Elevated troponin. History Of Present Illness: A 78-year-old male with history of hypertension, dyslipidemia, active sm oker, half a pack cigarettes a day. He goes to the [place] usually and was brought in after a fall that h appened about few weeks ago. He comes in for generalized weakness, mild shortness of breath. No exe rtion. There is no chest pain. Troponin is borderline elevated, and he does have dyspnea on exertio n that has been there for a long time. Past Medical History: As outlined above in the HPI includes hypertension, dyslipidemia, diabetes, an d active smoker. Medications: Refer reconciliation sheet for detailed list. Allergies: NO KNOWN DRUG ALLERGIES. Family History: No premature coronary artery disease or cancer. Social History: Active smoker. Does not drink. Does not use any drugs. Review of Systems: All systems reviewed and they were negative except as mentioned in the HPI. Physical Examination: Vital Signs: Reviewed. Head and Neck: Pupils are equal, reactive to light. Intact eye movements. No JVD. No cervical lym phadenopathy. Neck is supple. Thyroid is not enlarged. Lungs: Clear to auscultation bilaterally. No rhonchi, wheezing, or crackles. No accessory muscle u se. Heart: Regular rate and rhythm. No extra sounds. Abdomen: Soft, nontender. Bowel sounds positive. No organomegaly. No masses or hernia. No rigidi ty or rebound. Extremities: No edema, clubbing, cyanosis. Intact pulses. Skin: No rash or nodule. Neurologic: Alert, awake, oriented x3. No acute focal deficits appreciated. Investigations: Troponin is 89.8, BUN 14, creatinine 1.09, hemoglobin 14.9. Assessment/recommendation: 1.Elevated troponin with dyspnea on exertion, multiple risk factors. This could be due to the hyper tensive crisis, but given the fact that he has multiple risk factors including diabetes, hypertension , dyslipidemia, age, and smoking history, I recommend coronary angiogram. Keep n.p.o. past midnight to plan to do tomorrow. Recommend to start baby aspirin 81 mg daily and to quit smoking. 2.Elevated NT-proBNP. Obtain echo to assess for presence of congestive heart failure and check lipi ds. 3.Hypertension with crisis. Resume home medications. Adjust further if needed. 4.Dyslipidemia. Recommend Lipitor 40 mg q.h.s. SR/MODL Voice ID: [id number] Report ID: [id number]
[2023-08-01] MEDS: INSULIN REGULAR (HUMAN) 100 UNIT/ML SQ SCH (21:52)
[2023-08-01] MEDS: ATORVASTATIN 40 MG TAB PO SCH (21:52)
[2023-08-01] MEDS ORDERED: HYDRALAZINE HCL 20 MG/ML VIAL IV PRN (22:25)
[2023-08-01] MEDS: AMLODIPINE 5 MG TAB PO SCH (22:51)
[2023-08-02 04:09] LABS: Absolute Eosinophils 0.4 K/uL (0-0.5); Absolute Lymphocytes (CBC) 2.7 K/uL (0.7-4.9); Absolute Neutrophil 5.1 K/uL (1.8-8.0); Basophils % 0.3 % (0-1.3); Eosinophils % 4.4 % (0-4.4); Hematocrit 39.2 % (39.6-49.0); Hemoglobin 13.8 g/dL (13.6-17.9); Lymphocytes % 29.4 % (15.3-44.8); MCHC 35.2 g/dL (32.0-36.0); MPV 7.5 fL (7.6-11.3); Monocytes % 11.1 % (3.3-12.3); Neutrophils % 54.8 % (41.7-73.7); Platelets 155 thou/uL (152-406); RBC Red Blood Cell Count 4.45 M/uL (4.33-5.43); Red Cell Distribution Width 13.5 % (12.1-15.2)
[2023-08-02 04:30] LABS: PT Prothrombin Time 12.3 SECONDS (9.5-12.5); PTT, Activated Partial Thromb 52.3 SECONDS (24.3-36.9); Protime INR 1.12
[2023-08-02 04:37] LABS: Albumin/Globulin Ratio 0.9 (1.1-1.8); Anion Gap 8.2 mEq/L (5.0-15.0); Bilirubin Total 0.5 mg/dL (0.2-1.0); Globulin 3.3 g/dL (2.3-3.5); Phosphorus 2.9 mg/dL (2.5-4.9); Potassium 3.2 mEq/L (3.5-5.1); Protein, Total 6.3 g/dL (6.4-8.2)
[2023-08-02 04:53] LABS: Troponin High Sensitivity 68.9 pg/mL (<58.9)
[2023-08-02] MEDS: ASPIRIN EC 81 MG TAB PO ONE (05:31)
[2023-08-02] MEDS: ASPIRIN EC 81 MG TAB PO SCH (05:36)
[2023-08-02] MEDS: NA CHLORIDE 0.9% 250 ML ONE (06:47)
[2023-08-02] MEDS: KCL 20 MEQ/100 mL IVPB 20 MEQ/100 ML BAG IV SCH (07:24)
[2023-08-02] MEDS: PNEUMOCOCCAL VACCINE 0.5 ML IMVAC ONE (08:00)
[2023-08-02] MEDS ORDERED: AMLODIPINE 5 MG TAB PO SCH (09:00)
[2023-08-02] MEDS ORDERED: FENTANYL CITR 100 MCG/2 ML ONE (11:21)
[2023-08-02] MEDS ORDERED: MIDAZOLAM HCL 2 MG/2 ML INJ ONE (11:21)
[2023-08-02] MEDS ORDERED: HEPA 1000U/500MLS 2,000 UNIT/1,000 ML BAG IV ONE (11:21)
[2023-08-02] MEDS ORDERED: LIDOCAINE 1% 20 ML MDV ONE (11:21)
[2023-08-02] MEDS ORDERED: VERAPAMIL HCL 10 MG/4 ML VIAL IV ONE (11:21)
[2023-08-02] MEDS ORDERED: ATROPINE SULF 1 MG/10 ML SYR IV ONE (11:22)
[2023-08-02] MEDS ORDERED: HEPARIN 10,000 UNIT/10 ML VIAL IV ONE (11:22)
[2023-08-02] MEDS ORDERED: HEPARIN 5000 UNIT/ML 1 ML VIAL ONE (11:22)
[2023-08-02] MEDS ORDERED: CLOPIDOGREL 75 MG TABLET ONE (11:23)
[2023-08-02] MEDS ORDERED: TICAGRELOR 90 MG TABLET PO ONE ×2 (11:23→12:40)
[2023-08-02] MEDS ORDERED: ASPIRIN 325 MG TAB ONE (11:24)
[2023-08-02] MEDS ORDERED: NA CHLORIDE 0.9% 500 ML ONE (11:38)
--- NOTE | 2023-08-02 12:15 | P.PN ---
Subjective Date of Service: 08/02/23 Chief Complaint: Elevated troponin, NSTEMI Pt is resting comfortably in bed. He is NPO for NM stress test. No chest pain or SOB this am. No other complaints. Review of Systems General: Unremarkable Eyes: Unremarkable ENT: Unremarkable Respiratory: Unremarkable Cardiovascular: Unremarkable Gastrointestinal: Unremarkable Genitourinary: Unremarkable Musculoskeletal: Unremarkable Integumentary: Unremarkable Neurological: Unremarkable Lymphatics: Unremarkable Physical Examination - Vital Signs Temperature: 97.7 F Blood Pressure: 164/73 Pulse: 61 Respirations: 17 Pulse Ox (%): 97 - Physical Exam General: Alert, In no apparent distress, Oriented x3 HEENT: Atraumatic, Normocephalic, PERRLA Neck: Supple, 2+ carotid pulse no bruit, JVD not distended Respiratory: Clear to auscultation bilaterally, Normal air movement Cardiovascular: No edema, Normal pulses, Regular rate/rhythm, Normal S1 S2 Capillary refill: <2 Seconds Gastrointestinal: Normal bowel sounds, Soft and benign, Non-distended Musculoskeletal: No clubbing, No swelling Integumentary: No rashes, No breakdown Neurological: Normal speech, Normal strength at 5/5 x4 extr, Normal tone, Sensation intact Lymphatics: No axilla or inguinal lymphadenopathy - Studies Laboratory Data (last 24 hrs) 08/01/23 08/01/23 13:30 13:30 WBC 9.50 Hgb 14.9 Hct 43.3 Plt Count 147 L Sodium 137 Potassium 3.5 BUN 14 Creatinine 1.09 Glucose 115 H Magnesium 2.2 Total Bilirubin 0.7 AST 21 ALT 20 Alkaline Phosphatase 128 H Assessment And Plan - Plan NSTEMI: troponin is 68.9 <- 89.8. Continue aspirin and statin. Cardiology will do cardiac cath today. Pt is NPO. DM II: Continue accuchek, SSI and ADA diet. Htn: Continue home med Hypothyroidism: synthroid. HLD: statin Generalized weakness: Will consult PT. Code: full DVT ppx: lovenox GI ppx: protonix
--- NOTE | 2023-08-02 14:08 | ECHO ---
HEIGHT: 5 ft 11 in WEIGHT: 170 lb 0 oz DATE OF STUDY: 08/02/[address]: Rosamaria Celis BULK MAIL CLERK-BC 2-DIMENSIONAL: YES M.MODE: YES DOPPLER: YES COLOR FLOW: YES TDS: PORTABLE: YES DEFINITY: BUBBLE STUDY: DIAGNOSIS: ELEVATED TROPONIN CARDIAC HISTORY: CATHERIZATION: SURGERY: PROSTHETIC VALVE: PACEMAKER: MEASUREMENTS (cm) DIASTOLIC (NORMALS) SYSTOLIC (NORMALS) IVSd 1.0 (0.6-1.2) LA Diam 3.2 (1.9-4.0) LVEF 62% LVIDd 3.7 (3.5-5.7) LVIDs 2.5 (2.0-3.5) %FS 33% LVPWd 1.3 (0.6-1.2) Ao Diam 2.9 (2.0-3.7) 2 DIMENSIONAL ASSESSMENT: RIGHT ATRIUM: NORMAL LEFT ATRIUM: NORMAL RIGHT VENTRICLE: NORMAL LEFT VENTRICLE: NORMAL TRICUSPID VALVE: NORMAL MITRAL VALVE: NORMAL PULMONIC VALVE: NORMAL AORTIC VALVE: NORMAL PERICARDIAL EFFUSION: NONE AORTIC ROOT: NORMAL LEFT VENTRICULAR WALL MOTION: NORMAL DOPPLER/COLOR FLOW: NORMAL COMMENTS: 1. NORMAL LEFT VENTRICULAR SYSTOLIC FUNCTION, EJECTION FRACTION 60-65%, NORMAL WALL MOTION 2. NORMAL DIASTOLIC FUNCTION TECHNOLOGIST: YANDEL ELLIOTT
--- NOTE | 2023-08-02 14:23 | OP ---
Date of Procedure: 08/02/2023 Surgeon: Rodney Urrutia Procedures Performed: 1.Left heart catheterization. 2.Selective coronary angiogram. 3.PCI of the LAD with Synergy 3.0 x 48 mm drug-eluting stent. Indication For Procedure: [id number] IL. Complication: None. Estimated Blood Loss: Less than 50 cc. Sedation Time: 60 minutes. Access: Right radial, closed by a TR band. Description Of Procedure: After risks, and benefits, and alternatives were explained to the patient, patient agreed to proceed with the procedure and signed informed consent. The patient was brought [facility] to the rn cardiac cath, prepped and draped in a sterile fashion. A time-out was performed. Sedation wa s administered. Right radial access was obtained using ultrasound-guided micropuncture technique. N ext, the Baldwin 4.0 catheter was advanced to the left ventricular cavity for an LVEDP. Pullback did n ot show any gradient. A selective coronary angiogram was performed that was exchanged later for an E BU3.5 mm guide catheter. Heparin was administered. ACT was therapeutic. Runthrough wire across the LAD, we pre-dilated the lesions with NC 2.5/3.0 mm balloon that was followed by edwar valdivia 3.5 mm x 10 mm length. Next, Synergy 3.0 x 48 mm drug-eluting stent was placed across the lesi on that was postdilated with NC 3.25 balloon. A final angiogram showed CASEY-3 flow. No signs of dis section. So the guide catheter was removed over a J-wire. The radial sheath was removed and the acc ess was closed with a TR band. The patient was moved back to recovery in stable condition. Findings: 1.Left main is normal. 2.LAD; proximal mild LI. Mid diffuse heavily calcified 80% disease. PCI done with Synergy 3.0 x 48 mm drug-eluting stent, distal mild LI. 3.Left circ; mild LI. 4.RCA; mid 40% calcified disease, then distal mild LI. Assessment And Plan: 1.Significant mid LAD disease, status post PCI with Synergy 3.0 x 48 mm drug-eluting stent. 2.Mild to moderate mid RCA disease. Plan will be: 1.Aspirin 81 mg daily for life. 2.Brilinta 180 mg x1 in the lab was given. To continue Brilinta 90 mg p.o. b.i.d. for 12 months. 3.Medical management for mid RCA. If patient is symptomatic, then consider stress test. NUGENT/MODL Voice ID: [id number] Report ID: [id number]
[2023-08-02] MEDS: ENOXAPARIN 40 MG/0.4 ML SQ SCH (17:00)
--- NOTE | 2023-08-02 18:30 | P.DS ---
Admission Date: 08/01/23 Discharge Date: 08/02/23 Disposition: ROUTINE DISCHARGE Discharge Condition: GOOD Reason for Admission: Elevated troponin, NSTEMI Brief History of Present Illness: Mr. Hannon is a 78-year-old gentleman with a past medical history of hypertension, hyperlipidemia, diet-controlled diabetes, & BPH, who smokes 1/2 pack of cigarettes per day. He is a patient of the [facility]. Most history is obtained from the chart as he is a poor historian. Some of his prior meds such as methotrexate and sulfasalazine and Humira indicate some type of autoimmune disease. He was in the emergency department at [facility] about 2 weeks ago after a fall. He received 8 stitches to his left upper brow. He was given Robaxin for home use. He lives alone. He has assistive devices at home such as a walker, wheelchair, and has a caregiver Saturday through Saturday. The caregiver arrived today and found Mr. Hannon on the floor next to the sofa. Mr. Hannon says he slipped off the sofa, denies loss of consciousness, denies pain, but states he was too weak to get up. On evaluation in the emergency department he has noted to have an elevated troponin of 89.8, his other labs are unremarkable. His EKG is sinus bradycardia with no ectopy or concerning findings. Chest x-ray shows no acute cardiopulmonary process. Mr. Hannon will be admitted to the hospital for further investigation and treatment with consultation to Dr. Huber. Dr. Huber actually saw the patient in the emergency department and plans for cardiac cath tomorrow. He requested an echo be ordered. And the patient will be n.p.o. postmidnight. Hospital Course: Pt is a 78yo male with past medical history of hypertension, hyperlipidemia, diet-controlled diabetes, tobacco use and BPH who presented in the ER after he slipped out of the cough at home. On admission, lab studies showed elevated troponin. Pt was admitted for NSTEMI. We trended troponin and Cardiology did Cardiac cath which showed significant mid LAD disease, status post PCI with Sy nergy 3.0 x 48 mm drug-eluting stent. It also showed mild to moderate mid RCA disease. Cardiology recommended brilinta and aspirin for at least 1 year. Cardiology cleared pt for discharge. We continued home med for other chronic medical problems. Pt was in NAD prior to discharge. Vital Signs/Physical Exam: Temp Pulse Resp BP Pulse Ox 98.0 F 64 18 146/65 H 100 08/02/23 16:00 08/02/23 16:00 08/02/23 16:00 08/02/23 16:00 08/02/23 16:00 Laboratory Data at Discharge: WBC 9.30 thou/uL (4.3-10.9) 08/02/23 03:55 Hgb 13.8 g/dL (13.6-17.9) 08/02/23 03:55 Hct 39.2 % (39.6-49.0) L 08/02/23 03:55 Plt Count 155 thou/uL (152-406) 08/02/23 03:55 PT 12.3 SECONDS (9.5-12.5) 08/02/23 03:55 INR 1.12 08/02/23 03:55 APTT 52.3 SECONDS (24.3-36.9) H 08/02/23 03:55 Sodium 139 mEq/L (136-145) 08/02/23 03:55 Potassium 3.2 mEq/L (3.5-5.1) L 08/02/23 03:55 BUN 14 mg/dL (7-18) 08/02/23 03:55 Creatinine 0.99 mg/dL (0.70-1.30) 08/02/23 03:55 Glucose 134 mg/dL (74-106) H 08/02/23 03:55 Phosphorus Cancelled 08/02/23 05:00 Magnesium 2.0 mg/dL (1.6-2.4) 08/02/23 03:55 Total Bilirubin 0.5 mg/dL (0.2-1.0) 08/02/23 03:55 AST 12 U/L (15-37) L 08/02/23 03:55 ALT 17 U/L (16-61) 08/02/23 03:55 Alkaline Phosphatase 112 U/L (45-117) 08/02/23 03:55 Triglycerides 93 mg/dL (<150) 08/02/23 03:55 Cholesterol 133 mg/dL (<200) 08/02/23 03:55 HDL Cholesterol 34 mg/dL (40-60) L 08/02/23 03:55 Cholesterol/HDL Ratio 3.91 08/02/23 03:55 Home Medications: Adalimumab [Humira(Cf) Pen] 40 mg SQ EVERY 7TH DAY 08/16/21 Amlodipine Besylate 5 mg PO DAILY 08/16/21 buPROPion HCL [Wellbutrin Xl] 150 mg PO BID 08/16/21 Calcium Carbonate 500 mg PO TID 08/17/21 Folic Acid 1 mg PO DAILY 08/17/21 Lisinopril [Zestril] 20 mg PO DAILY 08/17/21 Loratadine [Claritin*] 10 mg PO DAILY 08/17/21 Methotrexate [Methotrexate*] 4 tab PO EVERY 7TH DAY 08/17/21 Pyridoxine HCl (Vitamin B6) [Pyridoxine HCl] 50 mg PO DAILY 08/17/21 Trazodone HCl 100 mg PO DAILY 08/17/21 sulfaSALAzine [Sulfasalazine] 500 mg PO BID 08/17/21 Thiamine HCl [Vitamin B-1] 100 mg PO BID 30 Days #60 tablet 08/18/21 Aspirin 81 mg PO DAILY 90 Days #90 tab.chew 08/02/23 Atorvastatin Calcium [Lipitor] 40 mg PO BEDTIME 90 Days #90 tab 08/02/23 Ticagrelor [Brilinta*] 90 mg PO BID 90 Days #180 tab 08/02/23 New Medications: Aspirin 81 mg PO DAILY 90 Days #90 tab.chew Ticagrelor [Brilinta*] 90 mg PO BID 90 Days #180 tab Atorvastatin Calcium [Lipitor] 40 mg PO BEDTIME 90 Days #90 tab Physician Discharge Instructions: Continue ad cele activity. take home meds as prescribed . Take Brilinta and aspirin for at least 1 year. Follow up with PCP and Cardiology within 2 weeks Diet: AHA Activity: Ad cele Followup: Gael Mark MD [Primary Care Provider] - Rodney Urrutia MD [ACTIVE - CAN ADMIT] -
--- NOTE | 2023-08-02 18:37 | P.PN ---
Subjective Date of Service: 08/03/23 Chief Complaint: Elevated troponin, NSTEMI Subjective: No new changes Review of Systems 10-point ROS is otherwise unremarkable Physical Examination - Vital Signs Temperature: 98.0 F Blood Pressure: 146/65 Pulse: 64 Respirations: 18 Pulse Ox (%): 100 - Physical Exam General: Alert, Oriented x3 HEENT: Atraumatic Neck: Supple Respiratory: Clear to auscultation bilaterally Cardiovascular: No edema, Normal S1 S2 Gastrointestinal: Normal bowel sounds Assessment And Plan - Current Problems (Diagnosis) (1) Unstable angina Current Visit: Yes Status: Acute Plan: S/P PCI of LAD. Continue DAPT. Continue aggressive medical treatment for CAD.
[2023-08-02] MEDS: TICAGRELOR 90 MG TABLET PO SCH (21:05)
[2023-08-03 10:16] VITALS: BP 146/65; TEMP 98
--- NOTE | 2023-08-03 13:35 | P.PN ---
Subjective Date of Service: 08/03/23 Chief Complaint: Elevated troponin, NSTEMI Pt is resting comfortably in bed. He is getting brilinta and aspirin for the recent stent placement to the mid LAD. He too weak to get up by himself. Consulted PT. No other complaints. Review of Systems General: Unremarkable Eyes: Unremarkable ENT: Unremarkable Respiratory: Unremarkable Cardiovascular: Unremarkable Gastrointestinal: Unremarkable Genitourinary: Unremarkable Musculoskeletal: Unremarkable Integumentary: Unremarkable Neurological: Unremarkable Lymphatics: Unremarkable Physical Examination - Vital Signs Temperature: 98.0 F Blood Pressure: 146/65 Pulse: 64 Respirations: 18 Pulse Ox (%): 100 - Physical Exam General: Alert, In no apparent distress, Oriented x3 HEENT: Atraumatic, Normocephalic, PERRLA Neck: Supple, 2+ carotid pulse no bruit Respiratory: Clear to auscultation bilaterally, Normal air movement Cardiovascular: No edema, Normal pulses, Regular rate/rhythm, Normal S1 S2 Capillary refill: <2 Seconds Gastrointestinal: Normal bowel sounds, Soft and benign, Non-distended Musculoskeletal: No clubbing, No swelling Integumentary: No rashes, No breakdown Neurological: Normal speech, Normal strength at 5/5 x4 extr, Normal tone, Sensation intact Lymphatics: No axilla or inguinal lymphadenopathy Assessment And Plan - Plan NSTEMI: troponin is 68.9 <- 89.8. Continue aspirin and statin. Cardiology did cardiac cath on 08/02/23. cardiology placed stent to the mid LAD. Continue brilinta and aspirin for at least 1 year. DM II: Continue accuchek, SSI and ADA diet. Htn: Continue home med Hypothyroidism: synthroid. HLD: statin Generalized weakness: Will consult PT. Pt is too weak to get up by himself. Code: full DVT ppx: lovenox GI ppx: protonix
[2023-08-03 14:27] LABS: Absolute Basophils 0.1 K/uL (0-0.5); Absolute Eosinophils 0.3 K/uL (0-0.5); Absolute Lymphocytes (CBC) 1.3 K/uL (0.7-4.9); Absolute Monocytes 0.9 K/uL (0.1-1.3); Absolute Neutrophil 7.3 K/uL (1.8-8.0); Eosinophils % 3.4 % (0-4.4); Hematocrit 39.2 % (39.6-49.0); Hemoglobin 13.7 g/dL (13.6-17.9); Lymphocytes % 13.3 % (15.3-44.8); MCH 31.2 pg (27.0-35.0); MCHC 34.9 g/dL (32.0-36.0); MCV 89.2 fL (80-100); MPV 7.5 fL (7.6-11.3); Monocytes % 9.2 % (3.3-12.3); Neutrophils % 73.1 % (41.7-73.7); Nucleated Red Blood Cells % 0.1 % (0-0); Platelets 158 thou/uL (152-406); RBC Red Blood Cell Count 4.39 M/uL (4.33-5.43); Red Cell Distribution Width 13.3 % (12.1-15.2)
[2023-08-03 15:33] LABS: Blood Morphology Comment NOT SEEN (NOT SEEN); Platelet Estimate ADEQ; White Blood Cell Scan OK (OK)
--- NOTE | 2023-08-03 17:19 | P.DS ---
Admission Date: 08/01/23 Discharge Date: 08/03/23 Disposition: ROUTINE DISCHARGE Discharge Condition: GOOD Reason for Admission: Elevated troponin, NSTEMI Brief History of Present Illness: Mr. Hannon is a 78-year-old gentleman with a past medical history of hypertension, hyperlipidemia, diet-controlled diabetes, & BPH, who smokes 1/2 pack of cigarettes per day. He is a patient of the [facility]. Most history is obtained from the chart as he is a poor historian. Some of his prior meds such as methotrexate and sulfasalazine and Humira indicate some type of autoimmune disease. He was in the emergency department at [facility] about 2 weeks ago after a fall. He received 8 stitches to his left upper brow. He was given Robaxin for home use. He lives alone. He has assistive devices at home such as a walker, wheelchair, and has a caregiver Saturday through Saturday. The caregiver arrived today and found Mr. Hannon on the floor next to the sofa. Mr. Hannon says he slipped off the sofa, denies loss of consciousness, denies pain, but states he was too weak to get up. On evaluation in the emergency department he has noted to have an elevated troponin of 89.8, his other labs are unremarkable. His EKG is sinus bradycardia with no ectopy or concerning findings. Chest x-ray shows no acute cardiopulmonary process. Mr. Hannon will be admitted to the hospital for further investigation and treatment with consultation to Dr. Huber. Dr. Huber actually saw the patient in the emergency department and plans for cardiac cath tomorrow. He requested an echo be ordered. And the patient will be n.p.o. postmidnight. Hospital Course: Pt is a 78yo male with past medical history of hypertension, hyperlipidemia, diet-controlled diabetes, tobacco use and BPH who presented in the ER after he slipped out of the cough at home. On admission, lab studies showed elevated troponin. Pt was admitted for NSTEMI. We trended troponin and Cardiology did Cardiac cath which showed significant mid LAD disease, status post PCI with Sy nergy 3.0 x 48 mm drug-eluting stent. It also showed mild to moderate mid RCA disease. Cardiology recommended brilinta and aspirin for at least 1 year. Cardiology cleared pt for discharge. We continued home med for other chronic medical problems. We held her discharge in order to get physical tehrapy eval. Pt was able to ambulate with his rolling walker. the physical therapist recommended home with rolling walker. Pt felt comfortable going home. He was in NAD prior to discharge. Vital Signs/Physical Exam: Temp Pulse Resp BP Pulse Ox 98.0 F 64 18 146/65 H 100 08/03/23 13:38 08/03/23 13:38 08/03/23 13:38 08/03/23 13:38 08/03/23 13:38 Laboratory Data at Discharge: WBC 10.00 thou/uL (4.3-10.9) 08/03/23 14:20 Hgb 13.7 g/dL (13.6-17.9) 08/03/23 14:20 Hct 39.2 % (39.6-49.0) L 08/03/23 14:20 Plt Count 158 thou/uL (152-406) 08/03/23 14:20 PT 12.3 SECONDS (9.5-12.5) 08/02/23 03:55 INR 1.12 08/02/23 03:55 APTT 52.3 SECONDS (24.3-36.9) H 08/02/23 03:55 Sodium 133 mEq/L (136-145) L 08/03/23 14:20 Potassium 4.0 mEq/L (3.5-5.1) 08/03/23 14:20 BUN 18 mg/dL (7-18) 08/03/23 14:20 Creatinine 1.41 mg/dL (0.70-1.30) H 08/03/23 14:20 Glucose 287 mg/dL (74-106) H 08/03/23 14:20 Phosphorus Cancelled 08/02/23 05:00 Magnesium 2.0 mg/dL (1.6-2.4) 08/02/23 03:55 Total Bilirubin 0.5 mg/dL (0.2-1.0) 08/02/23 03:55 AST 12 U/L (15-37) L 08/02/23 03:55 ALT 17 U/L (16-61) 08/02/23 03:55 Alkaline Phosphatase 112 U/L (45-117) 08/02/23 03:55 Triglycerides 93 mg/dL (<150) 08/02/23 03:55 Cholesterol 133 mg/dL (<200) 08/02/23 03:55 HDL Cholesterol 34 mg/dL (40-60) L 08/02/23 03:55 Cholesterol/HDL Ratio 3.91 08/02/23 03:55 Home Medications: Adalimumab [Humira(Cf) Pen] 40 mg SQ EVERY 7TH DAY 08/16/21 Amlodipine Besylate 5 mg PO DAILY 08/16/21 buPROPion HCL [Wellbutrin Xl] 150 mg PO BID 08/16/21 Calcium Carbonate 500 mg PO TID 08/17/21 Folic Acid 1 mg PO DAILY 08/17/21 Lisinopril [Zestril] 20 mg PO DAILY 08/17/21 Loratadine [Claritin*] 10 mg PO DAILY 08/17/21 Methotrexate [Methotrexate*] 4 tab PO EVERY 7TH DAY 08/17/21 Pyridoxine HCl (Vitamin B6) [Pyridoxine HCl] 50 mg PO DAILY 08/17/21 Trazodone HCl 100 mg PO DAILY 08/17/21 sulfaSALAzine [Sulfasalazine] 500 mg PO BID 08/17/21 Thiamine HCl [Vitamin B-1] 100 mg PO BID 30 Days #60 tablet 08/18/21 Aspirin 81 mg PO DAILY 90 Days #90 tab.chew 08/02/23 Atorvastatin Calcium [Lipitor] 40 mg PO BEDTIME 90 Days #90 tab 08/02/23 Ticagrelor [Brilinta*] 90 mg PO BID 90 Days #180 tab 08/02/23 New Medications: Aspirin 81 mg PO DAILY 90 Days #90 tab.chew Ticagrelor [Brilinta*] 90 mg PO BID 90 Days #180 tab Atorvastatin Calcium [Lipitor] 40 mg PO BEDTIME 90 Days #90 tab Physician Discharge Instructions: Continue ad cele activity. take home meds as prescribed . Take Brilinta and aspirin for at least 1 year. Follow up with PCP and Cardiology within 2 weeks Diet: AHA Activity: Ad cele Followup: Gael Mark MD [Primary Care Provider] - Rodney Urrutia MD [ACTIVE - CAN ADMIT] -
[2023-08-03 17:32] VITALS: O2SAT 98
--- NOTE | 2023-08-05 13:10 | EKG ---
Test Date: 2023-08-01 Test Time: 14:05:35 Consumer Credit Counselor: CUBA MEASUREMENT RESULTS: Intervals: Rate: 55 NC: 146 QRSD: 84 QT: 424 QTc: 405 Coin: P: -21 NC: 146 QRS: 55 T: 59 INTERPRETIVE STATEMENTS: Sinus bradycardia Otherwise normal ECG Compared to ECG 07/18/2023 14:22:37 Sinus rhythm no longer present ST (T wave) deviation no longer present Electronically Signed On 08-05-23 12:59:25 CDT by Rajesh Huber
== END 2023-08-03 18:52 | disposition home health service (06) | DRG 322 ==
LOC: ER 12:24 → ERHOLD 14:42 → 4TH 20:45
PROVIDERS: ADMIT Hospitalist; ATTEND Hospitalist
PROC: 027034Z Dilation of Coronary Artery, One Artery with Drug-eluting Intraluminal Device, Percutaneous Approach (ICD-10-PCS; principal; 2023-08-02)
PROC: 4A023N7 Measurement of Cardiac Sampling and Pressure, Left Heart, Percutaneous Approach (ICD-10-PCS; 2023-08-02)
PROC: B2111ZZ Fluoroscopy of Multiple Coronary Arteries using Low Osmolar Contrast (ICD-10-PCS; 2023-08-02)
DX: I21.4 Non-ST elevation (NSTEMI) myocardial infarction (principal); I16.0 Hypertensive urgency; N40.0 Benign prostatic hyperplasia without lower urinary tract symptoms; E11.65 Type 2 diabetes mellitus with hyperglycemia; E03.9 Hypothyroidism, unspecified; I10 Essential (primary) hypertension; E78.00 Pure hypercholesterolemia, unspecified; M81.0 Age-related osteoporosis without current pathological fracture; L40.50 Arthropathic psoriasis, unspecified; I25.110 Atherosclerotic heart disease of native coronary artery with unstable angina pectoris; F17.210 Nicotine dependence, cigarettes, uncomplicated; Z66 Do not resuscitate; Z60.2 Problems related to living alone; Z90.49 Acquired absence of other specified parts of digestive tract; Z79.899 Other long term (current) drug therapy; W01.0XXA Fall on same level from slipping, tripping and stumbling without subsequent striking against object, initial encounter; Y92.019 Unspecified place in single-family (private) house as the place of occurrence of the external cause; Y99.9 Unspecified external cause status; Y93.9 Activity, unspecified
CPT/HCPCS: 36415; 71045; 76937; 80048; 80053; 80061; 80076; 81001; 82550; 82947; 83036; 83735; 83880; 84100; 84443; 84484; 85025; 85347; 85610; 85730; 93005; 93306; 93458; 97116; 97161; 97530; 99152; 99153; 99285; C1725; C1893; C9600; J0461; J1644; J1815; J2001; J2250; J3010; J3480; J7040; J7050; Q9967

== ENCOUNTER 2023-08-12 03:55 | Emergency (ER) | payer OTHER ==
[2023-08-12] MEDS ORDERED: GABAPENTIN 300 MG CAP ONE (04:04)
[2023-08-12] MEDS ORDERED: MORPHINE 4 MG/ML SYR ONE (04:04)
--- NOTE | 2023-08-12 07:57 | RAD REPORT ---
EXAM DESCRIPTION: CTSpine Lumbar Wo Con08/12/2023 7:06 am CLINICAL HISTORY: Back pain status post fall COMPARISON: July 23, 2023 TECHNIQUE: Computed axial tomography lumbar spine was obtained with coronal and sagittal reconstruct ion. All CT scans are performed using dose optimization technique as appropriate and may include automated exposure control or mA/KV adjustment according to patient size. FINDINGS: No fracture is seen. No dislocation Mild chronic posterior subluxation L3 on L4. Moderate spondylosis involves the lumbar spine. Right renal cyst unchanged. Atherosclerosis. IMPRESSION: Negative for a lumbar fracture. If the patient continues have symptoms to suggest spinal canal pathology MRI would be recommended Due to technical issues the exam could not be dictated into now
--- NOTE | 2023-08-12 08:10 | RAD REPORT ---
EXAM DESCRIPTION: CTThoracic Spine W/o Cont08/12/2023 7:06 am CLINICAL HISTORY: Back pain status post fall COMPARISON: 2021 and July 23, 2023 CT TECHNIQUE: Computed axial tomography of thoracic spine was obtained with coronal and sagittal recons truction. All CT scans are performed using dose optimization technique as appropriate and may include automated exposure control or mA/KV adjustment according to patient size. FINDINGS: Mild compression fracture involves the T12 vertebral body estimated to be 15%. It is witho ut significant change from July 23, 2023 and is subacute. No significant retropulsion of fracture fr agment into the spinal canal. Mild paraspinal hematoma. Moderate to marked old compression fracture involves the T12 vertebral body. No dislocation No high-grade spinal stenosis seen. IMPRESSION: Mild subacute compression fracture of T12 vertebral body No acute fracture seen If the patient continues to have symptoms to suggest spinal cord pathology MRI would be recommended Due to technical issues the exam could not be dictated into now
--- NOTE | 2023-08-12 08:14 | ER ---
Nurse's Notes [facility] Name: Dylon Hannon Age: 78 yrs Sex: Male : 1945 Arrival Date: 08/12/2023 Time: 03:55 Bed 6 Private MD: Diagnosis: Low back pain Presentation: 08/11 04:00 Chief complaint: Patient states: slid off couch to sitting position yesterday at 1400. lg3 complaints to pain in lower back 07/16. Coronavirus screen: Client denies travel out of the [place] in the last 14 days. At this time, the client does not indicate any symptoms associated with coronavirus-19. Ebola Screen: No symptoms or risks identified at this time. Initial Sepsis Screen: Does the patient meet any 2 criteria? No. Patient's initial sepsis screen is negative. Does the patient have a suspected source of infection? No. Patient's initial sepsis screen is negative. Risk Assessment: Do you want to hurt yourself or someone else? Patient reports no desire to harm self or others. Onset of symptoms was August 11, 2023. 04:00 Method Of Arrival: EMS: [facility] lg3 04:00 Acuity: STEPHANIE 4 lg3 Triage Assessment: 04:06 General: Appears in no apparent distress. comfortable, Behavior is calm, cooperative. lg3 Pain: Complains of pain in low back area Pain does not radiate. Pain currently is 4 out of 10 on a pain scale. at worst was 9 out of 10 on a pain scale. EENT: No deficits noted. No signs and/or symptoms were reported regarding the EENT system. Neuro: No deficits noted. [place] Agitation-Sedation Scale (RASS): 0 - Alert and Calm Level of Consciousness is awake, alert, obeys commands, Oriented to person, place, time, situation. Cardiovascular: No deficits noted. Denies chest pain, shortness of breath, Capillary refill < 3 seconds Clubbing of nail beds is absent JVD is absent Patient's skin is warm and dry. Respiratory: No deficits noted. Airway is patent Respiratory effort is even, unlabored, Respiratory pattern is regular, symmetrical, Breath sounds are clear bilaterally. GI: No deficits noted. No signs and/or symptoms were reported involving the gastrointestinal system. Abdomen is round non-distended. : No deficits noted. No signs and/or symptoms were reported regarding the genitourinary system. Derm: No deficits noted. No signs and/or symptoms reported regarding the dermatologic system. Skin is intact, is healthy with good turgor, Skin is dry, Skin is normal, Skin temperature is warm. Musculoskeletal: Circulation, motion, and sensation intact. Range of motion: intact in all extremities, Reports pain in low back area. Historical: - Allergies: 04:06 No Known Allergies; lg3 - PMHx: 04:06 BPH; Cerebrovascular accident; Depression; diabetes mellitus; Erectile Dysfunction; lg3 Fractured left humerus; High Cholesterol; Hyperlipidemia; Hypertensive disorder; Osteoporosis; Psoriatic Arthritis; short term memory loss; - PSHx: 04:06 Appendectomy; cardiac stent (Appendectomy); lg3 - Immunization history:: Adult Immunizations up to date, Client reports receiving the 2nd dose of the Covid vaccine, Flu vaccine is up to date. - Infectious Disease History:: Denies. - Social history:: Smoking status: Patient reports the use of cigarette tobacco products, smokes one-half pack cigarettes per day, Patient uses alcohol, occasionally. Patient/guardian denies using street drugs. - Family history:: not pertinent. - Hospitalizations: : No recent hospitalization is reported. Screenin:09 [facility] ED Fall Risk Assessment (Adult) History of falling in the last 3 months, lg3 including since admission Yes- single mechanical fall (1 pt) Confusion or Disorientation No (0 pts) Intoxicated or Sedated No (0 pts) Impaired Gait No (0 pts) Mobility Assist Device Used Yes (1 pt) Altered Elimination Yes (1 pt) Score/Fall Risk Level 3 or more points = High Risk Oriented to surroundings, Maintained a safe environment, Educated pt \\T\\ family on fall prevention, incl call for assistance when getting out of bed, Assessed \\T\\ reinforced patient's understanding of fall precautions, Provided non-skid footwear. Abuse screen: Denies threats or abuse. Denies injuries from another. Nutritional screening: No deficits noted. Tuberculosis screening: No symptoms or risk factors identified. Assessment: 04:09 General: see triage assessment. lg3 05:30 Reassessment: Patient appears in no apparent distress at this time. No changes from lg3 previously documented assessment. Patient and/or family updated on plan of care and expected duration. Pain level reassessed. Patient is alert, oriented x 3, equal unlabored respirations, skin warm/dry/pink. 06:31 Reassessment: Patient appears in no apparent distress at this time. Patient and/or km8 family updated on plan of care and expected duration. Pain level reassessed. Patient is alert, oriented x 3, equal unlabored respirations, skin warm/dry/pink. 07:10 Reassessment: No changes from previously documented assessment. rs5 08:30 General: Appears in no apparent distress. uncomfortable, Behavior is calm, cooperative. rs5 Pain: Complains of pain in low back area Pain currently is 6 out of 10 on a pain scale. Quality of pain is described as aching, Is continuous. Neuro: Level of Consciousness is awake, alert, obeys commands, Oriented to person, place, time, situation. Cardiovascular: Patient's skin is warm and dry. Rhythm is regular. Respiratory: Airway is patent Respiratory effort is even, unlabored, Respiratory pattern is regular, symmetrical. GI: Abdomen is round non-distended, Abd is soft and non tender X 4 quads. : No signs and/or symptoms were reported regarding the genitourinary system. EENT: No signs and/or symptoms were reported regarding the EENT system. Derm: Skin is intact, Skin is pink, warm \\T\\ dry. Musculoskeletal: Range of motion: intact in all extremities. 08:33 Reassessment: Provider notified pt is experiencing pain. rs5 09:02 Reassessment: ATTEMPTED TO CONTACT [facility]IDENCE FOR RIDE UNABLE TO GET A HOLD OF A PERSON. db PT DOES NOT HAVE PHONE AND DOES NO KNOW ANY NUMBERS TO HAVE SOMEONE COME PICK HIM UP. 09:05 Reassessment: charge nurse notified. rs5 09:19 Reassessment: Pt states "I have home health care come and visit me to help me out rs5 throughout the day pretty much every day. I don't remember what their name is but they do come". 09:20 Reassessment: EMS at bedside for transport. Report given to EMS personnel. rs5 Vital Signs: 04:00 BP 191 / 69; Pulse 56; Resp 17 S; Temp 97.2(TE); Pulse Ox 100% on R/A; Weight 77.11 kg lg3 (R); Height 5 ft. 11 in. (R); Pain 4/10; 04:00 BP 180 / 76; Pulse 62; Resp 18; Pulse Ox 99% on R/A; km8 05:00 BP 167 / 79; Pulse 58; Resp 16; Pulse Ox 99% ; km8 05:30 BP 167 / 79; Pulse 58; Resp 17 S; Pulse Ox 100% on R/A; lg3 06:00 BP 173 / 68; Pulse 57; Resp 16; Pulse Ox 100% on R/A; km8 06:30 BP 167 / 78; Pulse 61; Resp 16; Pulse Ox 100% on R/A; km8 09:06 BP 160 / 73; Pulse 63; Resp 18; Pulse Ox 99% on R/A; rs5 04:00 Body Mass Index 23.71 (77.11 kg, 180.34 cm) lg3 04:00 Pain Scale: Adult lg3 ED Course: 03:56 Patient arrived in ED. ra3 03:56 Robert Wharton MD is Attending Physician. rn 03:59 Marybeth Andrade RN is Primary Nurse. lg3 04:06 Triage completed. lg3 04:06 Arm band placed on left wrist. lg3 04:09 Patient has correct armband on for positive identification. Placed in gown. Bed in low lg3 position. Call light in reach. Side rails up X 1. Client placed on continuous cardiac and pulse oximetry monitoring. NIBP monitoring applied. Door closed. Noise minimized. Warm blanket given. 06:31 No provider procedures requiring assistance completed. km8 07:04 Attending Physician role handed off by Robert Wharton MD ec2 07:04 Bharath Godinez MD is Attending Physician. ec2 07:08 CT Lumbar Spine Wo Con In Process Unspecified. EDMS 07:08 CT Thoracic Spine Wo Cont In Process Unspecified. EDMS 09:00 Provided Education on: FOLLOWUP WITH PROVIDER. db 09:18 Patient did not have IV access during this emergency room visit. rs5 Administered Medications: 04:10 Drug: morphine IM 4 mg IM once Route: IM; Site: right deltoid; km8 07:00 Follow up: Response: No adverse reaction rs5 04:10 Drug: Gabapentin PO 300 mg PO once Route: PO; km8 07:00 Follow up: Response: No adverse reaction rs5 08:40 Drug: Methocarbamol PO 500 mg PO once Route: PO; rs5 09:06 Follow up: Response: No adverse reaction rs5 Medication: 06:31 VIS not applicable for this client. km8 Outcome: 08:13 Discharge ordered by . [email or web address] 09:20 Discharged to home via ambulance, rs5 09:20 Condition: stable 09:20 Discharge instructions given to patient, Instructed on discharge instructions, follow up and referral plans. medication usage, Demonstrated understanding of instructions, follow-up care, medications, Prescriptions given X 1, 09:24 Patient left the ED. rs5 Signatures: Dispatcher [employer] EDMS Robert Wharton MD MD rn Able, Marybeth RN RN lg3 Gloria Tony RN RN Robert Jang RN RN rs5 Bharath Godinez MD MD ec2 Rosario Hensley RN RN km8 Gina Smith 3
--- NOTE | 2023-08-12 08:14 | EDPHYS ---
Physician Documentation [facility] Name: Dylon Hannon Age: 78 yrs Sex: Male : 1945 Arrival Date: 08/12/2023 Time: 03:55 Bed 6 Private MD: ED Physician Bharath Godinez HPI: 08/11 05:24 This 78 yrs old Male presents to ER via EMS with complaints of Fall Injury. rn 05:24 Details of fall: The patient fell from seated position, Couch. Onset: The rn symptoms/episode began/occurred yesterday. Associated injuries: The patient sustained injury to the low back. Severity of symptoms: At their worst the symptoms were mild, in the emergency department the symptoms are unchanged. The patient has experienced similar episodes in the past. Patient reports slid out of couch yesterday afternoon. Patient reports 4 out of 10 lower back pain. Patient has chronic back pain and previous falls that resulted in spinal compression fracture. Patient does not feel like he broke his back again, instead feels like he just aggravated it. Patient states slowly slid off of couch and landed on floor but had difficulty getting back up. Offered Tylenol by EMS and he declines.. Historical: - Allergies: 04:06 No Known Allergies; lg3 - PMHx: 04:06 BPH; Cerebrovascular accident; Depression; diabetes mellitus; Erectile Dysfunction; lg3 Fractured left humerus; High Cholesterol; Hyperlipidemia; Hypertensive disorder; Osteoporosis; Psoriatic Arthritis; short term memory loss; - PSHx: 04:06 Appendectomy; cardiac stent (Appendectomy); lg3 - Immunization history:: Adult Immunizations up to date, Client reports receiving the 2nd dose of the Covid vaccine, Flu vaccine is up to date. - Infectious Disease History:: Denies. - Social history:: Smoking status: Patient reports the use of cigarette tobacco products, smokes one-half pack cigarettes per day, Patient uses alcohol, occasionally. Patient/guardian denies using street drugs. - Family history:: not pertinent. - Hospitalizations: : No recent hospitalization is reported. ROS: 05:24 Constitutional: Negative for fever, chills, and weight loss, Neck: Negative for injury, rn pain, and swelling, Cardiovascular: Negative for chest pain, palpitations, and edema, Respiratory: Negative for shortness of breath, cough, wheezing, and pleuritic chest pain, Abdomen/GI: Negative for abdominal pain, nausea, vomiting, diarrhea, and constipation, Back: Positive for back pain MS/Extremity: Negative for injury and deformity, Skin: Negative for injury, rash, and discoloration, Neuro: Negative for headache, weakness, numbness, tingling, and seizure, Exam: 05:24 Constitutional: This is a well developed, well nourished patient who is awake, alert, rn and in no acute distress. Chest/axilla: Normal chest wall appearance and motion. Nontender with no deformity. No crepitus Cardiovascular: Regular rate and rhythm. No pulse deficits. Respiratory: No increased work of breathing, no retractions or nasal flaring. Abdomen/GI: Soft, non-tender, with normal bowel sounds. No distension or tympany. No guarding or rebound. No evidence of tenderness throughout. Back: Mild upper lumbar paraspinal tenderness as well as lower thoracic paraspinal tenderness. No step-off. MS/ Extremity: Pulses equal, no cyanosis. Neurovascular intact. Full, normal range of motion. Equal circumference. Neuro: Awake and alert, GCS 15 Vital Signs: 04:00 BP 191 / 69; Pulse 56; Resp 17 S; Temp 97.2(TE); Pulse Ox 100% on R/A; Weight 77.11 kg lg3 (R); Height 5 ft. 11 in. (R); Pain 4/10; 04:00 BP 180 / 76; Pulse 62; Resp 18; Pulse Ox 99% on R/A; km8 05:00 BP 167 / 79; Pulse 58; Resp 16; Pulse Ox 99% ; km8 05:30 BP 167 / 79; Pulse 58; Resp 17 S; Pulse Ox 100% on R/A; lg3 06:00 BP 173 / 68; Pulse 57; Resp 16; Pulse Ox 100% on R/A; km8 06:30 BP 167 / 78; Pulse 61; Resp 16; Pulse Ox 100% on R/A; km8 09:06 BP 160 / 73; Pulse 63; Resp 18; Pulse Ox 99% on R/A; rs5 04:00 Body Mass Index 23.71 (77.11 kg, 180.34 cm) 3 04:00 Pain Scale: Adult lg3 MDM: 03:56 Patient medically screened. rn 07:16 Data reviewed: vital signs. ED course: Patient signed out to me by previous physician, ec2 in brief patient arrives today due to concern for chronic back pain with a recent fall, plan is to follow-up CT of the T-spine and L-spine.. 08:11 ED course: No acute injury of the L-spine, known T-spine fracture identified. Will ec2 discharge home. Return precautions given. . 08/11 04:01 Order name: CT Lumbar Spine Wo Con; Complete Time: 08:08 rn 08/11 04:01 Order name: CT Thoracic Spine Wo Cont; Complete Time: 08:11 rn Administered Medications: 04:10 Drug: morphine IM 4 mg IM once Route: IM; Site: right deltoid; km8 07:00 Follow up: Response: No adverse reaction rs5 04:10 Drug: Gabapentin PO 300 mg PO once Route: PO; km8 07:00 Follow up: Response: No adverse reaction rs5 08:40 Drug: Methocarbamol PO 500 mg PO once Route: PO; rs5 09:06 Follow up: Response: No adverse reaction rs5 Disposition Summary: 08/12/23 08:13 Discharge Ordered Notes: Location: Home ec2 Condition: Stable ec2 Diagnosis - Low back pain ec2 Followup: ec2 - With: Private Physician - When: - Reason: Re-evaluation by your physician Discharge Instructions: - Discharge Summary Sheet ec2 - Chronic Back Pain, [id number] ec2 Forms: - Medication Reconciliation Form ec2 - Antibiotic Education ec2 - Prescription Opioid Use ec2 - Patient Portal Instructions ec2 - Leadership Thank You Letter ec2 Prescriptions: - methocarbamol 500 mg Oral tablet - take 2 tablets ORAL route 4 times per day; 20 tablet; Refills: 0, Product ec2 Selection Permitted Signatures: Dispatcher [employer] Robert Singh MD MD rn Able, Lacie RN RN lg3 Robetr Laurent RN RN rs5 Bharath Godinez MD MD ec2 Rosario Hensley RN RN km8
[2023-08-12] MEDS ORDERED: methocarbamoL 500 MG TAB ONE (08:39)
[2023-08-12 09:42] VITALS: TEMP 97.2
[2023-08-12 10:18] VITALS: BP 160/73; O2SAT 99
== END 2023-08-12 09:24 | disposition home or self-care (01) ==
LOC: ER 03:55
DX: M54.50 Low back pain, unspecified (principal); F17.210 Nicotine dependence, cigarettes, uncomplicated; Z95.818 Presence of other cardiac implants and grafts
CPT/HCPCS: 72128; 72131; 96372; 99284

== ENCOUNTER 2023-09-03 12:59 | Emergency (ER) | payer OTHER ==
--- NOTE | 2023-09-03 14:04 | EDPHYS ---
Physician Documentation [facility] Name: Dylon Hannon Age: 78 yrs Sex: Male : 1945 Arrival Date: 09/03/2023 Time: 12:59 Bed 18 Private MD: ED Physician Robert Wharton HPI: 09/02 13:20 This 78 yrs old Male presents to ER via EMS with complaints of Back and Neck Pain. cp 13:20 The patient presents with pain that is chronic, with no known mechanism of injury, and cp is running out of pain medications, unsure name of prescribed pain medication. The symptoms are located in the neck and back. Onset: The symptoms/episode began/occurred worse today, ran out of prescribed pain medication couple days ago. Associated signs and symptoms: The patient has no apparent associated signs or symptoms. Severity of symptoms: in the emergency department the symptoms have improved, markedly, given 30 mg Toradol by EMS. 13:20 Patient reports pain markedly improved and declines any additional pain medications at this time. Historical: - Allergies: 13:18 No Known Allergies; ll1 - PMHx: 13:18 Cerebrovascular accident; BPH; High Cholesterol; Osteoporosis; Hyperlipidemia; ll1 Psoriatic Arthritis; Hypertensive disorder; short term memory loss; Erectile Dysfunction; diabetes mellitus; Depression; Fractured left humerus; - PSHx: 13:18 Appendectomy; cardiac stent (ec); ll1 - Immunization history:: Adult Immunizations up to date. - Infectious Disease History:: Denies. - Social history:: Smoking status: Patient reports the use of cigarette tobacco products, smokes one-half pack cigarettes per day. ROS: 13:28 Constitutional: HX per HPI cp 13:28 All other systems are negative, Exam: 13:40 Constitutional: The patient appears in no acute distress, alert, awake, comfortable, cp non-diaphoretic, non-toxic, well developed, well nourished, 13:40 Head/Face: Normocephalic, atraumatic. cp 13:40 Eyes: Periorbital structures: appear normal, Conjunctiva: normal, no exudate, no injection, Sclera: no appreciated abnormality, Lids and lashes: appear normal, bilaterally, 13:40 ENT: External ear(s): are unremarkable, Nose: is normal, Mouth: Lips: moist, Oral mucosa: pink and intact, moist, Posterior pharynx: is normal, airway is patent, no erythema, no exudate, 13:40 Neck: C-spine: vertebral tenderness, is not appreciated, crepitus, is not appreciated, 13:40 Chest/axilla: Inspection: normal, 13:40 Cardiovascular: Rate: normal, Edema: is not appreciated, JVD: is not appreciated, 13:40 Respiratory: the patient does not display signs of respiratory distress, Respirations: normal, no use of accessory muscles, no retractions, labored breathing, is not present, Breath sounds: are clear throughout, no decreased breath sounds, no stridor, no wheezing, 13:40 Abdomen/GI: Inspection: abdomen appears normal, Palpation: abdomen is soft and non-tender, in all quadrants, 13:40 Back: pain, that is mild, ROM is painful, with all movement, 13:40 Neuro: Orientation: to person, place \T\ time. Mentation: is normal, Motor: moves all fours, no focal deficits, Sensation: no obvious gross deficits, Vital Signs: 13:24 BP 142 / 68; Pulse 64; Resp 18; Temp 97.5; Pulse Ox 98% on R/A; Weight 76.2 kg; Height ph 5 ft. 10 in. ; 14:00 BP 136 / 72; Pulse 64; Resp 18; Temp 97.5; Pulse Ox 98% on R/A; ph 13:24 Body Mass Index 24.11 (76.20 kg, 177.8 cm) ph MDM: 13:17 Patient medically screened. cp 13:30 Differential diagnosis: chronic pain, electrolyte abnormality, acute NV, abdominal pain.cp 14:03 Data reviewed: vital signs, nurses notes. cp 14:03 Counseling: I had a detailed discussion with the patient and/or guardian regarding the cp historical points, exam findings, and any diagnostic results supporting the discharge/admit diagnosis, to return to the emergency department if symptoms worsen or persist or if there are any questions or concerns that arise at home. Medication response: Toradol. Response to treatment: the patient's symptoms have markedly improved after treatment, and as a result, I will discharge patient. Administered Medications: No medications were administered Disposition Summary: 09/03/23 14:04 Discharge Ordered Notes: Location: Home cp Problem: chronic cp Symptoms: have improved cp Condition: Stable cp Diagnosis - Other chronic pain cp Followup: cp - With: Private Physician - When: 2 - 3 days - Reason: Recheck today's complaints Discharge Instructions: - Discharge Summary Sheet cp - Chronic Back Pain cp - Chronic Pain, Adult cp Forms: - Medication Reconciliation Form cp - Antibiotic Education cp - Prescription Opioid Use cp - Patient Portal Instructions cp - Leadership Thank You Letter cp Prescriptions: - Mobic 7.5 mg Oral Tablet - take 1 tablet ORAL route once daily take with food; 20 tablet; Refills: 0, cp Product Selection Permitted Addendum: 09/04/2023 15:54 Co-signature as Attending Physician, Robert Wharton MD I reviewed the patient's care r n provided by the Advanced Practice Provider and agree with the diagnosis and treatment plan. Signatures: Robert Wharton MD MD rn Hall, Patricia RN RN Kulwinder Fiore PA PA Elicia Perez RN RN ll1 Corrections: (The following items were deleted from the chart) 14:34 09/02 14:00 This 78 yrs old Male presents to ER via EMS with complaints of Back and cp Neck Pain. cp 09/03 14:36 14:34 All other systems are negative, cp cp 14:36 14:34 Constitutional: per HPI cp cp 14:38 09/02 13:28 Constitutional: per HPI cp cp
--- NOTE | 2023-09-03 14:04 | ER ---
Nurse's Notes [facility] Name: Dylon Hannon Age: 78 yrs Sex: Male : 1945 Arrival Date: 09/03/2023 Time: 12:59 Bed 18 Private MD: Diagnosis: Other chronic pain Presentation: 09/02 13:18 Chief complaint: EMS states: Here for chronic back pain. Coronavirus screen: Client ll1 denies travel out of the [place] in the last 14 days. At this time, the client does not indicate any symptoms associated with coronavirus-19. Ebola Screen: Patient denies travel to an Ebola-affected area in the 21 days before illness onset. Initial Sepsis Screen: Does the patient meet any 2 criteria? No. Patient's initial sepsis screen is negative. Does the patient have a suspected source of infection? No. Patient's initial sepsis screen is negative. Risk Assessment: Do you want to hurt yourself or someone else? Patient reports no desire to harm self or others. 13:18 Method Of Arrival: EMS ll1 13:18 Acuity: STEPHANIE 3 1 13:24 Note Given 30 mg Toradol IM by EMS, reports relief. Onset of symptoms was September 03, 2023. Triage Assessment: 13:20 General: Appears in no apparent distress. Behavior is calm, cooperative. Pain: ph Complains of pain in back. Neuro: Level of Consciousness is awake, alert, obeys commands, Oriented to person, place, time, situation. Musculoskeletal: Circulation, motion, and sensation intact. Range of motion: intact in all extremities. Historical: - Allergies: 13:18 No Known Allergies; ll1 - PMHx: 13:18 Cerebrovascular accident; BPH; High Cholesterol; Osteoporosis; Hyperlipidemia; ll1 Psoriatic Arthritis; Hypertensive disorder; short term memory loss; Erectile Dysfunction; diabetes mellitus; Depression; Fractured left humerus; - PSHx: 13:18 Appendectomy; cardiac stent (ec); ll1 - Immunization history:: Adult Immunizations up to date. - Infectious Disease History:: Denies. - Social history:: Smoking status: Patient reports the use of cigarette tobacco products, smokes one-half pack cigarettes per day. Screenin:30 Abuse screen: Denies threats or abuse. Denies injuries from another. 13:35 [facility] Fall Risk Assessment (Adult) History of falling in the last 3 months, ph including since admission No falls in past 3 months (0 pts) Confusion or Disorientation No (0 pts) Intoxicated or Sedated No (0 pts) Impaired Gait Yes (1 pt) Mobility Assist Device Used Yes (1 pt) Altered Elimination No (0 pt) Score/Fall Risk Level 0 - 2 = Low Risk Oriented to surroundings, Maintained a safe environment. Nutritional screening: No deficits noted. Tuberculosis screening: No symptoms or risk factors identified. Assessment: 13:30 General: SEE TRIAGE ASSESSMENT, pt report pain relief after receiving IM Toradol from EMS. 15:00 Reassessment: Patient appears in no apparent distress at this time. Patient and/or ph family updated on plan of care and expected duration. Pain level reassessed. Patient is alert, oriented x 3, equal unlabored respirations, skin warm/dry/pink. D/C pending ride home Patient states feeling better. Patient states symptoms have improved. Vital Signs: 13:24 BP 142 / 68; Pulse 64; Resp 18; Temp 97.5; Pulse Ox 98% on R/A; Weight 76.2 kg; Height ph 5 ft. 10 in. ; 14:00 BP 136 / 72; Pulse 64; Resp 18; Temp 97.5; Pulse Ox 98% on R/A; ph 13:24 Body Mass Index 24.11 (76.20 kg, 177.8 cm) ph ED Course: 13:03 Patient arrived in ED. rn 13:17 Kulwinder Fiore PA is PHCP. cp 13:17 Robert Wharton MD is Attending Physician. cp 13:18 Arm band placed on Patient placed in an exam room, on a stretcher. ll1 13:19 Triage completed. ll1 13:23 Kendal Marie, MALIA is Primary Nurse. ph 13:30 Patient has correct armband on for positive identification. Bed in low position. Call light in reach. Side rails up X 1. Pulse ox on. NIBP on. Door closed. Noise minimized. Warm blanket given. 15:30 No provider procedures requiring assistance completed. Patient did not have IV access ph during this emergency room visit. Administered Medications: No medications were administered Outcome: 14:04 Discharge ordered by . cp 15:45 Discharged to home via wheelchair, 15:45 Condition: good 15:45 Discharge instructions given to patient, Instructed on discharge instructions, follow up and referral plans. medication usage, Demonstrated understanding of instructions, follow-up care, medications, Prescriptions given X 1, 15:46 Patient left the ED. ph Signatures: Robert Wharton MD MD rn Hall, Patricia RN RN ph Kulwinder Fiore PA PA cp Lewis, Lynsay RN RN ll1
[2023-09-03 16:05] VITALS: BP 142/68; TEMP 97.5; O2SAT 98
== END 2023-09-03 15:46 | disposition home or self-care (01) ==
LOC: ER 12:59
DX: G89.29 Other chronic pain (principal); F17.210 Nicotine dependence, cigarettes, uncomplicated
CPT/HCPCS: 99284

== ENCOUNTER 2023-09-25 18:22 | Emergency (ER) | payer OTHER ==
--- NOTE | 2023-09-25 19:09 | ER ---
Nurse's Notes [facility] Name: Dylon Hannon Age: 78 yrs Sex: Male : 1945 Arrival Date: 09/25/2023 Time: 18:22 Bed 20 Private MD: Diagnosis: Fall, left elbow abrasion, left elbow contusion Presentation: 09/24 18:22 Chief complaint: Patient states: he fell outside of [facility]. patient reports ld1 pain to his left elbow along with a skin tear. patient denies hitting his head or any LOC during the fall. Coronavirus screen: At this time, the client does not indicate any symptoms associated with coronavirus-19. Ebola Screen: No symptoms or risks identified at this time. Initial Sepsis Screen: Does the patient meet any 2 criteria? No. Patient's initial sepsis screen is negative. Does the patient have a suspected source of infection? No. Patient's initial sepsis screen is negative. Risk Assessment: Do you want to hurt yourself or someone else? Patient reports no desire to harm self or others. Onset of symptoms is unknown. 18:22 Method Of Arrival: EMS: [facility] ld1 18:22 Acuity: STEPHANIE 3 ld1 Triage Assessment: 18:25 General: Appears in no apparent distress. Behavior is calm, cooperative, appropriate ld1 for age. Pain: Complains of pain in left arm Pain currently is 4 out of 10 on a pain scale. Pain began suddenly. Neuro: Level of Consciousness is awake, alert, obeys commands, Oriented to person, place, time, situation, Appropriate for age Gait is ambulates with cane or walker. Cardiovascular: Patient's skin is warm and dry. Respiratory: Airway is patent Respiratory effort is even, unlabored, Respiratory pattern is regular, symmetrical. Derm: Wound noted left elbow. Historical: - Allergies: 18:24 No Known Allergies; ld1 - PMHx: 18:24 BPH; Cerebrovascular accident; Depression; diabetes mellitus; Erectile Dysfunction; ld1 Fractured left humerus; High Cholesterol; Hyperlipidemia; Hypertensive disorder; Osteoporosis; Psoriatic Arthritis; short term memory loss; - PSHx: 18:24 Appendectomy; cardiac stent; ld1 - Immunization history:: Client reports receiving the 2nd dose of the Covid vaccine, Last tetanus immunization: unknown. - Infectious Disease History:: Denies. - Social history:: Smoking status: Patient reports the use of cigarette tobacco products, smokes one pack cigarettes per day. Screenin:20 [facility] ED Fall Risk Assessment (Adult) History of falling in the last 3 months, cp4 including since admission Yes- single mechanical fall (1 pt) Confusion or Disorientation No (0 pts) Intoxicated or Sedated No (0 pts) Impaired Gait No (0 pts) Mobility Assist Device Used No (0 pt) Altered Elimination No (0 pt) Score/Fall Risk Level 0 - 2 = Low Risk Oriented to surroundings, Maintained a safe environment, Assessed \T\ reinforced patient's understanding of fall precautions, Hourly rounding (assess needs \T\ fall precautionary measures) done. Abuse screen: Denies threats or abuse. Nutritional screening: No deficits noted. Tuberculosis screening: No symptoms or risk factors identified. Vital Signs: 18:22 BP 153 / 78; Pulse 65; Resp 18; Temp 98.8; Pulse Ox 99% on R/A; Weight 79.38 kg; Height ld1 5 ft. 11 in. ; Pain 4/10; 18:22 Body Mass Index 24.41 (79.38 kg, 180.34 cm) ld1 18:22 Pain Scale: Adult ld1 ED Course: 18:22 Patient arrived in ED. ld1 18:23 Mervin Crouch, RN is Primary Nurse. bp 18:24 Triage completed. ld1 18:25 Isi Gutierrez MD is Attending Physician. sp3 18:27 Arm band placed on right wrist. ld1 18:27 Patient has correct armband on for positive identification. Bed in low position. Call ld1 light in reach. Side rails up X2. Adult w/ patient. Provided Education on: fall risk and call light . Pulse ox on. NIBP on. 19:00 Elbow Left 3 View XRAY In Process Unspecified. EDMS 19:20 No provider procedures requiring assistance completed. Patient did not have IV access cp4 during this emergency room visit. Administered Medications: No medications were administered Medication: 19:20 VIS not applicable for this client. cp4 Outcome: 19:09 Discharge ordered by . sp3 19:20 Discharged to home ambulatory, via wheelchair, cp4 19:20 Condition: stable 19:20 Discharge instructions given to patient, Instructed on discharge instructions, follow up and referral plans. Demonstrated understanding of instructions, follow-up care, 19:22 Patient left the ED. cp4 Signatures: Dispatcher [employer] Mervin Bee RN RN bp Sims, Lauren, RN RN ld1 Isi Gutierrez MD MD sp3 Cate Jha cp4
--- NOTE | 2023-09-25 19:09 | EDPHYS ---
Physician Documentation [facility] Name: Dylon Hannon Age: 78 yrs Sex: Male : 1945 Arrival Date: 09/25/2023 Time: 18:22 Bed 20 Private MD: ED Physician Isi Gutierrez HPI: 09/24 18:40 This 78 yrs old Male presents to ER via EMS with complaints of left elbow pain. sp3 18:40 78-year-old male with history of CVA, diabetes presents to the ED with chief complaint sp3 mechanical fall lying on his left elbow with mild skin tear there. Patient arrives via EMS. Patient denies head injury, neck pain, chest pain, back pain, pelvic pain, other extremity pain or any other pain in any other area of his body. Patient states no medical prodrome including chest pain, syncope, shortness of breath or any other signs or symptoms reported. Review of systems otherwise negative.. Historical: - Allergies: 18:24 No Known Allergies; ld1 - PMHx: 18:24 BPH; Cerebrovascular accident; Depression; diabetes mellitus; Erectile Dysfunction; ld1 Fractured left humerus; High Cholesterol; Hyperlipidemia; Hypertensive disorder; Osteoporosis; Psoriatic Arthritis; short term memory loss; - PSHx: 18:24 Appendectomy; cardiac stent; ld1 - Immunization history:: Client reports receiving the 2nd dose of the Covid vaccine, Last tetanus immunization: unknown. - Infectious Disease History:: Denies. - Social history:: Smoking status: Patient reports the use of cigarette tobacco products, smokes one pack cigarettes per day. ROS: 18:41 Constitutional: Negative for fever, chills, and weight loss, Eyes: Negative for injury, sp3 pain, redness, and discharge, ENT: Negative for injury, pain, and discharge, Neck: Negative for injury, pain, and swelling, Cardiovascular: Negative for chest pain, palpitations, and edema, Respiratory: Negative for shortness of breath, cough, wheezing, and pleuritic chest pain, Abdomen/GI: Negative for abdominal pain, nausea, vomiting, diarrhea, and constipation, Back: Negative for injury and pain, Skin: Negative for injury, rash, and discoloration, Neuro: Negative for headache, weakness, numbness, tingling, and seizure, Psych: Negative for depression, anxiety, suicide ideation, homicidal ideation, and hallucinations, Allergy/Immunology: Negative for hives, rash, and allergies, Endocrine: Negative for neck swelling, polydipsia, polyuria, polyphagia, and marked weight changes, Hematologic/Lymphatic: Negative for swollen nodes, abnormal bleeding, and unusual bruising, 18:41 All other systems are negative, Exam: 18:41 Constitutional: This is a well developed, well nourished patient who is awake, alert, sp3 and in no acute distress. Head/Face: Normocephalic, atraumatic. Eyes: Pupils equal round and reactive to light, extra-ocular motions intact. Lids and lashes normal. Conjunctiva and sclera are non-icteric and not injected. Cornea within normal limits. Periorbital areas with no swelling, redness, or edema. Neck: Trachea midline, no thyromegaly or masses palpated, and no cervical lymphadenopathy. Supple, full range of motion without nuchal rigidity, or vertebral point tenderness. No Meningismus. Chest/axilla: Normal chest wall appearance and motion. Nontender with no deformity. No lesions are appreciated. Cardiovascular: Regular rate and rhythm with a normal S1 and S2. No gallops, murmurs, or rubs. Normal PMI, no JVD. No pulse deficits. Respiratory: Lungs have equal breath sounds bilaterally, clear to auscultation and percussion. No rales, rhonchi or wheezes noted. No increased work of breathing, no retractions or nasal flaring. Abdomen/GI: Soft, non-tender, with normal bowel sounds. No distension or tympany. No guarding or rebound. No evidence of tenderness throughout. Back: No spinal tenderness. No costovertebral tenderness. Full range of motion. Skin: Warm, dry with normal turgor. Normal color with no rashes, no lesions, and no evidence of cellulitis. Neuro: Awake and alert, GCS 15, oriented to person, place, time, and situation. Cranial nerves II-XII grossly intact. Motor strength 5/5 in all extremities. Sensory grossly intact. Cerebellar exam normal. Normal gait. Psych: Awake, alert, with orientation to person, place and time. Behavior, mood, and affect are within normal limits. 18:41 Musculoskeletal/extremity: 3 cm superficial laceration to the left lateral elbow not requiring repair. Mild pain to the lateral elbow without significant swelling. Distal neurovascular exam is normal. Proximal joint exam is also normal.. Vital Signs: 18:22 BP 153 / 78; Pulse 65; Resp 18; Temp 98.8; Pulse Ox 99% on R/A; Weight 79.38 kg; Height ld1 5 ft. 11 in. ; Pain 4/10; 18:22 Body Mass Index 24.41 (79.38 kg, 180.34 cm) ld1 18:22 Pain Scale: Adult ld1 MDM: 18:25 Patient medically screened. sp3 18:42 Data reviewed: vital signs, nurses notes, EMS record, radiologic studies. ED course: sp3 78-year-old male with mechanical fall with left elbow injury. Laceration does not require repair. No signs of any other injury on patient's body on secondary exam. X-rays negative we will safely discharge patient home after wound care. Patient declined tetanus immunization. Follow-up with PCP.. 19:08 ED course: X-ray demonstrates no acute abnormality. We will safely discharge patient sp3 home at this time.. 09/24 18:25 Order name: Elbow Left 3 View XRAY sp3 09/24 18:25 Order name: Wound dressing; Complete Time: 18:47 sp3 Administered Medications: No medications were administered Disposition Summary: 09/25/23 19:09 Discharge Ordered Notes: Location: Home sp3 Condition: Stable sp3 Diagnosis - Fall, left elbow abrasion, left elbow contusion sp3 Followup: sp3 - With: Private Physician - When: Upon discharge from the Emergency Department - Reason: Continuance of care Discharge Instructions: - Discharge Summary Sheet sp3 - Fall Prevention in the Home, Adult sp3 Forms: - Medication Reconciliation Form sp3 - Antibiotic Education sp3 - Prescription Opioid Use sp3 - Patient Portal Instructions sp3 - Leadership Thank You Letter sp3 Signatures: Dispatcher [employer] EDVicky Desouza RN RN ld1 Isi Gutierrez MD MD sp3 Corrections: (The following items were deleted from the chart) 18:26 18:26 Elbow Left 3 View+RAD.RAD.BRZ ordered. EDMS EDMS
[2023-09-25 19:36] VITALS: BP 153/78; TEMP 98.8; O2SAT 99
--- NOTE | 2023-09-25 20:30 | RAD REPORT ---
EXAM DESCRIPTION: RAD - Elbow Left 3 View - 09/25/2023 6:58 pm CLINICAL HISTORY: trauma COMPARISON: No comparisons TECHNIQUE: Left elbow, 3 views. FINDINGS: No fracture is identified. No elevated posterior fat pad to suggest an effusion. Mild radiocapitellar degenerative changes. There is no dislocation or periosteal reaction noted. No foreign body or other soft tissue abnormalit y. IMPRESSION: No acute findings. Mild radiocapitellar degenerative changes.
== END 2023-09-25 19:22 | disposition home or self-care (01) ==
LOC: ER 18:22
DX: S50.312A Abrasion of left elbow, initial encounter (principal); W18.30XA Fall on same level, unspecified, initial encounter

== ENCOUNTER 2023-11-07 12:24 | Observation (INO) | payer OTHER ==
[2023-11-07 15:14] LABS: Absolute Basophils 0.1 K/uL (0-0.5); Absolute Eosinophils 0.2 K/uL (0-0.5); Absolute Lymphocytes (CBC) 2.3 K/uL (0.7-4.9); Absolute Monocytes 0.8 K/uL (0.1-1.3); Absolute Neutrophil 6.6 K/uL (1.8-8.0); Basophils % 0.9 % (0-1.3); Eosinophils % 1.9 % (0-4.4); Hematocrit 44.6 % (39.6-49.0); Lymphocytes % 23.1 % (15.3-44.8); MCH 30.8 pg (27.0-35.0); MCHC 33.7 g/dL (32.0-36.0); MCV 91.6 fL (80-100); MPV 7.5 fL (7.6-11.3); Neutrophils % 66.1 % (41.7-73.7); Platelets 141 thou/uL (152-406); RBC Red Blood Cell Count 4.87 M/uL (4.33-5.43); Red Cell Distribution Width 14.2 % (12.1-15.2)
[2023-11-07 15:35] LABS: Anion Gap 6.7 mEq/L (5.0-15.0); Magnesium 2.4 mg/dL (1.6-2.4); Potassium 3.7 mEq/L (3.5-5.1); Troponin High Sensitivity 28.4 pg/mL (<58.9)
--- NOTE | 2023-11-07 15:39 | RAD REPORT ---
EXAM DESCRIPTION: CT - Head Brain Wo Cont - 11/07/2023 3:27 pm CLINICAL HISTORY: Fall with head injury COMPARISON: 2021 TECHNIQUE: Computed axial tomography of the head was obtained. IV contrast was not requested. All CT scans are performed using dose optimization technique as appropriate and may include automated exposure control or mA/KV adjustment according to patient size. FINDINGS: An intracranial bleed is not seen Prominence of the ventricles without significant change probably sequela of cerebral atrophy. No extra-axial fluid collection is noted. Mild low-density areas within periventricular, deep and subcortical white matter likely represent is chemic changes secondary to small vessel disease. Fluid within the sinuses/ mastoids is not seen. IMPRESSION: No acute intracranial abnormality is seen If patient's symptoms persist MRI of the brain would be recommended
[2023-11-07 15:42] LABS: PT Prothrombin Time 11.2 SECONDS (9.4-12.5)
--- NOTE | 2023-11-07 16:10 | ER ---
Nurse's Notes [facility] Name: Dylon Hannon Age: 78 yrs Sex: Male : 1945 Arrival Date: 11/07/2023 Time: 12:24 Bed 8 Private MD: Diagnosis: Fall from non-moving wheelchair;Muscle weakness (generalized);Age-related cognitive decline Presentation: 11/06 12:36 Chief complaint: EMS states: toned out to [facility] for fall injury; pt. fell last ld1 night, negative LOC, mechanical fall, not on thinners. Coronavirus screen: At this time, the client does not indicate any symptoms associated with coronavirus-19. Ebola Screen: No symptoms or risks identified at this time. Initial Sepsis Screen: Does the patient meet any 2 criteria? No. Patient's initial sepsis screen is negative. Does the patient have a suspected source of infection? No. Patient's initial sepsis screen is negative. Risk Assessment: Do you want to hurt yourself or someone else? Patient reports no desire to harm self or others. Onset of symptoms was November 06, 2023. 12:36 Method Of Arrival: EMS: [facility] ld1 12:36 Acuity: STEPHANIE 3 ld1 Triage Assessment: 12:39 General: Appears in no apparent distress. Behavior is calm, cooperative, Smells of ld1 urine; pt reports, "I peed on myself.". Pain: Denies pain. EENT: No deficits noted. Neuro: Level of Consciousness is awake, alert, obeys commands, Oriented to person, place, time, situation. Cardiovascular: Capillary refill < 3 seconds Respiratory: No deficits noted. GI: Abdomen is flat, non-distended. : No deficits noted. Historical: - Allergies: 12:35 No Known Allergies; ld1 - PMHx: 12:35 BPH; Cerebrovascular accident; diabetes mellitus; Erectile Dysfunction; Depression; ld1 High Cholesterol; Fractured left humerus; Hypertensive disorder; Hyperlipidemia; Psoriatic Arthritis; Osteoporosis; short term memory loss; - Immunization history:: Adult Immunizations up to date. - Infectious Disease History:: Denies. - Social history:: Smoking status: unknown Patient uses alcohol, occasionally. Screenin:54 [facility] ED Fall Risk Assessment (Adult) History of falling in the last 3 months, ld1 including since admission Yes- single mechanical fall (1 pt) Confusion or Disorientation No (0 pts) Intoxicated or Sedated No (0 pts) Impaired Gait Yes (1 pt) Mobility Assist Device Used Yes (1 pt) Altered Elimination No (0 pt) Score/Fall Risk Level 0 - 2 = Low Risk Oriented to surroundings, Maintained a safe environment, Educated pt \\T\\ family on fall prevention, incl call for assistance when getting out of bed, Assessed \\T\\ reinforced patient's understanding of fall precautions, Provided non-skid footwear, Hourly rounding (assess needs \\T\\ fall precautionary measures) done, Used ambulatory aids as needed (educated on \\T\\ assisted with), Used gait belt as appropriate. Abuse screen: Denies threats or abuse. Denies injuries from another. Nutritional screening: No deficits noted. Tuberculosis screening: No symptoms or risk factors identified. Assessment: 12:54 Reassessment: see triage assessment. ld1 15:09 Reassessment: Patient appears in no apparent distress at this time. No changes from ld1 previously documented assessment. 15:56 Reassessment: Patient appears in no apparent distress at this time. No changes from ar6 previously documented assessment. Patient denies pain at this time. 15:57 Reassessment: Patient appears in no apparent distress at this time. No changes from ar6 previously documented assessment. Patient denies pain at this time. Vital Signs: 12:36 BP 185 / 75; Pulse 57; Resp 18; Temp 97.3; Pulse Ox 97% on R/A; Weight 77.11 kg; Height ld1 5 ft. 11 in. ; 12:51 BP 180 / 80; Pulse 56; Resp 18; Temp 36.3; Pulse Ox 100% on R/A; Weight 77.11 kg; ld1 Height 5 ft. 11 in. ; Pain 0/10; 15:56 BP 177 / 86; Pulse 58; Resp 18; Pulse Ox 99% on R/A; Pain 0/10; ar6 12:51 Body Mass Index 23.71 (77.11 kg, 180.34 cm) ld1 12:51 Pain Scale: Adult ld1 15:56 Pain Scale: Adult ar6 ED Course: 12:35 Patient arrived in ED. ld1 12:39 Triage completed. ld1 12:41 Myke Smiley MD is Attending Physician. bo1 12:54 Arm band placed on right wrist. ld1 12:54 Patient has correct armband on for positive identification. Placed in gown. Bed in low ld1 position. Call light in reach. Side rails up X2. child monitor on. Pulse ox on. NIBP on. Door closed. Noise minimized. Warm blanket given. Cleaned of incontinence. Linen changed. pericare provided; pt. placed in clean brief. 15:09 Troponin HS Sent. ld1 15:09 PT-INR Sent. ld1 15:09 Magnesium Sent. ld1 15:09 CBC with Diff Sent. ld1 15:09 Basic Metabolic Panel Sent. ld1 15:10 Inserted saline lock: 20 gauge in right antecubital area, using aseptic technique. ld1 Blood collected. Flushed with 10 mL NS. 15:29 CT Head Brain wo Cont In Process Unspecified. EDMS 15:58 Vilma Saleem, RN is Primary Nurse. ar6 16:09 Patrick Wharton MD is Hospitalizing Provider. bo1 16:19 XRAY CXR (1 view) In Process Unspecified. EDMS Administered Medications: No medications were administered Outcome: 16:10 Decision to Hospitalize by Provider. bo1 18:08 Patient left the ED. Signatures: Dispatcher [employer] EDMS Jessica Barrios RN RN Vicky Flaherty RN RN ld1 Myke Smiley MD MD bo1 Vilma Saleem, RN RN ar6 Corrections: (The following items were deleted from the chart) 12:36 12:35 PSHx: Appendectomy; ld1 ld1 12:36 12:35 PSHx: cardiac stent; ld1 ld1
--- NOTE | 2023-11-07 16:10 | EDPHYS ---
Physician Documentation [facility] Name: Dylno Hannon Age: 78 yrs Sex: Male : 1945 Arrival Date: 11/07/2023 Time: 12:24 Bed 8 Private MD: ED Physician Myke Smiley HPI: 11/06 14:00 This 78 yrs old Male presents to ER via EMS with unknown complaint. bo1 14:00 Pt's caregiver called EMS for pt fall. He had stepped up from the wheelchair (was bo1 unlocked) and was going towards the "ice box." No LOC. Pt smells of urine. . Lives alone. Fends for himself. M-F caregiver 5 days a week for 3 hours each day. No help on weekends. Pt is stating he can walk and has no weakness. 16:01 Onset: The symptoms/episode began/occurred acutely, last night. Severity of symptoms: bo1 in the emergency department the symptoms No C/O. The patient has experienced similar episodes in the past, Per review of past history visits. 16:04 Odor of urine about the pt. bo1 Historical: - Allergies: 12:35 No Known Allergies; ld1 - PMHx: 12:35 BPH; Cerebrovascular accident; diabetes mellitus; Erectile Dysfunction; Depression; ld1 High Cholesterol; Fractured left humerus; Hypertensive disorder; Hyperlipidemia; Psoriatic Arthritis; Osteoporosis; short term memory loss; - Immunization history:: Adult Immunizations up to date. - Infectious Disease History:: Denies. - Social history:: Smoking status: unknown Patient uses alcohol, occasionally. ROS: 13:59 Constitutional: Negative for fever, chills, and weight loss, bo1 13:59 Cardiovascular: Negative for chest pain, palpitations, 13:59 Respiratory: Negative for cough, shortness of breath, 13:59 Abdomen/GI: Negative for abdominal pain, nausea, vomiting, and diarrhea, Exam: 16:00 ECG was reviewed by the Attending Physician. bo1 16:02 Constitutional: This is a well developed, well nourished patient who is awake, alert, bo1 and in no acute distress. 16:02 Head/face: Exam is negative for acute changes, 16:02 Eyes: Exam is negative for acute changes, 16:02 Neck: Exam negative for acute changes, 16:02 Chest/axilla: Inspection: normal, 16:02 Cardiovascular: Rate: bradycardic, Rhythm: regular, Pulses: no pulse deficits are appreciated, 16:02 Respiratory: the patient does not display signs of respiratory distress, Breath sounds: are clear throughout, Respiratory rate: Normal 16:02 Abdomen/GI: Exam negative for acute changes, Palpation: abdomen is soft and non-tender, 16:02 Musculoskeletal/extremity: Extremities: all appear grossly normal, with no appreciated pain with palpation, ROM: no acute changes, 16:02 Skin: Exam negative for acute changes, 16:02 Neuro: Orientation: appropriate for stated age, Mentation: appropriate for stated age, Memory: appropriate for stated age, Pt is laying on the stretcher comfortably w/o c/o, Vital Signs: 12:36 BP 185 / 75; Pulse 57; Resp 18; Temp 97.3; Pulse Ox 97% on R/A; Weight 77.11 kg; Height ld1 5 ft. 11 in. ; 12:51 BP 180 / 80; Pulse 56; Resp 18; Temp 36.3; Pulse Ox 100% on R/A; Weight 77.11 kg; ld1 Height 5 ft. 11 in. ; Pain 0/10; 15:56 BP 177 / 86; Pulse 58; Resp 18; Pulse Ox 99% on R/A; Pain 0/10; ar6 12:51 Body Mass Index 23.71 (77.11 kg, 180.34 cm) ld1 12:51 Pain Scale: Adult ld1 15:56 Pain Scale: Adult ar6 MDM: 12:41 Patient medically screened. bo1 16:05 Differential Diagnosis Progressive mental and physical decline. Private EMS reports bo1 multiple transports to a lone person residence. Weakness. No evidence of acute CAD. Data reviewed: vital signs, old medical records, lab test result(s), CBC, electrolytes, urinalysis, EKG, radiologic studies, plain films. Consideration of Admission/Observation Patient was admitted/placed on observation. Management of patient was discussed with the following: Hospitalist: Jigar. bank manager in the ER, reviewed Hx in [facility]. 11/06 14:50 Order name: Basic Metabolic Panel; Complete Time: 15:42 bo1 11/06 14:50 Order name: CBC with Diff; Complete Time: 15:42 bo1 11/06 14:50 Order name: Magnesium; Complete Time: 15:42 bo 11/06 14:50 Order name: PT-INR; Complete Time: 15:42 bo11/06 14:50 Order name: Troponin HS; Complete Time: 15:42 bo11/06 15:12 Order name: XRAY CXR (1 view); Complete Time: 16:37 bo11/06 15:12 Order name: CT Head Brain wo Cont; Complete Time: 15:42 bo11/06 14:50 Order name: EKG; Complete Time: 14:51 bo11/06 14:50 Order name: Cardiac monitoring; Complete Time: 14:57 bo11/06 14:50 Order name: EKG - Nurse/Tech; Complete Time: 15:59 bo11/06 14:50 Order name: IV Saline Lock; Complete Time: 15:09 bo11/06 14:50 Order name: Labs collected and sent; Complete Time: 15:09 bo11/06 14:50 Order name: O2 Per Protocol; Complete Time: 15:45 bo11/06 14:50 Order name: O2 Sat Monitoring; Complete Time: 14:57 bo EC:00 Rate is 55 beats/min. Rhythm is regular. QRS [place] is Normal. DC interval is normal. QRS bo1 interval is normal. QT interval is normal. No Q waves. T waves are Normal. T waves are Inverted in leads aVR, V1. No ST changes noted. Clinical impression: Sinus bradycardia. Interpreted by me. Reviewed by me. Administered Medications: No medications were administered Disposition Summary: 11/07/23 16:10 Hospitalization Ordered Notes: Hospitalization Status: Observation bo1 Provider: Patrick Wharton [facility] Location: Telemetry/MedSurg (observation) bo1 Condition: Fair bo1 Problem: chronic bo1 Symptoms: are unchanged bo1 Bed/Room Type: Standard [facility] Room Assignment: 220(11/07/23 16:53) ja1 Diagnosis - Fall from non-moving wheelchair bo1 - Muscle weakness (generalized) bo1 - Age-related cognitive decline bo1 Forms: - Medication Reconciliation Form bo1 - SBAR form bo1 - Leadership Thank You Letter bo1 Signatures: Dispatcher [employer] EDJigar Diaz, EQUAL OPPORTUNITY COUNSELOR-C EQUAL OPPORTUNITY COUNSELOR-Cla1 Jermaine Navarrete RN RN ja1 Vicky Flaherty RN RN ld1 Oei, MD JUANA Stringer bo1 Corrections: (The following items were deleted from the chart) 12:36 12:35 PSHx: Appendectomy; 1 ld1 12:36 12:35 PSHx: cardiac stent; 1 ld1 14:51 14:51 BASIC METABOLIC PANEL+C.LAB.BRZ ordered. EDMS EDMS 14:51 14:51 CBC+H.LAB.BRZ ordered. EDMS EDMS 14:51 14:51 MAGNESIUM+C.LAB.BRZ ordered. EDMS EDMS 14:51 14:51 PROTIME (+INR)+COAG.LAB.BRZ ordered. EDMS EDMS 14:51 14:51 Troponin High Sensitivity+C.LAB.BRZ ordered. EDMS EDMS 16:53 16:10 bo1 colby
--- NOTE | 2023-11-07 16:32 | RAD REPORT ---
EXAM DESCRIPTION: Conner Single View11/07/2023 4:17 pm CLINICAL HISTORY: Chest pain COMPARISON: July 2023 FINDINGS: The lungs appear clear of acute infiltrate. The heart is normal size Old bony fractures IMPRESSION: No acute abnormalities displayed
--- NOTE | 2023-11-07 16:49 | P.HP ---
Certification for Inpatient Patient admitted to: Observation With expected LOS: <2 Midnights Patient will require the following post-hospital care: None Practitioner: I am a practitioner with admitting privileges, knowledge of patient current condition, hospital course, and medical plan of care. Services: Services provided to patient in accordance with Admission requirements found in Title 42 Section 412.3 of the Code of Federal Regulations Patient History Date of Service: 11/07/23 Reason for admission: Weakness, multiple falls History of Present Illness: 78-year-old male with history of hypertension, hyperlipidemia, CAD, diet- controlled diabetes, BPH who drinks alcohol regularly and smokes about recorders pack per day presents emergency department for chief complaint of fall. He reports he has caregivers at his house Saturday through Saturday for about 3 and half hours but has no care on the weekend, he reports he was in his wheelchair trying to get something out of the icebox and did not lock his wheelchair therefore falling on the ground. He was reportedly found on the ground by his home care staff who had him brought to the ER for evaluation. Patient was evaluated in the emergency department his labs were unremarkable as well as CT head and chest x-ray. Patient has issues with short-term memory, cannot state clearly when he last had fallen but there is concern for significant deconditioning as when he last was in the hospital he was using a walker and he has not been able to ambulate. ED prior wishes to make patient under observation for weakness, repeated falls. Allergies No Known Allergies Allergy (Verified 08/16/21 22:35) Home Medications: Adalimumab [Humira(Cf) Pen] 40 mg SQ EVERY 7TH DAY 08/16/21 Amlodipine Besylate 5 mg PO DAILY 08/16/21 buPROPion HCL [Wellbutrin Xl] 150 mg PO BID 08/16/21 Calcium Carbonate 500 mg PO TID 08/17/21 Folic Acid 1 mg PO DAILY 08/17/21 Lisinopril [Zestril] 20 mg PO DAILY 08/17/21 Loratadine [Claritin*] 10 mg PO DAILY 08/17/21 Methotrexate [Methotrexate*] 4 tab PO EVERY 7TH DAY 08/17/21 Pyridoxine HCl (Vitamin B6) [Pyridoxine HCl] 50 mg PO DAILY 08/17/21 Trazodone HCl 100 mg PO DAILY 08/17/21 sulfaSALAzine [Sulfasalazine] 500 mg PO BID 08/17/21 Thiamine HCl [Vitamin B-1] 100 mg PO BID 30 Days #60 tablet 08/18/21 Aspirin 81 mg PO DAILY 90 Days #90 tab.chew 08/02/23 Atorvastatin Calcium [Lipitor] 40 mg PO BEDTIME 90 Days #90 tab 08/02/23 Ticagrelor [Brilinta*] 90 mg PO BID 90 Days #180 tab 08/02/23 - Past Medical/Surgical History Diabetic: Yes -: Hypertension -: Hyperlipidemia -: Diabetes most type IIdiet controlled -: BPH -: thyroid -: Knee surgery -: Thyroid surgery -: Appendectomy Psychosocial/ Personal History: Patient lives at home, alone - Family History Father -: Cancer Mother -: Cancer - Social History Alcohol use: Yes CD- Drugs: No Caffeine use: Yes Place of Residence: Home Review of Systems 10-point ROS is otherwise unremarkable General: Weakness Physical Examination - Physical Exam General: Alert, In no apparent distress, Oriented x2 (Knows his name and location but not the year) HEENT: Atraumatic, PERRLA, Mucous membr. moist/pink Neck: Supple, 2+ carotid pulse no bruit, No LAD Respiratory: Clear to auscultation bilaterally, Normal air movement Cardiovascular: Regular rate/rhythm, Normal S1 S2 Gastrointestinal: Normal bowel sounds, No tenderness Musculoskeletal: No tenderness Integumentary: No rashes Neurological: Normal speech, Normal affect - Studies Laboratory Data (last 24 hrs) 11/07/23 11/07/23 11/07/23 15:05 15:05 15:05 WBC 10.00 Hgb 15.0 Hct 44.6 Plt Count 141 L PT 11.2 INR 1.00 Sodium 137 Potassium 3.7 BUN 12 Creatinine 1.03 Glucose 115 H Magnesium 2.4 Assessment and Plan - Plan Assessment: Weakness/multiple falls Diabetes mellitus type 2diet controlled History of CAD/moderate aortic stenosis Chronic alcohol use disorder Tobacco use disorder Hypertension Hyperlipidemia BPH Plan: Weakness/multiple falls PT consultation Typically uses a walker or wheelchair at home Has caregivers Saturday through Saturday for about 3 and half hours Has issues with short-term memory ER reports he has been progressively weakening with multiple falls recently EMS also report that they have on him frequently for falls 911 emergency services dispatcher consultation, may benefit with home health/PT versus SNF Diabetes mellitus type 2diet controlled ACHS Accu-Chek, sliding scale insulin History of CAD/moderate aortic stenosis No chest pain, initial troponin negative Continue aspirin, Brilinta, statin Chronic alcohol use disorder Tobacco use disorder Counseled on importance for cessation and impact on his gait/weakness Hypertension Hyperlipidemia BPH Continue home medications when verified DVT PPX: Lovenox Code status: Full Discharge Plan: Home Plan to discharge in: 24 Hours - Advance Directives Does patient have a Living Will: No Does patient have a Durable POA for Healthcare: No - Code Status/Comfort Care Code Status Assessed: Yes (Full code) Critical Care: No Time Spent Managing Pts Care (In Minutes): 70
[2023-11-07] MEDS ORDERED: ONDANSETRON 4 MG/2 ML VIAL IV PRN (17:32)
[2023-11-07] MEDS: ENOXAPARIN 40 MG/0.4 ML SQ SCH (18:00)
[2023-11-07] MEDS: INSULIN REGULAR (HUMAN) 100 UNIT/ML SQ SCH (21:00)
[2023-11-07] MEDS: TICAGRELOR 90 MG TABLET PO SCH (21:07)
[2023-11-07] MEDS: ATORVASTATIN 40 MG TAB PO SCH (21:07)
[2023-11-08 06:11] LABS: Absolute Basophils 0.1 K/uL (0-0.5); Absolute Eosinophils 0.3 K/uL (0-0.5); Absolute Lymphocytes (CBC) 2.5 K/uL (0.7-4.9); Absolute Neutrophil 5.8 K/uL (1.8-8.0); Anion Gap 5.7 mEq/L (5.0-15.0); Basophils % 0.9 % (0-1.3); Eosinophils % 2.9 % (0-4.4); Hematocrit 39.1 % (39.6-49.0); Hemoglobin 13.3 g/dL (13.6-17.9); Lymphocytes % 26.1 % (15.3-44.8); MCH 31.2 pg (27.0-35.0); MCHC 34.1 g/dL (32.0-36.0); MCV 91.6 fL (80-100); MPV 7.8 fL (7.6-11.3); Monocytes % 9.9 % (3.3-12.3); Neutrophils % 60.2 % (41.7-73.7); Platelets 124 thou/uL (152-406); Potassium 3.7 mEq/L (3.5-5.1); RBC Red Blood Cell Count 4.26 M/uL (4.33-5.43); Red Cell Distribution Width 14.4 % (12.1-15.2)
[2023-11-08] MEDS: ASPIRIN 81 MG CHEWABLE TABLET PO SCH (08:09)
--- NOTE | 2023-11-08 11:51 | P.PN ---
Date of Service: 11/08/23 Subjective: No acute events overnight Denies any complaints currently ROS: 10 point ROS as noted above, otherwise negative Physical exam GEN: Alert, oriented x 2, NAD HEENT: Normal conjunctiva, sclera anicteric CV: Regular rate and rhythm, no edema Pulm: Nonlabored respirations on room air ABD: Soft, nontender, nondistended MSK: No joint tenderness Integumentary: No rashes Neuro: Normal speech, normal affect Vitals reviewed Assessment: Weakness/multiple falls Diabetes mellitus type 2diet controlled History of CAD/moderate aortic stenosis Chronic alcohol use disorder Tobacco use disorder Hypertension Hyperlipidemia BPH Plan: Weakness/multiple falls Short-term memory loss PT consultation-appropriate for SNF, continue PT eval, work on SNF placement Typically uses a walker or wheelchair at home Has caregivers Saturday through Saturday for about 3 and half hours Has issues with short-term memory, high risk for falls ER reports he has been progressively weakening with multiple falls recently EMS also report that they have on him frequently for falls Diabetes mellitus type 2diet controlled ACHS Accu-Chek, sliding scale insulin History of CAD/moderate aortic stenosis No chest pain, initial troponin negative Continue aspirin, Brilinta, statin Chronic alcohol use disorder Tobacco use disorder Counseled on importance for cessation and impact on his gait/weakness Hypertension Hyperlipidemia BPH Continue home medications when verified DVT PPX: Lovenox Code status: Full Discharge Plan: Home Plan to discharge in: 24 Hours Time Spent Managing Pts Care (In Minutes): 35
--- NOTE | 2023-11-08 13:31 | EKG ---
Test Date: 2023-11-07 Test Time: 15:57:06 Videotape Operator: HB MEASUREMENT RESULTS: Intervals: Rate: 55 NH: 174 QRSD: 74 QT: 430 QTc: 411 [place]: P: -12 NH: 174 QRS: 36 T: 52 INTERPRETIVE STATEMENTS: Sinus bradycardia Otherwise normal ECG Compared to ECG 08/01/2023 14:05:35 No significant changes Electronically Signed On 11-08-23 13:29:10 CDT by Rajesh Huber
[2023-11-08 15:12] VITALS: BMI 23.7
[2023-11-08] MEDS: AMLODIPINE 5 MG TAB PO SCH (21:21)
[2023-11-09 05:44] LABS: Absolute Basophils 0.1 K/uL (0-0.5); Absolute Eosinophils 0.3 K/uL (0-0.5); Absolute Lymphocytes (CBC) 3.2 K/uL (0.7-4.9); Absolute Monocytes 0.9 K/uL (0.1-1.3); Basophils % 0.8 % (0-1.3); Eosinophils % 3.1 % (0-4.4); Hematocrit 39.2 % (39.6-49.0); Hemoglobin 13.7 g/dL (13.6-17.9); Lymphocytes % 30.2 % (15.3-44.8); MCH 31.4 pg (27.0-35.0); MCHC 34.8 g/dL (32.0-36.0); MCV 90.1 fL (80-100); MPV 7.7 fL (7.6-11.3); Monocytes % 8.9 % (3.3-12.3); Platelets 165 thou/uL (152-406); RBC Red Blood Cell Count 4.35 M/uL (4.33-5.43); Red Cell Distribution Width 14.1 % (12.1-15.2)
[2023-11-09 06:01] LABS: Anion Gap 8.3 mEq/L (5.0-15.0); Potassium 4.3 mEq/L (3.5-5.1)
--- NOTE | 2023-11-09 11:28 | P.PN ---
Date of Service: 11/09/23 Subjective: No acute events overnight Denies complaints currently ROS: 10 point ROS as noted above, otherwise negative Physical exam GEN: Alert, oriented x 2, NAD HEENT: Normal conjunctiva, sclera anicteric CV: Regular rate and rhythm, no edema Pulm: Nonlabored respirations on room air ABD: Soft, nontender, nondistended MSK: No joint tenderness Integumentary: No rashes Neuro: Normal speech, normal affect Vitals reviewed Assessment: Weakness/multiple falls Diabetes mellitus type 2diet controlled History of CAD/moderate aortic stenosis Chronic alcohol use disorder Tobacco use disorder Hypertension Hyperlipidemia BPH Plan: Weakness/multiple falls Short-term memory loss PT consultation-appropriate for SNF, continue PT eval, work on SNF placement Typically uses a walker or wheelchair at home Has caregivers Saturday through Saturday for about 3 and half hours Has issues with short-term memory, high risk for falls ER reports he has been progressively weakening with multiple falls recently EMS also report that they have on him frequently for falls Pending SNF auth Diabetes mellitus type 2diet controlled ACHS Accu-Chek, sliding scale insulin History of CAD/moderate aortic stenosis No chest pain, initial troponin negative Continue aspirin, Brilinta, statin Chronic alcohol use disorder Tobacco use disorder Counseled on importance for cessation and impact on his gait/weakness Hypertension Hyperlipidemia BPH Continue home medications when verified DVT PPX: Lovenox Code status: Full Discharge Plan: SNF Plan to discharge in: 24 Hours Time Spent Managing Pts Care (In Minutes): 35
--- NOTE | 2023-11-10 10:25 | P.PN ---
Date of Service: 11/10/23 Subjective: No acute events overnight Denies complaints currently Blood pressure elevated, having trouble getting list of home meds ROS: 10 point ROS as noted above, otherwise negative Physical exam GEN: Alert, oriented x 2, NAD HEENT: Normal conjunctiva, sclera anicteric CV: Regular rate and rhythm, no edema Pulm: Nonlabored respirations on room air ABD: Soft, nontender, nondistended MSK: No joint tenderness Integumentary: No rashes Neuro: Normal speech, normal affect Vitals reviewed Assessment: Weakness/multiple falls Diabetes mellitus type 2diet controlled History of CAD/moderate aortic stenosis Chronic alcohol use disorder Tobacco use disorder Hypertension Hyperlipidemia BPH Plan: Weakness/multiple falls Short-term memory loss PT consultation-appropriate for SNF, continue PT eval, work on SNF placement Typically uses a walker or wheelchair at home Has caregivers Saturday through Saturday for about 3 and half hours Has issues with short-term memory, high risk for falls ER reports he has been progressively weakening with multiple falls recently EMS also report that they have on him frequently for falls Pending SNF auth Diabetes mellitus type 2diet controlled ACHS Accu-Chek, sliding scale insulin History of CAD/moderate aortic stenosis No chest pain, initial troponin negative Continue aspirin, Brilinta, statin Chronic alcohol use disorder Tobacco use disorder Counseled on importance for cessation and impact on his gait/weakness Hypertension Hyperlipidemia BPH Blood pressure elevated, started on lisinopril Awaiting med rec, difficult to obtain, discussed with nursing staff DVT PPX: Lovenox Code status: Full Discharge Plan: SNF Plan to discharge in: 24 Hours Time Spent Managing Pts Care (In Minutes): 35
[2023-11-11 06:23] LABS: Hematocrit 40.8 % (39.6-49.0); Hemoglobin 14.1 g/dL (13.6-17.9); MCH 31.7 pg (27.0-35.0); MCHC 34.5 g/dL (32.0-36.0); MCV 91.7 fL (80-100); MPV 7.6 fL (7.6-11.3); Platelets 197 thou/uL (152-406); RBC Red Blood Cell Count 4.45 M/uL (4.33-5.43); Red Cell Distribution Width 14.1 % (12.1-15.2)
[2023-11-11 06:46] LABS: Anion Gap 5.5 mEq/L (5.0-15.0); Potassium 4.5 mEq/L (3.5-5.1)
--- NOTE | 2023-11-11 12:57 | P.PN ---
Date of Service: 11/11/23 Subjective: No acute events overnight Denies complaints currently Blood pressure elevated, having trouble getting list of home meds Pending auth [facility] ROS: 10 point ROS as noted above, otherwise negative Physical exam GEN: Alert, oriented x 2, NAD HEENT: Normal conjunctiva, sclera anicteric CV: Regular rate and rhythm, no edema Pulm: Nonlabored respirations on room air ABD: Soft, nontender, nondistended MSK: No joint tenderness Integumentary: No rashes Neuro: Normal speech, normal affect Vitals reviewed Assessment: Weakness/multiple falls Diabetes mellitus type 2diet controlled History of CAD/moderate aortic stenosis Chronic alcohol use disorder Tobacco use disorder Hypertension Hyperlipidemia BPH Plan: Weakness/multiple falls Short-term memory loss PT consultation-appropriate for SNF, continue PT eval, work on SNF placement Typically uses a walker or wheelchair at home Has caregivers Saturday through Saturday for about 3 and half hours Has issues with short-term memory, high risk for falls ER reports he has been progressively weakening with multiple falls recently EMS also report that they have on him frequently for falls Pending SNF auth at [facility] Diabetes mellitus type 2diet controlled ACHS Accu-Chek, sliding scale insulin History of CAD/moderate aortic stenosis No chest pain, initial troponin negative Continue aspirin, Brilinta, statin Chronic alcohol use disorder Tobacco use disorder Counseled on importance for cessation and impact on his gait/weakness Hypertension Hyperlipidemia BPH Blood pressure elevated, started on lisinopril Awaiting med rec, difficult to obtain, discussed with nursing staff DVT PPX: Lovenox Code status: Full Discharge Plan: SNF Plan to discharge in: 24 Hours Time Spent Managing Pts Care (In Minutes): 35
[2023-11-11] MEDS: lisinopriL 10 MG TAB PO ONE (17:04)
[2023-11-12 07:03] LABS: Anion Gap 4.4 mEq/L (5.0-15.0); Potassium 4.4 mEq/L (3.5-5.1)
[2023-11-12 07:33] LABS: Hematocrit 41.9 % (39.6-49.0); Hemoglobin 14.3 g/dL (13.6-17.9); MCH 31.4 pg (27.0-35.0); MCHC 34.2 g/dL (32.0-36.0); MCV 91.7 fL (80-100); MPV 7.8 fL (7.6-11.3); Platelets 195 thou/uL (152-406); RBC Red Blood Cell Count 4.57 M/uL (4.33-5.43); Red Cell Distribution Width 14.1 % (12.1-15.2)
[2023-11-12] MEDS: lisinopriL 10 MG TAB PO SCH (09:12)
[2023-11-12] MEDS ORDERED: HOME MED 1 EA UNK (Trazodone Hcl [Trazodone Hcl] 100 MG Tablet) PO SCH (18:15)
--- NOTE | 2023-11-12 18:23 | P.PN ---
Date of Service: 11/12/23 Subjective: Awake and conversing well Eating breakfast No new complaints ROS: 10 point ROS as noted above, otherwise negative Physical exam GEN: Alert and oriented x 2, NAD, conversing well HEENT: Normal conjunctiva, sclera anicteric CV: RRR, S1 S2 present, no edema Pulm: Nonlabored respirations, bilaterally clear breath sounds, on room air ABD: Soft on palpation, NT/ND MSK: No joint tenderness, 2+ peripheral pulses Integumentary: No rashes Neuro: Normal speech, normal affect Vitals reviewed Assessment: Weakness/multiple falls Diabetes mellitus type 2diet controlled History of CAD/moderate aortic stenosis Chronic alcohol use disorder Tobacco use disorder Hypertension Hyperlipidemia BPH Plan: Weakness/multiple falls Short-term memory loss PT consultation-appropriate for SNF, continue PT eval, work on SNF placement Typically uses a walker or wheelchair at home Has caregivers Saturday through Saturday for about 3 and half hours Has issues with short-term memory, high risk for falls ER reports he has been progressively weakening with multiple falls recently EMS also report that they check on him frequently for falls Pending SNF auth at [facility] Diabetes mellitus type 2diet controlled ACHS Accu-Chek, sliding scale insulin maintaining glucose <200 History of CAD/moderate aortic stenosis No chest pain, initial troponin negative Continue aspirin, Brilinta, statin Chronic alcohol use disorder Tobacco use disorder Counseled on importance for cessation and impact on his gait/weakness Hypertension Hyperlipidemia BPH Blood pressure elevated Continue home medications DVT PPX: Lovenox Code status: Full Discharge Plan: SNF, pending auth for [facility] Plan to discharge in: 24 Hours
[2023-11-12] MEDS ORDERED: lisinopriL 20 MG TAB PO SCH (19:00)
[2023-11-12] MEDS: TAMSULOSIN 0.4 MG SR CAP PO SCH (20:19)
[2023-11-12] MEDS: BUPROPION HCL XL 150 MG TAB PO SCH (20:20)
[2023-11-12] MEDS: ATORVASTATIN 80 MG TAB PO SCH (20:20)
[2023-11-12] MEDS: AMLODIPINE 5 MG TAB PO ONE (20:20)
[2023-11-12] MEDS: TRAZODONE 50 MG TABLET PO SCH (20:20)
[2023-11-13 04:55] LABS: Hematocrit 39.4 % (39.6-49.0); Hemoglobin 13.6 g/dL (13.6-17.9); MCH 31.5 pg (27.0-35.0); MCHC 34.5 g/dL (32.0-36.0); MCV 91.3 fL (80-100); MPV 7.6 fL (7.6-11.3); Platelets 202 thou/uL (152-406); RBC Red Blood Cell Count 4.31 M/uL (4.33-5.43)
[2023-11-13] MEDS: AMLODIPINE 10 MG TAB PO SCH (09:04)
--- NOTE | 2023-11-13 19:13 | P.PN ---
Date of Service: 11/13/23 Subjective: Feeling well no new complaints Awaiting placement ROS: 10 point ROS as noted above, otherwise negative Physical exam GEN: Alert and oriented x 2, NAD, conversing well HEENT: Normal conjunctiva, sclera anicteric CV: RRR, S1 S2 present, no edema Pulm: Symmetrical chest wall movement, bilaterally clear breath sounds, on room air ABD: Soft on palpation, NT/ND MSK: No joint tenderness, 2+ peripheral pulses Integumentary: No rashes Neuro: Normal speech, normal affect Vitals reviewed Assessment: Weakness/multiple falls Short-term memory loss Diabetes mellitus type 2diet controlled History of CAD/moderate aortic stenosis Chronic alcohol use disorder Tobacco use disorder Hypertension Hyperlipidemia BPH Plan: Weakness/multiple falls Short-term memory loss PT consultation-appropriate for SNF, continue PT eval, work on SNF placement-PT reports he is easily distracted Typically uses a walker or wheelchair at home Has caregivers Saturday through Saturday for about 3 and half hours Has issues with short-term memory, high risk for falls ER reports he has been progressively weakening with multiple falls recently EMS also report that they check on him frequently for falls Pending SNF auth at [place], peer to peer today at 1630 Diabetes mellitus type 2diet controlled ACHS Accu-Chek, sliding scale insulin maintaining glucose <200 History of CAD/moderate aortic stenosis No chest pain, initial troponin negative Continue aspirin, Brilinta, statin Chronic alcohol use disorder Tobacco use disorder Counseled on importance for cessation and impact on his gait/weakness Hypertension Hyperlipidemia BPH Blood pressure improved Continue home medications DVT PPX: Lovenox Code status: Full Discharge Plan: SNF, pending auth for [facility]
[2023-11-13 19:56] VITALS: O2SAT 98
[2023-11-14 07:12] LABS: ALT/SGPT 21 U/L (16-61); Albumin 2.9 g/dL (3.4-5.0); Albumin/Globulin Ratio 1.1 (1.1-1.8); Alkaline Phosphatase 119 U/L (45-117); Anion Gap 10.3 mEq/L (5.0-15.0); BUN Blood Urea Nitrogen 33 mg/dL (7-18); Bicarbonate 26 mEq/L (21-32); Bilirubin Total 0.3 mg/dL (0.2-1.0); Globulin 2.7 g/dL (2.3-3.5); Glomerular Filtration Rate 56 ml/min (=/>90); Glucose Level 194 mg/dL (74-106); Magnesium 2.2 mg/dL (1.6-2.4); Phosphorus 3.9 mg/dL (2.5-4.9); Potassium 4.3 mEq/L (3.5-5.1); Protein, Total 5.6 g/dL (6.4-8.2); Sodium Level 137 mEq/L (136-145)
[2023-11-14 07:14] LABS: AST/SGOT < 10 U/L (15-37)
[2023-11-14 12:15] VITALS: BP 102/45; TEMP 98.4
--- NOTE | 2023-11-15 11:11 | P.DS ---
Admission Date: 11/07/23 Discharge Date: 11/14/23 Disposition: DC HOME/HOME HEALTH CARE Discharge Condition: GOOD Reason for Admission: Weakness, multiple falls Brief History of Present Illness: Diagnosis Weakness/multiple falls Short-term memory loss Diabetes mellitus type 2diet controlled History of CAD/moderate aortic stenosis Chronic alcohol use disorder Tobacco use disorder Hypertension Hyperlipidemia BPH HPI 11/07/2023 Dylon Hannon is a 78-year-old male with history of hypertension, hyperlipidemia, CAD, diet-controlled diabetes, BPH who drinks alcohol regularly and smokes about recorders pack per day presents emergency department for chief complaint of fall. He reports he has caregivers at his house Saturday through Saturday for about 3 and half hours but has no care on the weekend, he reports he was in his wheelchair trying to get something out of the icebox and did not lock his wheelchair therefore falling on the ground. He was reportedly found on the ground by his home care staff who had him brought to the ER for evaluation. Patient was evaluated in the emergency department his labs were unremarkable as well as CT head and chest x-ray. Patient has issues with short-term memory, cannot state clearly when he last had fallen but there is concern for significant deconditioning as when he last was in the hospital he was using a walker and he has not been able to ambulate. ED prior wishes to make patient under observation for weakness, repeated falls. Hospital Course: Dylon Hannon is a pleasant 78 year old male with a past medical history significant for hypertension, hyperlipidemia, CAD, diet-controlled diabetes, BPH who was admitted to the [facility] on 11/07/23 for weakness and frequent falls. Dylon Hannon was monitored for frequent falls and weakness. Imaging was reported negative for acute findings. H/H has remained stable, electrolytes and hydration level has remained stable. He is tolerating PO diet and states he has an a ppetite. He has worked with Physical therapy who has recommended further physical therapy to stabilize his ambulation. Insurance has approved Home health at this time. Education was provided to abstain from alcohol and cigarette use, which will aid his strength when ambulating. On 11/14/23, Dylon was seen on morning rounds and deemed medically stable for discharge home with home health. Dylon was discharged with instructions to schedule follow-up appointments with PCP. Physical exam GEN: Awake, Alert and oriented x 3, NAD, conversing well HEENT: Normal conjunctiva, sclera anicteric CV: Regular rate and rhythm, normal S1 S2 present, no edema Pulm: Symmetrical chest wall movement, bilaterally clear breath sounds, on room air ABD: Soft and benign on palpation, Non-tender/non-distended MSK: No joint tenderness, 2+ peripheral pulses Integumentary: No rashes Neuro: Normal speech, normal affect Vital Signs/Physical Exam: Temp Pulse Resp BP Pulse Ox 98.4 F 68 16 102/45 L 94 11/14/23 12:00 11/14/23 12:00 11/14/23 12:00 11/14/23 12:00 11/14/23 12:00 Laboratory Data at Discharge: WBC 9.50 thou/uL (4.3-10.9) 11/13/23 04:29 Hgb 13.6 g/dL (13.6-17.9) 11/13/23 04:29 Hct 39.4 % (39.6-49.0) L 11/13/23 04:29 Plt Count 202 thou/uL (152-406) 11/13/23 04:29 PT 11.2 SECONDS (9.4-12.5) 11/07/23 15:05 INR 1.00 11/07/23 15:05 Sodium 137 mEq/L (136-145) 11/14/23 06:33 Potassium 4.3 mEq/L (3.5-5.1) 11/14/23 06:33 BUN 33 mg/dL (7-18) H 11/14/23 06:33 Creatinine 1.32 mg/dL (0.70-1.30) H 11/14/23 06:33 Glucose 194 mg/dL (74-106) H 11/14/23 06:33 Phosphorus 3.9 mg/dL (2.5-4.9) 11/14/23 06:33 Magnesium 2.2 mg/dL (1.6-2.4) 11/14/23 06:33 Total Bilirubin 0.3 mg/dL (0.2-1.0) 11/14/23 06:33 AST < 10 U/L (15-37) L 11/14/23 06:33 ALT 21 U/L (16-61) 08/08/24 06:33 Alkaline Phosphatase 119 U/L (45-117) H 11/14/23 06:33 Home Medications: Amlodipine Besylate 10 mg PO SEECOM 08/16/21 buPROPion HCL [Wellbutrin Xl] 300 mg PO SEECOM 08/16/21 Trazodone HCl 50 mg PO SEECOM 08/17/21 Atorvastatin Calcium [Lipitor] 40 mg PO BEDTIME 90 Days #90 tab 08/02/23 Ticagrelor [Brilinta*] 90 mg PO BID 90 Days #180 tab 08/02/23 Atorvastatin Calcium [Lipitor] 80 mg PO SEECOM 11/11/23 Metformin ER [Glucophage ER*] 500 mg PO SEECOM 11/11/23 Tamsulosin [Flomax*] 0.4 mg PO SEECOM 11/11/23 Ticagrelor [Brilinta*] 90 mg PO SEECOM 11/11/23 lisinopriL [Prinivil*] 20 mg PO SEECOM 11/11/23 Aspirin Chewable [Aspirin Chewable*] 81 mg PO DAILY tab.chew 11/14/23 Physician Discharge Instructions: Dylon Hannon was treated for frequent falls and weakness. Please continue to walk with caution, be sure to be steady before taking a step. Be sure to stand up with caution and sit down if lightheaded. Avoid alcohol consumption while recovering. 1. Please call and schedule a follow-up appointment with your PCP in 3-5 days - Please follow-up with your PCP for medication refills/adjustments 2. Continue diabetic diet 3. activity restrictions,fall precaution 4. Return to the ED if symptoms worsen New medications Aspirin 81 mg PO daily Diet: ADA Activity: Fall precautions Followup: NONE,NONE [Primary Care Provider] -
== END 2023-11-14 15:11 | disposition home health service (06) ==
LOC: ER 12:24 → ERHOLD 16:39 → 2ND 17:08
PROVIDERS: ADMIT Hospitalist; ATTEND Internal Medicine
DX: R53.1 Weakness (principal); I10 Essential (primary) hypertension; E78.5 Hyperlipidemia, unspecified; I25.10 Atherosclerotic heart disease of native coronary artery without angina pectoris; E11.9 Type 2 diabetes mellitus without complications; N40.0 Benign prostatic hyperplasia without lower urinary tract symptoms; F17.210 Nicotine dependence, cigarettes, uncomplicated; I35.0 Nonrheumatic aortic (valve) stenosis; F10.90 Alcohol use, unspecified, uncomplicated; R41.3 Other amnesia; R41.81 Age-related cognitive decline; W05.0XXA Fall from non-moving wheelchair, initial encounter; Y93.9 Activity, unspecified; Y92.019 Unspecified place in single-family (private) house as the place of occurrence of the external cause; Z86.73 Personal history of transient ischemic attack (TIA), and cerebral infarction without residual deficits; Z91.81 History of falling
CPT/HCPCS: 93005; 85025 ×3; 80048 ×6; 36415 ×5; 83735 ×2; 84100; 85610; 82947 ×25; 85027 ×3; 84484; 80053; 70450; 71045; 97116 ×6; 97161; 97530; 99284; J1650 ×2; G0378

== ENCOUNTER 2024-02-11 13:10 | Emergency (ER) | payer OTHER ==
--- NOTE | 2024-02-11 13:57 | RAD REPORT ---
EXAM: CT brain without contrast HISTORY: TRAUMA COMPARISON: 12/09/2021 TECHNIQUE: Multiple contiguous axial images were obtained and a CT of the brain without contrast. Sag ittal and coronal reformats were performed. One or more of the following dose reduction techniques were used: Automated exposure control, adjust ment of the mA and/or kV according to patient size, and/or iterative reconstruction. FINDINGS: No evidence of hydrocephalus, intracranial hemorrhage, or extra-axial fluid collection. Moderate brain atrophy with moderate periventricular and deep white matter chronic microvascular isc hemic changes present. No evidence of midline shift or areas of brain edema. Left vertebral atherosclerosis. The calvarium is intact. The visualized paranasal sinuses and mastoid air cells are essentially clear . IMPRESSION: No evidence of acute intracranial abnormality. EXAM: CT of the cervical spine without contrast HISTORY: Neck pain, injury TRAUMA TECHNIQUE: Multiple contiguous axial images were obtained in a CT of the cervical spine without contr ast. Sagittal and coronal reformats were performed. FINDINGS: 2 mm degenerative anterolisthesis noted at C4 on 5. No evidence of acute fracture or sublux ation.. Multilevel moderate degenerative spondylosis, most notable at C3-4 and C5-6. No prevertebral soft tissue swelling is seen. The posterior facets are well aligned. Normal alignment of the skull base with the cervical spine is seen. The lung apices are unremarkable. Heavy left carotid atherosclerosis noted. IMPRESSION: No evidence of acute osseous abnormality of the cervical spine. Moderate cervical degenerative changes as detailed. Heavy left carotid atherosclerosis may benefit from nonemergent carotid sonography.
--- NOTE | 2024-02-11 14:00 | ER ---
Nurse's Notes [facility] Name: Dylon Hannon Age: 78 yrs Sex: Male : 1945 Arrival Date: 02/11/2024 Time: 13:10 Bed 18 Private MD: Diagnosis: Scalp hematoma, fall, closed head injury Presentation: 02/10 13:15 Chief complaint: EMS states: [facility] living [facility] toned out EMS rs5 for a fall. Pt became dizzy and fell in apartment, pt reports hitting back of head and back, denies LOC, is not on blood thinners, fall was unwitnessed. Coronavirus screen: At this time, the client does not indicate any symptoms associated with coronavirus-19. Ebola Screen: No symptoms or risks identified at this time. Initial Sepsis Screen: Does the patient meet any 2 criteria? No. Patient's initial sepsis screen is negative. Does the patient have a suspected source of infection? No. Patient's initial sepsis screen is negative. Risk Assessment: Do you want to hurt yourself or someone else? Patient reports no desire to harm self or others. Onset of symptoms was February 11, 2024. Care prior to arrival: IV initiated. 18 GA, in the left antecubital area. 13:15 Method Of Arrival: EMS: [facility] rs5 13:15 Acuity: STEPHANIE 3 rs5 Historical: - Allergies: 13:17 No Known Allergies; rs5 - PMHx: 13:17 BPH; Cerebrovascular accident; Depression; diabetes mellitus; Erectile Dysfunction; rs5 Fractured left humerus; High Cholesterol; Hyperlipidemia; Hypertensive disorder; Osteoporosis; Psoriatic Arthritis; short term memory loss; - PSHx: 13:17 None; rs5 - Immunization history:: Adult Immunizations up to date. - Infectious Disease History:: Denies. - Social history:: Smoking status: Patient denies any tobacco usage or history of. Screenin:15 [facility] ED Fall Risk Assessment (Adult) History of falling in the last 3 months, rs5 including since admission Yes- single mechanical fall (1 pt) Confusion or Disorientation No (0 pts) Intoxicated or Sedated No (0 pts) Impaired Gait Yes (1 pt) Mobility Assist Device Used Yes (1 pt) Altered Elimination No (0 pt) Score/Fall Risk Level 3 or more points = High Risk Oriented to surroundings, Maintained a safe environment. 13:15 Abuse screen: Denies threats or abuse. Nutritional screening: No deficits noted. rs5 Tuberculosis screening: No symptoms or risk factors identified. Assessment: 13:15 General: Appears in no apparent distress. uncomfortable, Behavior is calm, cooperative. rs5 Pain: Complains of pain in back of head and lower back Pain currently is 3 out of 10 on a pain scale. Quality of pain is described as aching, Is continuous. Neuro: Level of Consciousness is awake, alert, obeys commands, Oriented to person, place, time, situation. Cardiovascular: Patient's skin is warm and dry. Respiratory: Airway is patent Respiratory effort is even, unlabored, Respiratory pattern is regular, symmetrical. 13:15 GI: Abdomen is round non-distended, Abd is soft and non tender X 4 quads. : No signs rs5 and/or symptoms were reported regarding the genitourinary system. EENT: No signs and/or symptoms were reported regarding the EENT system. Derm: Skin is intact, Skin is pink, warm \T\ dry. Musculoskeletal: Range of motion: intact in all extremities. 13:30 Reassessment: provider notified of elevated BP readings . rs5 13:39 Reassessment: Patient and/or family updated on plan of care and expected duration. Pain rs5 level reassessed. Patient is alert, oriented x 3, equal unlabored respirations, skin warm/dry/pink. 14:10 Reassessment: Pt up for discharge, [facility] contacted to arrange for rs5 transport, ETA 30 min, charge nurse notified . 14:43 Reassessment: Patient and/or family updated on plan of care and expected duration. Pain rs5 level reassessed. Patient is alert, oriented x 3, equal unlabored respirations, skin warm/dry/pink. Report given to transfer services at bedside . Vital Signs: 13:15 BP 183 / 131; Pulse 64; Resp 17; Temp 98(O); Pulse Ox 97% on R/A; rs5 13:30 BP 210 / 88; Pulse 71; Resp 17; Pulse Ox 97% ; rs5 14:44 BP 189 / 84; Pulse 74; Resp 17; Pulse Ox 98% on R/A; rs5 ED Course: 13:14 Patient arrived in ED. rs5 13:15 Patient has correct armband on for positive identification. Placed in gown. Bed in low rs5 position. Call light in reach. Side rails up X2. 13:15 No provider procedures requiring assistance completed. rs5 13:17 Isi Gutierrez MD is Attending Physician. sp3 13:17 Triage completed. rs5 13:38 Robert Laurent, RN is Primary Nurse. rs5 13:49 CT Head C Spine In Process Unspecified. EDMS 14:44 Patient did not have IV access during this emergency room visit. rs5 14:45 Provided Education on: discharge instructions . rs5 Administered Medications: 14:00 Drug: cloNIDine PO 0.1 mg PO once Route: PO; rs5 14:45 Follow up: Response: No adverse reaction; Blood pressure is lowered rs5 Medication: 13:41 VIS not applicable for this client. rs5 Outcome: 13:59 Discharge ordered by . sp3 14:44 Discharged to [facility] rs5 14:44 Condition: stable 14:44 Discharge instructions given to patient, family, Instructed on discharge instructions, follow up and referral plans. Demonstrated understanding of instructions, follow-up care, 14:51 Patient left the ED. bp Signatures: Dispatcher [employer] EDMervin Farooq, RN RN bp Isi Gutierrez MD MD sp3 Robert Laurent, RN RN rs5 Corrections: (The following items were deleted from the chart) 14:35 13:55 Reassessment: provider notified of elevated BP readings . rs5 rs5
--- NOTE | 2024-02-11 14:00 | EDPHYS ---
Physician Documentation [facility] Name: Dylon Hannon Age: 78 yrs Sex: Male : 1945 Arrival Date: 02/11/2024 Time: 13:10 Bed 18 Private MD: ED Physician Isi Gutierrez HPI: 02/10 13:32 This 78 yrs old Male presents to ER via EMS with complaints of Fall Injury. sp3 13:41 78-year-old male with history of CVA, diabetes, hypertension now presents to the ED sp3 with chief complaint fall secondary to mechanical failure of shower chair. Mild head trauma to the posterior occiput without significant swelling. Patient denies headache, neck pain, chest pain, shortness of breath, back pain, any other injury, medical prodrome prior to the event or any other signs or symptoms on ROS at this time.. Historical: - Allergies: 13:17 No Known Allergies; rs5 - PMHx: 13:17 BPH; Cerebrovascular accident; Depression; diabetes mellitus; Erectile Dysfunction; rs5 Fractured left humerus; High Cholesterol; Hyperlipidemia; Hypertensive disorder; Osteoporosis; Psoriatic Arthritis; short term memory loss; - PSHx: 13:17 None; rs5 - Immunization history:: Adult Immunizations up to date. - Infectious Disease History:: Denies. - Social history:: Smoking status: Patient denies any tobacco usage or history of. ROS: 13:42 Constitutional: Negative for fever, chills, and weight loss, Eyes: Negative for injury, sp3 pain, redness, and discharge, ENT: Negative for injury, pain, and discharge, Neck: Negative for injury, pain, and swelling, Cardiovascular: Negative for chest pain, palpitations, and edema, Respiratory: Negative for shortness of breath, cough, wheezing, and pleuritic chest pain, Abdomen/GI: Negative for abdominal pain, nausea, vomiting, diarrhea, and constipation, Back: Negative for injury and pain, MS/Extremity: Negative for injury and deformity, Skin: Negative for injury, rash, and discoloration, Psych: Negative for depression, anxiety, suicide ideation, homicidal ideation, and hallucinations, Allergy/Immunology: Negative for hives, rash, and allergies, Endocrine: Negative for neck swelling, polydipsia, polyuria, polyphagia, and marked weight changes, Hematologic/Lymphatic: Negative for swollen nodes, abnormal bleeding, and unusual bruising, 13:42 All other systems are negative, Exam: 13:42 Constitutional: This is a well developed, well nourished patient who is awake, alert, sp3 and in no acute distress. Eyes: Pupils equal round and reactive to light, extra-ocular motions intact. Lids and lashes normal. Conjunctiva and sclera are non-icteric and not injected. Cornea within normal limits. Periorbital areas with no swelling, redness, or edema. ENT: Nares patent. No nasal discharge, no septal abnormalities noted. External auditory canals are clear. Oropharynx with no redness, swelling, or masses, exudates, or evidence of obstruction, uvula midline. Mucous membranes moist. Neck: Trachea midline, no thyromegaly or masses palpated, and no cervical lymphadenopathy. Supple, full range of motion without nuchal rigidity, or vertebral point tenderness. No Meningismus. Chest/axilla: Normal chest wall appearance and motion. Nontender with no deformity. No lesions are appreciated. Cardiovascular: Regular rate and rhythm with a normal S1 and S2. No gallops, murmurs, or rubs. Normal PMI, no JVD. No pulse deficits. Respiratory: Lungs have equal breath sounds bilaterally, clear to auscultation and percussion. No rales, rhonchi or wheezes noted. No increased work of breathing, no retractions or nasal flaring. Abdomen/GI: Soft, non-tender, with normal bowel sounds. No distension or tympany. No guarding or rebound. No evidence of tenderness throughout. Back: No spinal tenderness. No costovertebral tenderness. Full range of motion. Skin: Warm, dry with normal turgor. Normal color with no rashes, no lesions, and no evidence of cellulitis. MS/ Extremity: Pulses equal, no cyanosis. Neurovascular intact. Full, normal range of motion. Neuro: Awake and alert, GCS 15, oriented to person, place, time, and situation. Cranial nerves II-XII grossly intact. Motor strength 5/5 in all extremities. Sensory grossly intact. Cerebellar exam normal. Normal gait. Psych: Awake, alert, with orientation to person, place and time. Behavior, mood, and affect are within normal limits. 13:42 Head/face: Mild occipital swelling posteriorly without bleeding. Vital Signs: 13:15 BP 183 / 131; Pulse 64; Resp 17; Temp 98(O); Pulse Ox 97% on R/A; rs5 13:30 BP 210 / 88; Pulse 71; Resp 17; Pulse Ox 97% ; rs5 14:44 BP 189 / 84; Pulse 74; Resp 17; Pulse Ox 98% on R/A; rs5 MDM: 13:25 Medical Screening Exam initiated sp3 13:43 Data reviewed: vital signs, nurses notes, radiologic studies. ED course: 78-year-old sp3 male with closed head injury mechanical in nature. Differential diagnosis includes closed head injury, occipital hematoma, head contusion. CT scan of the head and C-spine pending if negative we will safely discharge patient home. Patient denies any anticoagulants.. 13:59 ED course: Negative CT head and C-spine. We will discharge patient home at this time.. sp3 02/10 13:33 Order name: CT Head C Spine; Complete Time: 13:58 sp3 Administered Medications: 14:00 Drug: cloNIDine PO 0.1 mg PO once Route: PO; rs5 14:45 Follow up: Response: No adverse reaction; Blood pressure is lowered rs5 Disposition Summary: 02/11/24 13:59 Discharge Ordered Notes: Location: Home sp3 Condition: Stable sp3 Diagnosis - Scalp hematoma, fall, closed head injury sp3 Followup: sp3 - With: Private Physician - When: Upon discharge from the Emergency Department - Reason: Continuance of care Discharge Instructions: - Discharge Summary Sheet sp3 - Head Injury, Adult sp3 Forms: - Medication Reconciliation Form sp3 - Antibiotic Education sp3 - Prescription Opioid Use sp3 - Patient Portal Instructions sp3 - Leadership Thank You Letter sp3 Signatures: Dispatcher [employer] Isi Simon MD MD sp3 Robert Laurent, RN RN rs5
[2024-02-11] MEDS ORDERED: cloNIDine HCL 0.1 MG TAB ONE (14:16)
[2024-02-11 15:11] VITALS: TEMP 98
[2024-02-11 15:18] VITALS: BP 189/84; O2SAT 98
== END 2024-02-11 14:51 | disposition home or self-care (01) ==
LOC: ER 13:10
DX: S00.03XA Contusion of scalp, initial encounter (principal); W18.30XA Fall on same level, unspecified, initial encounter
CPT/HCPCS: 70450; 72125; 99283

== ENCOUNTER 2024-02-26 13:29 | Emergency (ER) | payer OTHER ==
[2024-02-26] MEDS ORDERED: HYDROCODONE/APAP 5/325 MG TAB ONE (13:53)
[2024-02-26] MEDS ORDERED: ACETAMINOPHEN 325 MG TABLET ONE (13:53)
--- NOTE | 2024-02-26 15:07 | RAD REPORT ---
Exam:Humerus Right CLINICAL HISTORY: Right arm pain FINDINGS: No fracture or dislocation seen The bones are osteoporotic
--- NOTE | 2024-02-26 15:08 | EDPHYS ---
Physician Documentation [facility] Name: Dylon Hannon Age: 79 yrs Sex: Male : 1945 Arrival Date: 02/26/2024 Time: 13:29 Bed 12 Private MD: Kulwinder Stokes HPI: 02/25 13:45 This 79 yrs old Male presents to ER via EMS with complaints of Arm Pain. cp 13:45 The patient or guardian complains of pain, that is acute. The complaints affect the cp right shoulder and right upper arm. Context: resulted from a fall, from a standing position. Onset: The symptoms/episode began/occurred today. Treatment prior to arrival includes: EMS administered Toradol. Associated signs and symptoms: The patient has no apparent associated signs or symptoms. Historical: - Allergies: 13:44 No Known Allergies; ll1 - PMHx: 13:44 BPH; Cerebrovascular accident; Depression; diabetes mellitus; Erectile Dysfunction; ll1 Fractured left humerus; High Cholesterol; Hyperlipidemia; Hypertensive disorder; Osteoporosis; Psoriatic Arthritis; short term memory loss; - Immunization history:: Adult Immunizations up to date. ROS: 13:50 MS/extremity: Positive for pain, of the right shoulder and right upper arm, Negative cp for decreased range of motion, deformity, 13:50 Eyes: Negative for injury, pain, redness, and discharge, cp 13:50 Constitutional: Negative for fever, 13:50 Neck: Negative for pain with movement, pain at rest, stiffness, 13:50 Cardiovascular: Negative for chest pain, 13:50 Respiratory: Negative for cough, shortness of breath, wheezing, 13:50 Back: Negative for pain at rest, pain with movement, 13:50 Neuro: Negative for altered mental status, dizziness, headache, loss of consciousness, numbness, syncope, near syncope, weakness, 13:50 All other systems are negative, Exam: 13:55 Constitutional: The patient appears in no acute distress, alert, awake, cp non-diaphoretic, non-toxic, well developed, well nourished, uncomfortable, 13:55 Head/Face: Normocephalic, atraumatic. cp 13:55 Neck: C-spine: vertebral tenderness, is not appreciated, crepitus, is not appreciated, ROM/movement: is normal, is supple, without pain, no range of motions limitations, 13:55 Chest/axilla: Inspection: normal, Palpation: is normal, no crepitus, no tenderness, 13:55 Cardiovascular: Rate: normal, 13:55 Respiratory: the patient does not display signs of respiratory distress, Respirations: normal, no use of accessory muscles, no retractions, labored breathing, is not present, Breath sounds: are clear throughout, no decreased breath sounds, 13:55 Abdomen/GI: Inspection: abdomen appears normal, Palpation: abdomen is soft and non-tender, in all quadrants, 13:55 Back: pain, is absent, ROM is normal, vertebral tenderness, is not appreciated, 13:55 Musculoskeletal/extremity: Extremities: grossly normal except: noted in the right shoulder and right upper arm: pain, tenderness, There is no evidence of decreased ROM, deformity, swelling, 13:55 Skin: cellulitis, is not appreciated, injury, is not appreciated, no rash present. 13:55 Neuro: Orientation: to person, place \T\ time. Mentation: is normal, Motor: moves all fours, no focal deficits, Sensation: is normal, Vital Signs: 13:44 BP 156 / 106; Pulse 61; Resp 16; Temp 98(TE); Pulse Ox 100% on R/A; Height 5 ft. 11 in. ss ; Pain 2/10; 13:53 BP 157 / 79; ss 13:44 Pain Scale: Adult ss MDM: 13:41 Medical Screening Exam initiated josi 15:06 Data reviewed: vital signs, nurses notes, radiologic studies, plain films, and as a cp result, I will discharge patient. 02/25 13:43 Order name: XRAY Humerus RIGHT; Complete Time: 15:11 cp 02/25 15:11 Interpretation: Report reviewed. cp 02/25 13:43 Order name: Sling; Complete Time: 15:44 cp Administered Medications: 14:00 Drug: HYDROcodone-acetaminophen PO 5 mg-325 mg 1 tabs PO once Route: PO; ss 15:44 Follow up: Response: No adverse reaction ss 14:00 Drug: Acetaminophen PO 650 mg PO once Route: PO; ss 15:44 Follow up: Response: No adverse reaction ss Disposition Summary: 02/26/24 15:07 Discharge Ordered Notes: Location: Home cp Problem: new cp Symptoms: have improved cp Condition: Stable cp Diagnosis - Fall on same level, unspecified cp - Pain in right upper arm cp Followup: cp - With: Private Physician - When: 2 - 3 days - Reason: Worsening of condition Discharge Instructions: - Discharge Summary Sheet cp - Fall Prevention in the Home, Adult cp - Musculoskeletal Pain cp Forms: - Medication Reconciliation Form cp - Antibiotic Education cp - Prescription Opioid Use cp - Patient Portal Instructions cp - Leadership Thank You Letter cp Prescriptions: - diclofenac sodium 1 % Topical gel - apply 2.25 inch TOPICAL route 2-3 times daily As needed apply to single elbow, cp wrist or hand; for hand includes palm/fingers/back of hand; 45 gram tube; Refills: 0, Product Selection Permitted Signatures: Dispatcher [employer] EDMS Kulwinder Arnold MD MD cha Blanchard, Shelby RN RN ss Kulwinder Fiore PA PA cp Lewis, Lynsay RN RN ll1 Corrections: (The following items were deleted from the chart) 13:43 13:43 Humerus Right+RAD.RAD.BRZ ordered. EDMS EDMS 14:38 14:30 Constitutional: The patient appears in no acute distress, alert, awake, cp non-toxic, well developed, well nourished, uncomfortable, cp 14:38 14:30 Head/Face: Normocephalic, atraumatic. cp cp 14:38 14:30 Eyes: Periorbital structures: appear normal, Conjunctiva: normal, Lids and cp lashes: appear normal, bilaterally, cp 14:38 14:30 ENT: External ear(s): are unremarkable, Ear canal(s): bleeding, that is moderate, cp in the right canal, TM's: right TM covered with blood partially obscuring visualization, Examination of the other ear shows no obvious abnormality, Nose: is normal, Mouth: Lips: moist, Oral mucosa: moist, Posterior pharynx: Airway: no evidence of obstruction, patent, cp 14:38 14:30 Neck: ROM/movement: is normal, is supple, without pain, no range of motions cp limitations, cp 14:38 14:30 Cardiovascular: Rate: normal, cp cp 14:38 14:30 Respiratory: the patient does not display signs of respiratory distress, cp Respirations: normal, no use of accessory muscles, no retractions, labored breathing, is not present, Breath sounds: are clear throughout, no decreased breath sounds, no stridor, no wheezing, cp
--- NOTE | 2024-02-26 15:08 | ER ---
Nurse's Notes [facility] Name: Dylon Hannon Age: 79 yrs Sex: Male : 1945 Arrival Date: 02/26/2024 Time: 13:29 Bed 12 Private MD: Diagnosis: Fall on same level, unspecified;Pain in right upper arm Presentation: 02/25 13:44 Chief complaint: Patient states: Trip and fall, R shoulder pain since. Coronavirus ll1 screen: Client denies travel out of the [place] in the last 14 days. At this time, the client does not indicate any symptoms associated with coronavirus-19. Ebola Screen: Patient denies travel to an Ebola-affected area in the 21 days before illness onset. Initial Sepsis Screen: Does the patient meet any 2 criteria? No. Patient's initial sepsis screen is negative. Does the patient have a suspected source of infection? No. Patient's initial sepsis screen is negative. Risk Assessment: Do you want to hurt yourself or someone else? Patient reports no desire to harm self or others. Onset of symptoms was February 26, 2024. 13:44 Method Of Arrival: EMS: [facility] ll1 13:44 Acuity: STEPHANIE 4 ll1 13:45 Chief complaint: EMS states: IV started, Toradol 15 mg IV given en route. VSS. ll1 13:45 Care prior to arrival: Medication(s) given: Toradol 15 mg IV initiated. 20 GA, in the ss left antecubital area. Triage Assessment: 13:44 General: Appears uncomfortable, Behavior is calm, cooperative, appropriate for age. ll1 Pain: Complains of pain in R shoulder Quality of pain is described as aching. Musculoskeletal: Reports pain in R shoulder. Injury Description: Bruise. Historical: - Allergies: 13:44 No Known Allergies; ll1 - PMHx: 13:44 BPH; Cerebrovascular accident; Depression; diabetes mellitus; Erectile Dysfunction; ll1 Fractured left humerus; High Cholesterol; Hyperlipidemia; Hypertensive disorder; Osteoporosis; Psoriatic Arthritis; short term memory loss; - Immunization history:: Adult Immunizations up to date. Vital Signs: 13:44 BP 156 / 106; Pulse 61; Resp 16; Temp 98(TE); Pulse Ox 100% on R/A; Height 5 ft. 11 in. ss ; Pain 2/10; 13:53 BP 157 / 79; ss 13:44 Pain Scale: Adult ss ED Course: 13:35 Patient arrived in ED. bd 13:38 Kulwinder Fiore PA is PHCP. cp 13:38 Kulwinder Arnold MD is Attending Physician. cp 13:44 Arm band placed on Patient placed in an exam room, on a stretcher. ll1 13:45 Triage completed. ll1 14:54 XRAY Humerus RIGHT In Process Unspecified. EDMS 15:44 No provider procedures requiring assistance completed. IV discontinued, intact, ss bleeding controlled, No redness/swelling at site. Pressure dressing applied. Administered Medications: 14:00 Drug: HYDROcodone-acetaminophen PO 5 mg-325 mg 1 tabs PO once Route: PO; ss 15:44 Follow up: Response: No adverse reaction ss 14:00 Drug: Acetaminophen PO 650 mg PO once Route: PO; ss 15:44 Follow up: Response: No adverse reaction ss Outcome: 15:07 Discharge ordered by MD. cp 15:50 Discharged to home via wheelchair, ss 15:50 Condition: good 15:50 Discharge instructions given to patient, Instructed on discharge instructions, follow up and referral plans. medication usage, Demonstrated understanding of instructions, follow-up care, medications, Prescriptions given X 1, 15:59 Patient left the ED. ll1 Signatures: Dispatcher [employer] EDMS Bruna Holly Shelby, RN RN Kulwinder Hammer PA PA cp Lewis, Lynsay RN RN ll1
[2024-02-26 16:05] VITALS: TEMP 98; O2SAT 100
[2024-02-26 16:06] VITALS: BP 157/79
== END 2024-02-26 15:59 | disposition home or self-care (01) ==
LOC: ER 13:29
DX: M79.621 Pain in right upper arm (principal); M25.511 Pain in right shoulder; W18.30XA Fall on same level, unspecified, initial encounter
CPT/HCPCS: 99284

== ENCOUNTER 2024-03-09 12:26 | Emergency (ER) | payer OTHER ==
[2024-03-09 12:57] LABS: Absolute Basophils 0.1 K/uL (0-0.5); Absolute Eosinophils 0.3 K/uL (0-0.5); Absolute Lymphocytes (CBC) 2.3 K/uL (0.7-4.9); Absolute Monocytes 0.9 K/uL (0.1-1.3); Absolute Neutrophil 7.2 K/uL (1.8-8.0); Basophils % 0.8 % (0-1.3); Eosinophils % 2.7 % (0-4.4); Hematocrit 43.6 % (39.6-49.0); Hemoglobin 14.8 g/dL (13.6-17.9); MCH 30.8 pg (27.0-35.0); MCHC 33.9 g/dL (32.0-36.0); MCV 90.7 fL (80-100); MPV 7.4 fL (7.6-11.3); Monocytes % 8.1 % (3.3-12.3); Neutrophils % 67.4 % (41.7-73.7); Platelets 138 thou/uL (152-406); RBC Red Blood Cell Count 4.81 M/uL (4.33-5.43); Red Cell Distribution Width 13.4 % (12.1-15.2)
[2024-03-09 13:22] LABS: Anion Gap 8.9 mEq/L (5.0-15.0); Magnesium 2.1 mg/dL (1.6-2.4); Potassium 3.9 mEq/L (3.5-5.1)
--- NOTE | 2024-03-09 13:49 | RAD REPORT ---
EXAMINATION: CT LUMBAR SPINE WITHOUT CONTRAST CLINICAL INDICATION: Male, 79 years old. LOWER BACK PAIN TECHNIQUE: Axial CT images were obtained through the lumbar spine in soft tissue and bone windows wit hout intravenous contrast. Coronal and Sagittal reformatted images were created from the data set. One or more of the following dose reduction techniques were used: Automated exposure control, adjustm ent of the mA and/ or kV according to patient size, and/or iterative reconstruction. Unless otherwise specified, incidental findings do not require dedicated imaging follow-up. COMPARISON: 08/12/2023 FINDINGS: For purposes of this dictation, it is assumed that there are 5 non rib-bearing lumbar type vertebrae, and the most caudal fully segmented lumbar vertebra is labeled L5. ALIGNMENT: The lumbar spine demonstrates normal alignment without scoliosis or spondylolisthesis. BONES: Progressive inferior endplate compression deformity at T12 with mild vertebral body height los s, favored to be chronic, although some residual left paravertebral swelling may indicate a subacute or progressive component. No aggressive osseous lesions. DISCS: Intervertebral disc space heights are maintained. LEVELS: Stable multilevel degenerative changes with disc height loss most pronounced at L2-3 and L3-4 , broad-based disc osteophyte complex formation, and facet arthropathy, contributing to moderate to severe degrees of neural foraminal narrowing bilaterally at L4-5 and L5-S1, worse on the right, and m oderate degrees of neural foraminal narrowing at other levels. These findings are stable. No significant central canal stenosis. SOFT TISSUE: No soft tissue abnormalities. Exophytic fluid density right superior pole 5.2 cm cyst, s table. IMPRESSION: Progressive inferior endplate compression deformity at T12 as above, may have a subacute component. Otherwise stable moderate to advanced spondylotic changes, contributing to moderate to severe degrees of neural foraminal narrowing most pronounced at L4-5 and L5-S1.
--- NOTE | 2024-03-09 15:31 | RAD REPORT ---
EXAMINATION: ONE VIEW CHEST XR CLINICAL INDICATION: Male, 79 years old.,fall TECHNIQUE: Frontal chest projection is submitted. Examination is limited by patient positioning and t echnique. COMPARISON: 11/07/2023 FINDINGS: The lungs are well inflated and clear. No pneumothorax or sizable effusion. The heart is normal in s ize. Mediastinal contours are unremarkable. Stable right rib deformities, may reflect remote fractures. IMPRESSION: No acute intrathoracic abnormalities.
--- NOTE | 2024-03-09 15:31 | ER ---
Nurse's Notes [facility] Name: Dylon Hannon Age: 79 yrs Sex: Male : 1945 Arrival Date: 03/09/2024 Time: 12:26 Bed 2 Private MD: Diagnosis: Fall on same level, unspecified;Essential (primary) hypertension;Muscle weakness (generalized) Presentation: 03/09 12:33 Chief complaint: EMS states: FOUND DOWN BY HOME HEALTH. Coronavirus screen: At this bp time, the client does not indicate any symptoms associated with coronavirus-19. Ebola Screen: No symptoms or risks identified at this time. Initial Sepsis Screen: Does the patient meet any 2 criteria? No. Patient's initial sepsis screen is negative. Does the patient have a suspected source of infection? No. Patient's initial sepsis screen is negative. Risk Assessment: Do you want to hurt yourself or someone else? Patient reports no desire to harm self or others. Onset of symptoms is unknown. Care prior to arrival: Medication(s) given: zofran 4 mg, FENTANYL 50 MCG IVP IV initiated. 20 GA, in the right wrist, Glucose check: 247. 12:33 Method Of Arrival: EMS: [facility] bp 12:33 Acuity: STEPHANIE 3 bp Triage Assessment: 12:31 General: Appears in no apparent distress. Behavior is calm, cooperative, appropriate bp for age. Pain: Complains of pain in back. EENT: No deficits noted. Neuro: Level of Consciousness is awake, alert, obeys commands, Oriented to Appropriate for age. Cardiovascular: Rhythm is sinus rhythm. Respiratory: No deficits noted. GI: No signs and/or symptoms were reported involving the gastrointestinal system. : No signs and/or symptoms were reported regarding the genitourinary system. Derm: No deficits noted. Musculoskeletal: Reports pain in back. Historical: - Allergies: 12:31 No Known Allergies; bp - PMHx: 12:31 BPH; Cerebrovascular accident; diabetes mellitus; Depression; Fractured left humerus; bp Erectile Dysfunction; Hyperlipidemia; High Cholesterol; Psoriatic Arthritis; Osteoporosis; Hypertensive disorder; short term memory loss; - Immunization history:: Adult Immunizations. - Infectious Disease History:: Denies. - Social history:: Smoking status: Patient denies any tobacco usage or history of. Screenin:34 [facility] ED Fall Risk Assessment (Adult) History of falling in the last 3 months, bp including since admission Yes- physiologic fall (2 pts) Confusion or Disorientation No (0 pts) Intoxicated or Sedated No (0 pts) Impaired Gait Yes (1 pt) Mobility Assist Device Used No (0 pt) Altered Elimination No (0 pt) Score/Fall Risk Level 0 - 2 = Low Risk Oriented to surroundings. Abuse screen: Denies threats or abuse. Denies injuries from another. Nutritional screening: No deficits noted. Tuberculosis screening: No symptoms or risk factors identified. Assessment: 12:34 General: Appears in no apparent distress. Behavior is calm, cooperative, appropriate bp for age. 14:11 Reassessment: Patient appears in no apparent distress at this time. Patient is alert, bp oriented x 3, equal unlabored respirations, skin warm/dry/pink. 15:54 Reassessment: DC ON HOLD PENDING TRANSPORT ARRANGEMENT. bp 16:55 Reassessment: EMS AT B/S FOR TRANSPORT HOME. bp Vital Signs: 12:33 BP 190 / 70; Pulse 70; Resp 16; Temp 98; Pulse Ox 98% on R/A; bp 14:11 BP 154 / 66; Pulse 62; Resp 16; Pulse Ox 100% ; bp 15:53 BP 156 / 78; Pulse 58; Resp 16; Pulse Ox 100% ; bp 16:57 BP 148 / 83; Pulse 56; Resp 16; Pulse Ox 99% ; bp ED Course: 12:31 Patient arrived in ED. bp 12:31 Yaakov Flaherty DO is Attending Physician. ms3 12:33 Arm band placed on. bp 12:34 Triage completed. bp 12:34 Patient has correct armband on for positive identification. bp 12:34 Maintain EMS IV. Dressing intact. Good blood return noted. Site clean \T\ dry. Gauge \T\ bp site: 20GA R WRIST. Flushed with 10 mL NS. 12:38 Mervin Crouch, RN is Primary Nurse. bp 12:[address] via stretcher. hb 12:52 Basic Metabolic Panel Sent. hb 12:52 CBC with Diff Sent. hb 12:52 Magnesium Sent. hb 12:52 Troponin HS Sent. hb 12:52 Initial lab(s) drawn, by me, sent to lab. hb 12:57 CT Lumbar Spine Wo Con In Process Unspecified. EDMS 14:17 XRAY Chest (1 view) In Process Unspecified. EDMS 15:03 Accessed kb3 15:30 Artemio Gutierrez DO is Referral Physician. ms3 16:55 No provider procedures requiring assistance completed. IV discontinued, intact, bp bleeding controlled, No redness/swelling at site. Pressure dressing applied. Administered Medications: No medications were administered Medication: 12:34 VIS not applicable for this client. bp Outcome: 15:30 Discharge ordered by MD. ms3 16:55 Discharged to home via ambulance, bp 16:55 Condition: stable 16:55 Discharge instructions given to patient, EMS, Instructed on discharge instructions, follow up and referral plans. Demonstrated understanding of instructions, follow-up care, 17:06 Patient left the ED. bp Signatures: Dispatcher [employer] EDMS Jessica Barrios, RN RN Mervin Elizabeth, RN RN Yaakov Stevenson DO DO ms3 Laverne Chaudhary, RN RN kb3
--- NOTE | 2024-03-09 15:31 | EDPHYS ---
Physician Documentation [facility] Name: Dylon Hannon Age: 79 yrs Sex: Male : 1945 Arrival Date: 03/09/2024 Time: 12:26 Bed 2 Private MD: ED Physician Yaakov Flaherty HPI: 03/09 13:20 This 79 yrs old Male presents to ER via EMS with complaints of FOUND DOWN BY HOME [facility]. 13:20 Dylon Hannon is a 79-year-old male presenting to the emergency department after being ms3 found on the floor by home health. He has been on the floor since Saturday but was not immobile, as he was crawling around. He is unsure how he ended up on the floor. His chief complaint is sacral back pain, with significant tenderness and early signs of skin breakdown due to pressure. He reports not having taken his medications for diabetes and hypertension. Upon arrival, his blood pressure was 180/70 mmHg, and his blood glucose level was in the 240s. He received 4 mg of Zofran and 50 mcg of fentanyl for pain management by EMS. . Historical: - Allergies: 12:31 No Known Allergies; bp - PMHx: 12:31 BPH; Cerebrovascular accident; diabetes mellitus; Depression; Fractured left humerus; bp Erectile Dysfunction; Hyperlipidemia; High Cholesterol; Psoriatic Arthritis; Osteoporosis; Hypertensive disorder; short term memory loss; - Immunization history:: Adult Immunizations. - Infectious Disease History:: Denies. - Social history:: Smoking status: Patient denies any tobacco usage or history of. ROS: 13:20 Constitutional: Negative for fever, and chills. Cardiovascular: Negative for chest ms3 pain, and palpitations. Respiratory: Negative for shortness of breath, cough, wheezing, and pleuritic chest pain, Abdomen/GI: Negative for abdominal pain, nausea, vomiting, diarrhea, and constipation, MS/Extremity: Negative for injury and deformity, Skin: Negative for injury, rash, and discoloration, 13:20 Back: Positive for Back pain, Exam: 13:18 ECG was reviewed by the Attending Physician. ms3 13:20 Constitutional: This is a well developed, well nourished patient who is awake, alert, ms3 and in no acute distress. Head/Face: Normocephalic, atraumatic. Cardiovascular: Regular rate and rhythm with a normal S1 and S2. No gallops, murmurs, or rubs. Normal PMI, no JVD. No pulse deficits. Respiratory: Lungs have equal breath sounds bilaterally, clear to auscultation and percussion. No rales, rhonchi or wheezes noted. No increased work of breathing, no retractions or nasal flaring. Abdomen/GI: Soft, non-tender, with normal bowel sounds. No distension or tympany. No guarding or rebound. No evidence of tenderness throughout. Skin: Warm, dry with normal turgor. Normal color with no rashes, no lesions, and no evidence of cellulitis. 13:20 Back: pain, that is moderate, of the lumbar area, vertebral tenderness, is not appreciated, Vital Signs: 12:33 BP 190 / 70; Pulse 70; Resp 16; Temp 98; Pulse Ox 98% on R/A; bp 14:11 BP 154 / 66; Pulse 62; Resp 16; Pulse Ox 100% ; bp 15:53 BP 156 / 78; Pulse 58; Resp 16; Pulse Ox 100% ; bp 16:57 BP 148 / 83; Pulse 56; Resp 16; Pulse Ox 99% ; bp MDM: 12:37 Medical Screening Exam initiated ms3 13:20 Differential diagnosis: contusion, fracture, sprain, strain, rhabdo . ms3 15:31 ED course: Discussed observation with patient patient declines. Patient states he would ms3 like to be discharged home. Patient states he feels safe at home. On reevaluation patient symptoms improved, patient is alert and oriented x 4, in no apparent distress, nontoxic-appearing, speaking full sentences. Patient to follow-up Dr. Gutierrez in 2 to 3 days. All questions were answered. Return precautions discussed include worsening symptoms, or any other concerns.. 21:53 Data reviewed: vital signs, nurses notes, and as a result, I will discharge patient. ms3 Consideration of Admission/Observation Escalation of care including admission/observation considered. 21:53 Independent interpretation of the following test(s) in the Emergency Department EKG: ms3 See my EKG interpretation above. Historians other than the Patient: EMS: . Counseling: I had a detailed discussion with the patient and/or guardian regarding the historical points, exam findings, and any diagnostic results supporting the discharge/admit diagnosis, lab results, radiology results, the need for outpatient follow up, to return to the emergency department if symptoms worsen or persist or if there are any questions or concerns that arise at home. 12 12:38 Order name: Basic Metabolic Panel; Complete Time: 13:31 ms3 03/09 12:38 Order name: CBC with Diff; Complete Time: 13:31 ms3 03/09 12:38 Order name: Magnesium; Complete Time: 13:31 ms3 03/09 12:38 Order name: Troponin HS; Complete Time: 13:31 ms3 03/09 12:38 Order name: CK; Complete Time: 13:31 ms3 03/09 12:38 Order name: XRAY Chest (1 view); Complete Time: 16:25 ms3 03/09 12:38 Order name: CT Lumbar Spine Wo Con; Complete Time: 14:12 ms3 03/09 12:38 Order name: Cardiac monitoring; Complete Time: 13:02 ms3 03/09 12:38 Order name: EKG - Nurse/Tech; Complete Time: 13:53 ms3 03/09 12:38 Order name: IV Saline Lock; Complete Time: 13:02 ms3 03/09 12:38 Order name: Labs collected and sent; Complete Time: 12:51 ms3 03/09 12:38 Order name: O2 Per Protocol; Complete Time: 12:52 ms3 03/09 12:38 Order name: O2 Sat Monitoring; Complete Time: 12:52 ms3 EC:18 Rate is 59 beats/min. Rhythm is regular. QRS [place] is Normal. MA interval is normal. QRS ms3 interval is normal. Clinical impression: Sinus bradycardia. Interpreted by me. Reviewed by me. Administered Medications: No medications were administered Disposition Summary: 03/09/24 15:30 Discharge Ordered Notes: Location: Home ms3 Condition: Stable ms3 Diagnosis - Fall on same level, unspecified ms3 - Essential (primary) hypertension ms3 - Muscle weakness (generalized) ms3 Followup: ms3 - With: Artemio Gutierrez DO - When: 2 - 3 days - Reason: Recheck today's complaints Discharge Instructions: - Discharge Summary Sheet ms3 - Hypertension, Adult ms3 - Weakness, [id number] ms3 - DASH Eating Plan ms3 Forms: - Medication Reconciliation Form ms3 - Antibiotic Education ms3 - Prescription Opioid Use ms3 - Patient Portal Instructions ms3 - Leadership Thank You Letter ms3 Signatures: Dispatcher [employer] Mervin Bee, RN RN Yaakov Stevenson DO DO ms3 Corrections: (The following items were deleted from the chart) 12:38 12:38 Chest Single View+RAD.RAD.BRZ ordered. EDMS EDMS 12:38 12:38 Spine Lumbar Wo Con+CT.RAD.BRZ ordered. EDMS EDMS
[2024-03-09 17:31] VITALS: TEMP 98
[2024-03-09 17:35] VITALS: BP 148/83; O2SAT 99
== END 2024-03-09 17:06 | disposition home or self-care (01) ==
LOC: ER 12:26
DX: M62.81 Muscle weakness (generalized) (principal); W18.30XA Fall on same level, unspecified, initial encounter; I10 Essential (primary) hypertension; E11.9 Type 2 diabetes mellitus without complications
CPT/HCPCS: 36415; 71045; 72131; 80048; 82550; 83735; 84484; 85025; 99285

== ENCOUNTER 2024-06-30 18:24 | Emergency (ER) | payer OTHER ==
--- NOTE | 2024-06-30 19:19 | EDPHYS ---
Physician Documentation [facility] Name: Dylon Hannon Age: 79 yrs Sex: Male : 1945 Arrival Date: 06/30/2024 Time: 18:24 Bed 6 Private MD: ED Physician Bharath Godinez HPI: 06/30 19:17 This 79 yrs old Male presents to ER via EMS with complaints of Fall Injury, ec2 ETOH Abuse. 19:17 Patient arrives today after a fall. Patient was getting off the bus and subsequently ec2 tripped and fell, states that he struck his head. No LOC, not on blood thinners. Denies any head or neck pain. Reports no prodromal symptoms, denies chest pain or abdominal pain.. Historical: - Allergies: 18:42 Unable to obtain; kc6 - PMHx: 18:42 BPH; Cerebrovascular accident; Depression; diabetes mellitus; Erectile Dysfunction; kc6 Fractured left humerus; High Cholesterol; Hyperlipidemia; Hypertensive disorder; Osteoporosis; Psoriatic Arthritis; short term memory loss; - PSHx: 18:42 Unable to Obtain; kc6 - Immunization history:: Adult Immunizations unknown. - Infectious Disease History:: Denies. - Social history:: Smoking status: unknown. ROS: 19:17 Constitutional: as per hpi ec2 Exam: 19:17 Constitutional: GEN: No acute distress HEENT: -Head: no deformities -Eyes: EOMI CV: ec2 regular rate LUNGS: no respiratory distress ABD: non-tender SKIN: no wounds appreciated MSK: No C/T/L spine deformities RUE w/o bony deformity LUE w/o bony deformity RLE w/o bony deformity LLE w/o bony deformity NEURO: moves all extremities equally, GCS 15 (E4, V5, M6) Vital Signs: 18:32 BP 135 / 72; Pulse 59; Resp 18 S; Temp 98.7(O); Pulse Ox 95% on R/A; Weight 77.11 kg kc6 (R); Height 5 ft. 11 in. (R); 19:54 BP 141 / 66; Pulse 60; Resp 16; Pulse Ox 97% on R/A; al5 18:32 Body Mass Index 23.71 (77.11 kg, 180.34 cm) kc6 MDM: 18:48 Medical Screening Exam initiated ec2 19:17 Data reviewed: vital signs, nurses notes. ED course: Patient arrives today for ec2 evaluation after a ground-level fall. Examination yields well-appearing nontoxic cooperative individual otherwise in no acute distress with a reassuring examination without evidence of trauma. No ecchymosis on the face over the skull, no bony deformities, patient is well-appearing, has no deformities or step-offs on the spinal column. Patient is appropriate to be discharged home.. Administered Medications: No medications were administered Disposition Summary: 06/30/24 19:18 Discharge Ordered Notes: Location: Home ec2 Condition: Stable ec2 Diagnosis - Fall on same level, unspecified ec2 Followup: ec2 - With: Private Physician - When: - Reason: Re-evaluation by your physician Discharge Instructions: - Discharge Summary Sheet ec2 - Fall Prevention in the Home, Adult, [id number] ec2 Forms: - Medication Reconciliation Form ec2 - Antibiotic Education ec2 - Prescription Opioid Use ec2 - Patient Portal Instructions ec2 - Leadership Thank You Letter ec2 Signatures: Michaela Cruz RN RN kc6 Bharath Godinez MD MD ec2
--- NOTE | 2024-06-30 19:19 | ER ---
Nurse's Notes [facility] Name: Dylon Hannon Age: 79 yrs Sex: Male : 1945 Arrival Date: 06/30/2024 Time: 18:24 Bed 6 Private MD: Diagnosis: Fall on same level, unspecified Presentation: 06/30 18:32 Chief complaint: EMS states: they were toned out for a fall while getting on the bus [facility] home. 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 pt reports drinking two beers and having one shot. Coronavirus screen: At this time, the client does not indicate any symptoms associated with coronavirus-19. Ebola Screen: No symptoms or risks identified at this time. Initial Sepsis Screen: Does the patient meet any 2 criteria? Altered Mental Status. Does the patient have a suspected source of infection? No. Patient's initial sepsis screen is negative. Risk Assessment: Do you want to hurt yourself or someone else? Patient reports no desire to harm self or others. Onset of symptoms was June 30, 2024. 18:32 Method Of Arrival: EMS: [facility] 18:32 Acuity: STEPHANIE 3 [facility] 18:32 Care prior to arrival: IV initiated. 18 GA, in the left forearm, Glucose check: 134. kc6 Historical: - Allergies: 18:42 Unable to obtain; kc6 - PMHx: 18:42 BPH; Cerebrovascular accident; Depression; diabetes mellitus; Erectile Dysfunction; kc6 Fractured left humerus; High Cholesterol; Hyperlipidemia; Hypertensive disorder; Osteoporosis; Psoriatic Arthritis; short term memory loss; - PSHx: 18:42 Unable to Obtain; kc6 - Immunization history:: Adult Immunizations unknown. - Infectious Disease History:: Denies. - Social history:: Smoking status: unknown. Screenin:43 [facility] ED Fall Risk Assessment (Adult) History of falling in the last 3 months, [facility] including since admission Yes- single mechanical fall (1 pt) Confusion or Disorientation Yes (5 pts) Intoxicated or Sedated Yes (3 pts) Impaired Gait No (0 pts) Mobility Assist Device Used Yes (1 pt) Altered Elimination No (0 pt) Score/Fall Risk Level 3 or more points = High Risk Oriented to surroundings, Maintained a safe environment, Educated pt \T\ family on fall prevention, incl call for assistance when getting out of bed. Abuse screen: Denies threats or abuse. Denies injuries from another. Nutritional screening: No deficits noted. Tuberculosis screening: No symptoms or risk factors identified. Assessment: 19:10 General: Appears in no apparent distress. comfortable, Behavior is calm, cooperative. al5 Pain: Denies pain. Neuro: Level of Consciousness is awake, alert, obeys commands, Oriented to person, place, time, situation. Cardiovascular: Capillary refill < 3 seconds Patient's skin is warm and dry. Respiratory: Airway is patent Respiratory effort is even, unlabored, Respiratory pattern is regular, symmetrical. GI: No signs and/or symptoms were reported involving the gastrointestinal system. : No signs and/or symptoms were reported regarding the genitourinary system. EENT: No signs and/or symptoms were reported regarding the EENT system. Derm: Skin is intact, is healthy with good turgor, Skin is pink, warm \T\ dry. normal. Musculoskeletal: No signs and/or symptoms reported regarding the musculoskeletal system. Vital Signs: 18:32 BP 135 / 72; Pulse 59; Resp 18 S; Temp 98.7(O); Pulse Ox 95% on R/A; Weight 77.11 kg kc6 (R); Height 5 ft. 11 in. (R); 19:54 BP 141 / 66; Pulse 60; Resp 16; Pulse Ox 97% on R/A; al5 18:32 Body Mass Index 23.71 (77.11 kg, 180.34 cm) [facility] ED Course: 18:29 Patient arrived in ED. 6 18:30 Bharath Godinez MD is Attending Physician. ec2 18:42 Triage completed. kc6 18:42 Arm band placed on. kc6 18:43 Patient has correct armband on for positive identification. Bed in low position. Call [facility] light in reach. Side rails up X2. Pulse ox on. NIBP on. Door closed. Noise minimized. Lights dimmed. Warm blanket given. Pillow given. Verbal reassurance given. 18:43 Maintain EMS IV. Dressing intact. Good blood return noted. Site clean \T\ dry. Gauge \T\ manuel 6 site: 18G LFA. Flushed with 10 mL NS. Patient maintains SpO2 saturation greater than 95% on room air. 19:04 Report given to Parvin Palma RN \T\ Hilda Yeboah RN. kc6 19:10 Hilda Tran, RN is Primary Nurse. al5 19:10 No provider procedures requiring assistance completed. al5 19:54 Provided Education on: discharge follow up. al5 19:54 IV discontinued, intact, bleeding controlled, No redness/swelling at site. Pressure al5 dressing applied. Administered Medications: No medications were administered Medication: 19:10 VIS not applicable for this client. al5 Outcome: 19:18 Discharge ordered by . ec2 19:55 Discharged to home ambulatory, with walker al5 19:55 Condition: good 19:55 Discharge instructions given to patient, Instructed on discharge instructions, follow up and referral plans. Demonstrated understanding of instructions, follow-up care, 19:55 Patient left the ED. al5 Signatures: Michaela Cruz RN RN kc6 Bharath Godinez MD MD ec2 Langhorst, Amanda, RN RN al5
[2024-06-30 20:17] VITALS: TEMP 98.7
[2024-06-30 20:18] VITALS: BP 141/66; O2SAT 97
== END 2024-06-30 19:55 | disposition home or self-care (01) ==
LOC: ER 18:24
DX: Z04.3 Encounter for examination and observation following other accident (principal); W01.0XXA Fall on same level from slipping, tripping and stumbling without subsequent striking against object, initial encounter
CPT/HCPCS: 99283